=== PATIENT | male | born 1935 | race Caucasian/White ===

== ENCOUNTER → 2016-06-30 | Outpatient (CLI) | payer MEDICARE, BC ==
[2016-06-30 10:40] LABS: CHLORIDE,CL 105 mmol/L (98-110); SODIUM,NA 138 mmol/L (136-146)
== END | disposition home or self-care (01) ==
LOC: MW.CHGS 10:02
PROVIDERS: ATTEND Surgery
DX: Z20.89 Contact with and (suspected) exposure to other communicable diseases (principal); K92.2 Gastrointestinal hemorrhage, unspecified; R15.9 Full incontinence of feces
CPT/HCPCS: 36415; 80053; 85025; 99214

== ENCOUNTER 2017-11-06 07:30 | Day surgery (SDC) | payer MEDICARE, BC ==
[~2017-11-06 07:30] MED LIST: Lactated Ringers 1,000 ML IV SCH
[2017-11-06] MEDS ORDERED: Propofol 200 MG/20 ML SDV ONE (08:29)
[2017-11-06] MEDS ORDERED: fentaNYL 100 MCG/2 ML SDV ONE (08:29)
[2017-11-06] MEDS ORDERED: Midazolam 1 MG/ML 2 ML SDV ONE (08:29)
[2017-11-06] MEDS ORDERED: Lidocaine 2% 5 ML SDV ONE (08:29)
--- NOTE | 2017-11-06 08:30 | PCM.PREANE ---
Preanesthetic Assessment - Anesthesia/Transfusion/Family Hx Anesthesia History: Prior Anesthesia Without Reaction Family History of Anesthesia Reaction: No Transfusion History: No Prior Transfusion(s) Intubation History: Unknown - Review of Systems General: No Symptoms Pulmonary: No Symptoms Cardiovascular: No Symptoms Gastrointestinal: Hematochezia, Other (rectal mass vs. hemorrhoids) Neurological: No Symptoms Other: Reports: None - Physical Assessment NPO Status Date: 11/05/17 NPO Status Time: 23:00 O2 Sat by Pulse Oximetry: 96 Respiratory Rate: 16 Vital Signs: Last Vital Signs Temp 36.4 C 11/06/17 07:50 Pulse 106 H 11/06/17 07:50 Resp 16 11/06/17 07:50 BP 156/86 H 11/06/17 07:50 Pulse Ox 96 11/06/17 07:50 Height: 1.83 m Weight: 94.801 kg ASA Class: 5E Emergency Airway Class: Mallampati = 2 Dentition: Reports: Missing Tooth/Teeth (upper front teeth) Thyro-Mental Finger Breadths: 3 Mouth Opening Finger Breadths: 3 ROM/Head Extension: Limited/Partial Lungs: Clear to Auscultation, Normal Respiratory Effort Cardiovascular: Regular Rate, Regular Rhythm - Allergies Allergies/Adverse Reactions: Allergies Allergy/AdvReac Type Severity Reaction Status Date / Time ipratropium [From Atrovent] Allergy Dizziness Verified 11/01/17 09:46 - Blood Blood Available: No - Anesthesia Plan Pre-Op Medication Ordered: None - Acknowledgements Anesthesia Type Planned: MAC Pt an Appropriate Candidate for the Planned Anesthesia: Yes Alternatives and Risks of Anesthesia Discussed w Pt/Guardian: Yes Pt/Guardian Understands and Agrees with Anesthesia Plan: Yes PreAnesthesia Questionnaire HEENT History: Reports: Allergic Rhinitis, Cataract, Other (See Below) Other HEENT History: wears glasses Cardiovascular History: Reports: None Respiratory History: Reports: None Gastrointestinal History: Reports: GERD Other Gastrointestinal History: indigestion Genitourinary History: Reports: None Musculoskeletal History: Reports: Fracture Neurological History: Reports: None Psychiatric History: Reports: None Endocrine/Metabolic History: Reports: None Hematologic History: Reports: None Immunologic History: Reports: None Oncologic (Cancer) History: Reports: None Dermatologic History: Reports: Other (See Below) Other Dermatologic History: hx of shingles - Infectious Disease History Infectious Disease History: Reports: Chicken Pox, Measles, Shingles - Past Surgical History Head Surgeries/Procedures: Reports: None HEENT Surgical History: Reports: Cataract Surgery GI Surgical History: Reports: Appendectomy Neurological Surgical History: Reports: Lumbar Spine, Spinal Fusion Musculoskeletal Surgical History: Reports: ORIF, Shoulder Surgery Other Musculoskeletal Surgeries/Procedures:: left RTCR, ORIF left wrist- has hardware - SUBSTANCE USE Smoking Status *Q: Former Smoker (quit in ) Recreational Drug Use History: No - HOME MEDS Home Medications: Home Meds Omeprazole 40 mg PO DAILY 11/05/15 [History] Polyethylene Glycol 3350 [MiraLAX] 17 gm PO DAILY 11/05/15 [History] Ascorbate Calcium [Vitamin C] 500 mg PO DAILY 11/01/17 [History] Aspirin [Adult Low Dose Aspirin EC] 81 mg PO DAILY 11/01/17 [History] Dextran 70/Hypromellose [Artificial Tears] 1 drop EYEBOTH ASDIRECTED PRN [History] - CURRENT (IN HOUSE) MEDS Current Meds: Current Medications Lactated Ringer's (Ringers, Lactated) 1,000 mls @ 125 mls/hr IV ASDIRECTED FABIÁN Last Admin: 11/06/17 08:00 Dose: 125 mls/hr
--- NOTE | 2017-11-06 09:40 | PCM.OPNOTE ---
- General Post-Op/Procedure Note Date of Surgery/Procedure: 11/06/17 Operative Procedure(s): Colonoscopy with cold cecal polypectomy 2 Pre Op Diagnosis: Change in bowel function with rectal leakage. Intermittent rectal bleeding. Rectal mass. Post-Op Diagnosis: Cecal polyps 2. Pancolonic diverticulosis. Hemorrhoids. Anesthesia Technique: MAC (ASA II) Primary Surgeon: Adriel Loza Condition: Good Free Text/Narrative:: DICTATION 780019 CPT CODE 42976
[2017-11-06] MEDS ORDERED: Lactated Ringers 1,000 ML IV SCH (09:45)
[2017-11-06 13:27] VITALS: BP 112/64
--- NOTE | 2017-11-06 14:13 | OR ---
SURGEON: Adriel Loza M.D. DATE OF PROCEDURE: 11/06/2017 OPERATION PERFORMED: Colonoscopy with cold ascending colon polypectomy x2. ANESTHESIA: MAC. ASA CLASSIFICATION: II. PREOPERATIVE DIAGNOSES: 1. Change in bowel function. 2. Persistent rectal leakage. 3. Intermittent rectal bleeding. POSTOPERATIVE DIAGNOSES: 1. Cecal polyp x2. 2. Pancolonic diverticulosis. 3. Hemorrhoids. DESCRIPTION OF PROCEDURE: The patient was taken to the endoscopy room and positioned on the endoscopy table in the left lateral decubitus position. Time-out was called for appropriate identification of the patient and procedure. Monitored anesthesia care was provided. The colonoscope was inserted into the rectum and advanced with minimal difficulty to the cecum where the colonoscope was retroflexed to visualize the ascending colon from below. The colonoscope was then straightened and slowly withdrawn. Two small polyps were encountered in the cecum and removed with the cold biopsy forceps. Diverticular changes were noted and scattered throughout the entire length of the colon. The cecum, ascending colon, hepatic flexure, transverse colon, splenic flexure, descending colon, sigmoid colon, and rectum were very well visualized. Two polyps were encountered in the cecum as stated above. No other polyps were encountered. Severe diverticular changes were noted throughout the colon, especially in the sigmoid. Once the colonoscope was withdrawn to the rectum, it was retroflexed to visualize the anal orifice from above. The patient does have internal hemorrhoids. No acute bleeding was noted. The colonoscope was then straightened, the rectum aspirated, and the colonoscope removed. The patient tolerated the procedure well and was taken to recovery room in stable condition. ALEJO / DEBORA /[id number]
== END 2017-11-06 10:50 | disposition home or self-care (01) ==
LOC: MW.SDS 07:30
PROVIDERS: ATTEND Surgery
DX: R19.4 Change in bowel habit (principal); K62.89 Other specified diseases of anus and rectum; D12.0 Benign neoplasm of cecum; K57.30 Diverticulosis of large intestine without perforation or abscess without bleeding; K64.8 Other hemorrhoids; K21.9 Gastro-esophageal reflux disease without esophagitis; Z87.891 Personal history of nicotine dependence; Z79.82 Long term (current) use of aspirin; Z79.899 Other long term (current) drug therapy; Z88.8 Allergy status to other drugs, medicaments and biological substances
CPT/HCPCS: 45380; J2250; J3010; J7120; 00811; 88305; J2704

== ENCOUNTER 2017-11-11 04:11 | Observation (INO) | payer MEDICARE, BC ==
--- NOTE | 2017-11-11 04:13 | EDM.PDOC ---
ED HPI GENERAL MEDICAL PROBLEM - General Stated Complaint: DIZZY Time Seen by Provider: 11/11/17 04:13 Source of Information: Reports: Patient - History of Present Illness INITIAL COMMENTS - FREE TEXT/NARRATIVE: HISTORY AND PHYSICAL: History of present illness: [Patient presents by private vehicle of dizziness Patient was up to the bathroom this evening for urination and became dizzy having vertigo and presents as such On arrival to the emergency room he is stable in no distress he is dizzy and there seems to be a positional component initially with looking down and tilting it to the right, however dizziness resolved for a period will down in CT imaging, on return dizziness also returns at this time it does not seem to have positional component He does not complain of fever nausea vomiting chills sweats no chest pain shortness breath headache or palpitation no urine symptoms she does state that he had recent colonoscopy [address] Loza he has not had a bowel movement last few days he is passing flatness ] Review of systems: As per history of present illness and below otherwise all systems reviewed and negative. Past medical history: As per history of present illness and as reviewed below otherwise noncontributory. Surgical history: As per history of present illness and as reviewed below otherwise noncontributory. Social history: No reported history of drug or alcohol abuse. Family history: As per history of present illness and as reviewed below otherwise noncontributory. Physical exam: HEENT: Atraumatic, normocephalic, pupils reactive, negative for conjunctival pallor or scleral icterus, mucous membranes moist, throat clear, neck supple, nontender, trachea midline. Right ear effusion noted Lungs: Clear to auscultation, breath sounds equal bilaterally, chest nontender. Heart: S1S2, regular, negative for clicks, rubs, or JVD. Abdomen: Soft, nondistended, nontender. Negative for masses or hepatosplenomegaly. Negative for costovertebral tenderness. Pelvis: Stable nontender. Genitourinary: Deferred. Rectal: Deferred. Extremities: Atraumatic, negative for cords or calf pain. Neurovascular unremarkable. Neuro: Awake, alert, oriented. Cranial nerves II through XII unremarkable. Cerebellum unremarkable. Motor and sensory unremarkable throughout. Exam nonfocal. Diagnostics: [CBC CMP UA troponin EKG Chest [address] no contrast iew ] Therapeutics: Normal saline 1 25 mL per hour Reglan 10 mg IV Patient discussed in detail with Dr. 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 - Related Data Allergies Allergy/AdvReac Type Severity Reaction Status Date / Time No Known Allergies Allergy Verified 11/11/17 04:20 Home Meds: Home Meds Omeprazole 40 mg PO DAILY 11/05/15 [History] Polyethylene Glycol 3350 [MiraLAX] 17 gm PO DAILY 11/05/15 [History] Ascorbate Calcium [Vitamin C] 500 mg PO DAILY 11/01/17 [History] Aspirin [Adult Low Dose Aspirin EC] 81 mg PO DAILY 11/01/17 [History] Dextran 70/Hypromellose [Artificial Tears] 1 drop EYEBOTH ASDIRECTED PRN [History] Past Medical History HEENT History: Reports: Allergic Rhinitis, Cataract, Other (See Below) Other HEENT History: wears glasses Cardiovascular History: Reports: None Respiratory History: Reports: None Gastrointestinal History: Reports: GERD Other Gastrointestinal History: indigestion Genitourinary History: Reports: None Musculoskeletal History: Reports: Fracture Neurological History: Reports: None Psychiatric History: Reports: None Endocrine/Metabolic History: Reports: None Hematologic History: Reports: None Immunologic History: Reports: None Oncologic (Cancer) History: Reports: None Dermatologic History: Reports: Other (See Below) Other Dermatologic History: hx of shingles - Infectious Disease History Infectious Disease History: Reports: Chicken Pox, Measles, Shingles - Past Surgical History Head Surgeries/Procedures: Reports: None HEENT Surgical History: Reports: Cataract Surgery GI Surgical History: Reports: Appendectomy Neurological Surgical History: Reports: Lumbar Spine, Spinal Fusion Musculoskeletal Surgical History: Reports: ORIF, Shoulder Surgery Other Musculoskeletal Surgeries/Procedures:: left RTCR, ORIF left wrist- has hardware Social & Family History - Caffeine Use Caffeine Use: Reports: Coffee ED ROS GENERAL - Review of Systems Review Of Systems: See Below ED EXAM, GENERAL - Physical Exam Exam: See Below Course - Vital Signs Last Recorded V/S: Last Vital Signs Temp 97.6 F 11/11/17 04:21 Pulse 89 11/11/17 04:21 Resp 18 11/11/17 04:21 BP 145/93 H 11/11/17 04:21 Pulse Ox 93 L 11/11/17 04:21 - Orders/Labs/Meds Orders: Active Orders 24 hr Category Date Time Status EKG 12 Lead [EKG Documentation Completion] [RC] STAT Care 11/11/17 04:12 Active Chest 1V Frontal [CR] Stat Exams 11/11/17 04:49 Taken Head wo Cont [CT] Stat Exams 11/11/17 04:53 Taken UA W/MICROSCOPIC [URIN] Stat Lab 11/11/17 05:00 Ordered Sodium Chloride 0.9% [Normal Saline] 1,000 ml Med 11/11/17 06:30 Active IV STAT Medication Orders Sodium Chloride (Normal Saline) 1,000 mls @ 125 mls/hr IV STAT FABIÁN Labs: Laboratory Tests 11/11/17 11/11/17 11/11/17 Range/Units 04:29 04:29 05:00 WBC 6.21 (4.0-11.0) K/uL RBC 4.52 (4.50-5.90) M/uL Hgb 14.6 (13.0-17.0) g/dL Hct 42.2 (38.0-50.0) % MCV 93.4 (80.0-98.0) fL MCH 32.3 H (27.0-32.0) pg MCHC 34.6 (31.0-37.0) g/dL RDW Std Deviation 46.6 (28.0-62.0) fl RDW Coeff of Emilee 14 (11.0-15.0) % Plt Count 253 (150-400) K/uL MPV 9.40 (7.40-12.00) fL Neut % (Auto) 56.8 (48.0-80.0) % Lymph % (Auto) 23.0 (16.0-40.0) % [place] % (Auto) 12.6 (0.0-15.0) % Eos % (Auto) 7.4 H (0.0-7.0) % Baso % (Auto) 0.2 (0.0-1.5) % Neut # (Auto) 3.5 (1.4-5.7) K/uL Lymph # (Auto) 1.4 (0.6-2.4) K/uL [place] # (Auto) 0.8 (0.0-0.8) K/uL Eos # (Auto) 0.5 (0.0-0.7) K/uL Baso # (Auto) 0.0 (0.0-0.1) K/uL Nucleated RBC % 0.0 /100WBC Nucleated RBCs # 0 K/uL Sodium 138 (136-148) mmol/L Potassium 4.0 (3.5-5.1) mmol/L Chloride 102 (98-107) mmol/L Carbon Dioxide 25.8 (21.0-32.0) mmol/L BUN 18 (7.0-18.0) mg/dL Creatinine 1.0 (0.8-1.3) mg/dL Est Cr Clr Drug Dosing 63.59 mL/min Estimated GFR (MDRD) > 60.0 ml/min Glucose 139 H (74-106) mg/dL Calcium 9.7 (8.5-10.1) mg/dL Total Bilirubin 0.7 (0.2-1.0) mg/dL AST 26 (15-37) IU/L ALT 33 (14-63) IU/L Alkaline Phosphatase 80 (46-116) U/L Troponin I < 0.050 (0.000-0.056) ng/mL Total Protein 7.5 (6.4-8.2) g/dL Albumin 3.8 (3.4-5.0) g/dL Globulin 3.7 H (2.0-3.5) g/dL Albumin/Globulin Ratio 1.0 L (1.3-2.8) Urine Color YELLOW Urine Appearance CLEAR Urine pH 6.0 (5.0-8.0) Ur Specific [place] 1.025 (1.001-1.035) Urine Protein NEGATIVE (NEGATIVE) mg/dL Urine Glucose (UA) NEGATIVE (NEGATIVE) mg/dL Urine Ketones NEGATIVE (NEGATIVE) mg/dL Urine Occult Blood NEGATIVE (NEGATIVE) Urine Nitrite NEGATIVE (NEGATIVE) Urine Bilirubin NEGATIVE (NEGATIVE) Urine Urobilinogen 0.2 (<2.0) EU/dL Ur Leukocyte Esterase NEGATIVE (NEGATIVE) Urine RBC 0-2 (0-2/HPF) Urine WBC 0-2 (0-5/HPF) Ur Epithelial Cells RARE (NONE-FEW) Urine Bacteria RARE (NEGATIVE) Meds: Medications Generic Name Dose Route Start Last Admin Trade Name Shankar PRN Reason Stop Dose Admin Sodium Chloride 1,000 mls @ 125 mls/hr 11/11/17 06:30 Normal Saline IV STAT FABIÁN Discontinued Medications Generic Name Dose Route Start Last Admin Trade Name Shankar PRN Reason Stop Dose Admin Metoclopramide HCl 10 mg 11/11/17 06:16 Reglan IV 11/11/17 06:17 ONETIME ONE Departure - Departure Time of Disposition: 06:28 Disposition: Refer to Observation Condition: Fair Clinical Impression: Dizziness, Middle ear effusion Constipation Qualifiers: Constipation type: unspecified constipation type Qualified Code(s): K59.00 - Constipation, unspecified - Discharge Information - My Orders Last 24 Hours: My Active Orders 11/11/17 04:12 EKG 12 Lead [EKG Documentation Completion] [RC] STAT 11/11/17 04:49 Chest 1V Frontal [CR] Stat 11/11/17 04:53 Head wo Cont [CT] Stat 11/11/17 05:00 UA W/MICROSCOPIC [URIN] Stat 11/11/17 06:30 Sodium Chloride 0.9% [Normal Saline] 1,000 ml IV STAT - Assessment/Plan Last 24 Hours: My Active Orders 11/11/17 04:12 EKG 12 Lead [EKG Documentation Completion] [RC] STAT 11/11/17 04:49 Chest 1V Frontal [CR] Stat 11/11/17 04:53 Head wo Cont [CT] Stat 11/11/17 05:00 UA W/MICROSCOPIC [URIN] Stat 11/11/17 06:30 Sodium Chloride 0.9% [Normal Saline] 1,000 ml IV STAT
[2017-11-11 05:07] LABS: CHLORIDE,CL 102 mmol/L (98-107); SODIUM,NA 138 mmol/L (136-148)
[2017-11-11] MEDS ORDERED: Metoclopramide 10 MG/2 ML SDV IV ONE (06:16)
[2017-11-11] MEDS ORDERED: Sodium Chloride 0.9% 1,000 ML IV SCH (06:30)
[2017-11-11 11:30] VITALS: BP 129/80
--- NOTE | 2017-11-11 11:40 | PCM.HP ---
H&P History of Present Illness - General Admit Problem/Dx: Admission Diagnosis/Problem Admission Diagnosis/Problem Dizziness - History of Present Illness Initial Comments - Free Text/Narative: 82 yo male presented with dizziness. Patient reports that the room spins and it was worse when ever he would change positions. Patient had a recent colonoscopy and reports has not had a bowel movement in three days. He was evaluated in the ED with head CT which reported no eveidenc of an acute intracranial hemorrhage, mass effect or loss of rojas-white differentiation. 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 Patient's dizziness resolved shortly after presenting to the ED and he had a bowel movement after arrival to medical floor. - Related Data Allergies/Adverse Reactions: Allergies Allergy/AdvReac Type Severity Reaction Status Date / Time No Known Allergies Allergy Verified 11/11/17 04:20 Home Medications: Home Meds Omeprazole 40 mg PO DAILY 11/05/15 [History] Polyethylene Glycol 3350 [MiraLAX] 17 gm PO BEDTIME 11/05/15 [History] Ascorbate Calcium [Vitamin C] 500 mg PO DAILY 11/01/17 [History] Aspirin [Adult Low Dose Aspirin EC] 81 mg PO DAILY 11/01/17 [History] Dextran 70/Hypromellose [Artificial Tears] 1 drop EYEBOTH ASDIRECTED PRN [History] Past Medical History HEENT History: Reports: Allergic Rhinitis, Cataract, Other (See Below) Other HEENT History: wears glasses Cardiovascular History: Reports: None Respiratory History: Reports: None Gastrointestinal History: Reports: GERD Other Gastrointestinal History: indigestion Genitourinary History: Reports: None Musculoskeletal History: Reports: Fracture Neurological History: Reports: None Psychiatric History: Reports: None Endocrine/Metabolic History: Reports: None Hematologic History: Reports: None Immunologic History: Reports: None Oncologic (Cancer) History: Reports: None Dermatologic History: Reports: Other (See Below) Other Dermatologic History: hx of shingles - Infectious Disease History Infectious Disease History: Reports: Chicken Pox, Measles, Shingles - Past Surgical History Head Surgeries/Procedures: Reports: None HEENT Surgical History: Reports: Cataract Surgery GI Surgical History: Reports: Appendectomy Neurological Surgical History: Reports: Lumbar Spine, Spinal Fusion Musculoskeletal Surgical History: Reports: ORIF, Shoulder Surgery Other Musculoskeletal Surgeries/Procedures:: left RTCR, ORIF left wrist- has hardware Social & Family History - Family History Family Medical History: Noncontributory - Tobacco Use Smoking Status *Q: Never Smoker Second Hand Smoke Exposure: No - Caffeine Use Caffeine Use: Reports: Coffee - Recreational Drug Use Recreational Drug Use: No H&P Review of Systems - Review of Systems: Review Of Systems: ROS reveals no pertinent complaints other than HPI. Exam - Vital Signs Vital Signs: Last Vital Signs Temp 36.3 C 11/11/17 11:28 Pulse 88 11/11/17 11:28 Resp 22 H 11/11/17 11:28 BP 129/80 11/11/17 11:28 Pulse Ox 91 L 11/11/17 11:28 Weight: 95.254 kg - Exam General: Alert, Oriented HEENT: Mucosa Moist & [place] Neck: Supple Lungs: Clear to Auscultation, Normal Respiratory Effort Cardiovascular: Regular Rate, Regular Rhythm GI/Abdominal Exam: Normal Bowel Sounds, Soft, Non-Tender Extremities: Non-Tender, No Pedal Edema Skin: Warm, Dry, Intact Neurological: Cranial Nerves Intact, Reflexes Equal Bilateral, Strength Equal Bilateral, Normal Gait - Patient Data Lab Results Last 24 hrs: Laboratory Results - last 24 hr 11/11/17 11/11/17 11/11/17 Range/Units 04:29 04:29 05:00 WBC 6.21 (4.0-11.0) K/uL RBC 4.52 (4.50-5.90) M/uL Hgb 14.6 (13.0-17.0) g/dL Hct 42.2 (38.0-50.0) % MCV 93.4 (80.0-98.0) fL MCH 32.3 H (27.0-32.0) pg MCHC 34.6 (31.0-37.0) g/dL RDW Std Deviation 46.6 (28.0-62.0) fl RDW Coeff of [place] 14 (11.0-15.0) % Plt Count 253 (150-400) K/uL MPV 9.40 (7.40-12.00) fL Neut % (Auto) 56.8 (48.0-80.0) % Lymph % (Auto) 23.0 (16.0-40.0) % [place] % (Auto) 12.6 (0.0-15.0) % Eos % (Auto) 7.4 H (0.0-7.0) % Baso % (Auto) 0.2 (0.0-1.5) % Neut # (Auto) 3.5 (1.4-5.7) K/uL Lymph # (Auto) 1.4 (0.6-2.4) K/uL [place] # (Auto) 0.8 (0.0-0.8) K/uL Eos # (Auto) 0.5 (0.0-0.7) K/uL Baso # (Auto) 0.0 (0.0-0.1) K/uL Nucleated RBC % 0.0 /100WBC Nucleated RBCs # 0 K/uL Sodium 138 (136-148) mmol/L Potassium 4.0 (3.5-5.1) mmol/L Chloride 102 (98-107) mmol/L Carbon Dioxide 25.8 (21.0-32.0) mmol/L BUN 18 (7.0-18.0) mg/dL Creatinine 1.0 (0.8-1.3) mg/dL Est Cr Clr Drug Dosing 63.59 mL/min Estimated GFR (MDRD) > 60.0 ml/min Glucose 139 H (74-106) mg/dL Calcium 9.7 (8.5-10.1) mg/dL Total Bilirubin 0.7 (0.2-1.0) mg/dL AST 26 (15-37) IU/L ALT 33 (14-63) IU/L Alkaline Phosphatase 80 (46-116) U/L Troponin I < 0.050 (0.000-0.056) ng/mL Total Protein 7.5 (6.4-8.2) g/dL Albumin 3.8 (3.4-5.0) g/dL Globulin 3.7 H (2.0-3.5) g/dL Albumin/Globulin Ratio 1.0 L (1.3-2.8) Urine Color YELLOW Urine Appearance CLEAR Urine pH 6.0 (5.0-8.0) Ur Specific [place] 1.025 (1.001-1.035) Urine Protein NEGATIVE (NEGATIVE) mg/dL Urine Glucose (UA) NEGATIVE (NEGATIVE) mg/dL Urine Ketones NEGATIVE (NEGATIVE) mg/dL Urine Occult Blood NEGATIVE (NEGATIVE) Urine Nitrite NEGATIVE (NEGATIVE) Urine Bilirubin NEGATIVE (NEGATIVE) Urine Urobilinogen 0.2 (<2.0) EU/dL Ur Leukocyte Esterase NEGATIVE (NEGATIVE) Urine RBC 0-2 (0-2/HPF) Urine WBC 0-2 (0-5/HPF) Ur Epithelial Cells RARE (NONE-FEW) Urine Bacteria RARE (NEGATIVE) Result Diagrams: 11/11/17 04:29 11/11/17 04:29 Problem List Initiated/Reviewed/Updated: Yes Orders Last 24hrs: Active Orders 24 hr Category Date Time Status Admission Status [Patient Status] [ADT] Stat ADT 11/11/17 06:29 Active EKG 12 Lead [EKG Documentation Completion] [RC] STAT Care 11/11/17 04:12 Active Ready for Discharge [RC] PER UNIT ROUTINE Care 11/11/17 11:34 Ordered Telemetry Monitoring [Cardiac Monitoring] [RC] . Care 11/11/17 06:33 Active DIRECTED PT Evaluation and Treatment [CONS] Routine Cons 11/11/17 07:51 Active Regular Diet [DIET] Diet 11/11/17 Breakfast Active Chest 1V Frontal [CR] Stat Exams 11/11/17 04:49 Taken Head wo Cont [CT] Stat Exams 11/11/17 04:53 Taken UA W/MICROSCOPIC [URIN] Stat Lab 11/11/17 05:00 Ordered Sodium Chloride 0.9% [Normal Saline] 1,000 ml Med 11/11/17 06:30 Active IV STAT Medication Orders Sodium Chloride (Normal Saline) 1,000 mls @ 125 mls/hr IV STAT FABIÁN Last Admin: 11/11/17 06:47 Dose: 125 mls/hr Assessment/Plan Comment:: Patient presented with dizziness and constipation which have both resolved. Dizziness is likely BPPV. Physical therapy was consulted. He was discharged home to have follow up with Dr. Montano regarding the CT scan findings.
--- NOTE | 2017-11-13 12:49 | CR ---
EXAM DATE: 11/11/17 PATIENT'S AGE: 82 Patient: JAYLEN ROLLE Facility: [place], [place] Site . Site : 1935 Study: XRay Chest [id number]/9/[id number] 5:43:53 AM Ordering Physician: Darren Chester Final Report: Indication: Pain. Dizziness Technique: Chest 1 view Comparison: None Findings/Impression: Cardiovascular and mediastinum: Upper limits of normal cardiac size. An ectatic , unfolded aorta. Lungs and pleural space: Lungs are clear. No sign of infiltrate or mass. No sign of pleural effusion. No pneumothorax. Bones and soft tissues: No significant findings. Dictated by Mazin Albright MD @ 11/11/2017 6:05:56 AM Dictated by: Mazin Albright MD @ 11/11/2017 06:06:02 (Electronic Signature) Report Signed by Proxy. MELANIE
--- NOTE | 2017-11-13 12:50 | CT ---
EXAM DATE: 11/11/17 PATIENT'S AGE: 82 Patient: JAYLEN ROLLE Facility: [place], [place] Site . Site : 1935 Study: CT Head [id number]/[id number] 5:44:21 AM Ordering Physician: Darren Chester Final Report: INDICATION: Pain. Dizziness TECHNIQUE: CT head without contrast. COMPARISON: None available FINDINGS: There is age-related cortical atrophy. The ventricles are within normal limits for the patient`s age. There is no mass effect or midline shift. 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 There is no loss of rojas-white differentiation. There is no evidence of an acute intracranial hemorrhage. There is apparent focal ectasia of the right cavernous carotid measuring up to 1.4 x 1.0 centimeters on image 25, apparently mildly protruding into the lateral aspect of the sella. There is a right nasal bone deformity which could be chronic. There is mild right maxillary sinus mucosal thickening. The mastoid air cells are clear. Postsurgical changes are seen in both globes. IMPRESSION: : No evidence of an acute intracranial hemorrhage, mass effect or loss of rojas- white differentiation. 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 Consider further evaluation with MRA or CTA. Dictated by Mazin Albright MD @ 11/11/2017 6:12:38 AM Please note that all CT scans at this facility use dose modulation, iterative reconstruction, and/or weight-based dosing when appropriate to reduce radiation dose to as low as reasonably achievable. Dictated by: Mazin Albright MD @ 11/11/2017 06:12:42 (Electronic Signature) Report Signed by Proxy. [facility]
== END 2017-11-11 13:30 | disposition home or self-care (01) ==
LOC: MW.ED 04:11 → MW.MS 06:29
PROVIDERS: ADMIT Internal Medicine; ATTEND Internal Medicine
DX: R42 Dizziness and giddiness (principal); K21.9 Gastro-esophageal reflux disease without esophagitis; J30.9 Allergic rhinitis, unspecified; Z79.82 Long term (current) use of aspirin; Z79.899 Other long term (current) drug therapy
CPT/HCPCS: 36415; 70450; 71045; 80053; 81001; 84484; 85025; 93005; 96361; 96374; 97161; 99285; G0378; J2765; J7040; 99284

== ENCOUNTER 2018-09-08 13:21 | Emergency (ER) | payer MEDICARE, BC ==
[2018-09-08] MEDS ORDERED: Meclizine 25 MG Tab PO ONE (14:06)
--- NOTE | 2018-09-08 14:09 | EDM.PDOC ---
ED HPI GENERAL MEDICAL PROBLEM - General Chief Complaint: Neuro Symptoms/Deficits Stated Complaint: light headed Time Seen by Provider: 09/08/18 13:41 History Limitations: Reports: No Limitations - History of Present Illness INITIAL COMMENTS - FREE TEXT/NARRATIVE: History of present illness: []Yesterday patient heard a loud pop in his right ear like a gun went off. There was no loud noises. This morning and has dizziness when he turns his head. He has pain inside his ear and on the right side of his scalp. Patient has had shingles in that same distribution in the past. Review of systems: As per history of present illness and below otherwise all systems reviewed and negative. Past medical history: As per history of present illness and as reviewed below otherwise noncontributory. Surgical history: As per history of present illness and as reviewed below otherwise noncontributory. Social history: No reported history of drug or alcohol abuse. Family history: As per history of present illness and as reviewed below otherwise noncontributory. Physical exam: General: Well developed, well nourished in NAD HEENT: Atraumatic, normocephalic, pupils reactive, negative for conjunctival pallor or scleral icterus, mucous membranes moist, throat clear, neck supple, nontender, trachea midline. TMs clear scalp tender to palpation on the right side from forehead to posterior, no rash noted Lungs: Clear to auscultation, breath sounds equal bilaterally, chest nontender. Heart: S1S2, regular, negative for clicks, rubs, or JVD. Abdomen: NABS, Soft, nondistended, nontender. Negative for masses or hepatosplenomegaly. Negative for costovertebral tenderness. Pelvis: Stable nontender. Genitourinary: Deferred. Rectal: Deferred. Extremities: Atraumatic, negative for cords or calf pain. Neurovascular unremarkable. Neuro: Awake, alert, oriented. Cranial nerves II through XII unremarkable. Cerebellum unremarkable. Motor and sensory unremarkable throughout. Exam nonfocal. Skin:warm and dry Diagnostics: CT head, EKG, CBC, chemistry all negative Therapeutics: Meclizine ED Course: Stable Impression: Right ear pain and scalp pain possibly early shingles Prescriptions: Acyclovir Plan: Take meds as directed, follow up with your primary care physician, return to ER if symptoms worsen or change. Definitive disposition and diagnosis as appropriate pending reevaluation and review of above. - Related Data Allergies Allergy/AdvReac Type Severity Reaction Status Date / Time No Known Allergies Allergy Verified 09/08/18 13:30 Home Meds: Home Meds Acyclovir [Zovirax] 800 mg PO 5XDAY #50 tab 09/08/18 [Rx] Past Medical History HEENT History: Reports: Allergic Rhinitis, Cataract, Other (See Below) Other HEENT History: wears glasses Cardiovascular History: Reports: None Respiratory History: Reports: None Gastrointestinal History: Reports: GERD Other Gastrointestinal History: indigestion Genitourinary History: Reports: None Musculoskeletal History: Reports: Fracture Neurological History: Reports: None Psychiatric History: Reports: None Endocrine/Metabolic History: Reports: None Hematologic History: Reports: None Immunologic History: Reports: None Oncologic (Cancer) History: Reports: None Dermatologic History: Reports: Other (See Below) Other Dermatologic History: hx of shingles - Infectious Disease History Infectious Disease History: Reports: Chicken Pox, Measles, Shingles - Past Surgical History Head Surgeries/Procedures: Reports: None HEENT Surgical History: Reports: Cataract Surgery GI Surgical History: Reports: Appendectomy Neurological Surgical History: Reports: Lumbar Spine, Spinal Fusion Musculoskeletal Surgical History: Reports: ORIF, Shoulder Surgery Other Musculoskeletal Surgeries/Procedures:: left RTCR, ORIF left wrist- has hardware Social & Family History - Family History Family Medical History: Noncontributory - Tobacco Use Smoking Status *Q: Never Smoker - Caffeine Use Caffeine Use: Reports: Coffee - Recreational Drug Use Recreational Drug Use: No ED ROS GENERAL - Review of Systems Review Of Systems: ROS reveals no pertinent complaints other than HPI. - Physical Exam Exam: See Below (The history of present illness) Course - Vital Signs Last Recorded V/S: Last Vital Signs Temp 97.8 F 09/08/18 13:26 Pulse 103 H 09/08/18 13:26 Resp 16 09/08/18 13:26 BP 146/95 H 09/08/18 13:26 Pulse Ox 98 09/08/18 13:26 - Orders/Labs/Meds Orders: Active Orders 24 hr Category Date Time Status EKG 12 Lead [EKG Documentation Completion] [RC] STAT Care 09/08/18 13:49 Active Labs: Laboratory Tests 09/08/18 09/08/18 Range/Units 14:35 14:35 WBC 6.45 (4.0-11.0) K/uL RBC 4.63 (4.50-5.90) M/uL Hgb 14.6 (13.0-17.0) g/dL Hct 43.0 (38.0-50.0) % MCV 92.9 (80.0-98.0) fL MCH 31.5 (27.0-32.0) pg MCHC 34.0 (31.0-37.0) g/dL RDW Std Deviation 46.4 (28.0-62.0) fl RDW Coeff of [place]ilee 14 (11.0-15.0) % Plt Count 247 (150-400) K/uL MPV 9.50 (7.40-12.00) fL Neut % (Auto) 61.9 (48.0-80.0) % Lymph % (Auto) 20.5 (16.0-40.0) % [place] % (Auto) 11.2 (0.0-15.0) % Eos % (Auto) 6.2 (0.0-7.0) % Baso % (Auto) 0.2 (0.0-1.5) % Neut # (Auto) 4.0 (1.4-5.7) K/uL Lymph # (Auto) 1.3 (0.6-2.4) K/uL [place] # (Auto) 0.7 (0.0-0.8) K/uL Eos # (Auto) 0.4 (0.0-0.7) K/uL Baso # (Auto) 0.0 (0.0-0.1) K/uL Nucleated RBC % 0.0 /100WBC Nucleated RBCs # 0 K/uL Sodium 135 L (136-148) mmol/L Potassium 4.4 (3.5-5.1) mmol/L Chloride 101 (98-107) mmol/L Carbon Dioxide 22.9 (21.0-32.0) mmol/L BUN 15 (7.0-18.0) mg/dL Creatinine 0.9 (0.8-1.3) mg/dL Est Cr Clr Drug Dosing 71.52 mL/min Estimated GFR (MDRD) > 60.0 ml/min Glucose 106 (74-106) mg/dL Calcium 9.5 (8.5-10.1) mg/dL Total Bilirubin 0.9 (0.2-1.0) mg/dL AST 24 (15-37) IU/L ALT 35 (14-63) IU/L Alkaline Phosphatase 73 (46-116) U/L Total Protein 7.6 (6.4-8.2) g/dL Albumin 3.6 (3.4-5.0) g/dL Globulin 4.0 (2.6-4.0) g/dL Albumin/Globulin Ratio 0.9 (0.9-1.6) Meds: Medications Discontinued Medications Generic Name Dose Route Start Last Admin Trade Name Freq PRN Reason Stop Dose Admin Meclizine HCl 25 mg 09/08/18 14:06 09/08/18 14:27 Antivert PO 09/08/18 14:07 25 mg ONETIME ONE Administration Meclizine HCl Confirm 09/08/18 14:29 09/08/18 14:56 Antivert Administered 09/08/18 14:30 Not Given Dose 25 mg .ROUTE .STK-MED ONE Departure - Departure Time of Disposition: 15:17 Disposition: Home, Self-Care 01 Condition: Good Clinical Impression: Right ear pain, Shingles (herpes zoster) polyneuropathy - Discharge Information *PRESCRIPTION DRUG MONITORING PROGRAM REVIEWED*: Not Applicable *COPY OF PRESCRIPTION DRUG MONITORING REPORT IN PATIENT ALLEN: Not Applicable Prescriptions: Acyclovir [Zovirax] 800 mg PO 5XDAY #50 tab Referrals: PCP,None [Primary Care Provider] - Forms: ED Department Discharge Additional Instructions: The following information is given to patients seen in the emergency department who are being discharged to home. This information is to outline your options for follow-up care. We provide all patients seen in our emergency department with a follow-up referral. The need for follow-up, as well as the timing and circumstances, are variable depending upon the specifics of your emergency department visit. If you don't have a primary care physician on staff, we will provide you with a referral. We always advise you to contact your personal physician following an emergency department visit to inform them of the circumstance of the visit and for follow-up with them and/or the need for any referrals to a consulting specialist. The emergency department will also refer you to a specialist when appropriate. This referral assures that you have the opportunity for follow-up care with a specialist. All of these measure are taken in an effort to provide you with optimal care, which includes your follow-up. Under all circumstances we always encourage you to contact your private physician who remains a resource for coordinating your care. When calling for follow-up care, please make the office aware that this follow-up is from your recent emergency room visit. If for any reason you are refused follow-up, please contact the [facility] at and asked to speak to the emergency department charge nurse. Take meds as directed, follow up with your primary care physician, return to ER if symptoms worsen or change. [facility] [address] [place] [id number] - My Orders Last 24 Hours: My Active Orders 09/08/18 13:49 EKG 12 Lead [EKG Documentation Completion] [RC] STAT - Assessment/Plan Last 24 Hours: My Active Orders 09/08/18 13:49 EKG 12 Lead [EKG Documentation Completion] [RC] STAT
[2018-09-08] MEDS ORDERED: Meclizine 25 MG Tab ONE (14:29)
[2018-09-08 15:07] LABS: CHLORIDE,CL 101 mmol/L (98-107); SODIUM,NA 135 mmol/L (136-148)
--- NOTE | 2018-09-08 15:09 | CT ---
INDICATION: Dizziness. TECHNIQUE: Noncontrast head CT. COMPARISON: November 11, 2017. FINDINGS: There is no evidence for acute intracranial hemorrhage, hydrocephalus, mass effect, or shift of midline structures. No evidence for acute ischemic change or infarction. The rojas-white matter junction is preserved. 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 Please correlate with any recent CT angiogram or MR angiogram. No calvarial or skullbase fracture. The included paranasal sinuses and mastoid air cells are clear. IMPRESSION: 1. Chronic age related changes intracranially. 2. No calvarial or skullbase fracture. 3. 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 Please correlate with any previous CT or MR angiogram. Please note that all CT scans at this facility use dose modulation, iterative reconstruction, and/or weight-based dosing when appropriate to reduce radiation dose to as low as reasonably achievable. Dictated by Girma Kearns MD @ Sep 08 2018 3:03PM Signed by Dr. Girma Kearns @ Sep 08 2018 3:06PM
[2018-09-08 16:33] VITALS: BP 140/92
== END 2018-09-08 15:41 | disposition home or self-care (01) ==
LOC: MW.ED 13:21
DX: B02.9 Zoster without complications (principal); H92.01 Otalgia, right ear
CPT/HCPCS: 36415; 70450; 80053; 85025; 93005; 99284; A9270; 99283

== ENCOUNTER 2019-07-27 17:58 | Emergency (ER) | payer MEDICARE, BC ==
[2019-07-27] MEDS ORDERED: Sodium Chloride 0.9% 10 ML Syringe FLUSH PRN (18:20)
[2019-07-27] MEDS ORDERED: Sodium Chloride 0.9% 2.5 ML Syringe FLUSH PRN (18:20)
[2019-07-27] MEDS ORDERED: Sodium Chloride 0.9% 10 ML SDV IV PRN (18:20)
[2019-07-27 18:42] LABS: BLOOD UREA NITROGEN,BUN 13 mg/dL (7.0-18.0); CHLORIDE,CL 99 mmol/L (98-107); GLUCOSE RANDOM 131 mg/dL (74-106); POTASSIUM,K 4.8 mmol/L (3.5-5.1); SODIUM,NA 135 mmol/L (136-148)
--- NOTE | 2019-07-27 18:58 | CR ---
Chest: AP portable view of the chest was obtained. Comparison: Prior chest x-ray of 11/11/17. Heart is enlarged. Pulmonary vessels are congested. Small bilateral pleural effusions are suspected. Degenerative change is noted within both shoulders. Mild scoliosis and degenerative change is noted within the spine. Impression: 1. Findings as noted above which are felt compatible with early CHF. Diagnostic code #3 Study was dictated in [place] Standard Time
[2019-07-27] MEDS ORDERED: Metoprolol Succinate 25 MG Tab.ER PO ONE (19:21)
[2019-07-27] MEDS ORDERED: Furosemide 40 MG Tab PO ONE (19:21)
[2019-07-27] MEDS ORDERED: Potassium Chloride 20 MEQ Tab.ER PO ONE (19:22)
--- NOTE | 2019-07-27 19:31 | EDM.PDOC ---
ED HPI GENERAL MEDICAL PROBLEM - General Chief Complaint: Respiratory Problem Stated Complaint: short of breath Time Seen by Provider: 07/27/19 19:00 Source of Information: Reports: Patient, Significant Other - History of Present Illness INITIAL COMMENTS - FREE TEXT/NARRATIVE: The patient is an 84-year-old male who presents to the ER for shortness of breath. The patient states that this is been ongoing for 4 weeks. No chest pain. No fevers, no leg swelling, no cough, no hemoptysis, no other acute complaints for some intermittent abdominal bloating without pain. He states that he has seen his primary care physician for this and he has had multiple tests such as blood work, CT angiogram of the chest, as well as some other tests but they have not come up with a diagnosis yet. He states that the shortness of breath is there throughout the day intermittently but it is worse at night when he tries to lay flat and it is better if he sits up. Tonight he had another episode where he felt short of breath so he came in. He is feeling better at the moment. - Related Data Allergies Allergy/AdvReac Type Severity Reaction Status Date / Time No Known Allergies Allergy Verified 07/27/19 18:06 Home Meds: Home Meds Furosemide [Lasix] 40 mg PO DAILY 30 Days #30 tab 07/27/19 [Rx] Metoprolol Succinate [Toprol XL] 25 mg PO BEDTIME 30 Days #30 tab.er 07/27/19 [ Rx] Omeprazole 07/27/19 [History] Potassium Chloride 20 meq PO DAILY 30 Days #30 tablet.er 07/27/19 [Rx] Past Medical History HEENT History: Reports: Allergic Rhinitis, Cataract, Other (See Below) Other HEENT History: wears glasses Cardiovascular History: Reports: None Respiratory History: Reports: None Gastrointestinal History: Reports: GERD Other Gastrointestinal History: indigestion Genitourinary History: Reports: None Musculoskeletal History: Reports: Fracture Neurological History: Reports: None Psychiatric History: Reports: None Endocrine/Metabolic History: Reports: None Hematologic History: Reports: None Immunologic History: Reports: None Oncologic (Cancer) History: Reports: None Dermatologic History: Reports: Other (See Below) Other Dermatologic History: hx of shingles - Infectious Disease History Infectious Disease History: Reports: Chicken Pox, Measles, Shingles - Past Surgical History Head Surgeries/Procedures: Reports: None HEENT Surgical History: Reports: Cataract Surgery GI Surgical History: Reports: Appendectomy Neurological Surgical History: Reports: Lumbar Spine, Spinal Fusion Musculoskeletal Surgical History: Reports: ORIF, Shoulder Surgery Other Musculoskeletal Surgeries/Procedures:: left RTCR, ORIF left wrist- has hardware Social & Family History - Family History Family Medical History: Noncontributory - Tobacco Use Smoking Status *Q: Never Smoker - Caffeine Use Caffeine Use: Reports: None - Recreational Drug Use Recreational Drug Use: No ED ROS GENERAL - Review of Systems Review Of Systems: See Below (Positive for shortness of breath, positive orthopnea, negative for chest pain, negative for cough, negative for fevers, all other Positives and pertinent negatives as per HPI. All other pertinent systems were reviewed and are negative) ED EXAM, GENERAL - Physical Exam Exam: See Below Free Text/Narrative:: Constitutional: Elderly, no acute distress, Non-toxic appearance HEENT.: Normocephalic, Atraumatic, PERRL, EOMI, External ears are atraumatic, nares are patent without epistaxis Neck: Normal range of motion, Trachea Midline, No stridor Respiratory.: No respiratory distress, No tachypnea, Lungs Clear to Auscultation bilaterally without wheezes, there are some crackles in the bases on inspiration Cardiovascular.: Mildly tachycardic rate and regular rhythm without murmurs, rubs, or gallops, good peripheral perfusion GI: Obese, abdomen soft and non tender Genital Urinary: Deferred Musculoskeletal: Good range of motion. All 4 extremities present and atraumatic , trace edema Back: Full Range of Motion Skin: Warm, Dry, Color is ethnicity appropriate, No acute rash. Lymphatic: No lymphadenopathy noted Neurological: Alert, Awake and oriented x 3, No focal deficits noted appreciate , GCS 15 Psych: Affect, Judgement, mood normal Course - Vital Signs Text/Narrative:: Upon presentation a work-up had been initiated and this included an ECG which was reviewed and interpreted by me -there are P waves before every QRS with a regular ventricular rate of 112 bpm. [place] intervals are unremarkable, QRS is prolonged, there are prominent S waves in leads I and aVL, prominent R waves in the inferior leads, poor R wave progression, and RSR pattern in the anterior leads. There is slight ST segment depression in the lateral leads but the T wave morphology is unremarkable. Final interpretation is a normal sinus tachycardic rhythm with a fascicular block and some early strain but no acute ischemic changes. Chest x-ray is reviewed and interpreted by me -there are no pulmonary infiltrates, no pneumothorax, no thoracic masses, there does appear to be vascular congestion and some mild bilateral pleural effusions consistent with congestive heart failure Lab work was unremarkable from an emergency standpoint. BNP had not been obtained as my shift starts at 1900 and all of the lab work has already been ordered. The patient and her in detail, as his history and exam are consistent with mild chronic congestive heart failure. Medical follow-up in this region is difficult and this includes cardiology. As I do not feel that the patient is exhibiting any type of acute emergency, the patient is doing better as he is definitely orthopneic, I believe that I can start this patient at least on some diuretics and beta-blockers which is standard for mild congestive heart failure , along with some potassium replacement and he will be stable to follow-up with his primary care physician who can refer him to a insulator helper in the region. Last Recorded V/S: Last Vital Signs Temp 36.5 C 07/27/19 18:10 Pulse 114 H 07/27/19 18:10 Resp 18 07/27/19 18:10 BP 134/86 07/27/19 18:10 Pulse Ox 98 07/27/19 18:10 - Orders/Labs/Meds Orders: Active Orders 24 hr Category Date Time Status Cardiac Monitoring [RC] . DIRECTED Care 07/27/19 18:20 Active EKG Documentation Completion [RC] STAT Care 07/27/19 18:20 Active Metoprolol Succinate [Toprol XL] Med 07/27/19 19:21 Once 25 mg PO ONETIME ONE Potassium Chloride [Klor-Con M20] Med 07/27/19 19:22 Once 20 meq PO ONETIME ONE Sodium Chloride 0.9% [Normal Saline] Med 07/27/19 18:20 Active 10 ml IV ASDIRECTED PRN Sodium Chloride 0.9% [Saline Flush] Med 07/27/19 18:20 Active 10 ml FLUSH ASDIRECTED PRN Sodium Chloride 0.9% [Saline Flush] Med 07/27/19 18:20 Active 2.5 ml FLUSH ASDIRECTED PRN Peripheral IV Insertion Adult [OM.PC] Stat Oth 07/27/19 18:20 Ordered Medication Orders Furosemide (Lasix) 40 mg PO ONETIME ONE Stop: 07/27/19 19:22 Metoprolol Succinate (Toprol Xl) 25 mg PO ONETIME ONE Stop: 07/27/19 19:22 Potassium Chloride (Klor-Con M20) 20 meq PO ONETIME ONE Stop: 07/27/19 19:23 Sodium Chloride (Saline Flush) 10 ml FLUSH ASDIRECTED PRN PRN Reason: Keep Vein Open Sodium Chloride (Saline Flush) 2.5 ml FLUSH ASDIRECTED PRN PRN Reason: Keep Vein Open Sodium Chloride (Normal Saline) 10 ml IV ASDIRECTED PRN PRN Reason: IV Use Labs: Laboratory Tests 07/27/19 07/27/19 07/27/19 Range/Units 18:10 18:10 18:10 WBC 6.75 (4.0-11.0) K/uL RBC 4.41 L (4.50-5.90) M/uL Hgb 14.1 (13.0-17.0) g/dL Hct 41.9 (38.0-50.0) % MCV 95.0 (80.0-98.0) fL MCH 32.0 (27.0-32.0) pg MCHC 33.7 (31.0-37.0) g/dL RDW Std Deviation 49.0 (28.0-62.0) fl RDW Coeff of [place] 14 (11.0-15.0) % Plt Count 307 (150-400) K/uL MPV 10.50 (7.40-12.00) fL Neut % (Auto) 70.1 (48.0-80.0) % Lymph % (Auto) 13.3 L (16.0-40.0) % [place] % (Auto) 12.6 (0.0-15.0) % Eos % (Auto) 3.7 (0.0-7.0) % Baso % (Auto) 0.3 (0.0-1.5) % Neut # (Auto) 4.7 (1.4-5.7) K/uL Lymph # (Auto) 0.9 (0.6-2.4) K/uL [place] # (Auto) 0.9 H (0.0-0.8) K/uL Eos # (Auto) 0.3 (0.0-0.7) K/uL Baso # (Auto) 0.0 (0.0-0.1) K/uL Nucleated RBC % 0.0 /100WBC Nucleated RBCs # 0 K/uL INR 1.12 Sodium 135 L (136-148) mmol/L Potassium 4.8 (3.5-5.1) mmol/L Chloride 99 (98-107) mmol/L Carbon Dioxide 27.0 (21.0-32.0) mmol/L BUN 13 (7.0-18.0) mg/dL Creatinine 1.2 (0.8-1.3) mg/dL Est Cr Clr Drug Dosing 51.19 mL/min Estimated GFR (MDRD) 57.8 ml/min Glucose 131 H (74-106) mg/dL Calcium 9.9 (8.5-10.1) mg/dL Total Bilirubin 1.1 H (0.2-1.0) mg/dL AST 21 (15-37) IU/L ALT 23 (14-63) IU/L Alkaline Phosphatase 89 (46-116) U/L Troponin I < 0.050 (0.000-0.056) ng/mL Total Protein 7.7 (6.4-8.2) g/dL Albumin 3.8 (3.4-5.0) g/dL Globulin 3.9 (2.6-4.0) g/dL Albumin/Globulin Ratio 1.0 (0.9-1.6) Meds: Medications Generic Name Dose Route Start Last Admin Trade Name Freq PRN Reason Stop Dose Admin Furosemide 40 mg 07/27/19 19:21 Lasix PO 07/27/19 19:22 ONETIME ONE Metoprolol Succinate 25 mg 07/27/19 19:21 Toprol Xl PO 07/27/19 19:22 ONETIME ONE Potassium Chloride 20 meq 07/27/19 19:22 Klor-Con M20 PO 07/27/19 19:23 ONETIME ONE Sodium Chloride 10 ml 07/27/19 18:20 Saline Flush FLUSH ASDIRECTED PRN Keep Vein Open Sodium Chloride 2.5 ml 07/27/19 18:20 Saline Flush FLUSH ASDIRECTED PRN Keep Vein Open Sodium Chloride 10 ml 07/27/19 18:20 Normal Saline IV ASDIRECTED PRN IV Use Departure - Departure Time of Disposition: 19:38 Disposition: Home, Self-Care 01 Condition: Good, Fair Clinical Impression: Chronic congestive heart failure - Discharge Information Referrals: PCP,None [Primary Care Provider] - Additional Instructions: Follow-up closely with your primary care physician and tell him that you need a referral to a insulator helper. The medications prescribed to you are usually used in mild early congestive heart failure you have a 1 month supply. Return if you feel like you are getting worse, you are having chest pain or any other concerns. Sepsis Event Note - Evaluation Sepsis Screening Result: No Definite Risk - Focused Exam Vital Signs: Vital Signs Temp Pulse Resp BP Pulse Ox 07/27/19 18:10 36.5 C 114 H 18 134/86 98 Date Exam was Performed: 07/27/19 Time Exam was Performed: 19:23 - My Orders Last 24 Hours: My Active Orders 07/27/19 19:21 Metoprolol Succinate [Toprol XL] 25 mg PO ONETIME ONE 07/27/19 19:22 Potassium Chloride [Klor-Con M20] 20 meq PO ONETIME ONE - Assessment/Plan Last 24 Hours: My Active Orders 07/27/19 19:21 Metoprolol Succinate [Toprol XL] 25 mg PO ONETIME ONE 07/27/19 19:22 Potassium Chloride [Klor-Con M20] 20 meq PO ONETIME ONE
[2019-07-27 19:52] VITALS: BP 120/85; PULSE 106
== END 2019-07-27 19:50 | disposition home or self-care (01) ==
LOC: MW.ED 17:58
DX: I50.9 Heart failure, unspecified (principal); K21.9 Gastro-esophageal reflux disease without esophagitis; Z79.899 Other long term (current) drug therapy
CPT/HCPCS: 36415; 71045; 80053; 84484; 85025; 85610; 93005; 99285; A9270; 99284

== ENCOUNTER 2019-08-10 14:25 | Emergency (ER) | payer MEDICARE, BC ==
--- NOTE | 2019-08-10 15:17 | CR ---
Chest: 2 views of the chest were obtained. Comparison: Prior chest x-ray of 07/27/19. Heart is enlarged. Tortuous thoracic aorta is seen. Lungs are slightly hyperinflated suggesting emphysematous change. No acute parenchymal change is appreciated. Mild degenerative change is scattered throughout the spine. Impression: 1. Cardiomegaly. 2. Possible emphysematous change. 3. Nothing acute is otherwise seen. Diagnostic code #2 Study was dictated in [place] Standard Time
[2019-08-10 15:49] LABS: BLOOD UREA NITROGEN,BUN 23 mg/dL (7.0-18.0); CARBON DIOXIDE,CO2 24.2 mmol/L (21.0-32.0); CHLORIDE,CL 95 mmol/L (98-107); GLUCOSE RANDOM 138 mg/dL (74-106); POTASSIUM,K 5.2 mmol/L (3.5-5.1); SODIUM,NA 130 mmol/L (136-148)
--- NOTE | 2019-08-10 16:42 | EDM.PDOC ---
ED HPI GENERAL MEDICAL PROBLEM - General Chief Complaint: Respiratory Problem Stated Complaint: SHORTNESS OF BREATH Time Seen by Provider: 08/10/19 14:35 - History of Present Illness INITIAL COMMENTS - FREE TEXT/NARRATIVE: HPI 84-year-old male former smoker with a history of CHF presents for evaluation of approximately 3 months of sensation of shortness of breath both at rest and is exacerbated by exercise, patient is being followed by his PCP but notes worsening symptoms today and presented for repeat evaluation. * PE risk factors: denies recent immobilization, leg trauma, estrogen use, surgery in the last four weeks, hemoptysis, or malignancy in the last 6 months. * Inhaler(s): none prescribed. * CHF: denies weight gain, endorses orthopnea, medical record notes Lasix. M/S/F/SocHx notable for: please see HPI; remainder reviewed with patient and in chart. ROS: Negative constitutional, eye, cardiovascular, pulmonary, GI, , MSK, skin , neurologic, psychiatric, endocrine unless noted in the HPI. Exam HR 94, RR 20, BP 112/75, T 35.7C, SaO2 98% on room air. Gen: Pleasant, non-toxic appearing, resting comfortably. HEENT: NC, AT, PEERL, EOMI, trachea midline. Resp: Clear to auscultation bilaterally, normal work of breathing. Card: RRR with no M/R/G, no crackles in lung bases, no pedal edema, no JVD appreciated. GI: NT/ND Vascular: Both ankles, calves, and thighs of equal size, no calf tenderness to palpation bilaterally. MSK: No chest wall TTP. No visible deformities, strength and tone WNL. Skin: Normal color with no visible lesions. Neuro: alert and oriented 3, no facial asymmetry, vision and hearing WNL. Psych: Mood and affect appropriate. Labs / Imaging (pertinent): WBC 7.61, HB 14.1, d-dimer 0.64, sodium 130, potassium 5.2, creatinine 1.1, troponin <0.050 EKG: SR at 83 bpm, RBBB with LPFB. CXR: cardiomegaly. Possible emphysematous changes. Nothing acute is otherwise seen. MDM Previous chart, nursing note, and vitals reviewed. A: 84-year-old male former smoker with a history of CHF presents for evaluation of approximately 3 months of sensation of shortness of breath both at rest and is exacerbated by exercise, patient is being followed by his PCP but notes worsening symptoms today and presented for repeat evaluation. DDx: pneumonia, reactive airway disease / COPD / Asthma, bronchitis, pneumothorax, anxiety, PE, CHF, pleural effusion, pericardial effusion, ACS. Evaluation: * Pneumonia - as the CXR is without focal infiltrate and the patient is afebrile and without significant sputum production, doubt pneumonia. * Reactive airway disease / COPD / Asthma - patient with good air movement and an absence of wheezing. * Bronchitis - doubt given the lack of productive cough or systemic symptoms. * Pneumothorax - no evidence by CXR. * Anxiety - patient clinically without evidence of appreciable anxiety on exam. * PE Wells' (Signs & Sx of DVT - 0, PE is #1 or equally likelihood - 0, HR > 100 - 0, immobilization of >=3 days or surgery in last 28 days - 0, prior DVT or PE - 0, hemoptysis - 0, malignancy w/ tx in last 6 mo or palliative - 0) 0; as such the patients negative (age adjusted) d-dimer is appropriate for PE rule out/risk stratification. * CHF - no evidence by auscultation, CXR, and absence of pedal edema. * Pleural effusion - CXR without evidence of effusions. * Pericardial effusion - doubt pericardial effusion given an alternate diagnosis , the lack of cardiomegaly on CXR and normal heart sounds. * ACS - doubt ACS given a non-ischemic EKG and a negative troponin greater than six hours from maximal symptom onset. Unstable angina was also considered, however the symptom constellation is highly atypical patient is already receiving excessive, and apparently appropriate, ongoing outpatient evaluation for symptoms. ED Course: patient normoxemic throughout his ED course. Vital signs stable within acceptable limits. Disposition: discharged with PCP and pulmonology follow-up recommended. Impression: shortness of breath. - Related Data Allergies Allergy/AdvReac Type Severity Reaction Status Date / Time No Known Allergies Allergy Verified 07/27/19 18:06 Home Meds: Home Meds Furosemide [Lasix] 40 mg PO DAILY 30 Days #30 tab 07/27/19 [Rx] Metoprolol Succinate [Toprol XL] 25 mg PO BEDTIME 30 Days #30 tab.er 07/27/19 [ Rx] Omeprazole 02/22/20 [History] Potassium Chloride 20 meq PO DAILY 30 Days #30 tablet.er 07/27/19 [Rx] Past Medical History HEENT History: Reports: Allergic Rhinitis, Cataract, Other (See Below) Other HEENT History: wears glasses Cardiovascular History: Reports: None Respiratory History: Reports: None Gastrointestinal History: Reports: GERD Other Gastrointestinal History: indigestion Genitourinary History: Reports: None Musculoskeletal History: Reports: Fracture Neurological History: Reports: None Psychiatric History: Reports: None Endocrine/Metabolic History: Reports: None Hematologic History: Reports: None Immunologic History: Reports: None Oncologic (Cancer) History: Reports: None Dermatologic History: Reports: Other (See Below) Other Dermatologic History: hx of shingles - Infectious Disease History Infectious Disease History: Reports: Chicken Pox - Past Surgical History Head Surgeries/Procedures: Reports: None HEENT Surgical History: Reports: Cataract Surgery GI Surgical History: Reports: Appendectomy Neurological Surgical History: Reports: Lumbar Spine, Spinal Fusion Musculoskeletal Surgical History: Reports: ORIF, Shoulder Surgery Other Musculoskeletal Surgeries/Procedures:: left RTCR, ORIF left wrist- has hardware Social & Family History - Family History Family Medical History: Noncontributory - Tobacco Use Smoking Status *Q: Never Smoker - Caffeine Use Caffeine Use: Reports: None - Recreational Drug Use Recreational Drug Use: No ED ROS GENERAL - Review of Systems Review Of Systems: See Below ED EXAM, GENERAL - Physical Exam Exam: See Below Course - Vital Signs Last Recorded V/S: Last Vital Signs Temp 35.7 C L 08/10/19 14:37 Pulse 94 08/10/19 16:25 Resp 18 08/10/19 16:25 BP 106/76 08/10/19 16:25 Pulse Ox 96 08/10/19 16:25 - Orders/Labs/Meds Orders: Active Orders 24 hr Category Date Time Status EKG 12 Lead [EKG Documentation Completion] [RC] STAT Care 08/10/19 14:55 Active Labs: Laboratory Tests 08/10/19 08/10/19 08/10/19 Range/Units 15:15 15:15 15:15 WBC 7.61 (4.0-11.0) K/uL RBC 4.53 (4.50-5.90) M/uL Hgb 14.1 (13.0-17.0) g/dL Hct 43.5 (38.0-50.0) % MCV 96.0 (80.0-98.0) fL MCH 31.1 (27.0-32.0) pg MCHC 32.4 (31.0-37.0) g/dL RDW Std Deviation 48.7 (28.0-62.0) fl RDW Coeff of Emilee 14 (11.0-15.0) % Plt Count 292 (150-400) K/uL MPV 10.40 (7.40-12.00) fL Neut % (Auto) 80.0 (48.0-80.0) % Lymph % (Auto) 9.5 L (16.0-40.0) % [place] % (Auto) 9.3 (0.0-15.0) % Eos % (Auto) 0.9 (0.0-7.0) % Baso % (Auto) 0.3 (0.0-1.5) % Neut # (Auto) 6.1 H (1.4-5.7) K/uL Lymph # (Auto) 0.7 (0.6-2.4) K/uL [place] # (Auto) 0.7 (0.0-0.8) K/uL Eos # (Auto) 0.1 (0.0-0.7) K/uL Baso # (Auto) 0.0 (0.0-0.1) K/uL Nucleated RBC % 0.0 /100WBC Nucleated RBCs # 0 K/uL D-Dimer, Quantitative 0.64 H (0.0-0.50) mg/L FEU Sodium 130 L (136-148) mmol/L Potassium 5.2 H (3.5-5.1) mmol/L Chloride 95 L (98-107) mmol/L Carbon Dioxide 24.2 (21.0-32.0) mmol/L BUN 23 H (7.0-18.0) mg/dL Creatinine 1.1 (0.8-1.3) mg/dL Est Cr Clr Drug Dosing 55.85 mL/min Estimated GFR (MDRD) > 60.0 ml/min Glucose 138 H (74-106) mg/dL Calcium 10.1 (8.5-10.1) mg/dL Troponin I < 0.050 (0.000-0.056) ng/mL B-Natriuretic Peptide (<100) PG/ML 08/10/19 Range/Units 15:15 WBC (4.0-11.0) K/uL RBC (4.50-5.90) M/uL Hgb (13.0-17.0) g/dL Hct (38.0-50.0) % MCV (80.0-98.0) fL MCH (27.0-32.0) pg MCHC (31.0-37.0) g/dL RDW Std Deviation (28.0-62.0) fl RDW Coeff of Emilee (11.0-15.0) % Plt Count (150-400) K/uL MPV (7.40-12.00) fL Neut % (Auto) (48.0-80.0) % Lymph % (Auto) (16.0-40.0) % [place] % (Auto) (0.0-15.0) % Eos % (Auto) (0.0-7.0) % Baso % (Auto) (0.0-1.5) % Neut # (Auto) (1.4-5.7) K/uL Lymph # (Auto) (0.6-2.4) K/uL [place] # (Auto) (0.0-0.8) K/uL Eos # (Auto) (0.0-0.7) K/uL Baso # (Auto) (0.0-0.1) K/uL Nucleated RBC % /100WBC Nucleated RBCs # K/uL D-Dimer, Quantitative (0.0-0.50) mg/L FEU Sodium (136-148) mmol/L Potassium (3.5-5.1) mmol/L Chloride (98-107) mmol/L Carbon Dioxide (21.0-32.0) mmol/L BUN (7.0-18.0) mg/dL Creatinine (0.8-1.3) mg/dL Est Cr Clr Drug Dosing mL/min Estimated GFR (MDRD) ml/min Glucose (74-106) mg/dL Calcium (8.5-10.1) mg/dL Troponin I (0.000-0.056) ng/mL B-Natriuretic Peptide 678 H (<100) PG/ML Departure - Departure Time of Disposition: 16:41 Disposition: Home, Self-Care 01 Clinical Impression: Shortness of breath - Discharge Information Referrals: Armando Montano MD [Primary Care Provider] - Additional Instructions: You were in seen in the [facility] Emergency Department for evaluation of shortness breath. At the time of your evaluation the cause of your symptoms is unclear. Please read and follow all of the instructions below. Please follow up with your primary care physician on Monday for repeat evaluation, please also follow-up on Monday with your detacher. When calling for follow-up care, please make the office aware that this follow-up is from your recent emergency room visit. If for any reason you are refused follow- up, please contact the [facility] Emergency Department at and asked to speak to the emergency department charge nurse. Your care today was limited to identifying and treating emergent medical problems only. Many people have subtle differences in their test results that require follow up with their outpatient physician(s) to correctly determine if this represents a normal variation or concerning abnormality with respect to your specific health. The care given to you today was limited to identifying and treating emergent medical problems - you need to request a copy of all of your medical records from today's visit and follow up with your outpatient physician(s) to review both today's visit and your overall health. If you have any new symptoms or if you are at all concerned about your health please return immediately to the emergency department. Shortness of Breath, Adult Shortness of breath is when a person has trouble breathing enough air, or when a person feels like she or he is having trouble breathing in enough air. Shortness of breath could be a sign of medical problem. Follow these instructions at home: Pay attention to any changes in your symptoms. Take these actions to help with your condition: Do not smoke. Smoking is a common cause of shortness of breath. If you smoke and you need help quitting, ask your health care provider. Avoid things that can irritate your airways, such as: o Mold. o Dust. o Air pollution. o Chemical fumes. Things that can cause allergy symptoms (allergens), if you have allergies. Keep your living space clean and free of mold and dust. Rest as needed. Slowly return to your usual activities. Take [id number] and prescription medicines, including oxygen and inhaled medicines, only as told by your health care provider. Keep all follow-up visits as told by your health care provider. This is important. Contact a health care provider if: Your condition does not improve as soon as expected. You have a hard time doing your normal activities, even after you rest. You have new symptoms. Get help right away if: Your shortness of breath gets worse. You have shortness of breath when you are resting. You feel light-headed or you faint. You have a cough that is not controlled with medicines. You cough up blood. You have pain with breathing. You have pain in your chest, arms, shoulders, or abdomen. You have a fever. You cannot walk upstairs or exercise the way that you normally do. Prescriptions: If you are uninsured or have financial difficulties with filling your prescription(s), you may consider using a free pharmacy discount service such as [employer] ([employer]) or [employer] ([employer]). These services allow you to search for a medication on your phone (or computer) and obtain a coupon that usually has a significant discount from the list hawkins at a pharmacy. Your physician as well as [facility] does not have a financial relationship with either of these services. You may also wish to speak with your physician to determine if lower cost prescriptions are possible. Obtaining primary care: 1. [facility] provides pediatrics (children), family medicine (children, adults, and some obstetrical care), and internal medicine (adults). Further specialty care is also available. Same day appointments are available. They may be contacted at [phone] and are open Monday through Monday 8 AM to 5 PM. The are located at [facility], [facility] [address] [place] [place] [address]. 2. [facility] offers family medicine, internal medicine, womens health, and further specialty care. [facility] may be contacted at [phone]. [facility] is located at [address] [place], [address]. 3. If you have health insurance, please also contact your insurer for a list of accepting providers under your policy, you may contact these providers for further health care. Occupational health: Work related injuries may consider following up with [facility], . Occupational health services are located at [address] [place] [address] and are open Monday through Monday from 7: 30 am to 5:00 pm. Obstetrical and Gynecological Care: [facility], , Monday through Monday 8 AM to 5 PM. [address] [address]. Eyecare: If you have an eye injury you should follow up with your director of consumer affairs or with [facility], at [phone] or [phone] , they are located at [address] [place] [address]. [facility] Dago Beckham DDS. [address] [place], [place]. Ph. [phone] Stanley Beckham DDS MS. [address] [facility] [address], [place], [place]. Ph. Cecil Rapp DDS. [address] [place] [address]. Ph. [phone] Ben Chang DDS. [address] [facility] [address] [place], [place]. Ph. [phone] Nithin Thurman DDS PC. [address] [facility] [address] [place], [place]. Ph. [phone] Arcadio Devine DDS. [address] [facility]. Ph. [phone] [facility]. [address] [place], [place]. Ph. [phone] [facility]. [address], [place], [place]. Ph. [phone] [facility] [address] [place] [phone]. Ph. [facility]. [address] [place] [address] [address] [place], [place]. Ph. [phone] [facility]. [address] [place], [place]. Ph. Sepsis Event Note - Evaluation Sepsis Screening Result: No Definite Risk - Focused Exam Vital Signs: Vital Signs Temp Pulse Resp BP Pulse Ox 08/10/19 16:25 94 18 106/76 96 08/10/19 14:37 35.7 C L 94 20 112/75 98 Date Exam was Performed: 08/10/19 Time Exam was Performed: 16:41 - My Orders Last 24 Hours: My Active Orders 08/10/19 14:55 EKG 12 Lead [EKG Documentation Completion] [RC] STAT - Assessment/Plan Last 24 Hours: My Active Orders 08/10/19 14:55 EKG 12 Lead [EKG Documentation Completion] [RC] STAT
[2019-08-10] MEDS ORDERED: Furosemide 40 MG/4 ML VIAL IVPUSH ONE (16:54)
[2019-08-10 18:30] LABS: CARBON DIOXIDE,CO2 24.1 mmol/L (21.0-32.0); POTASSIUM,K 4.9 mmol/L (3.5-5.1)
[2019-08-10 18:55] VITALS: BP 99/72; PULSE 87
== END 2019-08-10 19:10 | disposition home or self-care (01) ==
LOC: MW.ED 14:25
DX: R06.02 Shortness of breath (principal); K21.9 Gastro-esophageal reflux disease without esophagitis; Z79.899 Other long term (current) drug therapy
CPT/HCPCS: 36415; 71046; 80048; 83880; 84484; 85025; 85379; 93005; 96374; 99285; J1940; 99283

== ENCOUNTER 2019-11-10 05:33 | Observation (INO) | payer MEDICARE, BC ==
[2019-11-10] MEDS ORDERED: Aspirin 81 MG Tab.Chew PO ONE (05:59)
[2019-11-10] MEDS ORDERED: Sodium Chloride 0.9% 2.5 ML Syringe FLUSH PRN ×2 (05:59)
--- NOTE | 2019-11-10 06:07 | EDM.PDOC ---
<Will Rogers - Last Filed: 11/10/19 10:29> ED HPI GENERAL MEDICAL PROBLEM - General Chief Complaint: Respiratory Problem Stated Complaint: SHORT OF BREATH Time Seen by Provider: 11/10/19 05:55 no pain Pain Score (Numeric/FACES): 0 - Related Data Allergies Allergy/AdvReac Type Severity Reaction Status Date / Time No Known Allergies Allergy Verified 11/10/19 10:43 Home Meds: Home Meds Amiodarone [Cordarone] 200 mg PO DAILY 11/10/19 [History] Apixaban [Eliquis] 5 mg PO BID 11/10/19 [History] Ferrous Sulfate 1 tab PO Q12H 11/10/19 [History] Furosemide 40 mg PO DAILY 11/10/19 [History] Metoprolol Succinate 1 tab PO DAILY 11/10/19 [History] Omeprazole 40 mg PO DAILY 11/10/19 [History] Potassium Chloride [Klor-Con M20] 1 tab PO DAILY 11/10/19 [History] atorvaSTATin [Lipitor] 10 mg PO BEDTIME 11/10/19 [History] lisinopriL [Lisinopril] 5 mg PO DAILY 11/10/19 [History] oxyCODONE HCl/Acetaminophen [Oxycodone-Acetaminophen 5-325] 1 tab PO Q6H PRN 12/22 [History] Course - Vital Signs Text/Narrative:: I accepted care of this patient at [address] Girma Sexton In brief, this is an 84-year-old male with past medical history of CAD status post recent CABG and recent pacemaker placement, chronic congestive heart failure, apixaban anticoagulation presenting with shortness of breath. Mildly hypoxic on arrival 93%. Labs show mild leukocytosis, normal INR, troponin I is elevated 0.105. Bilirubin is elevated 2.2. Electrolytes show mild hyponatremia, otherwise reassuring. Chest x-ray shows cardiomegaly with a small left pleural effusion and a left basilar opacity concerning for atelectasis versus pneumonia. At 0730 I reevaluated the patient personally. He no longer feels dyspneic, denies any chest discomfort. He has no complaints. His lungs are clear to auscultation. He does have 1+ lower extremity edema bilaterally. I reviewed his twelve-lead EKG. Unfortunately he is recently status post new pacemaker placement so his prior ECGs cannot be used for comparison as he has a new pacemaker pattern. He does not have as much discordant ST segment elevation as I would expect in leads V2 and V3 so we will need to repeat this EKG. His BNP is 448, which is about on the lower end compared to prior values going back to August 2019 - repeat EKG and troponin are ordered for about 8:40 AM. 0806: I spoke with the collar runner at [facility], Dr. Begum. He recommended rechecking a troponin and EKG and had no further recommendations. Repeat (second) 12-Lead ECG Interpretation Acquired: 8:00 AM Rhythm: Paced rhythm Rate: 71 bpm [place]: Right Intervals: Paced rhythm Ectopy: None Ischemic Changes: None apparent RV Strain: No obvious RV strain pattern. ST Segments/T-Waves: No notable changes Interpretation: Paced rhythm, no obvious ischemia 0825: I spoke with the patient's collar runner Dr. Sands. I reviewed the findings. He is in agreement with the plan for repeat troponin. If the second troponin is increasing, he recommended observation in the hospital. He also recommended an IV dose of furosemide. 0934: Second troponin increased from 0.105-0.109. I reevaluated the patient and he is still asymptomatic. We are going to start tracking his urine output. Given slight troponin rise, would favor observation status throughout the day to finish the troponin series and continue tracking urine output. This is also what his collar runner had recommended when I spoke with him on the phone. Patient is agreeable to observation stay. I spoke with the accepting hospitalist Dr. Harris who agrees to admit to observation. Last Recorded V/S: Last Vital Signs Temp 36.7 C 11/10/19 22:42 Pulse 73 11/10/19 22:42 Resp 16 11/10/19 22:42 BP 109/63 11/10/19 22:42 Pulse Ox 95 11/10/19 22:42 - Orders/Labs/Meds Orders: Active Orders 24 hr Category Date Time Status Patient Status [ADT] Stat ADT 11/10/19 09:35 Active Intake and Output Strict [RC] Q4H Care 11/10/19 09:51 Active Sodium Chloride 0.9% [Saline Flush] Med 11/10/19 05:59 Active 2.5 ml FLUSH ASDIRECTED PRN Sodium Chloride 0.9% [Saline Flush] Med 11/10/19 05:59 Active 2.5 ml FLUSH ASDIRECTED PRN Saline Lock Insert [OM.PC] Stat Oth 11/10/19 05:59 Ordered Medication Orders Albuterol/Ipratropium (Duoneb 3.0-0.5 Mg/3 Ml) 3 ml NEB Q4HRRT PRN PRN Reason: Shortness Of Breath/wheezing Furosemide (Lasix) 40 mg IVPUSH BIDDIURETIC FABIÁN Last Admin: 11/10/19 13:00 Dose: 40 mg Piperacillin Sod/Tazobactam (Sod 3.375 gm/ Sodium Chloride) 50 mls @ 100 mls/ hr IV Q8H FABIÁN Last Admin: 11/10/19 18:34 Dose: 100 mls/hr Infusion: 11/10/19 12:24 Dose: 100 mls/hr Admin: 11/10/19 11:54 Dose: 100 mls/hr Vancomycin HCl 1.25 gm/ Sodium (Chloride) 250 mls @ 166.667 mls/hr IV Q12H FABIÁN Last Admin: 11/10/19 12:51 Dose: 166.667 mls/hr Amiodarone 200 Mg (Tab) 1 each PO DAILY FABIÁN Last Admin: 11/10/19 14:08 Dose: 1 each Apixaban 5 Mg Tab 1 each PO BID FABIÁN Last Admin: 11/10/19 22:37 Dose: Admin: 11/10/19 14:10 Dose: 1 each Atorvastatin 10 Mg (Tab) 1 each PO BEDTIME FABIÁN Last Admin: 11/10/19 22:37 Dose: Not Given Admin: 11/10/19 14:06 Dose: 1 each Lisinopril 5 Mg Tab 1 each PO DAILY FABIÁN Last Admin: 11/10/19 14:08 Dose: 1 each Metoprolol Succinate (50 Mg Tab.Er) 1 each PO DAILY FABIÁN Last Admin: 11/10/19 14:09 Dose: 1 each Omeprazole 40 Mg Cap (.Cr) 1 each PO ACBREAKFAST FABIÁN Last Admin: 11/10/19 14:07 Dose: 1 each Ferrous Sulfate (324mg) 1 each PO Q12H FABIÁN Last Admin: 11/10/19 14:05 Dose: 1 each Acetaminophen/Oxycodone 325-5 Mg Tab 1 each PO Q6H PRN PRN Reason: Pain Sodium Chloride (Saline Flush) 2.5 ml FLUSH ASDIRECTED PRN PRN Reason: Keep Vein Open Sodium Chloride (Saline Flush) 2.5 ml FLUSH ASDIRECTED PRN PRN Reason: Keep Vein Open Vancomycin HCl (Pharmacy To Dose - Vancomycin) 1 dose .XX ASDIRECTED [facility] Labs: Laboratory Tests 11/10/19 11/10/19 11/10/19 Range/Units 05:41 05:41 05:41 WBC 12.59 H (4.0-11.0) K/uL RBC 3.10 L (4.50-5.90) M/uL Hgb 9.7 L (13.0-17.0) g/dL Hct 29.7 L (38.0-50.0) % MCV 95.8 (80.0-98.0) fL MCH 31.3 (27.0-32.0) pg MCHC 32.7 (31.0-37.0) g/dL RDW Std Deviation 53.9 (28.0-62.0) fl RDW Coeff of Emilee 16 H (11.0-15.0) % Plt Count 492 H (150-400) K/uL MPV 8.90 (7.40-12.00) fL Neut % (Auto) 77.1 (48.0-80.0) % Lymph % (Auto) 10.3 L (16.0-40.0) % Parke % (Auto) 8.7 (0.0-15.0) % Eos % (Auto) 3.7 (0.0-7.0) % Baso % (Auto) 0.2 (0.0-1.5) % Neut # (Auto) 9.7 H (1.4-5.7) K/uL Lymph # (Auto) 1.3 (0.6-2.4) K/uL Parke # (Auto) 1.1 H (0.0-0.8) K/uL Eos # (Auto) 0.5 (0.0-0.7) K/uL Baso # (Auto) 0.0 (0.0-0.1) K/uL Nucleated RBC % 0.0 /100WBC Nucleated RBCs # 0 K/uL INR 1.16 Sodium 133 L (136-148) mmol/L Potassium 4.0 (3.5-5.1) mmol/L Chloride 98 (98-107) mmol/L Carbon Dioxide 24.7 (21.0-32.0) mmol/L BUN 11 (7.0-18.0) mg/dL Creatinine 1.2 (0.8-1.3) mg/dL Est Cr Clr Drug Dosing 51.19 mL/min Estimated GFR (MDRD) 57.8 ml/min Glucose 107 H (74-106) mg/dL Calcium 8.6 (8.5-10.1) mg/dL Total Bilirubin 2.2 H (0.2-1.0) mg/dL AST 27 (15-37) IU/L ALT 34 (14-63) IU/L Alkaline Phosphatase 106 (46-116) U/L Troponin I 0.105 H* (0.000-0.056) ng/mL B-Natriuretic Peptide (<100) PG/ML Total Protein 6.7 (6.4-8.2) g/dL Albumin 2.9 L (3.4-5.0) g/dL Globulin 3.8 (2.6-4.0) g/dL Albumin/Globulin Ratio 0.8 L (0.9-1.6) 11/10/19 11/10/19 Range/Units 05:41 08:48 WBC (4.0-11.0) K/uL RBC (4.50-5.90) M/uL Hgb (13.0-17.0) g/dL Hct (38.0-50.0) % MCV (80.0-98.0) fL MCH (27.0-32.0) pg MCHC (31.0-37.0) g/dL RDW Std Deviation (28.0-62.0) fl RDW Coeff of Emilee (11.0-15.0) % Plt Count (150-400) K/uL MPV (7.40-12.00) fL Neut % (Auto) (48.0-80.0) % Lymph % (Auto) (16.0-40.0) % Parke % (Auto) (0.0-15.0) % Eos % (Auto) (0.0-7.0) % Baso % (Auto) (0.0-1.5) % Neut # (Auto) (1.4-5.7) K/uL Lymph # (Auto) (0.6-2.4) K/uL Parke # (Auto) (0.0-0.8) K/uL Eos # (Auto) (0.0-0.7) K/uL Baso # (Auto) (0.0-0.1) K/uL Nucleated RBC % /100WBC Nucleated RBCs # K/uL INR Sodium (136-148) mmol/L Potassium (3.5-5.1) mmol/L Chloride (98-107) mmol/L Carbon Dioxide (21.0-32.0) mmol/L BUN (7.0-18.0) mg/dL Creatinine (0.8-1.3) mg/dL Est Cr Clr Drug Dosing mL/min Estimated GFR (MDRD) ml/min Glucose (74-106) mg/dL Calcium (8.5-10.1) mg/dL Total Bilirubin (0.2-1.0) mg/dL AST (15-37) IU/L ALT (14-63) IU/L Alkaline Phosphatase (46-116) U/L Troponin I 0.109 H* (0.000-0.056) ng/mL B-Natriuretic Peptide 448 H (<100) PG/ML Total Protein (6.4-8.2) g/dL Albumin (3.4-5.0) g/dL Globulin (2.6-4.0) g/dL Albumin/Globulin Ratio (0.9-1.6) Meds: Medications Generic Name Dose Route Start Last Admin Trade Name Freq PRN Reason Stop Dose Admin Albuterol/Ipratropium 3 ml 11/10/19 11:05 Duoneb 3.0-0.5 Mg/3 Ml NEB Q4HRRT PRN Shortness Of Breath/wheezing Furosemide 40 mg 11/10/19 14:00 11/10/19 13:00 Lasix IVPUSH 40 mg BIDDIURETIC FABIÁN Administration Piperacillin Sod/Tazobactam 50 mls @ 100 mls/hr 11/10/19 11:15 11/10/19 18:34 Sod 3.375 gm/ Sodium Chloride IV 100 mls/hr Q8H FABIÁN Administration Vancomycin HCl 1.25 gm/ Sodium 250 mls @ 166.667 mls/hr 11/10/19 12:30 12:51 Chloride IV 166.667 mls/hr Q12H FABIÁN Administration Amiodarone 200 Mg 1 each 11/11/19 09:00 11/10/19 14:08 Tab PO 1 each DAILY FABIÁN Administration Apixaban 5 Mg Tab 1 each 11/10/19 21:00 11/10/19 22:37 PO Not Given BID FABIÁN Atorvastatin 10 Mg 1 each 11/10/19 21:00 11/10/19 22:37 Tab PO Not Given BEDTIME FABIÁN Lisinopril 5 Mg Tab 1 each 11/11/19 09:00 11/10/19 14:08 PO 1 each DAILY FABIÁN Administration Metoprolol Succinate 1 each 11/11/19 09:00 11/10/19 14:09 50 Mg Tab.Er PO 1 each DAILY FABIÁN Administration Omeprazole 40 Mg Cap 1 each 11/11/19 07:30 11/10/19 14:07 .Cr PO 1 each ACBREAKFAST FABIÁN Administration Ferrous Sulfate 1 each 11/10/19 14:00 11/10/19 14:05 324mg PO 1 each Q12H FABIÁN Administration Acetaminophen/ 1 each 11/10/19 14:00 Oxycodone 325-5 Mg PO Tab Q6H PRN Pain Sodium Chloride 2.5 ml 11/10/19 05:59 Saline Flush FLUSH ASDIRECTED PRN Keep Vein Open Sodium Chloride 2.5 ml 11/10/19 05:59 Saline Flush FLUSH ASDIRECTED PRN Keep Vein Open Vancomycin HCl 1 dose 11/10/19 11:15 Pharmacy To Dose - Vancomycin .XX ASDIRECTED FABIÁN Discontinued Medications Generic Name Dose Route Start Last Admin Trade Name Freq PRN Reason Stop Dose Admin Aspirin 324 mg 11/10/19 05:59 11/10/19 06:09 Aspirin PO 11/10/19 06:00 324 mg ONETIME ONE Administration Ferrous Sulfate 325 mg 11/10/19 13:30 11/10/19 16:27 Ferrous Sulfate PO Not Given Q12H FABIÁN Furosemide 40 mg 11/10/19 08:21 11/10/19 08:27 Lasix IVPUSH 11/10/19 08:22 40 mg NOW ONE Administration Furosemide 20 mg 11/10/19 11:11 11/10/19 11:54 Lasix IVPUSH 11/10/19 11:12 20 mg NOW ONE Administration Morphine Sulfate 1 mg 11/10/19 11:05 Morphine IVPUSH 11/11/19 11:05 Q4H PRN Pain (severe 7-10) Oxycodone/Acetaminophen 1 tab 11/10/19 13:23 Percocet 325-5 Mg PO Q6H PRN Pain Departure - Departure Time of Disposition: 09:30 Disposition: Refer to Observation Clinical Impression: Congestive heart failure Qualifiers: Heart failure type: systolic Heart failure chronicity: acute on chronic Qualified Code(s): I50.23 - Acute on chronic systolic (congestive) heart failure - Discharge Information Sepsis Event Note - Focused Exam Date Exam was Performed: 11/10/19 Time Exam was Performed: 10:29 - My Orders Last 24 Hours: My Active Orders 11/10/19 05:59 Sodium Chloride 0.9% [Saline Flush] 2.5 ml FLUSH ASDIRECTED PRN Sodium Chloride 0.9% [Saline Flush] 2.5 ml FLUSH ASDIRECTED PRN Saline Lock Insert [OM.PC] Stat - Assessment/Plan Last 24 Hours: My Active Orders 11/10/19 05:59 Sodium Chloride 0.9% [Saline Flush] 2.5 ml FLUSH ASDIRECTED PRN Sodium Chloride 0.9% [Saline Flush] 2.5 ml FLUSH ASDIRECTED PRN Saline Lock Insert [OM.PC] Stat <Girma Sexton - Last Filed: 11/10/19 23:32> ED HPI GENERAL MEDICAL PROBLEM - History of Present Illness INITIAL COMMENTS - FREE TEXT/NARRATIVE: History of present illness: [] Patient presents with a new onset of shortness of breath he states laying down makes it worse he is not able to tolerate lying flat. He denies any chest pains had no fever chills or no cough he has had some minimal leg swelling worse in the left leg he recently 1 week ago had a bypass surgery and pacemaker placed in [place]. Review of systems: As per history of present illness and below otherwise all systems reviewed and negative. Past medical history: As per history of present illness and as reviewed below otherwise noncontributory. Surgical history: As per history of present illness and as reviewed below otherwise noncontributory. Social history: No reported history of drug or alcohol abuse. Family history: As per history of present illness and as reviewed below otherwise noncontributory. Physical exam: HEENT: Atraumatic, normocephalic, pupils reactive, negative for conjunctival pallor or scleral icterus, mucous membranes moist, throat clear, neck supple, nontender, trachea midline. Lungs: Clear to auscultation, breath sounds equal bilaterally, chest nontender. Heart: S1S2, regular, negative for clicks, rubs, or JVD. Median sternotomy and pacemaker appear to be healing well without infection Abdomen: Soft, nondistended, nontender. Negative for masses or hepatosplenomegaly. Negative for costovertebral tenderness. Pelvis: Stable nontender. Genitourinary: Deferred. Rectal: Deferred. Extremities: Atraumatic, negative for cords or calf pain. Neurovascular unremarkable. 1 Plus lower extremity edema Neuro: Awake, alert, oriented. Cranial nerves II through XII unremarkable. Cerebellum unremarkable. Motor and sensory unremarkable throughout. Exam nonfocal. Diagnostics: [] Therapeutics: [] Impression: Shortness of breath [] Plan: Work-up will be obtained and I will reassess the patient [] Definitive disposition and diagnosis as appropriate pending reevaluation and review of above. Past Medical History HEENT History: Reports: Allergic Rhinitis, Cataract, Other (See Below) Other HEENT History: wears glasses Cardiovascular History: Reports: None Respiratory History: Reports: None Gastrointestinal History: Reports: GERD Other Gastrointestinal History: indigestion Genitourinary History: Reports: None Musculoskeletal History: Reports: Fracture Neurological History: Reports: None Psychiatric History: Reports: None Endocrine/Metabolic History: Reports: None Hematologic History: Reports: None Immunologic History: Reports: None Oncologic (Cancer) History: Reports: None Dermatologic History: Reports: Other (See Below) Other Dermatologic History: hx of shingles - Infectious Disease History Infectious Disease History: Reports: Chicken Pox - Past Surgical History Head Surgeries/Procedures: Reports: None HEENT Surgical History: Reports: Cataract Surgery GI Surgical History: Reports: Appendectomy Neurological Surgical History: Reports: Lumbar Spine, Spinal Fusion Musculoskeletal Surgical History: Reports: ORIF, Shoulder Surgery Other Musculoskeletal Surgeries/Procedures:: left RTCR, ORIF left wrist- has hardware Social & Family History - Family History Family Medical History: Noncontributory - Caffeine Use Caffeine Use: Reports: None ED ROS GENERAL - Review of Systems Review Of Systems: See Below ED EXAM, GENERAL - Physical Exam Exam: See Below EKG INTERPRETATION EKG Interpretation Comments: Pacemaker rhythm 70 bpm no ischemic changes no comparisons read and interpreted by me Course - Vital Signs Text/Narrative:: One-view portable chest read interpreted by me there is a pacemaker in the appropriate orientation there is a left pleural effusion median sternotomy evident mild cardiomegaly - Orders/Labs/Meds Labs: Laboratory Tests 11/10/19 11/10/19 11/10/19 Range/Units 05:41 05:41 05:41 WBC 12.59 H (4.0-11.0) K/uL RBC 3.10 L (4.50-5.90) M/uL Hgb 9.7 L (13.0-17.0) g/dL Hct 29.7 L (38.0-50.0) % MCV 95.8 (80.0-98.0) fL MCH 31.3 (27.0-32.0) pg MCHC 32.7 (31.0-37.0) g/dL RDW Std Deviation 53.9 (28.0-62.0) fl RDW Coeff of Emilee 16 H (11.0-15.0) % Plt Count 492 H (150-400) K/uL MPV 8.90 (7.40-12.00) fL Neut % (Auto) 77.1 (48.0-80.0) % Lymph % (Auto) 10.3 L (16.0-40.0) % Parke % (Auto) 8.7 (0.0-15.0) % Eos % (Auto) 3.7 (0.0-7.0) % Baso % (Auto) 0.2 (0.0-1.5) % Neut # (Auto) 9.7 H (1.4-5.7) K/uL Lymph # (Auto) 1.3 (0.6-2.4) K/uL Parke # (Auto) 1.1 H (0.0-0.8) K/uL Eos # (Auto) 0.5 (0.0-0.7) K/uL Baso # (Auto) 0.0 (0.0-0.1) K/uL Nucleated RBC % 0.0 /100WBC Nucleated RBCs # 0 K/uL INR 1.16 Sodium 133 L (136-148) mmol/L Potassium 4.0 (3.5-5.1) mmol/L Chloride 98 (98-107) mmol/L Carbon Dioxide 24.7 (21.0-32.0) mmol/L BUN 11 (7.0-18.0) mg/dL Creatinine 1.2 (0.8-1.3) mg/dL Est Cr Clr Drug Dosing 51.19 mL/min Estimated GFR (MDRD) 57.8 ml/min Glucose 107 H (74-106) mg/dL Calcium 8.6 (8.5-10.1) mg/dL Total Bilirubin 2.2 H (0.2-1.0) mg/dL AST 27 (15-37) IU/L ALT 34 (14-63) IU/L Alkaline Phosphatase 106 (46-116) U/L Troponin I 0.105 H* (0.000-0.056) ng/mL B-Natriuretic Peptide (<100) PG/ML Total Protein 6.7 (6.4-8.2) g/dL Albumin 2.9 L (3.4-5.0) g/dL Globulin 3.8 (2.6-4.0) g/dL Albumin/Globulin Ratio 0.8 L (0.9-1.6) 11/10/19 11/10/19 Range/Units 05:41 08:48 WBC (4.0-11.0) K/uL RBC (4.50-5.90) M/uL Hgb (13.0-17.0) g/dL Hct (38.0-50.0) % MCV (80.0-98.0) fL MCH (27.0-32.0) pg MCHC (31.0-37.0) g/dL RDW Std Deviation (28.0-62.0) fl RDW Coeff of Emilee (11.0-15.0) % Plt Count (150-400) K/uL MPV (7.40-12.00) fL Neut % (Auto) (48.0-80.0) % Lymph % (Auto) (16.0-40.0) % Parke % (Auto) (0.0-15.0) % Eos % (Auto) (0.0-7.0) % Baso % (Auto) (0.0-1.5) % Neut # (Auto) (1.4-5.7) K/uL Lymph # (Auto) (0.6-2.4) K/uL Parke # (Auto) (0.0-0.8) K/uL Eos # (Auto) (0.0-0.7) K/uL Baso # (Auto) (0.0-0.1) K/uL Nucleated RBC % /100WBC Nucleated RBCs # K/uL INR Sodium (136-148) mmol/L Potassium (3.5-5.1) mmol/L Chloride (98-107) mmol/L Carbon Dioxide (21.0-32.0) mmol/L BUN (7.0-18.0) mg/dL Creatinine (0.8-1.3) mg/dL Est Cr Clr Drug Dosing mL/min Estimated GFR (MDRD) ml/min Glucose (74-106) mg/dL Calcium (8.5-10.1) mg/dL Total Bilirubin (0.2-1.0) mg/dL AST (15-37) IU/L ALT (14-63) IU/L Alkaline Phosphatase (46-116) U/L Troponin I 0.109 H* (0.000-0.056) ng/mL B-Natriuretic Peptide 448 H (<100) PG/ML Total Protein (6.4-8.2) g/dL Albumin (3.4-5.0) g/dL Globulin (2.6-4.0) g/dL Albumin/Globulin Ratio (0.9-1.6) Sepsis Event Note - Evaluation Sepsis Screening Result: No Definite Risk - Focused Exam Date Exam was Performed: 11/10/19 Time Exam was Performed: 23:31
[2019-11-10 06:38] LABS: CARBON DIOXIDE,CO2 24.7 mmol/L (21.0-32.0)
--- NOTE | 2019-11-10 06:58 | CR ---
INDICATION: Shortness of breath TECHNIQUE: Chest 1 view COMPARISON: None FINDINGS: Cardiovascular and mediastinum: Cardiomegaly with left-sided dual lead pacemaker. Mild aortic tortuosity. Lungs and pleural spaces: Small left pleural effusion with mild left basilar airspace disease. Bones and soft tissues: Status post median sternotomy. IMPRESSION: Cardiomegaly with small left pleural effusion with left basilar airspace disease consistent with atelectasis or pneumonia. Dictated by Garret Crockett MD @ Nov 10 2019 6:54AM Signed by Dr. Garret Crockett @ Nov 10 2019 6:57AM
[2019-11-10] MEDS ORDERED: Furosemide 40 MG/4 ML VIAL IVPUSH ONE ×2 (08:21→11:11)
[2019-11-10] MEDS ORDERED: Albuterol/Ipratropium 3.0-0.5 MG/3 ML Neb Soln NEB PRN (11:05)
[2019-11-10] MEDS ORDERED: Morphine 2 MG/ML SYRINGE IVPUSH PRN (11:05)
--- NOTE | 2019-11-10 11:12 | PCM.HP.2 ---
H&P History of Present Illness - General Date of Service: 11/10/19 Admit Problem/Dx: Admission Diagnosis/Problem Admission Diagnosis/Problem Congestive heart failure Source of Information: Patient, Family, Provider - History of Present Illness Initial Comments - Free Text/Narative: Patient is a 84-year-old male with past medical history of CAD status post recent CABG and recent pacemaker placement in [facility] , chronic congestive heart failure, apixaban anticoagulation presenting with shortness of breath and Mildly hypoxic on arrival 93%. Labs show mild leukocytosis, troponin I was elevated 0.105. Bilirubin is elevated 2.2. Electrolytes show mild hyponatremia. Chest x-ray showed cardiomegaly with a small left pleural effusion and a left basilar opacity concerning for atelectasis versus pneumonia. Patient received IV Lasix in ER, patients symptoms improved after Lasix administration. EKG was done with showed paced rhythm , no acute ST, T wave ischemic changes., repeat Troponin was slightly elevated, CXR showed possible atelectasis vs pneumonia, Patients production clerk was contacted, recommended to trend troponin and admit to observation, troponin leak attributed to type 2 leak due to CHF, BNP 448. Patient was admitted to hospital for further care. no pain Pain Score (Numeric/FACES): 0 - Related Data Allergies/Adverse Reactions: Allergies Allergy/AdvReac Type Severity Reaction Status Date / Time No Known Allergies Allergy Verified 11/10/19 10:43 Home Medications: Home Meds Amiodarone [Cordarone] 200 mg PO DAILY 11/10/19 [History] Apixaban [Eliquis] 5 mg PO BID 11/10/19 [History] Ferrous Sulfate 1 tab PO Q12H 11/10/19 [History] Furosemide 40 mg PO DAILY 11/10/19 [History] Metoprolol Succinate 1 tab PO DAILY 11/10/19 [History] Omeprazole 40 mg PO DAILY 11/10/19 [History] Potassium Chloride [Klor-Con M20] 1 tab PO DAILY 11/10/19 [History] atorvaSTATin [Lipitor] 10 mg PO BEDTIME 11/10/19 [History] lisinopriL [Lisinopril] 5 mg PO DAILY 11/10/19 [History] oxyCODONE HCl/Acetaminophen [Oxycodone-Acetaminophen 5-325] 1 tab PO Q6H PRN 12/22 [History] Past Medical History HEENT History: Reports: Allergic Rhinitis, Cataract, Other (See Below) Other HEENT History: wears glasses Cardiovascular History: Reports: Heart Failure, Hypertension, Pacemaker, Stents Other Cardiovascular History: cannot confirm, but does take HTN medications and High Cholesterol medications, also recent pacemaker placement and "open heart surgery" Respiratory History: Reports: None Gastrointestinal History: Reports: GERD Other Gastrointestinal History: indigestion Genitourinary History: Reports: None Musculoskeletal History: Reports: Fracture Neurological History: Reports: None Psychiatric History: Reports: None Endocrine/Metabolic History: Reports: None Hematologic History: Reports: None Immunologic History: Reports: None Oncologic (Cancer) History: Reports: None Dermatologic History: Reports: Other (See Below) Other Dermatologic History: hx of shingles - Infectious Disease History Infectious Disease History: Reports: Chicken Pox - Past Surgical History Head Surgeries/Procedures: Reports: None HEENT Surgical History: Reports: Cataract Surgery GI Surgical History: Reports: Appendectomy Neurological Surgical History: Reports: Lumbar Spine, Spinal Fusion Musculoskeletal Surgical History: Reports: ORIF, Shoulder Surgery Other Musculoskeletal Surgeries/Procedures:: left RTCR, ORIF left wrist- has hardware Social & Family History - Family History Family Medical History: Noncontributory - Tobacco Use Smoking Status *Q: Never Smoker Used Tobacco, but Quit: Yes Month/Year Tobacco Last Used: 1973 Second Hand Smoke Exposure: No - Caffeine Use Caffeine Use: Reports: Coffee - Recreational Drug Use Recreational Drug Use: No H&P Review of Systems - Review of Systems: Review Of Systems: See Below General: Denies: Fever, Chills, Malaise Pulmonary: Reports: Shortness of Breath, Cough. Denies: Wheezing, Pleuritic Chest Pain Cardiovascular: Reports: Dyspnea on Exertion. Denies: Chest Pain, Palpitations Gastrointestinal: Denies: Abdominal Pain, Anorexia, Black Stool Genitourinary: Denies: Dysuria, Frequency, Burning Musculoskeletal: Denies: Neck Pain, Shoulder Pain Skin: Reports: Wound (surgical). Denies: Cyanosis, Jaundice Psychiatric: Reports: Confusion. Denies: Depression, Mood Lability Exam - Exam Exam: See Below - Vital Signs Vital Signs: Last Vital Signs Temp 35.9 C L 11/10/19 10:07 Pulse 83 11/10/19 10:07 Resp 18 11/10/19 10:07 BP 125/64 11/10/19 10:07 Pulse Ox 91 L 11/10/19 10:07 Weight: 88.632 kg - Exam Quality Assessment: Supplemental Oxygen General: Alert, Oriented HEENT: Conjunctiva Clear Neck: Supple, Trachea Midline Lungs: Decreased Breath Sounds, Crackles Cardiovascular: Regular Rate, Regular Rhythm GI/Abdominal Exam: Normal Bowel Sounds, Soft, Non-Tender - Patient Data Lab Results Last 24 hrs: Laboratory Results - last 24 hr 11/10/19 11/10/19 11/10/19 Range/Units 05:41 05:41 05:41 WBC 12.59 H (4.0-11.0) K/uL RBC 3.10 L (4.50-5.90) M/uL Hgb 9.7 L (13.0-17.0) g/dL Hct 29.7 L (38.0-50.0) % MCV 95.8 (80.0-98.0) fL MCH 31.3 (27.0-32.0) pg MCHC 32.7 (31.0-37.0) g/dL RDW Std Deviation 53.9 (28.0-62.0) fl RDW Coeff of Emilee 16 H (11.0-15.0) % Plt Count 492 H (150-400) K/uL MPV 8.90 (7.40-12.00) fL Neut % (Auto) 77.1 (48.0-80.0) % Lymph % (Auto) 10.3 L (16.0-40.0) % Saunders % (Auto) 8.7 (0.0-15.0) % Eos % (Auto) 3.7 (0.0-7.0) % Baso % (Auto) 0.2 (0.0-1.5) % Neut # (Auto) 9.7 H (1.4-5.7) K/uL Lymph # (Auto) 1.3 (0.6-2.4) K/uL Saunders # (Auto) 1.1 H (0.0-0.8) K/uL Eos # (Auto) 0.5 (0.0-0.7) K/uL Baso # (Auto) 0.0 (0.0-0.1) K/uL Nucleated RBC % 0.0 /100WBC Nucleated RBCs # 0 K/uL INR 1.16 Sodium 133 L (136-148) mmol/L Potassium 4.0 (3.5-5.1) mmol/L Chloride 98 (98-107) mmol/L Carbon Dioxide 24.7 (21.0-32.0) mmol/L BUN 11 (7.0-18.0) mg/dL Creatinine 1.2 (0.8-1.3) mg/dL Est Cr Clr Drug Dosing 51.19 mL/min Estimated GFR (MDRD) 57.8 ml/min Glucose 107 H (74-106) mg/dL Calcium 8.6 (8.5-10.1) mg/dL Total Bilirubin 2.2 H (0.2-1.0) mg/dL AST 27 (15-37) IU/L ALT 34 (14-63) IU/L Alkaline Phosphatase 106 (46-116) U/L Troponin I 0.105 H* (0.000-0.056) ng/mL B-Natriuretic Peptide (<100) PG/ML Total Protein 6.7 (6.4-8.2) g/dL Albumin 2.9 L (3.4-5.0) g/dL Globulin 3.8 (2.6-4.0) g/dL Albumin/Globulin Ratio 0.8 L (0.9-1.6) 11/10/19 11/10/19 Range/Units 05:41 08:48 WBC (4.0-11.0) K/uL RBC (4.50-5.90) M/uL Hgb (13.0-17.0) g/dL Hct (38.0-50.0) % MCV (80.0-98.0) fL MCH (27.0-32.0) pg MCHC (31.0-37.0) g/dL RDW Std Deviation (28.0-62.0) fl RDW Coeff of Emilee (11.0-15.0) % Plt Count (150-400) K/uL MPV (7.40-12.00) fL Neut % (Auto) (48.0-80.0) % Lymph % (Auto) (16.0-40.0) % Saunders % (Auto) (0.0-15.0) % Eos % (Auto) (0.0-7.0) % Baso % (Auto) (0.0-1.5) % Neut # (Auto) (1.4-5.7) K/uL Lymph # (Auto) (0.6-2.4) K/uL Saunders # (Auto) (0.0-0.8) K/uL Eos # (Auto) (0.0-0.7) K/uL Baso # (Auto) (0.0-0.1) K/uL Nucleated RBC % /100WBC Nucleated RBCs # K/uL INR Sodium (136-148) mmol/L Potassium (3.5-5.1) mmol/L Chloride (98-107) mmol/L Carbon Dioxide (21.0-32.0) mmol/L BUN (7.0-18.0) mg/dL Creatinine (0.8-1.3) mg/dL Est Cr Clr Drug Dosing mL/min Estimated GFR (MDRD) ml/min Glucose (74-106) mg/dL Calcium (8.5-10.1) mg/dL Total Bilirubin (0.2-1.0) mg/dL AST (15-37) IU/L ALT (14-63) IU/L Alkaline Phosphatase (46-116) U/L Troponin I 0.109 H* (0.000-0.056) ng/mL B-Natriuretic Peptide 448 H (<100) PG/ML Total Protein (6.4-8.2) g/dL Albumin (3.4-5.0) g/dL Globulin (2.6-4.0) g/dL Albumin/Globulin Ratio (0.9-1.6) Result Diagrams: 11/10/19 05:41 11/10/19 05:41 Sepsis Event Note - Evaluation Sepsis Screening Result: No Definite Risk - Focused Exam Vital Signs: Vital Signs Temp Pulse Resp BP Pulse Ox 11/10/19 10:07 35.9 C L 83 18 125/64 91 L 11/10/19 09:50 75 20 129/76 94 L 11/10/19 09:23 36.1 C 70 16 121/74 95 11/10/19 09:08 71 20 123/73 96 11/10/19 08:30 71 17 119/74 95 11/10/19 08:10 70 16 120/69 97 06/07/20 07:36 35.7 C L 71 19 125/76 97 11/10/19 07:01 78 18 122/69 93 L 11/10/19 06:45 70 18 122/69 95 11/10/19 05:54 35.8 C L 70 18 118/66 93 L Date Exam was Performed: 11/10/19 Time Exam was Performed: 17:42 - Problem List (1) CAD (coronary artery disease) SNOMED Code(s): 33284833 ICD Code: I25.10 - ATHSCL HEART DISEASE OF [place] CORONARY ARTERY W/O ANG PCTRS Status: Acute Current Visit: Yes (2) Pacemaker SNOMED Code(s): 934446361 ICD Code: Z95.0 - PRESENCE OF CARDIAC PACEMAKER Status: Acute Current Visit: Yes (3) Troponin I above reference range SNOMED Code(s): 009949933 ICD Code: R79.89 - OTHER SPECIFIED ABNORMAL FINDINGS OF BLOOD CHEMISTRY Status: Acute Current Visit: Yes (4) Congestive heart failure SNOMED Code(s): 82783058 ICD Code: I50.9 - HEART FAILURE, UNSPECIFIED Status: Acute Current Visit : Yes Qualifiers: Heart failure type: systolic Heart failure chronicity: acute on chronic Qualified Code(s): I50.23 - Acute on chronic systolic (congestive) heart failure Problem List Initiated/Reviewed/Updated: Yes Orders Last 24hrs: Active Orders 24 hr Category Date Time Status Patient Status [ADT] Stat ADT 11/10/19 09:35 Active Ambulate [RC] ASDIRECTED Care 11/10/19 11:05 Active Antiembolic Devices [RC] PER UNIT ROUTINE Care 11/10/19 11:05 Active Intake and Output Strict [RC] Q4H Care 11/10/19 09:51 Active Oxygen Therapy [RC] PRN Care 11/10/19 11:05 Active RT Aerosol Therapy [RC] ASDIRECTED Care 11/10/19 11:06 Active Telemetry Monitoring [Cardiac Monitoring] [RC] Q8H Care 11/10/19 09:53 Active VTE/DVT Education [RC] PER UNIT ROUTINE Care 11/10/19 11:05 Active Vital Signs [RC] Q4H Care 11/10/19 11:05 Active Heart Healthy Diet [DIET] Diet 11/10/19 Lunch Active CULTURE BLOOD [BC] Stat Lab 11/10/19 11:11 Ordered CULTURE BLOOD [BC] Stat Lab 11/10/19 11:11 Ordered Albuterol/Ipratropium [DuoNeb 3.0-0.5 MG/3 ML] Med 11/10/19 11:05 Active 3 ml NEB Q4HRRT PRN Furosemide [Lasix] Med 11/10/19 11:11 Once 20 mg IVPUSH NOW ONE Furosemide [Lasix] Med 11/10/19 21:00 Ordered 40 mg IVPUSH BID Morphine Med 11/10/19 11:05 Active 1 mg IVPUSH Q4H PRN Pharmacy to Dose - Vancomycin Med 11/10/19 11:15 Ordered 1 dose .XX ASDIRECTED Piperacillin/Tazobactam [Piperacil-Tazobact] 3.375 gm Med 11/10/19 11:15 Ordered Sodium Chloride 0.9% [Normal Saline] 50 ml IV Q8H Sodium Chloride 0.9% [Saline Flush] Med 11/10/19 05:59 Active 2.5 ml FLUSH ASDIRECTED PRN Sodium Chloride 0.9% [Saline Flush] Med 11/10/19 05:59 Active 2.5 ml FLUSH ASDIRECTED PRN Blood Culture x2 Reflex Set [OM.PC] Stat Oth 11/10/19 11:10 Ordered Saline Lock Insert [OM.PC] Stat Oth 11/10/19 05:59 Ordered Sequential Compression Device [OM.PC] Per Unit Routine Oth 11/10/19 11:05 Ordered Resuscitation Status Routine Resus Stat 11/10/19 11:05 Ordered Medication Orders Albuterol/Ipratropium (Duoneb 3.0-0.5 Mg/3 Ml) 3 ml NEB Q4HRRT PRN PRN Reason: Shortness Of Breath/wheezing Furosemide (Lasix) 40 mg IVPUSH BID FABIÁN Furosemide (Lasix) 20 mg IVPUSH NOW ONE Stop: 11/10/19 11:12 Piperacillin Sod/Tazobactam (Sod 3.375 gm/ Sodium Chloride) 50 mls @ 100 mls/ hr IV Q8H FABIÁN Morphine Sulfate (Morphine) 1 mg IVPUSH Q4H PRN PRN Reason: Pain (severe 7-10) Stop: 11/11/19 11:05 Sodium Chloride (Saline Flush) 2.5 ml FLUSH ASDIRECTED PRN PRN Reason: Keep Vein Open Sodium Chloride (Saline Flush) 2.5 ml FLUSH ASDIRECTED PRN PRN Reason: Keep Vein Open Vancomycin HCl (Pharmacy To Dose - Vancomycin) 1 dose .XX ASDIRECTED FABIÁN Assessment/Plan Comment:: 84 y/o M admitted for CHF exacerbation, ACS rule out Start telemetry Start IV lasix 40 mg BID Resume home meds Trend another set if troponin, leak is likely type 2, trend appears flat IV antibiotics for possible HCAP f/u blood cultures DuoNebs as needed on AC so no DVT ppx Monitor and trend electrolytes
[2019-11-10] MEDS: Piperacillin/Tazobactam 3.375 GM in Sodium Chloride 0.9% 50 ML IV SCH ×2 (11:54→18:34)
[2019-11-10] MEDS: Furosemide 40 MG/4 ML VIAL IVPUSH SCH (13:00)
[2019-11-10] MEDS ORDERED: Acetaminophen/oxyCODONE 325-5 MG Tab PO PRN ×2 (13:23→14:00)
[2019-11-10] MEDS ORDERED: Ferrous Sulfate 325 MG Tab PO SCH (13:30)
[2019-11-10] MEDS: atorvaSTATin 10 MG Tab PO SCH ×2 (14:06→22:37)
[2019-11-10] MEDS: Omeprazole 40 MG Cap.CR PO SCH (14:07)
[2019-11-10] MEDS: Amiodarone 200 MG Tab PO SCH (14:08)
[2019-11-10] MEDS: Lisinopril 5 MG Tab PO SCH (14:08)
[2019-11-10] MEDS: Metoprolol Succinate 50 MG Tab.ER PO SCH (14:09)
[2019-11-10] MEDS: Apixaban 5 MG Tab PO SCH ×2 (14:10→22:37)
[2019-11-11] MEDS: Piperacillin/Tazobactam 3.375 GM in Sodium Chloride 0.9% 50 ML IV SCH (04:22)
[2019-11-11 06:29] LABS: CARBON DIOXIDE,CO2 27.1 mmol/L (21.0-32.0); POTASSIUM,K 3.4 mmol/L (3.5-5.1)
[2019-11-11] MEDS: Metoprolol Succinate 50 MG Tab.ER PO SCH (08:14)
[2019-11-11] MEDS: Amiodarone 200 MG Tab PO SCH (08:14)
[2019-11-11] MEDS: Lisinopril 5 MG Tab PO SCH (08:15)
[2019-11-11] MEDS: Furosemide 40 MG/4 ML VIAL IVPUSH SCH (08:15)
[2019-11-11] MEDS: Apixaban 5 MG Tab PO SCH (08:16)
[2019-11-11] MEDS: Omeprazole 40 MG Cap.CR PO SCH (08:16)
[2019-11-11] MEDS ORDERED: Magnesium Sulfate/Water 2 GM in Premix Bag 1 BAG IV ONE ×2 (08:31→10:00)
[2019-11-11] MEDS ORDERED: Cefepime 2 GM in Premix Bag 1 BAG IV SCH (09:00)
[2019-11-11] MEDS: Potassium Chloride 20 MEQ Tab.ER PO SCH ×2 (09:19→11:58)
--- NOTE | 2019-11-11 12:01 | PCM.DCSUM1 ---
Discharge Summary - Hospital Course Brief History: Patient is a 84-year-old male with past medical history of CAD status post recent CABG and recent pacemaker placement in [facility] , chronic congestive heart failure, apixaban anticoagulation presenting with shortness of breath and Mildly hypoxic on arrival 93%. Labs show mild leukocytosis, troponin I was elevated 0.105. Bilirubin is elevated 2.2. Electrolytes show mild hyponatremia. Chest x-ray showed cardiomegaly with a small left pleural effusion and a left basilar opacity concerning for atelectasis versus pneumonia. Patient received IV Lasix in ER, patients symptoms improved after Lasix administration. EKG was done with showed paced rhythm , no acute ST, T wave ischemic changes., repeat Troponin was slightly elevated, CXR showed possible atelectasis vs pneumonia, Patients clay maker was contacted, recommended to trend troponin and admit to observation, troponin leak attributed to type 2 leak due to CHF, BNP 448. Patient was admitted to hospital for further care. Diagnosis: Stroke: No - Discharge Data Discharge Date: 11/11/19 Discharge Disposition: Home, Home Health Agency Condition: Stable - Referral to Home Health Date of Face to Face Encounter: 11/11/19 Reason for Homebound Status: Alfonzo is homebound needing assistance from caregiver to leave the house to get to appointments. He is in need of assistance due to gait instability and dyspnea post CABG and pacemaker placement. Primary Care Physician: Armando Montano MD Skilled Need: Alfonzo is in need of halfway assessment to help monitor vital signs, weight, peripheral edema and shortness of breath. Monitor for CHF. Nursing also to complete skin assessment with incisions to chest, pacemaker site , and graft site to L leg. He would also benefit from PT to evaluate and treat as well as OT to evaluate and treat and complete home safety evaluation. - Patient Summary/Data Hospital Course: Admitting Diagnoses CHF, acute on chronic Suspected CAP with recent hospitalization Discharge Diagnoses CHF, acute on chronic, improved Suspected CAP with recent hospitalization Other PMH: Recent CABG and pacemaker placement HTN CHF Anticoagulation Alfonzo was admitted and treated with IV Lasix for acute on chronic CHF exacerbation. He diuresed well and is feeling much better today. Denies shortness of breath and is up ambulating without oxygen well. He denies chest pain. Troponins were noted to be slightly elevated on admission, but likely secondary to recent CABG and pacemaker placement. He is eager to go home today. He was also treated for pneumonia with risk factors of recent hospitalization with Zosyn and Vancomycin. Leukocytosis improved with treatment. Will keep Levaquin 750 mg x4 more days at home to treat. He has very close follow up with Dr Sands tomorrow. He is to monitor weight and diet for low salt intake. Home Health will follow at home to help with CHF care and PT/OT evaluations. He is to continue all home medications as previously prescribed with inclusion of antibiotic for 4 more days. he is to return to the ED or clinic if concerns should arise. - Patient Instructions Diet: Heart Healthy Diet, Low Sodium Activity: No Strenuous Activities Driving: Do Not Drive Notify Provider of: Fever, Increased Pain, Swelling and Redness, Drainage, Nausea and/or Vomiting Other/Special Instructions: Monitor weight every day, if increased by 3-5 lbs in 2-3 days notified clay maker. If chest pain develops please seek immediate evaluation in Emergency department. - Discharge Plan *PRESCRIPTION DRUG MONITORING PROGRAM REVIEWED*: Not Applicable *COPY OF PRESCRIPTION DRUG MONITORING REPORT IN PATIENT ALLEN: Not Applicable Prescriptions/Med Rec: levoFLOXacin [Levaquin] 750 mg PO DAILY #4 tablet Home Medications: Home Meds Amiodarone [Cordarone] 200 mg PO DAILY 11/10/19 [History] Apixaban [Eliquis] 5 mg PO BID 11/10/19 [History] Ferrous Sulfate 1 tab PO Q12H 11/10/19 [History] Furosemide 40 mg PO BID 11/10/19 [History] Metoprolol Succinate 50 mg PO DAILY 11/10/19 [History] Omeprazole 40 mg PO DAILY 11/10/19 [History] Potassium Chloride [Klor-Con M20] 20 meq PO DAILY 11/10/19 [History] atorvaSTATin [Lipitor] 10 mg PO BEDTIME 11/10/19 [History] lisinopriL [Lisinopril] 5 mg PO DAILY 11/10/19 [History] oxyCODONE HCl/Acetaminophen [Oxycodone-Acetaminophen 5-325] 1 tab PO Q6H PRN 12/22 [History] levoFLOXacin [Levaquin] 750 mg PO DAILY #4 tablet 11/11/19 [Rx] Oxygen Therapy Mode: Room Air Patient Handouts: Heart Failure, Self Care, [id number], Heart-Healthy Eating Plan, [id number], Levofloxacin tablets, Heart Failure, Diagnosis, [id number] Referrals: Silvio Sands MD [Physician] - 11/12/19 2:30 pm Armando Montano MD [Primary Care Provider] - 11/18/19 2:00 pm - Discharge Summary/Plan Comment DC Time >30 min.: No - Patient Data Vitals - Most Recent: Last Vital Signs Temp 97.2 F 11/11/19 07:20 Pulse 71 11/11/19 07:20 Resp 18 11/11/19 07:20 BP 108/59 L 11/11/19 07:20 Pulse Ox 93 L 11/11/19 07:20 Weight - Most Recent: 82.508 kg I&O - Last 24 hours: Intake & Output 11/10/19 11/11/19 11/11/19 22:59 06:59 14:59 Intake Total 918 100 Output Total 2950 900 Balance -2031 Lab Results - Last 24 hrs: Laboratory Results - last 24 hr 11/10/19 11/11/19 11/11/19 Range/Units 11:49 06:00 06:00 WBC 8.61 (4.0-11.0) K/uL RBC 3.02 L (4.50-5.90) M/uL Hgb 9.3 L (13.0-17.0) g/dL Hct 28.8 L (38.0-50.0) % MCV 95.4 (80.0-98.0) fL MCH 30.8 (27.0-32.0) pg MCHC 32.3 (31.0-37.0) g/dL RDW Std Deviation 53.3 (28.0-62.0) fl RDW Coeff of Emilee 15 (11.0-15.0) % Plt Count 444 H (150-400) K/uL MPV 8.90 (7.40-12.00) fL Neut % (Auto) 74.8 (48.0-80.0) % Lymph % (Auto) 11.6 L (16.0-40.0) % [place] % (Auto) 8.9 (0.0-15.0) % Eos % (Auto) 4.4 (0.0-7.0) % Baso % (Auto) 0.3 (0.0-1.5) % Neut # (Auto) 6.4 H (1.4-5.7) K/uL Lymph # (Auto) 1.0 (0.6-2.4) K/uL [place] # (Auto) 0.8 (0.0-0.8) K/uL Eos # (Auto) 0.4 (0.0-0.7) K/uL Baso # (Auto) 0.0 (0.0-0.1) K/uL Nucleated RBC % 0.0 /100WBC Nucleated RBCs # 0 K/uL Sodium 136 (136-148) mmol/L Potassium 3.4 L (3.5-5.1) mmol/L Chloride 98 (98-107) mmol/L Carbon Dioxide 27.1 (21.0-32.0) mmol/L BUN 12 (7.0-18.0) mg/dL Creatinine 1.2 (0.8-1.3) mg/dL Est Cr Clr Drug Dosing 51.19 mL/min Estimated GFR (MDRD) 57.8 ml/min Glucose 85 (74-106) mg/dL Calcium 8.8 (8.5-10.1) mg/dL Phosphorus 3.9 (2.6-4.7) mg/dL Magnesium 1.6 L (1.8-2.4) mg/dL Troponin I 0.105 H* (0.000-0.056) ng/mL Med Orders - Current: Current Medications Albuterol/Ipratropium (Duoneb 3.0-0.5 Mg/3 Ml) 3 ml NEB Q4HRRT PRN PRN Reason: Shortness Of Breath/wheezing Furosemide (Lasix) 40 mg IVPUSH BIDDIURETIC [facility] Last Admin: 11/11/19 08:15 Dose: 40 mg Vancomycin HCl 1.25 gm/ Sodium (Chloride) 250 mls @ 166.667 mls/hr IV Q12H [facility] Last Admin: 11/11/19 00:10 Dose: 166.667 mls/hr Cefepime HCl 2 gm/ Premix 50 mls @ 100 mls/hr IV Q12H [facility] Last Admin: 11/11/19 09:19 Dose: 100 mls/hr Amiodarone 200 Mg (Tab) 1 each PO DAILY [facility] Last Admin: 11/11/19 08:14 Dose: 1 each Apixaban 5 Mg Tab 1 each PO BID [facility] Last Admin: 11/11/19 08:16 Dose: 1 each Atorvastatin 10 Mg (Tab) 1 each PO BEDTIME [facility] Last Admin: 11/10/19 22:37 Dose: Not Given Lisinopril 5 Mg Tab 1 each PO DAILY [facility] Last Admin: 11/11/19 08:15 Dose: 1 each Metoprolol Succinate (50 Mg Tab.Er) 1 each PO DAILY [facility] Last Admin: 11/11/19 08:14 Dose: 1 each Omeprazole 40 Mg Cap (.Cr) 1 each PO ACBREAKFAST [facility] Last Admin: 11/11/19 08:16 Dose: 1 each Ferrous Sulfate (324mg) 1 each PO Q12H [facility] Last Admin: 11/11/19 02:30 Dose: Not Given Acetaminophen/Oxycodone 325-5 Mg Tab 1 each PO Q6H PRN PRN Reason: Pain Sodium Chloride (Saline Flush) 2.5 ml FLUSH ASDIRECTED PRN PRN Reason: Keep Vein Open Sodium Chloride (Saline Flush) 2.5 ml FLUSH ASDIRECTED PRN PRN Reason: Keep Vein Open Vancomycin HCl (Pharmacy To Dose - Vancomycin) 1 dose .XX ASDIRECTED [facility] Discontinued Medications Aspirin (Aspirin) 324 mg PO ONETIME ONE Stop: 11/10/19 06:00 Last Admin: 11/10/19 06:09 Dose: 324 mg Ferrous Sulfate (Ferrous Sulfate) 325 mg PO Q12H [facility] Last Admin: 11/10/19 16:27 Dose: Not Given Furosemide (Lasix) 40 mg IVPUSH NOW ONE Stop: 11/10/19 08:22 Last Admin: 11/10/19 08:27 Dose: 40 mg Furosemide (Lasix) 20 mg IVPUSH NOW ONE Stop: 11/10/19 11:12 Last Admin: 11/10/19 11:54 Dose: 20 mg Piperacillin Sod/Tazobactam (Sod 3.375 gm/ Sodium Chloride) 50 mls @ 100 mls/ hr IV Q8H [facility] Last Admin: 11/11/19 04:22 Dose: 100 mls/hr Magnesium Sulfate 2 gm/ Premix 50 mls @ 50 mls/hr IV ONETIME ONE Stop: 11/11/19 09:30 Last Admin: 11/11/19 09:51 Dose: Not Given Magnesium Sulfate 2 gm/ Premix 50 mls @ 50 mls/hr IV ONETIME ONE Stop: 11/11/19 10:59 Last Admin: 11/11/19 10:08 Dose: 50 mls/hr Morphine Sulfate (Morphine) 1 mg IVPUSH Q4H PRN PRN Reason: Pain (severe 7-10) Stop: 11/11/19 11:05 Oxycodone/Acetaminophen (Percocet 325-5 Mg) 1 tab PO Q6H PRN PRN Reason: Pain Potassium Chloride (Klor-Con M20) 40 meq PO BID@0900,1200 FABIÁN Stop: 11/11/19 12:01 Last Admin: 11/11/19 11:58 Dose: 40 meq - Exam General: Reports: Alert, Oriented, Cooperative, No Acute Distress Lungs: Reports: Clear to Auscultation, Normal Respiratory Effort Cardiovascular: Reports: Regular Rate, Regular Rhythm GI/Abdominal Exam: Normal Bowel Sounds, Soft, Non-Tender Extremities: Normal Inspection, Normal Range of Motion, Non-Tender, No Pedal Edema Wound/Incisions: Reports: Healing Well, Other (incision to midsternum with brusing no erythema, pace maker site intact as well no erythema. Graft sites to L leg healing well also, no erythema or drainage.) Neurological: Reports: No New Focal Deficit Psy/Mental Status: Reports: Alert, Normal Affect, Normal Mood
[2019-11-11 12:05] VITALS: BP 107/63; PULSE 74
== END 2019-11-11 13:15 | disposition home health service (06) ==
LOC: MW.ED 05:33 → MW.MS 09:58
PROVIDERS: ADMIT Student in an Organized Health Care Education/Training Program; ATTEND Student in an Organized Health Care Education/Training Program
DX: I11.0 Hypertensive heart disease with heart failure (principal); I50.23 Acute on chronic systolic (congestive) heart failure; K21.9 Gastro-esophageal reflux disease without esophagitis; I25.10 Atherosclerotic heart disease of native coronary artery without angina pectoris; E87.1 Hypo-osmolality and hyponatremia; R79.89 Other specified abnormal findings of blood chemistry; Z95.1 Presence of aortocoronary bypass graft; Z79.01 Long term (current) use of anticoagulants; Z79.899 Other long term (current) drug therapy; Z95.0 Presence of cardiac pacemaker
CPT/HCPCS: 36415; 71045; 80048; 80053; 83735; 83880; 84100; 84484; 85025; 85610; 87040; 93005; 96374; 99285; A9270; J0692; J1940; J2543; J3370; J3475; J7050; 96365; 96367; 96375; 96376; 99284; G0378

== ENCOUNTER 2020-11-17 23:05 | Emergency (ER) | payer MEDICARE, BC ==
[2020-11-17 23:20] VITALS: BP 125/75; PULSE 86
[2020-11-17] MEDS ORDERED: Sodium Chloride 0.9% 10 ML Syringe FLUSH PRN (23:24)
[2020-11-17] MEDS ORDERED: Sodium Chloride 0.9% 2.5 ML Syringe FLUSH PRN (23:24)
--- NOTE | 2020-11-17 23:27 | EDM.PDOC ---
ED HPI GENERAL MEDICAL PROBLEM - General Chief Complaint: Gastrointestinal Problem Stated Complaint: RECTAL BLEEDING Time Seen by Provider: 11/17/20 23:18 - History of Present Illness INITIAL COMMENTS - FREE TEXT/NARRATIVE: Patient is an 85-year-old male he has history of CAD history of CHF with pacemaker implantation and cardiac surgery in the past 2 years ago on Eliquis who is presenting with painless bright red blood per rectum. Patient does have a history of constipation and hemorrhoids. He does take MiraLAX every night but continues to have some trouble with hard stools. He started to have bright red blood per rectum this evening. He continually drips when he stands up. He has no rectal pain he has no pain with bowel movements he has no abdominal pain. He denies any nausea or vomiting he denies any epigastric discomfort he denies any chest pain or shortness of breath. Patient was in his usual state of health until the symptoms started this evening. No clear exacerbating or alleviating factors radiation or other associated symptoms. - Related Data Allergies Allergy/AdvReac Type Severity Reaction Status Date / Time No Known Allergies Allergy Verified 11/17/20 23:20 Home Meds: Home Meds Apixaban [Eliquis] 5 mg PO BID 11/10/19 [History] Ferrous Sulfate 1 tab PO Q12H 11/10/19 [History] Furosemide 40 mg PO BID 11/10/19 [History] Metoprolol Succinate 50 mg PO DAILY 11/10/19 [History] Omeprazole 40 mg PO DAILY 11/10/19 [History] Potassium Chloride [Klor-Con M20] 20 meq PO DAILY 11/10/19 [History] atorvaSTATin [Lipitor] 10 mg PO BEDTIME 11/10/19 [History] lisinopriL [Lisinopril] 5 mg PO DAILY 11/10/19 [History] Levothyroxine Sodium [Levothyroxine] 11/17/20 [History] Spironolactone [Aldactone] 11/17/20 [History] Hydrocortisone [Anusol-HC] 30 gm RC BID 14 Days #1 tube 11/18/20 [Rx] Past Medical History HEENT History: Reports: Allergic Rhinitis, Cataract, Other (See Below) Other HEENT History: wears glasses Cardiovascular History: Reports: Heart Failure, Hypertension, Pacemaker, Stents Other Cardiovascular History: cannot confirm, but does take HTN medications and High Cholesterol medications, also recent pacemaker placement and "open heart surgery" Respiratory History: Reports: None Gastrointestinal History: Reports: GERD Other Gastrointestinal History: indigestion Genitourinary History: Reports: None Musculoskeletal History: Reports: Fracture Neurological History: Reports: None Psychiatric History: Reports: None Endocrine/Metabolic History: Reports: None Hematologic History: Reports: None Immunologic History: Reports: None Oncologic (Cancer) History: Reports: None Dermatologic History: Reports: Other (See Below) Other Dermatologic History: hx of shingles - Infectious Disease History Infectious Disease History: Reports: Chicken Pox - Past Surgical History Head Surgeries/Procedures: Reports: None HEENT Surgical History: Reports: Cataract Surgery GI Surgical History: Reports: Appendectomy Neurological Surgical History: Reports: Lumbar Spine, Spinal Fusion Musculoskeletal Surgical History: Reports: ORIF, Shoulder Surgery Other Musculoskeletal Surgeries/Procedures:: left RTCR, ORIF left wrist- has hardware Social & Family History - Family History Family Medical History: No Pertinent Family History - Caffeine Use Caffeine Use: Reports: Coffee ED ROS GENERAL - Review of Systems Review Of Systems: See Below Free Text/Narrative/Comment: General: No fever. ENT: No sore throat. Neck: No neck stiffness. Respiratory: No shortness of breath. Cardiac: No chest pain. Gastrointestinal: Per HPI Musculoskeletal: No myalgias/arthralgias. Neurologic: No headache. ED EXAM, GENERAL - Physical Exam Exam: See Below Free Text/Narrative:: General Appearance: No acute distress, appears comfortable Skin: No rash HEENT: Normocephalic/atraumatic, sclera anicteric, mucous membranes moist Neck: Normal range of motion Chest and Lungs: Bilateral breath sounds, clear to auscultation Cardiovascular: Regular rate and rhythm, no murmur Abdomen: Soft, non-tender Musculoskeletal: No edema or tenderness Neurologic: Awake, alert, no obvious deficits, moving all extremities Psychiatric: Appropriate, cooperative Course - Vital Signs Last Recorded V/S: Last Vital Signs Temp 97.7 F 11/17/20 23:16 Pulse 86 11/17/20 23:16 Resp 18 11/17/20 23:16 BP 125/75 11/17/20 23:16 Pulse Ox 96 11/17/20 23:16 - Orders/Labs/Meds Orders: Active Orders 24 hr Category Date Time Status CBC WITH AUTO DIFF [HEME] Stat Lab 11/17/20 23:35 Received Sodium Chloride 0.9% [Saline Flush] Med 11/17/20 23:24 Active 10 ml FLUSH ASDIRECTED PRN Sodium Chloride 0.9% [Saline Flush] Med 11/17/20 23:24 Active 2.5 ml FLUSH ASDIRECTED PRN Saline Lock Insert [OM.PC] Stat Oth 11/17/20 23:24 Ordered Medication Orders Sodium Chloride (Sodium Chloride 0.9% 10 Ml Syringe) 10 ml FLUSH ASDIRECTED PRN PRN Reason: Keep Vein Open Sodium Chloride (Sodium Chloride 0.9% 2.5 Ml Syringe) 2.5 ml FLUSH ASDIRECTED PRN PRN Reason: Keep Vein Open Labs: Laboratory Tests 11/17/20 Range/Units 23:35 Sodium 133 L (136-148) mmol/L Potassium 4.5 (3.5-5.1) mmol/L Chloride 101 (98-107) mmol/L Carbon Dioxide 21.7 (21.0-32.0) mmol/L BUN 34 H (7.0-18.0) mg/dL Creatinine 1.6 H (0.8-1.3) mg/dL Est Cr Clr Drug Dosing 37.72 mL/min Estimated GFR (MDRD) 41.4 ml/min Glucose 133 H (74-106) mg/dL Calcium 9.8 (8.5-10.1) mg/dL Total Bilirubin 0.6 (0.2-1.0) mg/dL AST 26 (15-37) IU/L ALT 28 (14-63) IU/L Alkaline Phosphatase 99 (46-116) U/L Total Protein 7.4 (6.4-8.2) g/dL Albumin 3.6 (3.4-5.0) g/dL Globulin 3.8 (2.6-4.0) g/dL Albumin/Globulin Ratio 1.0 (0.9-1.6) Meds: Medications Generic Name Dose Route Start Last Admin Trade Name Freq PRN Reason Stop Dose Admin Sodium Chloride 10 ml 11/17/20 23:24 Sodium Chloride 0.9% 10 Ml Syringe FLUSH ASDIRECTED PRN Keep Vein Open Sodium Chloride 2.5 ml 11/17/20 23:24 Sodium Chloride 0.9% 2.5 Ml Syringe FLUSH ASDIRECTED PRN Keep Vein Open Departure - Departure Time of Disposition: 00:20 Disposition: Home, Self-Care 01 Condition: Good Clinical Impression: Bleeding hemorrhoids - Discharge Information *PRESCRIPTION DRUG MONITORING PROGRAM REVIEWED*: Not Applicable *COPY OF PRESCRIPTION DRUG MONITORING REPORT IN PATIENT ALLEN: Not Applicable Prescriptions: Hydrocortisone [Anusol-HC] 30 gm RC BID 14 Days #1 tube Instructions: Hemorrhoids, Kkcs-[id number] Referrals: Armando Montano MD [Primary Care Provider] - 1 Week Forms: ED Department Discharge Additional Instructions: Please apply the hemorrhoid cream as prescribed. Please call Dr. Batista and follow-up with him within the next 5 to 10 days. If you have worsening bleeding or any other new symptoms that concern you please call your doctors office right away or return to the ER. Your labs today were good. Your blood counts were normal. Your creatinine today which is a measure of kidney function was 1.6. This is only minimally different from your other blood work. Important to Dr. Gabriel know this number as he may wish to recheck it. The following information is given to patients seen in the emergency department who are being discharged to home. This information is to outline your options for follow-up care. We provide all patients seen in our emergency department with a follow-up referral. The need for follow-up, as well as the timing and circumstances, are variable depending upon the specifics of your emergency department visit. If you don't have a primary care physician on staff, we will provide you with a referral. We always advise you to contact your personal physician following an emergency department visit to inform them of the circumstance of the visit and for follow-up with them and/or the need for any referrals to a consulting specialist. The emergency department will also refer you to a specialist when appropriate. This referral assures that you have the opportunity for follow-up care with a specialist. All of these measure are taken in an effort to provide you with optimal care, which includes your follow-up. Under all circumstances we always encourage you to contact your private physician who remains a resource for coordinating your care. When calling for follow-up care, please make the office aware that this follow-up is from your recent emergency room visit. If for any reason you are refused follow-up, please contact the [facility] Emergency Department at and asked to speak to the emergency department charge nurse. Sepsis Event Note (ED) - Evaluation Sepsis Screening Result: No Definite Risk - Focused Exam Vital Signs: Vital Signs Temp Pulse Resp BP Pulse Ox 11/17/20 23:16 97.7 F 86 18 125/75 96 - My Orders Last 24 Hours: My Active Orders 11/17/20 23:24 Sodium Chloride 0.9% [Saline Flush] 10 ml FLUSH ASDIRECTED PRN Sodium Chloride 0.9% [Saline Flush] 2.5 ml FLUSH ASDIRECTED PRN Saline Lock Insert [OM.PC] Stat 11/17/20 23:35 CBC WITH AUTO DIFF [HEME] Stat - Assessment/Plan Last 24 Hours: My Active Orders 11/17/20 23:24 Sodium Chloride 0.9% [Saline Flush] 10 ml FLUSH ASDIRECTED PRN Sodium Chloride 0.9% [Saline Flush] 2.5 ml FLUSH ASDIRECTED PRN Saline Lock Insert [OM.PC] Stat 11/17/20 23:35 CBC WITH AUTO DIFF [HEME] Stat Assessment:: Hemodynamically stable 85-year-old male on Eliquis presenting with painless bright red blood per rectum. Internal hemorrhoids is a consideration external hemorrhoids felt less likely given the lack of pain. Patient has no fever no abdominal tenderness that would suggest diverticulitis but certainly diverticulosis with bleeding is a consideration as well. Labs are pending. Patient on Eliquis rather than Coumadin so no indication for coags. Rectal exam pending as well. Final disposition pending results of rectal exam blood work and vital sign trend. 2335: On rectal exam patient has a number of nontender hemorrhoids 1 of which at approximately 4:00 has some signs of active to recent bleeding once this is wiped away digital rectal exam reveals no sign of bleeding from higher in the rectal vault or the intestines. Given this I do think the hemorrhoids are the source of the bleeding. There is minimal active bleeding at this time. If his labs are stable he will likely be safe for discharge with hemorrhoid cream and primary care follow-up. 0021: Patient's labs are good. No signs of active ongoing bleeding discharged with Anusol. Return precautions discussed and understood.
[2020-11-18 00:08] LABS: CARBON DIOXIDE,CO2 21.7 mmol/L (21.0-32.0); POTASSIUM,K 4.5 mmol/L (3.5-5.1)
== END 2020-11-18 00:28 | disposition home or self-care (01) ==
LOC: MW.ED 23:05
DX: K64.9 Unspecified hemorrhoids (principal); K21.9 Gastro-esophageal reflux disease without esophagitis; I11.0 Hypertensive heart disease with heart failure; I50.9 Heart failure, unspecified; Z95.0 Presence of cardiac pacemaker; Z79.899 Other long term (current) drug therapy; Z79.01 Long term (current) use of anticoagulants
CPT/HCPCS: 36415; 80053; 85025; 99283

== ENCOUNTER 2021-03-12 21:07 | Inpatient (IN) | payer MEDICARE, BC ==
[2021-03-13] MEDS ORDERED: Sodium Chloride 0.9% 10 ML Syringe FLUSH PRN (02:05)
[2021-03-13] MEDS ORDERED: Pantoprazole 40 MG in Sodium Chloride 0.9% 10 ML IV ONE (02:05)
[2021-03-13] MEDS ORDERED: Sodium Chloride 0.9% 2.5 ML Syringe FLUSH PRN (02:05)
[2021-03-13] MEDS ORDERED: Lactated Ringers 1,000 ML IV ONE (02:05)
--- NOTE | 2021-03-13 02:05 | EDM.PDOC ---
ED HPI GENERAL MEDICAL PROBLEM - General Chief Complaint: General Stated Complaint: BLEEDING Time Seen by Provider: 03/13/21 02:04 Source of Information: Reports: Patient, Family History Limitations: Reports: No Limitations - History of Present Illness INITIAL COMMENTS - FREE TEXT/NARRATIVE: 86-year-old male with history of CAD, CHF, hemorrhoids presents with bright red blood per rectum since 4 PM yesterday. He has had multiple episodes of large quantities of rectal bleeding. He denies fever, chills, chest pain, shortness of breath, abdominal pain, nausea, vomiting, dizziness or lightheadedness. He is on Eliquis. ROS: A 10-point review of systems, other than pertinent positives and negatives as stated per HPI, is otherwise negative Past medical history: No additional pertinent history Past Surgical history: No additional pertinent history Social history: No additional pertinent history Family history: No additional pertinent history PHYSICAL EXAM General: AOx4, GCS = 15, No distress HEENT: dry mucous membrane Neck: supple, no meningismus, no Kernig or Brudzinski Cardiac: S1S2 RRR Respiratory: CTAB, no crackles or rales, no wheezing Abdomen: Soft, nontender, Hemoccult trace positive, no rebound or guarding, nondistended, no pulsatile mass. No obvious hemorrhoids noted. Back: nontender Musculoskeletal: NVI distally, no deformity Neuro: No focal deficits, CN 2 - 12 WNL. Rectal Pain Score (Numeric/FACES): 3 - Related Data Allergies Allergy/AdvReac Type Severity Reaction Status Date / Time No Known Allergies Allergy Verified 11/17/20 23:20 Home Meds: Home Meds Apixaban [Eliquis] 5 mg PO BID 11/10/19 [History] Ferrous Sulfate 1 tab PO Q12H 11/10/19 [History] Furosemide 40 mg PO BID 11/10/19 [History] Metoprolol Succinate 50 mg PO DAILY 11/10/19 [History] Omeprazole 40 mg PO DAILY 11/10/19 [History] Potassium Chloride [Klor-Con M20] 20 meq PO DAILY 11/10/19 [History] atorvaSTATin [Lipitor] 10 mg PO BEDTIME 11/10/19 [History] lisinopriL [Lisinopril] 5 mg PO DAILY 11/10/19 [History] Levothyroxine Sodium [Levothyroxine] 11/17/20 [History] Spironolactone [Aldactone] 11/17/20 [History] Hydrocortisone [Anusol-HC] 30 gm RC BID 14 Days #1 tube 11/18/20 [Rx] Ascorbic Acid [Vitamin C] 500 mg PO DAILY 03/13/21 [History] polyethylene glycoL 3350 [MiraLAX] 17 gm PO PRN 03/13/21 [History] Past Medical History HEENT History: Reports: Allergic Rhinitis, Cataract, Other (See Below) Other HEENT History: wears glasses Cardiovascular History: Reports: Heart Failure, Hypertension, Pacemaker, Stents Other Cardiovascular History: cannot confirm, but does take HTN medications and High Cholesterol medications, also recent pacemaker placement and "open heart surgery" Respiratory History: Reports: None Gastrointestinal History: Reports: GERD Other Gastrointestinal History: indigestion Genitourinary History: Reports: None Musculoskeletal History: Reports: Fracture Neurological History: Reports: None Psychiatric History: Reports: None Endocrine/Metabolic History: Reports: None Hematologic History: Reports: None Immunologic History: Reports: None Oncologic (Cancer) History: Reports: None Dermatologic History: Reports: Other (See Below) Other Dermatologic History: hx of shingles - Infectious Disease History Infectious Disease History: Reports: Chicken Pox, Measles - Past Surgical History Head Surgeries/Procedures: Reports: None HEENT Surgical History: Reports: Cataract Surgery GI Surgical History: Reports: Appendectomy Neurological Surgical History: Reports: Lumbar Spine, Spinal Fusion Musculoskeletal Surgical History: Reports: ORIF, Shoulder Surgery Other Musculoskeletal Surgeries/Procedures:: left RTCR, ORIF left wrist- has hardware Social & Family History - Family History Family Medical History: No Pertinent Family History - Tobacco Use Tobacco Use Status *Q: Never Tobacco User Second Hand Smoke Exposure: No - Caffeine Use Caffeine Use: Reports: Coffee - Recreational Drug Use Recreational Drug Use: No ED ROS GENERAL - Review of Systems Review Of Systems: See Below (see dictation) ED EXAM, GENERAL - Physical Exam Exam: See Below (see dictation) #1 Interpretation EKG Interpretation Comments: Heart rate = 70 bpm, atrial flutter,normal QRS interval, no STEMI. EKG and rhythm strip interpreted by me at 0214 Course - Vital Signs Last Recorded V/S: Last Vital Signs Temp Pulse 92 03/13/21 04:20 Resp 17 03/13/21 04:20 BP 125/70 03/13/21 04:20 Pulse Ox 96 03/13/21 04:20 - Orders/Labs/Meds Orders: Active Orders 24 hr Category Date Time Status Cardiac Monitoring [RC] . DIRECTED Care 03/13/21 02:05 Active Pulse Oximetry [RC] ASDIRECTED Care 03/13/21 02:05 Active Sodium Chloride 0.9% [Saline Flush] Med 03/13/21 02:05 Active 10 ml FLUSH ASDIRECTED PRN Sodium Chloride 0.9% [Saline Flush] Med 03/13/21 02:05 Active 2.5 ml FLUSH ASDIRECTED PRN Saline Lock Insert [OM.PC] Stat Oth 03/13/21 02:05 Ordered Medication Orders Sodium Chloride (Sodium Chloride 0.9% 10 Ml Syringe) 10 ml FLUSH ASDIRECTED PRN PRN Reason: Keep Vein Open Last Admin: 03/13/21 02:16 Dose: 10 ml Documented by: GAYATRI Sodium Chloride (Sodium Chloride 0.9% 2.5 Ml Syringe) 2.5 ml FLUSH ASDIRECTED PRN PRN Reason: Keep Vein Open Last Admin: 03/13/21 02:16 Dose: 2.5 ml Documented by: GAYATRI Labs: Laboratory Tests 03/13/21 03/13/21 03/13/21 Range/Units 01:51 01:51 01:51 WBC 7.71 (4.0-11.0) K/uL RBC 4.02 L (4.50-5.90) M/uL Hgb 13.2 (13.0-17.0) g/dL Hct 38.7 (38.0-50.0) % MCV 96.3 (80.0-98.0) fL MCH 32.8 H (27.0-32.0) pg MCHC 34.1 (31.0-37.0) g/dL RDW Std Deviation 46.4 (28.0-62.0) fl RDW Coeff of Emilee 13 (11.0-15.0) % Plt Count 230 (150-400) K/uL MPV 10.50 (7.40-12.00) fL Neut % (Auto) 66.7 (48.0-80.0) % Lymph % (Auto) 15.3 L (16.0-40.0) % [place] % (Auto) 11.0 (0.0-15.0) % Eos % (Auto) 6.9 (0.0-7.0) % Baso % (Auto) 0.1 (0.0-1.5) % Neut # (Auto) 5.1 (1.4-5.7) K/uL Lymph # (Auto) 1.2 (0.6-2.4) K/uL [place] # (Auto) 0.9 H (0.0-0.8) K/uL Eos # (Auto) 0.5 (0.0-0.7) K/uL Baso # (Auto) 0.0 (0.0-0.1) K/uL Nucleated RBC % 0.0 /100WBC Nucleated RBCs # 0 K/uL INR 1.08 APTT (18.6-31.3) SEC Sodium 135 L (136-148) mmol/L Potassium 4.5 (3.5-5.1) mmol/L Chloride 99 (98-107) mmol/L Carbon Dioxide 25.0 (21.0-32.0) mmol/L BUN 36 H (7.0-18.0) mg/dL Creatinine 1.5 H (0.8-1.3) mg/dL Est Cr Clr Drug Dosing 39.52 mL/min Estimated GFR (MDRD) 44.5 ml/min Glucose 111 H (74-106) mg/dL Lactic Acid (0.4-2.0) mmol/L Calcium 9.2 (8.5-10.1) mg/dL Total Bilirubin 0.8 (0.2-1.0) mg/dL AST 29 (15-37) IU/L ALT 36 (14-63) IU/L Alkaline Phosphatase 100 (46-116) U/L Troponin I (0.000-0.056) ng/mL B-Natriuretic Peptide (<100) PG/ML Total Protein 7.6 (6.4-8.2) g/dL Albumin 4.0 (3.4-5.0) g/dL Globulin 3.6 (2.6-4.0) g/dL Albumin/Globulin Ratio 1.1 (0.9-1.6) SARS-CoV-2 RNA (LUC[place]) (NEGATIVE) 03/13/21 03/13/21 03/13/21 Range/Units 01:51 01:51 01:51 WBC (4.0-11.0) K/uL RBC (4.50-5.90) M/uL Hgb (13.0-17.0) g/dL Hct (38.0-50.0) % MCV (80.0-98.0) fL MCH (27.0-32.0) pg MCHC (31.0-37.0) g/dL RDW Std Deviation (28.0-62.0) fl RDW Coeff of Emilee (11.0-15.0) % Plt Count (150-400) K/uL MPV (7.40-12.00) fL Neut % (Auto) (48.0-80.0) % Lymph % (Auto) (16.0-40.0) % [place] % (Auto) (0.0-15.0) % Eos % (Auto) (0.0-7.0) % Baso % (Auto) (0.0-1.5) % Neut # (Auto) (1.4-5.7) K/uL Lymph # (Auto) (0.6-2.4) K/uL [place] # (Auto) (0.0-0.8) K/uL Eos # (Auto) (0.0-0.7) K/uL Baso # (Auto) (0.0-0.1) K/uL Nucleated RBC % /100WBC Nucleated RBCs # K/uL INR APTT 50.3 H (18.6-31.3) SEC Sodium (136-148) mmol/L Potassium (3.5-5.1) mmol/L Chloride (98-107) mmol/L Carbon Dioxide (21.0-32.0) mmol/L BUN (7.0-18.0) mg/dL Creatinine (0.8-1.3) mg/dL Est Cr Clr Drug Dosing mL/min Estimated GFR (MDRD) ml/min Glucose (74-106) mg/dL Lactic Acid (0.4-2.0) mmol/L Calcium (8.5-10.1) mg/dL Total Bilirubin (0.2-1.0) mg/dL AST (15-37) IU/L ALT (14-63) IU/L Alkaline Phosphatase (46-116) U/L Troponin I < 0.050 (0.000-0.056) ng/mL B-Natriuretic Peptide 75 (<100) PG/ML Total Protein (6.4-8.2) g/dL Albumin (3.4-5.0) g/dL Globulin (2.6-4.0) g/dL Albumin/Globulin Ratio (0.9-1.6) SARS-CoV-2 RNA ([place]) (NEGATIVE) 03/13/21 03/13/21 03/13/21 Range/Units 03:00 04:15 05:00 WBC (4.0-11.0) K/uL RBC (4.50-5.90) M/uL Hgb 12.0 L (13.0-17.0) g/dL Hct (38.0-50.0) % MCV (80.0-98.0) fL MCH (27.0-32.0) pg MCHC (31.0-37.0) g/dL RDW Std Deviation (28.0-62.0) fl RDW Coeff of Emilee (11.0-15.0) % Plt Count (150-400) K/uL MPV (7.40-12.00) fL Neut % (Auto) (48.0-80.0) % Lymph % (Auto) (16.0-40.0) % [place] % (Auto) (0.0-15.0) % Eos % (Auto) (0.0-7.0) % Baso % (Auto) (0.0-1.5) % Neut # (Auto) (1.4-5.7) K/uL Lymph # (Auto) (0.6-2.4) K/uL [place] # (Auto) (0.0-0.8) K/uL Eos # (Auto) (0.0-0.7) K/uL Baso # (Auto) (0.0-0.1) K/uL Nucleated RBC % /100WBC Nucleated RBCs # K/uL INR APTT (18.6-31.3) SEC Sodium (136-148) mmol/L Potassium (3.5-5.1) mmol/L Chloride (98-107) mmol/L Carbon Dioxide (21.0-32.0) mmol/L BUN (7.0-18.0) mg/dL Creatinine (0.8-1.3) mg/dL Est Cr Clr Drug Dosing mL/min Estimated GFR (MDRD) ml/min Glucose (74-106) mg/dL Lactic Acid 1.2 (0.4-2.0) mmol/L Calcium (8.5-10.1) mg/dL Total Bilirubin (0.2-1.0) mg/dL AST (15-37) IU/L ALT (14-63) IU/L Alkaline Phosphatase (46-116) U/L Troponin I (0.000-0.056) ng/mL B-Natriuretic Peptide (<100) PG/ML Total Protein (6.4-8.2) g/dL Albumin (3.4-5.0) g/dL Globulin (2.6-4.0) g/dL Albumin/Globulin Ratio (0.9-1.6) SARS-CoV-2 RNA ([place]) NEGATIVE (NEGATIVE) Meds: Medications Generic Name Dose Route Start Last Admin Trade Name Michaelq PRN Reason Stop Dose Admin Sodium Chloride 10 ml 03/13/21 02:05 03/13/21 02:16 Sodium Chloride 0.9% 10 Ml Syringe FLUSH 10 ml ASDIRECTED PRN Administration Keep Vein Open Sodium Chloride 2.5 ml 03/13/21 02:05 03/13/21 02:16 Sodium Chloride 0.9% 2.5 Ml Syringe FLUSH 2.5 ml ASDIRECTED PRN Administration Keep Vein Open Discontinued Medications Generic Name Dose Route Start Last Admin Trade Name Freq PRN Reason Stop Dose Admin Lactated Ringer's 1,000 mls @ 999 mls/hr 03/13/21 02:05 03/13/21 02:15 Ringers, Lactated IV 03/13/21 03:05 999 mls/hr .BOLUS ONE Administration Pantoprazole Sodium 40 mg/ 10 mls @ 300 mls/hr 03/13/21 02:05 03/13/21 02:15 Sodium Chloride IV 03/13/21 02:06 300 mls/hr NOW ONE Administration Iopamidol 75 ml 03/13/21 02:45 03/13/21 02:50 Iopamidol 755 Mg/Ml 100 Ml Bottle IVPUSH 03/13/21 02:46 75 ml ONETIME ONE Administration - Re-Assessments/Exams Free Text/Narrative Re-Assessment/Exam: 03/13/21 05:[address] Cruz, she wants surgery consulted. Case discussed with Dr. Les Roberts, will consult. Case discussed with Dr. Cruz, who agrees to admit patient. The hospitalist's documentation supersedes all other documentation on this patient with regard to any conflicts or discrepancies from this point forward. Any emergency conditions have been treated to the ability of the ED prior to admission. Departure - Departure Time of Disposition: 05:46 Disposition: Refer to Observation Condition: Good Clinical Impression: Diverticulosis, Bright red blood per rectum - Discharge Information *PRESCRIPTION DRUG MONITORING PROGRAM REVIEWED*: Not Applicable *COPY OF PRESCRIPTION DRUG MONITORING REPORT IN PATIENT ALLEN: Not Applicable Referrals: Armando Montano MD [Primary Care Provider] - Forms: ED Department Discharge Sepsis Event Note (ED) - Focused Exam Vital Signs: Vital Signs Pulse Resp BP Pulse Ox 03/13/21 04:20 92 17 125/70 96 03/13/21 01:54 84 17 105/75 97 - My Orders Last 24 Hours: My Active Orders 03/13/21 02:05 Cardiac Monitoring [RC] . DIRECTED Pulse Oximetry [RC] ASDIRECTED Sodium Chloride 0.9% [Saline Flush] 10 ml FLUSH ASDIRECTED PRN Sodium Chloride 0.9% [Saline Flush] 2.5 ml FLUSH ASDIRECTED PRN Saline Lock Insert [OM.PC] Stat - Assessment/Plan Last 24 Hours: My Active Orders 03/13/21 02:05 Cardiac Monitoring [RC] . DIRECTED Pulse Oximetry [RC] ASDIRECTED Sodium Chloride 0.9% [Saline Flush] 10 ml FLUSH ASDIRECTED PRN Sodium Chloride 0.9% [Saline Flush] 2.5 ml FLUSH ASDIRECTED PRN Saline Lock Insert [OM.PC] Stat
[2021-03-13 02:13] LABS: POTASSIUM,K 4.5 mmol/L (3.5-5.1)
[2021-03-13] MEDS ORDERED: Iopamidol 755 Mg/ML 100 ML Bottle IVPUSH ONE (02:45)
--- NOTE | 2021-03-13 03:38 | CT ---
INDICATION: Bright red blood per rectum TECHNIQUE: CT abdomen and pelvis acquired with 75 cc Isovue 370 IV contrast. COMPARISON: None FINDINGS: Lower chest: Status post median sternotomy. Pacemaker wires in the right atrium and right ventricle. Liver: Unremarkable. Spleen: Unremarkable. Pancreas: Unremarkable. Gallbladder and bile ducts: Unremarkable. Adrenal glands: Unremarkable. Kidneys: 1.4 cm hypodense mass on the lateral aspect of the left kidney measuring 36 Hounsfield units in density. GI tract: Colonic diverticulosis. Vascular structures: Moderate atherosclerotic disease. 3.6 cm infrarenal abdominal aortic aneurysm. Lymph nodes: Unremarkable. Miscellaneous: Unremarkable. No free air or significant free fluid. Pelvic Organs: Distended urinary bladder. Bones: Unremarkable for age. IMPRESSION: No acute intra-abdominal process identified. Indeterminate mass on the left kidney. Recommend nonemergent renal CT for further characterization. Colonic diverticulosis. 3.6 cm infrarenal abdominal aortic aneurysm. Distended urinary bladder. Please note that all CT scans at this facility use dose modulation, iterative reconstruction, and/or weight-based dosing when appropriate to reduce radiation dose to as low as reasonably achievable. Dictated by Brianna Watters MD @ 03/13/2021 3:37:36 AM (Electronically Signed)
[2021-03-13] MEDS ORDERED: Albuterol/Ipratropium 3.0-0.5 MG/3 ML Neb Soln NEB PRN (08:46)
[2021-03-13] MEDS ORDERED: Acetaminophen 325 MG Tab PO PRN (09:00)
[2021-03-13] MEDS ORDERED: Ondansetron 4 MG/2 ML SDV IVPUSH PRN (09:00)
[2021-03-13] MEDS ORDERED: Pantoprazole 40 MG Tab.CR PO SCH (09:00)
--- NOTE | 2021-03-13 09:17 | PCM.HP.2 ---
H&P History of Present Illness - General Date of Service: 03/13/21 Admit Problem/Dx: Admission Diagnosis/Problem Admission Diagnosis/Problem Diverticulosis of intestine - History of Present Illness Initial Comments - Free Text/Narative: Patient is a 86-year-old male with past medical history of CABG, coronary artery disease, congestive heart Failure, Hypertension, Pacemaker, cardiac stents, GERD, hemorrhoids, hypothyroidism prior history of GI bleed on Eliquis who came into the ER yesterday late afternoon with concerns of bright red blood per rectum. Patient states that he had multiple bowel movements yesterday and first 1 had a clot in it and after that the subsequent bowel movements were more bright red. Patient denies any pain burning sensation. Patient denies any dizziness or lightheadedness, or chest pain, syncope or presyncope. Patient states that he had similar episode in the past at that time he was provided suppositories in the ER which seemed to resolve his symptoms. He often on has s ome bloody stools but not as much significant as it was yesterday. Patient's last colonoscopy was about 3 years back in which he was found to have diverticulosis, polyps and hemorrhoids. In the ER Hemoccult was done which was trace positive, CT of the abdomen showed diverticulosis, laboratory data was significant for hemoglobin of 13.2, repeat hemoglobin did drop to 12 after patient received 1 L of IV fluid hydration. Patient's BUN was 36 and creatinine 1.5. Due to concerns of GI bleed and patient being on a blood thinner and his advanced age patient was admitted to the hospital for further management. Surgery was also consulted by ER physician and they felt it should be reasonable for patient to be admitted in our facility to be watched overnight and decide the course of action from there. Rectal Pain Score (Numeric/FACES): 3 - Related Data Allergies/Adverse Reactions: Allergies Allergy/AdvReac Type Severity Reaction Status Date / Time No Known Allergies Allergy Verified 11/17/20 23:20 Home Medications: Home Meds Apixaban [Eliquis] 5 mg PO BID 11/10/19 [History] Ferrous Sulfate 324 mg PO BID 11/10/19 [History] Furosemide 40 mg PO DAILY 11/10/19 [History] Omeprazole 40 mg PO ACBREAKFAST 11/10/19 [History] Potassium Chloride [Klor-Con M20] 20 meq PO DAILY 11/10/19 [History] atorvaSTATin [Lipitor] 10 mg PO BEDTIME 11/10/19 [History] Levothyroxine Sodium [Levothyroxine] 50 mcg PO ACBREAKFAST 11/17/20 [History] Spironolactone [Aldactone] 12.5 mg PO DAILY 11/17/20 [History] Hydrocortisone [Anusol-HC] 30 gm RC BID 14 Days #1 tube 11/18/20 [Rx] Ascorbic Acid [Vitamin C] 500 mg PO DAILY 03/13/21 [History] Aspirin [Lo-Dose Aspirin EC] 81 mg PO DAILY 03/13/21 [History] Dapagliflozin Propanediol [Farxiga] 10 mg PO DAILY 03/13/21 [History] Metoprolol Succinate 200 mg PO DAILY 03/13/21 [History] lisinopriL [Lisinopril] 40 mg PO DAILY 03/13/21 [History] polyethylene glycoL 3350 [MiraLAX] 17 gm PO DAILY PRN 03/13/21 [History] Past Medical History HEENT History: Reports: Allergic Rhinitis, Cataract, Other (See Below) Other HEENT History: wears glasses Cardiovascular History: Reports: Heart Failure, Hypertension, Pacemaker, Stents Other Cardiovascular History: cannot confirm, but does take HTN medications and High Cholesterol medications, also recent pacemaker placement and "open heart surgery" Respiratory History: Reports: None Gastrointestinal History: Reports: Diverticulosis, GERD, Hemorrhoids Other Gastrointestinal History: indigestion Genitourinary History: Reports: None Musculoskeletal History: Reports: Fracture Neurological History: Reports: None Psychiatric History: Reports: None Endocrine/Metabolic History: Reports: None Hematologic History: Reports: None Immunologic History: Reports: None Oncologic (Cancer) History: Reports: None Dermatologic History: Reports: Other (See Below) Other Dermatologic History: hx of shingles - Infectious Disease History Infectious Disease History: Reports: Chicken Pox, Measles - Past Surgical History Head Surgeries/Procedures: Reports: None HEENT Surgical History: Reports: Cataract Surgery GI Surgical History: Reports: Appendectomy, Colonoscopy Male Surgical History: Reports: None Neurological Surgical History: Reports: Lumbar Spine, Spinal Fusion Musculoskeletal Surgical History: Reports: ORIF, Shoulder Surgery Other Musculoskeletal Surgeries/Procedures:: Spinal fusion, left RTCR, ORIF left wrist- has hardware Social & Family History - Family History Family Medical History: No Pertinent Family History - Tobacco Use Tobacco Use Status *Q: Never Tobacco User Second Hand Smoke Exposure: No - Caffeine Use Caffeine Use: Reports: Coffee - Recreational Drug Use Recreational Drug Use: No H&P Review of Systems - Review of Systems: Review Of Systems: See Below General: Denies: Fever, Chills, Malaise, Weakness HEENT: Denies: Contact Lenses, Dysphasia Pulmonary: Denies: Shortness of Breath, Wheezing Cardiovascular: Denies: Chest Pain, Palpitations Gastrointestinal: Reports: Bloody Stool, Constipation. Denies: Abdominal Pain, Anorexia, Black Stool, Diarrhea, Nausea, Stool Incontinence, Vomiting Genitourinary: Denies: Dysuria, Frequency, Burning Musculoskeletal: Denies: Neck Pain, Shoulder Pain, Arm Pain Skin: Denies: Cyanosis, Jaundice, Mottled Psychiatric: Denies: Confusion, Depression Neurological: Denies: Dizziness, Headache Hematologic/Lymphatic: Reports: Anemia, Easy Bleeding Exam - Exam Exam: See Below - Vital Signs Vital Signs: Last Vital Signs Temp Pulse 92 03/13/21 04:20 Resp 17 03/13/21 04:20 BP 125/70 03/13/21 04:20 Pulse Ox 96 03/13/21 04:20 Weight: 81.556 kg - Exam Quality Assessment: Supplemental Oxygen General: Alert, Oriented Neck: Supple, Trachea Midline Lungs: Clear to Auscultation, Normal Respiratory Effort Cardiovascular: Regular Rate, Regular Rhythm, Normal S1, Normal S2 GI/Abdominal Exam: Normal Bowel Sounds, Soft, Non-Tender - Patient Data Lab Results Last 24 hrs: Laboratory Results - last 24 hr 03/13/21 03/13/21 03/13/21 Range/Units 01:51 01:51 01:51 WBC 7.71 (4.0-11.0) K/uL RBC 4.02 L (4.50-5.90) M/uL Hgb 13.2 (13.0-17.0) g/dL Hct 38.7 (38.0-50.0) % MCV 96.3 (80.0-98.0) fL MCH 32.8 H (27.0-32.0) pg MCHC 34.1 (31.0-37.0) g/dL RDW Std Deviation 46.4 (28.0-62.0) fl RDW Coeff of [place]ilee 13 (11.0-15.0) % Plt Count 230 (150-400) K/uL MPV 10.50 (7.40-12.00) fL Neut % (Auto) 66.7 (48.0-80.0) % Lymph % (Auto) 15.3 L (16.0-40.0) % [place] % (Auto) 11.0 (0.0-15.0) % Eos % (Auto) 6.9 (0.0-7.0) % Baso % (Auto) 0.1 (0.0-1.5) % Neut # (Auto) 5.1 (1.4-5.7) K/uL Lymph # (Auto) 1.2 (0.6-2.4) K/uL [place] # (Auto) 0.9 H (0.0-0.8) K/uL Eos # (Auto) 0.5 (0.0-0.7) K/uL Baso # (Auto) 0.0 (0.0-0.1) K/uL Nucleated RBC % 0.0 /100WBC Nucleated RBCs # 0 K/uL INR 1.08 APTT (18.6-31.3) SEC Sodium 135 L (136-148) mmol/L Potassium 4.5 (3.5-5.1) mmol/L Chloride 99 (98-107) mmol/L Carbon Dioxide 25.0 (21.0-32.0) mmol/L BUN 36 H (7.0-18.0) mg/dL Creatinine 1.5 H (0.8-1.3) mg/dL Est Cr Clr Drug Dosing 39.52 mL/min Estimated GFR (MDRD) 44.5 ml/min Glucose 111 H (74-106) mg/dL Lactic Acid (0.4-2.0) mmol/L Calcium 9.2 (8.5-10.1) mg/dL Total Bilirubin 0.8 (0.2-1.0) mg/dL AST 29 (15-37) IU/L ALT 36 (14-63) IU/L Alkaline Phosphatase 100 (46-116) U/L Troponin I (0.000-0.056) ng/mL B-Natriuretic Peptide (<100) PG/ML Total Protein 7.6 (6.4-8.2) g/dL Albumin 4.0 (3.4-5.0) g/dL Globulin 3.6 (2.6-4.0) g/dL Albumin/Globulin Ratio 1.1 (0.9-1.6) SARS-CoV-2 RNA ([place]) (NEGATIVE) 03/13/21 03/13/21 03/13/21 Range/Units 01:51 01:51 01:51 WBC (4.0-11.0) K/uL RBC (4.50-5.90) M/uL Hgb (13.0-17.0) g/dL Hct (38.0-50.0) % MCV (80.0-98.0) fL MCH (27.0-32.0) pg MCHC (31.0-37.0) g/dL RDW Std Deviation (28.0-62.0) fl RDW Coeff of [place]ilee (11.0-15.0) % Plt Count (150-400) K/uL MPV (7.40-12.00) fL Neut % (Auto) (48.0-80.0) % Lymph % (Auto) (16.0-40.0) % [place] % (Auto) (0.0-15.0) % Eos % (Auto) (0.0-7.0) % Baso % (Auto) (0.0-1.5) % Neut # (Auto) (1.4-5.7) K/uL Lymph # (Auto) (0.6-2.4) K/uL [place] # (Auto) (0.0-0.8) K/uL Eos # (Auto) (0.0-0.7) K/uL Baso # (Auto) (0.0-0.1) K/uL Nucleated RBC % /100WBC Nucleated RBCs # K/uL INR APTT 50.3 H (18.6-31.3) SEC Sodium (136-148) mmol/L Potassium (3.5-5.1) mmol/L Chloride (98-107) mmol/L Carbon Dioxide (21.0-32.0) mmol/L BUN (7.0-18.0) mg/dL Creatinine (0.8-1.3) mg/dL Est Cr Clr Drug Dosing mL/min Estimated GFR (MDRD) ml/min Glucose (74-106) mg/dL Lactic Acid (0.4-2.0) mmol/L Calcium (8.5-10.1) mg/dL Total Bilirubin (0.2-1.0) mg/dL AST (15-37) IU/L ALT (14-63) IU/L Alkaline Phosphatase (46-116) U/L Troponin I < 0.050 (0.000-0.056) ng/mL B-Natriuretic Peptide 75 (<100) PG/ML Total Protein (6.4-8.2) g/dL Albumin (3.4-5.0) g/dL Globulin (2.6-4.0) g/dL Albumin/Globulin Ratio (0.9-1.6) SARS-CoV-2 RNA ([place]) (NEGATIVE) 03/13/21 03/13/21 03/13/21 Range/Units 03:00 04:15 05:00 WBC (4.0-11.0) K/uL RBC (4.50-5.90) M/uL Hgb 12.0 L (13.0-17.0) g/dL Hct (38.0-50.0) % MCV (80.0-98.0) fL MCH (27.0-32.0) pg MCHC (31.0-37.0) g/dL RDW Std Deviation (28.0-62.0) fl RDW Coeff of Emilee (11.0-15.0) % Plt Count (150-400) K/uL MPV (7.40-12.00) fL Neut % (Auto) (48.0-80.0) % Lymph % (Auto) (16.0-40.0) % [place] % (Auto) (0.0-15.0) % Eos % (Auto) (0.0-7.0) % Baso % (Auto) (0.0-1.5) % Neut # (Auto) (1.4-5.7) K/uL Lymph # (Auto) (0.6-2.4) K/uL [place] # (Auto) (0.0-0.8) K/uL Eos # (Auto) (0.0-0.7) K/uL Baso # (Auto) (0.0-0.1) K/uL Nucleated RBC % /100WBC Nucleated RBCs # K/uL INR APTT (18.6-31.3) SEC Sodium (136-148) mmol/L Potassium (3.5-5.1) mmol/L Chloride (98-107) mmol/L Carbon Dioxide (21.0-32.0) mmol/L BUN (7.0-18.0) mg/dL Creatinine (0.8-1.3) mg/dL Est Cr Clr Drug Dosing mL/min Estimated GFR (MDRD) ml/min Glucose (74-106) mg/dL Lactic Acid 1.2 (0.4-2.0) mmol/L Calcium (8.5-10.1) mg/dL Total Bilirubin (0.2-1.0) mg/dL AST (15-37) IU/L ALT (14-63) IU/L Alkaline Phosphatase (46-116) U/L Troponin I (0.000-0.056) ng/mL B-Natriuretic Peptide (<100) PG/ML Total Protein (6.4-8.2) g/dL Albumin (3.4-5.0) g/dL Globulin (2.6-4.0) g/dL Albumin/Globulin Ratio (0.9-1.6) SARS-CoV-2 RNA ([place]) NEGATIVE (NEGATIVE) Result Diagrams: 03/13/21 05:00 03/13/21 01:51 Sepsis Event Note - Evaluation Sepsis Screening Result: No Definite Risk - Focused Exam Vital Signs: Vital Signs Pulse Resp BP Pulse Ox 03/13/21 04:20 92 17 125/70 96 03/13/21 01:54 84 17 105/75 97 - Problem List (1) Bright red blood per rectum SNOMED Code(s): 98995316 ICD Code: K62.5 - HEMORRHAGE OF ANUS AND RECTUM Status: Acute Current Visit: Yes (2) Diverticulosis SNOMED Code(s): 967018859 ICD Code: K57.90 - DVRTCLOS OF INTEST, PART UNSP, W/O PERF OR ABSCESS W/O BLEED Status: Acute Current Visit: Yes (3) Bleeding hemorrhoids SNOMED Code(s): 75019813 ICD Code: K64.9 - UNSPECIFIED HEMORRHOIDS Status: Acute Current Visit: No (4) CAD (coronary artery disease) SNOMED Code(s): 27032593 ICD Code: I25.10 - ATHSCL HEART DISEASE OF [place] CORONARY ARTERY W/O ANG PCTRS Status: Acute Current Visit: No (5) Chronic congestive heart failure SNOMED Code(s): 81769640 ICD Code: I50.9 - HEART FAILURE, UNSPECIFIED Status: Acute Current Visit: No (6) Constipation SNOMED Code(s): 52826800 ICD Code: K59.00 - CONSTIPATION, UNSPECIFIED Status: Acute Current Visit: No Qualifiers: Constipation type: unspecified constipation type Qualified Code(s): K59.00 - Constipation, unspecified (7) External hemorrhoids SNOMED Code(s): 49689679 ICD Code: K64.4 - RESIDUAL HEMORRHOIDAL SKIN TAGS Status: Acute Current Visit: No (8) Pacemaker SNOMED Code(s): 853652855 ICD Code: Z95.0 - PRESENCE OF CARDIAC PACEMAKER Status: Acute Current Visit: No Problem List Initiated/Reviewed/Updated: Yes Orders Last 24hrs: Active Orders 24 hr Category Date Time Status Patient Status [ADT] Routine ADT 03/13/21 05:48 Active Ambulate [RC] ASDIRECTED Care 03/13/21 08:40 Active Antiembolic Devices [RC] PER UNIT ROUTINE Care 03/13/21 08:44 Active Cardiac Monitoring [RC] . DIRECTED Care 03/13/21 02:05 Active Notify Provider Consults [RC] ASDIRECTED Care 03/13/21 09:16 Ordered Oxygen Therapy Adult [Oxygen Therapy, ED] [RC] Care 03/13/21 08:45 Active ASDIRECTED Pulse Oximetry [RC] ASDIRECTED Care 03/13/21 02:05 Active Vital Signs [RC] Q4H Care 03/13/21 08:00 Active Consult to Physician [CONS] Routine Cons 03/13/21 09:15 Ordered Heart Healthy Diet [DIET] Diet 03/13/21 Lunch Active Acetaminophen [TylenoL] Med 03/13/21 09:00 Active 650 mg PO Q6H PRN Albuterol/Ipratropium [DuoNeb 3.0-0.5 MG/3 ML] Med 03/13/21 08:46 Active 3 ml NEB Q4HRRT PRN Ondansetron [Zofran] Med 03/13/21 09:00 Active 4 mg IVPUSH Q4H PRN Pantoprazole [ProTONIX] Med 03/13/21 09:00 Ordered 40 mg PO TID Sodium Chloride 0.9% [Saline Flush] Med 03/13/21 02:05 Active 10 ml FLUSH ASDIRECTED PRN Sodium Chloride 0.9% [Saline Flush] Med 03/13/21 02:05 Active 2.5 ml FLUSH ASDIRECTED PRN SCD [Sequential Compression Device] [OM.PC] Routine Oth 03/13/21 08:44 Ordered Saline Lock Insert [OM.PC] Stat Oth 03/13/21 02:05 Ordered Medication Orders Acetaminophen (Acetaminophen 325 Mg Tab) 650 mg PO Q6H PRN PRN Reason: Pain Albuterol/Ipratropium (Albuterol/Ipratropium 3.0-0.5 Mg/3 Ml Neb Soln) 3 ml NEB Q4HRRT PRN PRN Reason: Shortness of Breath Ondansetron HCl (Ondansetron 4 Mg/2 Ml Sdv) 4 mg IVPUSH Q4H PRN PRN Reason: Nausea Pantoprazole Sodium (Pantoprazole 40 Mg Tab.Cr) 40 mg PO TID FABIÁN Sodium Chloride (Sodium Chloride 0.9% 10 Ml Syringe) 10 ml FLUSH ASDIRECTED PRN PRN Reason: Keep Vein Open Last Admin: 03/13/21 02:16 Dose: 10 ml Documented by: GAYATRI Sodium Chloride (Sodium Chloride 0.9% 2.5 Ml Syringe) 2.5 ml FLUSH ASDIRECTED PRN PRN Reason: Keep Vein Open Last Admin: 03/13/21 02:16 Dose: 2.5 ml Documented by: GAYATRI Assessment/Plan Comment:: 86-year-old male admitted for concern of lower GI bleed There is a slight decrease in hemoglobin in the ER most likely dilutional due to patient receiving IV fluids in the ER., Hemoccult trace positive Blood pressure is stable, no dizziness, no chest pain We will hold Eliquis for now Continue monitoring on telemetry Start IV PPI twice daily Will not start patient on IV fluids for now due to concern of patient's congestive heart failure, patient is eating and drinking well Cardiac diet Surgery has been consulted, possible inpatient versus outpatient colonoscopy, patient's last colonoscopy was 3 years back which showed hemorrhoids diverticulosis and small polyps GI bleed likely secondary to patient's external hemorrhoids repeat hemoglobin this evening If hemoglobin stable in a.m. and no more bloody stools we will possibly discharge patient in morning.
[2021-03-13] MEDS: Pantoprazole 40 MG in Sodium Chloride 0.9% 10 ML IV SCH ×2 (09:45→21:29)
--- NOTE | 2021-03-13 13:02 | CONS ---
DATE OF CONSULTATION: 03/13/2021 DATE OF : 1935 PRIMARY CARE PHYSICIAN: Armando Montano M.D. HISTORY OF PRESENT ILLNESS: The patient is a pleasant 86-year-old gentleman who said yesterday late afternoon he started having some bright red blood per rectum. He said he had multiple bowel movements. He said at first it was more of a clot and then afterwards more bright red. He came to the ER for further evaluation. The patient denies any pain. He denies any dizziness or lightheadedness. The patient said last year he had a similar episode. He went to the ER, and he was given suppositories. He went home. They said that the bleeding resolved in about a week. He says since then he will have bleeds off and on, but this one seems more than the others. The patient has had issue with blood in his stools for the last several years. Last colonoscopy was by Dr. Loza 3 years ago in which he had pandiverticulosis, some small polyps in the cecum, and hemorrhoids. PAST MEDICAL HISTORY: Includes: 1. Coronary artery disease. 2. Congestive heart failure. 3. History of hemorrhoids. 4. Hypothyroidism. CURRENT HOME MEDICATIONS: 1. MiraLAX 17 g p.o. daily. 2. Lisinopril 5 mg p.o. daily. 3. Lipitor 10 mg p.o. at bedtime. 4. Spironolactone. 5. Potassium 20 mEq p.o. daily. 6. Omeprazole 40 mg p.o. daily. 7. Metoprolol 50 mg p.o. daily. 8. Levothyroxine. 9. Furosemide 40 mg p.o. b.i.d. 10.Eliquis 5 mg p.o. daily. 11.Iron sulfate b.i.d. 12.Vitamin C daily. ALLERGIES: No known drug allergies. PAST SURGICAL HISTORY: 1. Pacemaker placement. 2. Open-heart surgery about a year and a half ago. 3. Shoulder surgery. 4. Wrist surgery. 5. Back surgery. SOCIAL HISTORY: The patient denies any tobacco use. He denies illicit drug use. He does live at home with his . REVIEW OF SYSTEMS: Complete 12+ review of systems was done, was negative except per the HPI. PHYSICAL EXAMINATION: GENERAL: The patient is lying comfortably in his bed. He is alert and oriented, in no acute distress. VITAL SIGNS: Temperature is 96.4, pulse is 80, blood pressure is 125/70, and saturating 96% on room air. HEENT: Head is normocephalic, atraumatic. Mouth, missing several teeth. LUNGS: Clear to auscultation bilaterally. No rhonchi or wheezes heard. HEART: Very soft tones but do not hear any murmurs. ABDOMEN: Soft, nontender, and nondistended. EXTREMITIES: No edema. NEUROLOGIC: Grossly no motor or neurologic deficits noted. RECTAL: Done, on the outside no external hemorrhoids. On anoscopy, the patient has what looks to be some slightly edematous internal hemorrhoids but no signs of any active bleeding. These do slightly protrude after the anal scope but then spontaneously reduce. LABORATORY DATA: White cell count 7.71, hemoglobin was 13.2 and dropped down to 12 after a liter of saline fluid, and platelet count is 230. Sodium 135, potassium 4.5, chloride 99, BUN 36, creatinine 1.5, and glucose is 111. COVID is negative. IMAGING: The patient did have a CT scan that showed some diverticulosis. ASSESSMENT AND PLAN: The patient is a pleasant 86-year-old gentleman who had some bright red blood per rectum off and on for multiple years. This seemed a little worse. Yesterday, he came to the ER. Currently, the patient is feeling better. Denies any signs of lightheadedness or dizziness. On rectal exam, he did have some slightly inflamed hemorrhoids but no signs of active bleeding. No blood in his rectal vault. I did go over with the patient potential sources of blood per rectum could be his hemorrhoids, diverticulosis, or even upper GI source. The patient says he understands. I did discuss with him that I do not see any current bleeding in his rectum. This hemorrhoids, we did treat him for his hemorrhoids. He will follow as an outpatient with an upper and lower endoscopy to check for any other potential sources. It has been 3 years since last colonoscopy. The patient says he understands. I did go over if he continues to bleed that we could do one sooner during his hospitalization. I did discuss the patient with Dr. Harris. We would recommend holding his Eliquis if possible. Also, discussed with patient, he needs to keep his bowel movements soft. He does state he takes MiraLAX daily. He says without this, he does have constipation issues. I did discuss with his and the patient. I answered all their questions. We will plan for a potential colonoscopy and EGD as an outpatient or sooner if continues to have bleeding. KEYUR CAZARES /[id number] MELANIE
[2021-03-13] MEDS ORDERED: Polyethylene Glycol 3350 Powder 17 GM Packet PO PRN (14:32)
[2021-03-13] MEDS ORDERED: Metoprolol Succinate 100 MG Tab.ER PO SCH (14:45)
[2021-03-13] MEDS: Ferrous Sulfate 325 MG Tab PO SCH (16:34)
[2021-03-13] MEDS: atorvaSTATin 10 MG Tab PO SCH (21:30)
[2021-03-13] MEDS: Hydrocortisone 2.5% Crm 30 GM Tube TOP SCH (21:30)
[2021-03-14] MEDS ORDERED: Polyethylene Glycol 3350 Powder 17 GM Packet PO ONE (03:00)
[2021-03-14] MEDS ORDERED: diphenhydrAMINE 50 MG/ML SDV IVPUSH ONE (04:50)
[2021-03-14] MEDS ORDERED: methylPREDNISolone Sodium Succinate 125 MG/2 ML SDV IVPUSH ONE (05:11)
--- NOTE | 2021-03-14 05:18 | PN ---
SUBJECTIVE: I was called by the hospitalist late this evening, because the patient this evening after supper had another bloody BM. This was mixed with urine in the bowl. 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 The patient again denies any abdominal pain. This is the only time he has had a bowel movement since being admitted. The patient again denies any lightheadedness or dizziness. Repeat labs; this afternoon was 11.7, down from 12 this morning. OBJECTIVE: GENERAL: He is lying comfortably in his bed. He is alert, oriented, and in no acute distress. VITALS: Temperature is 96.3, pulse 71, blood pressure 103/62, and satting 93% on room air. RECTAL: I did again look at his rectum. Again, the patient had some internal hemorrhoids on the left side that protrude slightly, which looks like maybe a slightly prolapsing left hemorrhoid. They do spontaneously reduce. The hemorrhoid does appear slightly yordy, but definitely no active bleeding. I did place again the anoscope. His rectal vault again is empty, no blood clot or blood in the rectum currently. ASSESSMENT AND PLAN: A pleasant 86-year-old gentleman, who has had off-and-on rectal bleeding since yesterday. Currently, no blood in the vault. He does have a history of diverticulosis. He has had bleeding off and on for the last couple of years. He does have known hemorrhoids. I went over with the patient we could again do the colonoscopy and esophagogastroduodenoscopy. We will plan to do a colonoscopy and an esophagogastroduodenoscopy after his bowel preparation tomorrow. I did go over with the patient again what a colonoscopy was and went over the risks, goals, and alternatives of colonoscopy. The risks include, but are not limited to, bleeding, perforation, missed lesions, and failure to complete the procedure. I did go over that we may or may not find a cause of his bleeding since bleeding seems to be kind of intermittent. I also went over that I would like to do an esophagogastroduodenoscopy to rule out any upper gastrointestinal bleed. I went over the risks, goals, and alternatives of this, which are similar; risk of bleeding, perforation, missed lesions, and failure to complete the procedure. I went over that if I saw anything suspicious, will biopsy and remove it at that time if I was able to. All of the patient's questions were answered. Did discuss the patient with the nursing staff and Dr. Harris. KEYUR / DEBORA /[id number] MTDD
[2021-03-14] MEDS ORDERED: Bisacodyl 5 MG Tab PO ONE ×3 (06:00→08:40)
[2021-03-14 06:24] LABS: BLOOD UREA NITROGEN,BUN 29 mg/dL (7.0-18.0); CARBON DIOXIDE,CO2 22.9 mmol/L (21.0-32.0); CHLORIDE,CL 102 mmol/L (98-107); GLUCOSE RANDOM 97 mg/dL (74-106); POTASSIUM,K 4.2 mmol/L (3.5-5.1); SODIUM,NA 137 mmol/L (136-148)
[2021-03-14] MEDS: Levothyroxine 50 MCG Tab PO SCH (06:52)
[2021-03-14] MEDS: Hydrocortisone 2.5% Crm 30 GM Tube TOP SCH ×3 (07:04→21:42)
[2021-03-14] MEDS: Ferrous Sulfate 325 MG Tab PO SCH ×2 (07:58→18:00)
[2021-03-14] MEDS: Pantoprazole 40 MG in Sodium Chloride 0.9% 10 ML IV SCH ×2 (08:52→21:34)
[2021-03-14] MEDS ORDERED: Spironolactone 25 MG Tab PO SCH (09:00)
[2021-03-14] MEDS ORDERED: Furosemide 40 MG Tab PO SCH (09:00)
[2021-03-14] MEDS ORDERED: Aspirin 81 MG Tab.EC PO SCH (09:00)
[2021-03-14] MEDS ORDERED: Lisinopril 10 MG Tab PO SCH (09:00)
--- NOTE | 2021-03-14 13:17 | PN ---
SUBJECTIVE: The patient did receive 1 unit of FFP and RBCs last night. However, he did have a transfusion reaction with hives. The patient was then delayed getting his bowel prep going. The patient did have some bowel movements with some blood clots. The patient really has no complaints other than he is still passing some blood clots. He denies any abdominal pain, nausea, vomiting. Denies any lightheadedness or dizziness. OBJECTIVE: GENERAL: The patient is sitting comfortably in his bed. He is alert and oriented, in no acute distress. ABDOMEN: Soft, nontender, nondistended. VITAL SIGNS: Temperature is 97.8, pulse 88, blood pressure is 106/66, and 94% on room air. LABORATORY DATA: Hemoglobin 12.5 up from 11.7 after 1 unit of RBCs. ASSESSMENT AND PLAN: The patient is a pleasant 86-year-old gentleman, who is having issues with passing blood clots and bleeding per rectum. We are planning to do colonoscopy and EGD to see if we have possible source of bleeding. The patient says he understands. I answered all of his questions about the esophagogastroduodenoscopy and colonoscopy. The patient is still doing his bowel prep. We will plan to do this later today. KEYUR CAZARES /[id number]
[2021-03-14] MEDS ORDERED: propofoL 50 ML ONE (13:23)
[2021-03-14] MEDS ORDERED: fentaNYL 100 MCG/2 ML SDV ONE (13:31)
[2021-03-14] MEDS ORDERED: Sodium Chloride 0.9% 20 ML ONE (14:20)
[2021-03-14] MEDS ORDERED: ePHEDrine 50 MG/ML SDV ONE (14:20)
--- NOTE | 2021-03-14 15:02 | PCM.OPNOTE ---
- General Post-Op/Procedure Note Date of Surgery/Procedure: 03/14/21 Operative Procedure(s): Colonoscopy and EGD Findings: Normal EGD Diverticulosis Internal hemorrhoids No signs of active bleeding. dictation number [id number] Pre Op Diagnosis: blood in stool Post-Op Diagnosis: Normal EGD. Diverticulosis. Internal hemorrhoids. No signs of active bleeding [place]est[place] [facility] [place]geon: Les Roberts Pathology: none Complications: None Condition: Good Free Text/Narrative:: Intake & Output 03/13/21 03/14/21 03/14/21 22:59 06:59 14:59 Intake Total 1083 873 Output Total 900 Balance 1083 -27
--- NOTE | 2021-03-14 15:06 | PCM.POSTAN ---
POST ANESTHESIA ASSESSMENT - MENTAL STATUS Mental Status: Alert, Oriented - VITAL SIGNS Vital Signs: Last Vital Signs Temp 97.7 F 03/14/21 14:54 Pulse 70 03/14/21 15:01 Resp 13 03/14/21 15:01 BP 118/63 03/14/21 15:01 Pulse Ox 99 03/14/21 15:01 - RESPIRATORY Respiratory Status: Respiratory Rate WNL, Airway Patent, O2 Saturation Stable, Supplemental Oxygen - CARDIOVASCULAR CV Status: Pulse Rate WNL, Blood Pressure Stable - GASTROINTESTINAL GI Status: No Symptoms - POST OP HYDRATION Hydration Status: Adequate & Stable
--- NOTE | 2021-03-14 15:06 | PCM.PREANE ---
Preanesthetic Assessment - Anesthesia/Transfusion/Family Hx Anesthesia History: Prior Anesthesia Without Reaction Transfusion History: Prior Transfusion Reaction Type of Transfusion Reactions: Reports: Hives Intubation History: Unknown - Review of Systems General: No Symptoms Pulmonary: No Symptoms Cardiovascular: No Symptoms, Other (Hx of CAD, CABG, CHF, HTN, cardiac stents, pacemaker) Gastrointestinal: Other (Bright red blood per rectum) Neurological: No Symptoms Other: Reports: Easy Bleeding (Pt. on Eliquis last dose 1008 am), Thyroid Problems (Hypothyroid) - Physical Assessment NPO Status Date: 03/14/21 NPO Status Time: 09:45 Vital Signs: Last Vital Signs Temp 97.7 F 03/14/21 14:54 Pulse 70 03/14/21 15:01 Resp 13 03/14/21 15:01 BP 118/63 03/14/21 15:01 Pulse Ox 99 03/14/21 15:01 Height: 6 ft Weight: 81.556 kg ASA Class: 3E Mental Status: Alert & Oriented x3 Airway Class: Mallampati = 3 Dentition: Reports: Missing Tooth/Teeth (Has one tooth on top and several missing on the bottom) Thyro-Mental Finger Breadths: 3 Mouth Opening Finger Breadths: 3 ROM/Head Extension: Limited/Partial (very limited neck extension) Lungs: Clear to Auscultation, Normal Respiratory Effort Cardiovascular: Regular Rate, Regular Rhythm - Lab Values: Laboratory Last Values WBC 6.10 K/uL (4.0-11.0) 03/14/21 05:20 RBC 3.88 M/uL (4.50-5.90) L 03/14/21 05:20 Hgb 12.5 g/dL (13.0-17.0) L 03/14/21 05:20 Hct 36.4 % (38.0-50.0) L 03/14/21 05:20 MCV 93.8 fL (80.0-98.0) 03/14/21 05:20 MCH 32.2 pg (27.0-32.0) H 03/14/21 05:20 MCHC 34.3 g/dL (31.0-37.0) 03/14/21 05:20 RDW Std Deviation 47.2 fl (28.0-62.0) 03/14/21 05:20 RDW Coeff of Emilee 14 % (11.0-15.0) 03/14/21 05:20 Plt Count 191 K/uL (150-400) 03/14/21 05:20 MPV 10.10 fL (7.40-12.00) 03/14/21 05:20 Neut % (Auto) 67.3 % (48.0-80.0) 03/14/21 05:20 Lymph % (Auto) 14.1 % (16.0-40.0) L 03/14/21 05:20 Ponce % (Auto) 11.0 % (0.0-15.0) 03/14/21 05:20 Eos % (Auto) 7.4 % (0.0-7.0) H 03/14/21 05:20 Baso % (Auto) 0.2 % (0.0-1.5) 03/14/21 05:20 Neut # (Auto) 4.1 K/uL (1.4-5.7) 03/14/21 05:20 Lymph # (Auto) 0.9 K/uL (0.6-2.4) 03/14/21 05:20 Ponce # (Auto) 0.7 K/uL (0.0-0.8) 03/14/21 05:20 Eos # (Auto) 0.5 K/uL (0.0-0.7) 03/14/21 05:20 Baso # (Auto) 0.0 K/uL (0.0-0.1) 03/14/21 05:20 Nucleated RBC % 0.0 /100WBC 03/14/21 05:20 Nucleated RBCs # 0 K/uL 03/14/21 05:20 INR 1.13 03/13/21 20:46 APTT 41.9 SEC (18.6-31.3) H 03/13/21 20:46 Sodium 137 mmol/L (136-148) 03/14/21 05:20 Potassium 4.2 mmol/L (3.5-5.1) 03/14/21 05:20 Chloride 102 mmol/L (98-107) 03/14/21 05:20 Carbon Dioxide 22.9 mmol/L (21.0-32.0) 03/14/21 05:20 BUN 29 mg/dL (7.0-18.0) H 03/14/21 05:20 Creatinine 1.1 mg/dL (0.8-1.3) 03/14/21 05:20 Est Cr Clr Drug Dosing 53.89 mL/min 03/14/21 05:20 Estimated GFR (MDRD) > 60.0 ml/min 03/14/21 05:20 Glucose 97 mg/dL (74-106) 03/14/21 05:20 Lactic Acid 1.2 mmol/L (0.4-2.0) 03/13/21 03:00 Calcium 9.6 mg/dL (8.5-10.1) 03/14/21 05:20 Total Bilirubin 0.8 mg/dL (0.2-1.0) 03/13/21 01:51 AST 29 IU/L (15-37) 03/13/21 01:51 ALT 36 IU/L (14-63) 03/13/21 01:51 Alkaline Phosphatase 100 U/L (46-116) 03/13/21 01:51 Troponin I < 0.050 ng/mL (0.000-0.056) 03/13/21 01:51 B-Natriuretic Peptide 75 PG/ML (<100) 03/13/21 01:51 Total Protein 7.6 g/dL (6.4-8.2) 03/13/21 01:51 Albumin 4.0 g/dL (3.4-5.0) 03/13/21 01:51 Globulin 3.6 g/dL (2.6-4.0) 03/13/21 01:51 Albumin/Globulin Ratio 1.1 (0.9-1.6) 03/13/21 01:51 SARS-CoV-2 RNA ([place]) NEGATIVE (NEGATIVE) 03/13/21 04:15 Blood Type A POSITIVE 03/13/21 19:45 Antibody Screen NEGATIVE 03/13/21 19:45 Crossmatch See Detail 03/13/21 19:45 - Allergies Allergies/Adverse Reactions: Allergies Allergy/AdvReac Type Severity Reaction Status Date / Time No Known Allergies Allergy Verified 11/17/20 23:20 - Acknowledgements Anesthesia Type Planned: General Anesthesia Pt an Appropriate Candidate for the Planned Anesthesia: Yes Alternatives and Risks of Anesthesia Discussed w Pt/Guardian: Yes Pt/Guardian Understands and Agrees with Anesthesia Plan: Yes PreAnesthesia Questionnaire HEENT History: Reports: Allergic Rhinitis, Cataract, Other (See Below) Other HEENT History: wears glasses Cardiovascular History: Reports: Heart Failure, Hypertension, Pacemaker, Stents Other Cardiovascular History: cannot confirm, but does take HTN medications and High Cholesterol medications, also recent pacemaker placement and "open heart surgery" Respiratory History: Reports: None Gastrointestinal History: Reports: Diverticulosis, GERD, Hemorrhoids Other Gastrointestinal History: indigestion Genitourinary History: Reports: None Musculoskeletal History: Reports: Fracture Neurological History: Reports: None Psychiatric History: Reports: None Endocrine/Metabolic History: Reports: None Hematologic History: Reports: None Immunologic History: Reports: None Oncologic (Cancer) History: Reports: None Dermatologic History: Reports: Other (See Below) Other Dermatologic History: hx of shingles - Infectious Disease History Infectious Disease History: Reports: Chicken Pox, Measles - Past Surgical History Head Surgeries/Procedures: Reports: None HEENT Surgical History: Reports: Cataract Surgery GI Surgical History: Reports: Appendectomy, Colonoscopy Male Surgical History: Reports: None Neurological Surgical History: Reports: Lumbar Spine, Spinal Fusion Musculoskeletal Surgical History: Reports: ORIF, Shoulder Surgery Other Musculoskeletal Surgeries/Procedures:: Spinal fusion, left RTCR, ORIF left wrist- has hardware - SUBSTANCE USE Tobacco Use Status *Q: Never Tobacco User Second Hand Smoke Exposure: No Recreational Drug Use History: No - HOME MEDS Home Medications: Home Meds Apixaban [Eliquis] 5 mg PO BID 11/10/19 [History] Ferrous Sulfate 324 mg PO BID 11/10/19 [History] Furosemide 40 mg PO DAILY 11/10/19 [History] Omeprazole 40 mg PO ACBREAKFAST 11/10/19 [History] Potassium Chloride [Klor-Con M20] 20 meq PO DAILY 11/10/19 [History] atorvaSTATin [Lipitor] 10 mg PO BEDTIME 11/10/19 [History] Levothyroxine Sodium [Levothyroxine] 50 mcg PO ACBREAKFAST 11/17/20 [History] Spironolactone [Aldactone] 12.5 mg PO DAILY 11/17/20 [History] Hydrocortisone [Anusol-HC] 30 gm RC BID 14 Days #1 tube 11/18/20 [Rx] Ascorbic Acid [Vitamin C] 500 mg PO DAILY 03/13/21 [History] Aspirin [Lo-Dose Aspirin EC] 81 mg PO DAILY 03/13/21 [History] Dapagliflozin Propanediol [Farxiga] 10 mg PO DAILY 03/13/21 [History] Metoprolol Succinate 200 mg PO DAILY 03/13/21 [History] lisinopriL [Lisinopril] 40 mg PO DAILY 03/13/21 [History] polyethylene glycoL 3350 [MiraLAX] 17 gm PO DAILY PRN 03/13/21 [History] - CURRENT (IN HOUSE) MEDS Current Meds: Current Medications Acetaminophen (Acetaminophen 325 Mg Tab) 650 mg PO Q6H PRN PRN Reason: Pain Albuterol/Ipratropium (Albuterol/Ipratropium 3.0-0.5 Mg/3 Ml Neb Soln) 3 ml NEB Q4HRRT PRN PRN Reason: Shortness of Breath Atorvastatin Calcium (Atorvastatin 10 Mg Tab) 10 mg PO BEDTIME [facility] Last Admin: 03/13/21 21:30 Dose: Not Given Documented by: Ferrous Sulfate (Ferrous Sulfate 325 Mg Tab) 325 mg PO BIDMEALS [facility] Last Admin: 03/14/21 07:58 Dose: Not Given Documented by: Hydrocortisone (Hydrocortisone 2.5% Crm 30 Gm Tube) 0 gm TOP BID [facility] Last Admin: 03/14/21 09:40 Dose: Not Given Documented by: Pantoprazole Sodium 40 mg/ (Sodium Chloride) 10 mls @ 300 mls/hr IV Q12H [facility] Last Admin: 03/14/21 08:52 Dose: 300 mls/hr Documented by: Levothyroxine Sodium (Levothyroxine 50 Mcg Tab) 50 mcg PO ACBREAKFAST [facility] Last Admin: 03/14/21 06:52 Dose: 50 mcg Documented by: Ondansetron HCl (Ondansetron 4 Mg/2 Ml Sdv) 4 mg IVPUSH Q4H PRN PRN Reason: Nausea Polyethylene Glycol (Polyethylene Glycol 3350 Powder 17 Gm Packet) 17 gm PO DAILY PRN PRN Reason: Constipation Sodium Chloride (Sodium Chloride 0.9% 10 Ml Syringe) 10 ml FLUSH ASDIRECTED PRN PRN Reason: Keep Vein Open Last Admin: 03/13/21 02:16 Dose: 10 ml Documented by: Sodium Chloride (Sodium Chloride 0.9% 2.5 Ml Syringe) 2.5 ml FLUSH ASDIRECTED PRN PRN Reason: Keep Vein Open Last Admin: 03/13/21 02:16 Dose: 2.5 ml Documented by: Discontinued Medications Aspirin (Aspirin 81 Mg Tab.Ec) 81 mg PO DAILY [facility] Bisacodyl (Bisacodyl 5 Mg Tab) 10 mg PO ONETIME ONE Stop: 03/14/21 00:01 Last Admin: 03/14/21 05:20 Dose: 10 mg Documented by: Bisacodyl (Bisacodyl 5 Mg Tab) 10 mg PO ONETIME ONE Stop: 03/14/21 06:01 Last Admin: 03/14/21 08:40 Dose: Not Given Documented by: Bisacodyl (Bisacodyl 5 Mg Tab) 10 mg PO ONETIME ONE Stop: 03/14/21 08:41 Last Admin: 03/14/21 08:50 Dose: 10 mg Documented by: Diphenhydramine HCl (Diphenhydramine 50 Mg/Ml Sdv) 25 mg IVPUSH ONETIME ONE Stop: 03/14/21 04:51 Last Admin: 03/14/21 05:08 Dose: 25 mg Documented by: Ephedrine Sulfate (Ephedrine 50 Mg/Ml Sdv) Confirm Administered Dose 50 mg .ROUTE .STK-MED ONE Stop: 03/14/21 14:21 Fentanyl (Fentanyl 100 Mcg/2 Ml Sdv) Confirm Administered Dose 100 mcg .ROUTE .STK-MED ONE Stop: 03/14/21 13:32 Furosemide (Furosemide 40 Mg Tab) 40 mg PO DAILY [facility] Lactated Ringer's (Ringers, Lactated) 1,000 mls @ 999 mls/hr IV .BOLUS ONE Stop: 03/13/21 03:05 Last Admin: 03/13/21 02:15 Dose: 999 mls/hr Documented by: Pantoprazole Sodium 40 mg/ (Sodium Chloride) 10 mls @ 300 mls/hr IV NOW ONE Stop: 03/13/21 02:06 Last Admin: 03/13/21 02:15 Dose: 300 mls/hr Documented by: Propofol (Diprivan 50 Ml) Confirm Administered Dose 50 mls @ as directed .ROUTE .STK-MED ONE Stop: 03/14/21 13:24 Sodium Chloride (Normal Saline) Confirm Administered Dose 20 mls @ as directed .ROUTE .STK-MED ONE Stop: 03/14/21 14:21 Iopamidol (Iopamidol 755 Mg/Ml 100 Ml Bottle) 75 ml IVPUSH ONETIME ONE Stop: 03/13/21 02:46 Last Admin: 03/13/21 02:50 Dose: 75 ml Documented by: Lidocaine HCl (Lidocaine 1% 5 Ml Sdv) Confirm Administered Dose 5 ml .ROUTE .STK-MED ONE Stop: 03/14/21 13:32 Lisinopril (Lisinopril 10 Mg Tab) 40 mg PO DAILY [facility] Methylprednisolone Sodium Succinate (Methylprednisolone Sodium Succinate 125 Mg/2 Ml Sdv) 125 mg IVPUSH ONETIME ONE Stop: 03/14/21 05:12 Last Admin: 03/14/21 05:23 Dose: 125 mg Documented by: Metoprolol Succinate (Metoprolol Succinate 100 Mg Tab.Er) 200 mg PO DAILY [facility] Last Admin: 03/13/21 15:18 Dose: 200 mg Documented by: Miscellaneous Medication (Phenylephrine Hcl In 0.9% Nacl 1 Mg/10 Ml Syringe) Confirm Administered Dose 1 mg .ROUTE .STK-MED ONE Stop: 03/14/21 14:09 Pantoprazole Sodium (Pantoprazole 40 Mg Tab.Cr) 40 mg PO TID [facility] Polyethylene Glycol (Polyethylene Glycol 3350 Powder 17 Gm Packet) 238 gm PO ONETIME ONE Stop: 03/14/21 03:01 Last Admin: 03/14/21 07:36 Dose: 238 gm Documented by: Spironolactone (Spironolactone 25 Mg Tab) 12.5 mg PO DAILY [facility]
--- NOTE | 2021-03-14 15:27 | PCM48HPAN ---
Post Anesthesia Note - EVALUATION WITHIN 48HRS OF ANESTHETIC Vital Signs in Normal Range: Yes Patient Participated in Evaluation: Yes Respiratory Function Stable: Yes Airway Patent: Yes Cardiovascular Function Stable: Yes Hydration Status Stable: Yes Pain Control Satisfactory: Yes Nausea and Vomiting Control Satisfactory: Yes Mental Status Recovered: Yes Vital Signs: Last Vital Signs Temp 97.7 F 03/14/21 14:54 Pulse 70 03/14/21 15:25 Resp 15 03/14/21 15:25 BP 112/59 L 03/14/21 15:25 Pulse Ox 94 L 03/14/21 15:25
--- NOTE | 2021-03-14 16:44 | OR ---
SURGEON: RYAN KNOX MD DATE OF PROCEDURE: 03/14/2021 PREOPERATIVE DIAGNOSIS: Blood in stool. POSTOPERATIVE DIAGNOSES: 1. Normal esophagogastroduodenoscopy. 2. Pandiverticulosis. 3. Noninflamed internal hemorrhoids. PROCEDURE PERFORMED: 1. Esophagogastroduodenoscopy. 2. Colonoscopy. Bowel prep was poor. LIMITATIONS: Again, somewhat poor bowel prep. EXTENT OF EGD: To duodenum. EXTENT OF COLONOSCOPY: To the cecum. REASON FOR PROCEDURE: The patient is a pleasant 86-year-old gentleman who has had bleeding off and on for the last several years. Yesterday started having some passing blood and clots per rectum. He was admitted to the hospital. He did do a bowel prep. At the end of bowel prep, he was not having any blood or blood clots. The patient had a colonoscopy about 3 years ago and at that time, he also had hemorrhoids and diverticulosis. PROCEDURE IN DETAIL: Physical examination was performed, and the risks and benefits associated with the procedure explained to patient in detail. Patient verbalized understanding and agreement of same. Patient was then connected to the appropriate monitoring device and IV started. EKG, pulse, pulse oximetry, blood pressure, and capnography were monitored throughout the procedure. Continuous oxygen and sedation were provided by the anesthesiologist. The patient was placed in left lateral decubitus position. Sedation was began. After adequate sedation was achieved, an upper endoscope was advanced under direct visualization without difficulty in the upper GI tract. The anatomy and mucosa of the esophagus, GE junction, stomach, pylorus, and duodenum were all inspected. Duodenum appeared normal. Scope was brought back to the stomach. Both retrograde and antegrade views of stomach were done again. Really, no gastritis. The stomach looked normal. Scope was brought up to the GE junction. GE junction was approximately at 42 cm from his incisor. There was a good Z-line. Scope was brought into the stomach. Stomach was deinsufflated. Scope was brought through the esophagus. Esophagus appeared normal. Scope was completely removed. This part of procedure was terminated. Gloves and scopes were changed. Now, a rectal examination was done. Again, no external hemorrhoids. No masses or polyps felt. Now, a well-lubricated Olympus colonoscope was inserted in the rectum, advanced under direct visualization to the level of the cecum. Cecum was identified by both visual and anatomic landmarks. On the way up to the cecum, the patient did have quite a bit of liquid stool and stool balls. I spent quite a bit of time suctioning and irrigating out liquid stool; however, he had quite a bit of stool balls either from a poor prep or did have a lot of diverticulosis and these could have been stool balls caught up in the diverticulum. As scope was withdrawn, again did some suction and irrigation, could have missed a small polyp but no signs of bleeding, blood clots, or fresh blood anywhere in the colon. The patient did have diverticulosis throughout his entirety of his colon, but it was more concentrated in the descending and sigmoid colon. Scope was retroflexed in the rectum. He did have internal hemorrhoids. Again, these were noninflamed. Did not look like they had been bleeding. Scope was then completely removed. Procedure was terminated. ENDOSCOPIC DIAGNOSES: 1. Normal esophagogastroduodenoscopy. 2. Pandiverticulosis. 3. Internal hemorrhoids. RECOMMENDATIONS: Did discuss with Dr. Harris, the hospitalist. I do not see any cause of rectal bleeding. The patient has been off his Eliquis and was given FFP. Possible source of bleeding at this point in time is diverticulum or even maybe the internal hemorrhoids although no current signs of bleeding. KEYUR / DEBORA /[id number] MTDD
--- NOTE | 2021-03-14 17:41 | PCM.PN ---
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 Upon a dmission the patient had decreased hemoglobin and as a result was given 1 unit of packed red blood cells and fresh frozen plasma. This initially increased his hemoglobin levels but administration of FFP led to a reaction which required the administration of Benadryl and steroids. On an outpatient basis, there will be investigations into why this patient had an adverse reaction to FFP. On interv iew with the patient today, he denies feeling cold, tachycardia, lightheadedness, dizziness, syncope, chest pain, palpitations, or abdominal pain. The patient had both an EGD and a colonoscopy performed today. There was no active bleeding seen through these procedures, but what was revealed was jones diverticulosis and noninflamed internal hemorrhoids. Upon further interview with the patient and his near bedside, he has no issues with blood in his stool currently. His Eliquis has been held and will be for an indefinite amount of time until the patient sees his PCP Dr. Montano. It was explained to the patient that we are holding this medication because we do not want to aggravate his bleeding and that it is up to the discretion of his PCP to either continue or stop this medication altogether. The patient is in compliance with this course of action. - Review of Systems General: Denies: Fever, Weakness, Fatigue HEENT: Denies: Headaches Pulmonary: Denies: Shortness of Breath, Pleuritic Chest Pain, Cough Cardiovascular: Denies: Chest Pain, Palpitations Gastrointestinal: Denies: Abdominal Pain, Constipation, Diarrhea, Nausea, Vomiting Genitourinary: Denies: Dysuria - Patient Data Vitals - Most Recent: Last Vital Signs Temp 97.7 F 03/14/21 14:54 Pulse 71 03/14/21 15:30 Resp 15 03/14/21 15:30 BP 111/66 03/14/21 15:30 Pulse Ox 93 L 10/10/21 15:30 Weight - Most Recent: 179 lb 12.8 oz I&O - Last 24 Hours: Intake & Output 03/14/21 03/14/21 03/14/21 06:59 14:59 22:59 Intake Total 873 750 Output Total 900 Balance -27 750 Lab Results Last 24 Hours: Laboratory Results - last 24 hr 03/13/21 03/13/21 03/13/21 Range/Units 19:45 19:45 20:46 WBC (4.0-11.0) K/uL RBC (4.50-5.90) M/uL Hgb 11.7 L (13.0-17.0) g/dL Hct 34.4 L (38.0-50.0) % MCV (80.0-98.0) fL MCH (27.0-32.0) pg MCHC (31.0-37.0) g/dL RDW Std Deviation (28.0-62.0) fl RDW Coeff of Emilee (11.0-15.0) % Plt Count (150-400) K/uL MPV (7.40-12.00) fL Neut % (Auto) (48.0-80.0) % Lymph % (Auto) (16.0-40.0) % [place] % (Auto) (0.0-15.0) % Eos % (Auto) (0.0-7.0) % Baso % (Auto) (0.0-1.5) % Neut # (Auto) (1.4-5.7) K/uL Lymph # (Auto) (0.6-2.4) K/uL [place] # (Auto) (0.0-0.8) K/uL Eos # (Auto) (0.0-0.7) K/uL Baso # (Auto) (0.0-0.1) K/uL Nucleated RBC % /100WBC Nucleated RBCs # K/uL INR APTT 41.9 H (18.6-31.3) SEC Sodium (136-148) mmol/L Potassium (3.5-5.1) mmol/L Chloride (98-107) mmol/L Carbon Dioxide (21.0-32.0) mmol/L BUN (7.0-18.0) mg/dL Creatinine (0.8-1.3) mg/dL Est Cr Clr Drug Dosing mL/min Estimated GFR (MDRD) ml/min Glucose (74-106) mg/dL Calcium (8.5-10.1) mg/dL Blood Type A POSITIVE Antibody Screen NEGATIVE Crossmatch See Detail 03/13/21 03/14/21 03/14/21 Range/Units 20:46 05:20 05:20 WBC 6.10 (4.0-11.0) K/uL RBC 3.88 L (4.50-5.90) M/uL Hgb 12.5 L (13.0-17.0) g/dL Hct 36.4 L (38.0-50.0) % MCV 93.8 (80.0-98.0) fL MCH 32.2 H (27.0-32.0) pg MCHC 34.3 (31.0-37.0) g/dL RDW Std Deviation 47.2 (28.0-62.0) fl RDW Coeff of Emilee 14 (11.0-15.0) % Plt Count 191 (150-400) K/uL MPV 10.10 (7.40-12.00) fL Neut % (Auto) 67.3 (48.0-80.0) % Lymph % (Auto) 14.1 L (16.0-40.0) % [place] % (Auto) 11.0 (0.0-15.0) % Eos % (Auto) 7.4 H (0.0-7.0) % Baso % (Auto) 0.2 (0.0-1.5) % Neut # (Auto) 4.1 (1.4-5.7) K/uL Lymph # (Auto) 0.9 (0.6-2.4) K/uL [place] # (Auto) 0.7 (0.0-0.8) K/uL Eos # (Auto) 0.5 (0.0-0.7) K/uL Baso # (Auto) 0.0 (0.0-0.1) K/uL Nucleated RBC % 0.0 /100WBC Nucleated RBCs # 0 K/uL INR 1.13 APTT (18.6-31.3) SEC Sodium 137 (136-148) mmol/L Potassium 4.2 (3.5-5.1) mmol/L Chloride 102 (98-107) mmol/L Carbon Dioxide 22.9 (21.0-32.0) mmol/L BUN 29 H (7.0-18.0) mg/dL Creatinine 1.1 (0.8-1.3) mg/dL Est Cr Clr Drug Dosing 53.89 mL/min Estimated GFR (MDRD) > 60.0 ml/min Glucose 97 (74-106) mg/dL Calcium 9.6 (8.5-10.1) mg/dL Blood Type Antibody Screen Crossmatch Med Orders - Current: Current Medications Acetaminophen (Acetaminophen 325 Mg Tab) 650 mg PO Q6H PRN PRN Reason: Pain Albuterol/Ipratropium (Albuterol/Ipratropium 3.0-0.5 Mg/3 Ml Neb Soln) 3 ml NEB Q4HRRT PRN PRN Reason: Shortness of Breath Atorvastatin Calcium (Atorvastatin 10 Mg Tab) 10 mg PO BEDTIME [facility] Last Admin: 03/13/21 21:30 Dose: Not Given Documented by: Ferrous Sulfate (Ferrous Sulfate 325 Mg Tab) 325 mg PO BIDMEALS [facility] Last Admin: 03/14/21 07:58 Dose: Not Given Documented by: Hydrocortisone (Hydrocortisone 2.5% Crm 30 Gm Tube) 0 gm TOP BID [facility] Last Admin: 03/14/21 09:40 Dose: Not Given Documented by: Pantoprazole Sodium 40 mg/ (Sodium Chloride) 10 mls @ 300 mls/hr IV Q12H [facility] Last Admin: 03/14/21 08:52 Dose: 300 mls/hr Documented by: Levothyroxine Sodium (Levothyroxine 50 Mcg Tab) 50 mcg PO ACBREAKFAST [facility] Last Admin: 03/14/21 06:52 Dose: 50 mcg Documented by: Ondansetron HCl (Ondansetron 4 Mg/2 Ml Sdv) 4 mg IVPUSH Q4H PRN PRN Reason: Nausea Polyethylene Glycol (Polyethylene Glycol 3350 Powder 17 Gm Packet) 17 gm PO DAILY PRN PRN Reason: Constipation Sodium Chloride (Sodium Chloride 0.9% 10 Ml Syringe) 10 ml FLUSH ASDIRECTED PRN PRN Reason: Keep Vein Open Last Admin: 03/13/21 02:16 Dose: 10 ml Documented by: Sodium Chloride (Sodium Chloride 0.9% 2.5 Ml Syringe) 2.5 ml FLUSH ASDIRECTED PRN PRN Reason: Keep Vein Open Last Admin: 03/13/21 02:16 Dose: 2.5 ml Documented by: Discontinued Medications Aspirin (Aspirin 81 Mg Tab.Ec) 81 mg PO DAILY [facility] Bisacodyl (Bisacodyl 5 Mg Tab) 10 mg PO ONETIME ONE Stop: 03/14/21 00:01 Last Admin: 03/14/21 05:20 Dose: 10 mg Documented by: Bisacodyl (Bisacodyl 5 Mg Tab) 10 mg PO ONETIME ONE Stop: 03/14/21 06:01 Last Admin: 03/14/21 08:40 Dose: Not Given Documented by: Bisacodyl (Bisacodyl 5 Mg Tab) 10 mg PO ONETIME ONE Stop: 03/14/21 08:41 Last Admin: 03/14/21 08:50 Dose: 10 mg Documented by: Diphenhydramine HCl (Diphenhydramine 50 Mg/Ml Sdv) 25 mg IVPUSH ONETIME ONE Stop: 03/14/21 04:51 Last Admin: 03/14/21 05:08 Dose: 25 mg Documented by: Ephedrine Sulfate (Ephedrine 50 Mg/Ml Sdv) Confirm Administered Dose 50 mg .ROUTE .STK-MED ONE Stop: 03/14/21 14:21 Fentanyl (Fentanyl 100 Mcg/2 Ml Sdv) Confirm Administered Dose 100 mcg .ROUTE .STK-MED ONE Stop: 03/14/21 13:32 Furosemide (Furosemide 40 Mg Tab) 40 mg PO DAILY [facility] Lactated Ringer's (Ringers, Lactated) 1,000 mls @ 999 mls/hr IV .BOLUS ONE Stop: 03/13/21 03:05 Last Admin: 03/13/21 02:15 Dose: 999 mls/hr Documented by: Pantoprazole Sodium 40 mg/ (Sodium Chloride) 10 mls @ 300 mls/hr IV NOW ONE Stop: 03/13/21 02:06 Last Admin: 03/13/21 02:15 Dose: 300 mls/hr Documented by: Propofol (Diprivan 50 Ml) Confirm Administered Dose 50 mls @ as directed .ROUTE .STK-MED ONE Stop: 03/14/21 13:24 Sodium Chloride (Normal Saline) Confirm Administered Dose 20 mls @ as directed .ROUTE .STK-MED ONE Stop: 03/14/21 14:21 Iopamidol (Iopamidol 755 Mg/Ml 100 Ml Bottle) 75 ml IVPUSH ONETIME ONE Stop: 03/13/21 02:46 Last Admin: 03/13/21 02:50 Dose: 75 ml Documented by: Lidocaine HCl (Lidocaine 1% 5 Ml Sdv) Confirm Administered Dose 5 ml .ROUTE .STK-MED ONE Stop: 03/14/21 13:32 Lisinopril (Lisinopril 10 Mg Tab) 40 mg PO DAILY [facility] Methylprednisolone Sodium Succinate (Methylprednisolone Sodium Succinate 125 Mg/2 Ml Sdv) 125 mg IVPUSH ONETIME ONE Stop: 03/14/21 05:12 Last Admin: 03/14/21 05:23 Dose: 125 mg Documented by: Metoprolol Succinate (Metoprolol Succinate 100 Mg Tab.Er) 200 mg PO DAILY [facility] Last Admin: 03/13/21 15:18 Dose: 200 mg Documented by: Miscellaneous Medication (Phenylephrine Hcl In 0.9% Nacl 1 Mg/10 Ml Syringe) Confirm Administered Dose 1 mg .ROUTE .STK-MED ONE Stop: 03/14/21 14:09 Pantoprazole Sodium (Pantoprazole 40 Mg Tab.Cr) 40 mg PO TID [facility] Polyethylene Glycol (Polyethylene Glycol 3350 Powder 17 Gm Packet) 238 gm PO ONETIME ONE Stop: 03/14/21 03:01 Last Admin: 03/14/21 07:36 Dose: 238 gm Documented by: Spironolactone (Spironolactone 25 Mg Tab) 12.5 mg PO DAILY [facility] - Exam General: Alert, Oriented, Cooperative HEENT: Mucous Membr. Moist/[place] Lungs: Clear to Auscultation, Normal Respiratory Effort Cardiovascular: Regular Rate GI/Abdominal Exam: Normal Bowel Sounds, Soft, Non-Tender, No Organomegaly - Patient Data Lab Results Last 24 hrs: Laboratory Results - last 24 hr 03/13/21 03/13/21 03/13/21 Range/Units 19:45 19:45 20:46 WBC (4.0-11.0) K/uL RBC (4.50-5.90) M/uL Hgb 11.7 L (13.0-17.0) g/dL Hct 34.4 L (38.0-50.0) % MCV (80.0-98.0) fL MCH (27.0-32.0) pg MCHC (31.0-37.0) g/dL RDW Std Deviation (28.0-62.0) fl RDW Coeff of Emilee (11.0-15.0) % Plt Count (150-400) K/uL MPV (7.40-12.00) fL Neut % (Auto) (48.0-80.0) % Lymph % (Auto) (16.0-40.0) % [place] % (Auto) (0.0-15.0) % Eos % (Auto) (0.0-7.0) % Baso % (Auto) (0.0-1.5) % Neut # (Auto) (1.4-5.7) K/uL Lymph # (Auto) (0.6-2.4) K/uL [place] # (Auto) (0.0-0.8) K/uL Eos # (Auto) (0.0-0.7) K/uL Baso # (Auto) (0.0-0.1) K/uL Nucleated RBC % /100WBC Nucleated RBCs # K/uL INR APTT 41.9 H (18.6-31.3) SEC Sodium (136-148) mmol/L Potassium (3.5-5.1) mmol/L Chloride (98-107) mmol/L Carbon Dioxide (21.0-32.0) mmol/L BUN (7.0-18.0) mg/dL Creatinine (0.8-1.3) mg/dL Est Cr Clr Drug Dosing mL/min Estimated GFR (MDRD) ml/min Glucose (74-106) mg/dL Calcium (8.5-10.1) mg/dL Blood Type A POSITIVE Antibody Screen NEGATIVE Crossmatch See Detail 03/13/21 03/14/21 03/14/21 Range/Units 20:46 05:20 05:20 WBC 6.10 (4.0-11.0) K/uL RBC 3.88 L (4.50-5.90) M/uL Hgb 12.5 L (13.0-17.0) g/dL Hct 36.4 L (38.0-50.0) % MCV 93.8 (80.0-98.0) fL MCH 32.2 H (27.0-32.0) pg MCHC 34.3 (31.0-37.0) g/dL RDW Std Deviation 47.2 (28.0-62.0) fl RDW Coeff of Emilee 14 (11.0-15.0) % Plt Count 191 (150-400) K/uL MPV 10.10 (7.40-12.00) fL Neut % (Auto) 67.3 (48.0-80.0) % Lymph % (Auto) 14.1 L (16.0-40.0) % [place] % (Auto) 11.0 (0.0-15.0) % Eos % (Auto) 7.4 H (0.0-7.0) % Baso % (Auto) 0.2 (0.0-1.5) % Neut # (Auto) 4.1 (1.4-5.7) K/uL Lymph # (Auto) 0.9 (0.6-2.4) K/uL [place] # (Auto) 0.7 (0.0-0.8) K/uL Eos # (Auto) 0.5 (0.0-0.7) K/uL Baso # (Auto) 0.0 (0.0-0.1) K/uL Nucleated RBC % 0.0 /100WBC Nucleated RBCs # 0 K/uL INR 1.13 APTT (18.6-31.3) SEC Sodium 137 (136-148) mmol/L Potassium 4.2 (3.5-5.1) mmol/L Chloride 102 (98-107) mmol/L Carbon Dioxide 22.9 (21.0-32.0) mmol/L BUN 29 H (7.0-18.0) mg/dL Creatinine 1.1 (0.8-1.3) mg/dL Est Cr Clr Drug Dosing 53.89 mL/min Estimated GFR (MDRD) > 60.0 ml/min Glucose 97 (74-106) mg/dL Calcium 9.6 (8.5-10.1) mg/dL Blood Type Antibody Screen Crossmatch Result Diagrams: 03/14/21 05:20 03/14/21 05:20 Sepsis Event Note - Evaluation Sepsis Screening Result: No Definite Risk - Focused Exam Vital Signs: Vital Signs Temp Temp Pulse Resp BP BP Pulse Ox 03/14/21 15:30 71 15 111/66 93 L 03/14/21 15:25 70 15 112/59 L 94 L 03/14/21 15:20 70 14 107/60 96 03/14/21 15:15 70 13 105/57 L 99 03/14/21 15:10 70 12 105/57 L 99 03/14/21 15:05 70 14 113/60 99 03/14/21 15:01 70 13 118/63 99 03/14/21 14:58 70 12 99/58 L 99 03/14/21 14:54 97.7 F 70 14 74/42 L 99 03/14/21 12:00 97.8 F 75 16 113/67 92 L 03/14/21 08:00 97.8 F 88 15 106/66 94 L 03/14/21 07:43 97.9 F 73 14 114/64 92 L 03/14/21 06:00 97.9 F 70 15 118/75 94 L - Problem List & Annotations (1) Bright red blood per rectum SNOMED Code(s): 06185354 Code(s): K62.5 - HEMORRHAGE OF ANUS AND RECTUM Status: Acute Current Visit: Yes (2) Diverticulosis SNOMED Code(s): 252726444 Code(s): K57.90 - DVRTCLOS OF INTEST, PART UNSP, W/O PERF OR ABSCESS W/O BLEED Status: Acute Current Visit: Yes (3) Bleeding hemorrhoids SNOMED Code(s): 09743743 Code(s): K64.9 - UNSPECIFIED HEMORRHOIDS Status: Acute Current Visit: No - Problem List Review Problem List Initiated/Reviewed/Updated: Yes - Plan Plan:: 1. Pandiverticulosis/noninflamed internal hemorrhoids on colonoscopy -The most likely cause for the patient's bright red rectal bleeding is from pandiverticulosis and internal hemorrhoids that were seen on colonoscopy, however there is no active bleeding at this point. -The patient's Eliquis is being held to decrease bleeding risk, prospect of restarting this medication will be upon the discretion of patient's PCP Dr. Montano. -Continue the patient on pantoprazole 40 mg per IV route every 12 hours to decrease GI irritation and potential bleeding -Continue the patient on ferrous sulfate 325 mg per oral route twice a day to replete iron levels and increase hemoglobin -Continue the patient on telemetry to monitor any potential risks to his heart from blood loss -Monitor hemoglobin levels through daily CBC
[2021-03-14] MEDS: atorvaSTATin 10 MG Tab PO SCH (21:33)
[2021-03-15] MEDS: Levothyroxine 50 MCG Tab PO SCH (06:41)
[2021-03-15 07:00] LABS: BLOOD UREA NITROGEN,BUN 22 mg/dL (7.0-18.0); CHLORIDE,CL 101 mmol/L (98-107); GLUCOSE RANDOM 127 mg/dL (74-106); POTASSIUM,K 3.9 mmol/L (3.5-5.1); SODIUM,NA 136 mmol/L (136-148)
[2021-03-15] MEDS: Pantoprazole 40 MG in Sodium Chloride 0.9% 10 ML IV SCH ×2 (08:31→22:24)
[2021-03-15] MEDS: Hydrocortisone 2.5% Crm 30 GM Tube TOP SCH ×2 (08:31→22:24)
[2021-03-15] MEDS: Ferrous Sulfate 325 MG Tab PO SCH ×2 (08:31→17:40)
[2021-03-15] MEDS ORDERED: Naloxone 0.4 MG/ML SDV IVPUSH PRN (13:33)
[2021-03-15] MEDS ORDERED: Morphine 2 MG/ML SYRINGE IVPUSH PRN (13:33)
[2021-03-15] MEDS ORDERED: fentaNYL 100 MCG/2 ML SDV IVPUSH PRN (13:33)
[2021-03-15] MEDS ORDERED: HYDROmorphone 1 MG/ML Syringe IVPUSH PRN (13:33)
[2021-03-15] MEDS ORDERED: Albuterol 0.083% 2.5 MG/3 ML Neb Soln NEB PRN (13:33)
[2021-03-15] MEDS ORDERED: Ondansetron 4 MG/2 ML SDV IVPUSH PRN (13:33)
--- NOTE | 2021-03-15 13:36 | PCM.PREANE ---
Preanesthetic Assessment - Anesthesia/Transfusion/Family Hx Anesthesia History: Prior Anesthesia Without Reaction Family History of Anesthesia Reaction: No Transfusion History: Prior Transfusion Reaction Type of Transfusion Reactions: Reports: Hives Intubation History: Unknown - Review of Systems General: Fatigue Pulmonary: No Symptoms Cardiovascular: Palpitations, Dyspnea on Exertion, Orthopnea Gastrointestinal: Melena Neurological: No Symptoms Other: Reports: Easy Bleeding (Pt. on Eliquis last dose 03/12 am), Thyroid Problems (Hypothyroid) - Physical Assessment NPO Status Date: 03/15/21 NPO Status Time: 08:00 Vital Signs: Last Vital Signs Temp 98.5 F 03/15/21 12:00 Pulse 71 03/15/21 12:00 Resp 16 03/15/21 12:00 BP 105/57 L 03/15/21 12:00 Pulse Ox 96 03/15/21 12:00 Height: 6 ft Weight: 179 lb 12.8 oz ASA Class: 3E Mental Status: Alert & Oriented x3 Airway Class: Mallampati = 2 Dentition: Reports: Broken Tooth/Teeth ROM/Head Extension: Full Lungs: Clear to Auscultation, Normal Respiratory Effort Cardiovascular: Regular Rate, Regular Rhythm - Lab Values: Laboratory Last Values WBC 8.66 K/uL (4.0-11.0) 03/15/21 05:40 RBC 3.43 M/uL (4.50-5.90) L 03/15/21 05:40 Hgb 11.1 g/dL (13.0-17.0) L 03/15/21 05:40 Hct 33.2 % (38.0-50.0) L 03/15/21 05:40 MCV 96.8 fL (80.0-98.0) 03/15/21 05:40 MCH 32.4 pg (27.0-32.0) H 03/15/21 05:40 MCHC 33.4 g/dL (31.0-37.0) 03/15/21 05:40 RDW Std Deviation 44.8 fl (28.0-62.0) 03/15/21 05:40 RDW Coeff of Emilee 13 % (11.0-15.0) 03/15/21 05:40 Plt Count 202 K/uL (150-400) 03/15/21 05:40 MPV 10.10 fL (7.40-12.00) 03/15/21 05:40 Neut % (Auto) 81.2 % (48.0-80.0) H 03/15/21 05:40 Lymph % (Auto) 8.1 % (16.0-40.0) L 03/15/21 05:40 [place] % (Auto) 10.5 % (0.0-15.0) 03/15/21 05:40 Eos % (Auto) 0.2 % (0.0-7.0) 03/15/21 05:40 Baso % (Auto) 0.0 % (0.0-1.5) 03/15/21 05:40 Neut # (Auto) 7.0 K/uL (1.4-5.7) H 03/15/21 05:40 Lymph # (Auto) 0.7 K/uL (0.6-2.4) 03/15/21 05:40 [place] # (Auto) 0.9 K/uL (0.0-0.8) H 03/15/21 05:40 Eos # (Auto) 0.0 K/uL (0.0-0.7) 03/15/21 05:40 Baso # (Auto) 0.0 K/uL (0.0-0.1) 03/15/21 05:40 Nucleated RBC % 0.0 /100WBC 03/14/21 05:20 Nucleated RBCs # 0 K/uL 03/14/21 05:20 INR 1.13 03/13/21 20:46 APTT 41.9 SEC (18.6-31.3) H 03/13/21 20:46 Sodium 136 mmol/L (136-148) 03/15/21 05:40 Potassium 3.9 mmol/L (3.5-5.1) 03/15/21 05:40 Chloride 101 mmol/L (98-107) 03/15/21 05:40 Carbon Dioxide 23.0 mmol/L (21.0-32.0) 03/15/21 05:40 BUN 22 mg/dL (7.0-18.0) H 03/15/21 05:40 Creatinine 1.0 mg/dL (0.8-1.3) 03/15/21 05:40 Est Cr Clr Drug Dosing 59.28 mL/min 03/15/21 05:40 Estimated GFR (MDRD) > 60.0 ml/min 03/15/21 05:40 Glucose 127 mg/dL (74-106) H 03/15/21 05:40 Lactic Acid 1.2 mmol/L (0.4-2.0) 03/13/21 03:00 Calcium 9.1 mg/dL (8.5-10.1) 03/15/21 05:40 Total Bilirubin 1.0 mg/dL (0.2-1.0) 03/15/21 05:40 AST 21 IU/L (15-37) 03/15/21 05:40 ALT 24 IU/L (14-63) 03/15/21 05:40 Alkaline Phosphatase 75 U/L (46-116) 03/15/21 05:40 Troponin I < 0.050 ng/mL (0.000-0.056) 03/13/21 01:51 B-Natriuretic Peptide 75 PG/ML (<100) 03/13/21 01:51 Total Protein 6.3 g/dL (6.4-8.2) L 03/15/21 05:40 Albumin 3.1 g/dL (3.4-5.0) L 03/15/21 05:40 Globulin 3.2 g/dL (2.6-4.0) 03/15/21 05:40 Albumin/Globulin Ratio 1.0 (0.9-1.6) 03/15/21 05:40 SARS-CoV-2 RNA ([place]) NEGATIVE (NEGATIVE) 03/13/21 04:15 Blood Type A POSITIVE 03/13/21 19:45 Antibody Screen NEGATIVE 03/13/21 19:45 Crossmatch See Detail 03/13/21 19:45 Tx Rx Implicated Unit 1 [id number] 03/14/21 20:07 Unit 1 Component FFP 03/14/21 20:07 Pre-Trans Vis Hemolysis NEGATIVE 03/14/21 20:07 Pre-Trans Icterus NEGATIVE 03/14/21 20:07 Post-Trans Blood Type A POSITIVE 03/14/21 20:07 Post-Tx Visible Hemolys NEGATIVE 03/14/21 20:07 Post-Trans Icterus NEGATIVE 03/14/21 20:07 Post-Trans ANUJA Poly NEGATIVE 03/14/21 20:07 Reaction Interpretation NON-HEM TRANSF RX 03/14/21 20:07 - Allergies Allergies/Adverse Reactions: Allergies Allergy/AdvReac Type Severity Reaction Status Date / Time No Known Allergies Allergy Verified 11/17/20 23:20 - Blood Blood Available: Yes - Acknowledgements Anesthesia Type Planned: General Anesthesia Pt an Appropriate Candidate for the Planned Anesthesia: Yes Alternatives and Risks of Anesthesia Discussed w Pt/Guardian: Yes Pt/Guardian Understands and Agrees with Anesthesia Plan: Yes PreAnesthesia Questionnaire HEENT History: Reports: Allergic Rhinitis, Cataract, Other (See Below) Other HEENT History: wears glasses Cardiovascular History: Reports: Heart Failure, Hypertension, Pacemaker, Stents Other Cardiovascular History: cannot confirm, but does take HTN medications and High Cholesterol medications, also recent pacemaker placement and "open heart surgery" Respiratory History: Reports: None Gastrointestinal History: Reports: Diverticulosis, GERD, Hemorrhoids Other Gastrointestinal History: indigestion Genitourinary History: Reports: None Musculoskeletal History: Reports: Fracture Neurological History: Reports: None Psychiatric History: Reports: None Endocrine/Metabolic History: Reports: None Hematologic History: Reports: None Immunologic History: Reports: None Oncologic (Cancer) History: Reports: None Dermatologic History: Reports: Other (See Below) Other Dermatologic History: hx of shingles - Infectious Disease History Infectious Disease History: Reports: Chicken Pox, Measles - Past Surgical History Head Surgeries/Procedures: Reports: None HEENT Surgical History: Reports: Cataract Surgery GI Surgical History: Reports: Appendectomy, Colonoscopy Male Surgical History: Reports: None Neurological Surgical History: Reports: Lumbar Spine, Spinal Fusion Musculoskeletal Surgical History: Reports: ORIF, Shoulder Surgery Other Musculoskeletal Surgeries/Procedures:: Spinal fusion, left RTCR, ORIF left wrist- has hardware - SUBSTANCE USE Tobacco Use Status *Q: Never Tobacco User Second Hand Smoke Exposure: No Recreational Drug Use History: No - HOME MEDS Home Medications: Home Meds Apixaban [Eliquis] 5 mg PO BID 11/10/19 [History] Ferrous Sulfate 324 mg PO BID 11/10/19 [History] Furosemide 40 mg PO DAILY 11/10/19 [History] Omeprazole 40 mg PO ACBREAKFAST 11/10/19 [History] Potassium Chloride [Klor-Con M20] 20 meq PO DAILY 11/10/19 [History] atorvaSTATin [Lipitor] 10 mg PO BEDTIME 11/10/19 [History] Levothyroxine Sodium [Levothyroxine] 50 mcg PO ACBREAKFAST 11/17/20 [History] Spironolactone [Aldactone] 12.5 mg PO DAILY 11/17/20 [History] Hydrocortisone [Anusol-HC] 30 gm RC BID 14 Days #1 tube 11/18/20 [Rx] Ascorbic Acid [Vitamin C] 500 mg PO DAILY 03/13/21 [History] Aspirin [Lo-Dose Aspirin EC] 81 mg PO DAILY 03/13/21 [History] Dapagliflozin Propanediol [Farxiga] 10 mg PO DAILY 03/13/21 [History] Metoprolol Succinate 200 mg PO DAILY 03/13/21 [History] lisinopriL [Lisinopril] 40 mg PO DAILY 03/13/21 [History] polyethylene glycoL 3350 [MiraLAX] 17 gm PO DAILY PRN 03/13/21 [History] - CURRENT (IN HOUSE) MEDS Current Meds: Current Medications Acetaminophen (Acetaminophen 325 Mg Tab) 650 mg PO Q6H PRN PRN Reason: Pain Albuterol (Albuterol 0.083% 2.5 Mg/3 Ml Neb Soln) 2.5 mg NEB ONETIME PRN PRN Reason: Wheezing Albuterol/Ipratropium (Albuterol/Ipratropium 3.0-0.5 Mg/3 Ml Neb Soln) 3 ml NEB Q4HRRT PRN PRN Reason: Shortness of Breath Atorvastatin Calcium (Atorvastatin 10 Mg Tab) 10 mg PO BEDTIME [facility] Last Admin: 03/14/21 21:33 Dose: 10 mg Documented by: Fentanyl (Fentanyl 100 Mcg/2 Ml Sdv) 50 mcg IVPUSH Q5M PRN PRN Reason: Pain (mild 1-3) Ferrous Sulfate (Ferrous Sulfate 325 Mg Tab) 325 mg PO BIDMEALS [facility] Last Admin: 03/15/21 08:31 Dose: 325 mg Documented by: Hydrocortisone (Hydrocortisone 2.5% Crm 30 Gm Tube) 0 gm TOP BID [facility] Last Admin: 03/15/21 08:31 Dose: 1 applic Documented by: Hydromorphone HCl (Hydromorphone 1 Mg/Ml Syringe) 1 mg IVPUSH Q10M PRN PRN Reason: Pain (moderate 4-6) Pantoprazole Sodium 40 mg/ (Sodium Chloride) 10 mls @ 300 mls/hr IV Q12H [facility] Last Admin: 03/15/21 08:31 Dose: 300 mls/hr Documented by: Levothyroxine Sodium (Levothyroxine 50 Mcg Tab) 50 mcg PO ACBREAKFAST [facility] Last Admin: 03/15/21 06:41 Dose: 50 mcg Documented by: Morphine Sulfate (Morphine 2 Mg/Ml Syringe) 2 mg IVPUSH Q10M PRN PRN Reason: Pain (severe 7-10) Naloxone HCl (Naloxone 0.4 Mg/Ml Sdv) 0.1 mg IVPUSH ASDIRECTED PRN PRN Reason: Respiratory Depression Ondansetron HCl (Ondansetron 4 Mg/2 Ml Sdv) 4 mg IVPUSH Q4H PRN PRN Reason: Nausea Ondansetron HCl (Ondansetron 4 Mg/2 Ml Sdv) 4 mg IVPUSH ONETIME PRN PRN Reason: Nausea/Vomiting Polyethylene Glycol (Polyethylene Glycol 3350 Powder 17 Gm Packet) 17 gm PO DAILY PRN PRN Reason: Constipation Sodium Chloride (Sodium Chloride 0.9% 10 Ml Syringe) 10 ml FLUSH ASDIRECTED PRN PRN Reason: Keep Vein Open Last Admin: 03/13/21 02:16 Dose: 10 ml Documented by: Sodium Chloride (Sodium Chloride 0.9% 2.5 Ml Syringe) 2.5 ml FLUSH ASDIRECTED PRN PRN Reason: Keep Vein Open Last Admin: 03/13/21 02:16 Dose: 2.5 ml Documented by: Discontinued Medications Aspirin (Aspirin 81 Mg Tab.Ec) 81 mg PO DAILY [facility] Bisacodyl (Bisacodyl 5 Mg Tab) 10 mg PO ONETIME ONE Stop: 03/14/21 00:01 Last Admin: 03/14/21 05:20 Dose: 10 mg Documented by: Bisacodyl (Bisacodyl 5 Mg Tab) 10 mg PO ONETIME ONE Stop: 03/14/21 06:01 Last Admin: 03/14/21 08:40 Dose: Not Given Documented by: Bisacodyl (Bisacodyl 5 Mg Tab) 10 mg PO ONETIME ONE Stop: 03/14/21 08:41 Last Admin: 03/14/21 08:50 Dose: 10 mg Documented by: Diphenhydramine HCl (Diphenhydramine 50 Mg/Ml Sdv) 25 mg IVPUSH ONETIME ONE Stop: 03/14/21 04:51 Last Admin: 03/14/21 05:08 Dose: 25 mg Documented by: Ephedrine Sulfate (Ephedrine 50 Mg/Ml Sdv) Confirm Administered Dose 50 mg .ROUTE .STK-MED ONE Stop: 03/14/21 14:21 Fentanyl (Fentanyl 100 Mcg/2 Ml Sdv) Confirm Administered Dose 100 mcg .ROUTE .STK-MED ONE Stop: 03/14/21 13:32 Furosemide (Furosemide 40 Mg Tab) 40 mg PO DAILY [facility] Lactated Ringer's (Ringers, Lactated) 1,000 mls @ 999 mls/hr IV .BOLUS ONE Stop: 03/13/21 03:05 Last Admin: 03/13/21 02:15 Dose: 999 mls/hr Documented by: Pantoprazole Sodium 40 mg/ (Sodium Chloride) 10 mls @ 300 mls/hr IV NOW ONE Stop: 03/13/21 02:06 Last Admin: 03/13/21 02:15 Dose: 300 mls/hr Documented by: Propofol (Diprivan 50 Ml) Confirm Administered Dose 50 mls @ as directed .ROUTE .STK-MED ONE Stop: 03/14/21 13:24 Sodium Chloride (Normal Saline) Confirm Administered Dose 20 mls @ as directed .ROUTE .STK-MED ONE Stop: 03/14/21 14:21 Iopamidol (Iopamidol 755 Mg/Ml 100 Ml Bottle) 75 ml IVPUSH ONETIME ONE Stop: 03/13/21 02:46 Last Admin: 03/13/21 02:50 Dose: 75 ml Documented by: Lidocaine HCl (Lidocaine 1% 5 Ml Sdv) Confirm Administered Dose 5 ml .ROUTE .STK-MED ONE Stop: 03/14/21 13:32 Lisinopril (Lisinopril 10 Mg Tab) 40 mg PO DAILY [facility] Methylprednisolone Sodium Succinate (Methylprednisolone Sodium Succinate 125 Mg/2 Ml Sdv) 125 mg IVPUSH ONETIME ONE Stop: 03/14/21 05:12 Last Admin: 03/14/21 05:23 Dose: 125 mg Documented by: Metoprolol Succinate (Metoprolol Succinate 100 Mg Tab.Er) 200 mg PO DAILY [facility] Last Admin: 03/13/21 15:18 Dose: 200 mg Documented by: Miscellaneous Medication (Phenylephrine Hcl In 0.9% Nacl 1 Mg/10 Ml Syringe) Confirm Administered Dose 1 mg .ROUTE .STK-MED ONE Stop: 03/14/21 14:09 Pantoprazole Sodium (Pantoprazole 40 Mg Tab.Cr) 40 mg PO TID [facility] Polyethylene Glycol (Polyethylene Glycol 3350 Powder 17 Gm Packet) 238 gm PO ONETIME ONE Stop: 03/14/21 03:01 Last Admin: 03/14/21 07:36 Dose: 238 gm Documented by: Spironolactone (Spironolactone 25 Mg Tab) 12.5 mg PO DAILY [facility]
--- NOTE | 2021-03-15 13:42 | PN ---
SUBJECTIVE: The patient says he is feeling good. The patient this morning had another episode of bright red bloody stools. The patient denies any lightheadedness or dizziness. The patient has no complaint about his colonoscopy and EGD yesterday. OBJECTIVE: GENERAL: He is resting comfortably. He is alert and oriented, no acute distress. RECTAL: Again, no external hemorrhoids. I did bring my anoscope from the clinic. Today on anoscopy, again no blood in the rectal vault. On withdrawing, the patient did have what appears to be more of a left internal hemorrhoid, although it does look maybe a little more polypoid and indurated at the tip. No signs of any current active bleeding though. VITAL SIGNS: Temperature is 98.6, heart rate 80, blood pressure is 121/61, saturating 97% on room air. LABORATORY DATA: Hemoglobin went down to 11.1. ASSESSMENT AND PLAN: This is a pleasant 86-year-old gentleman with what appears to be intermittent rectal bleeding. Did do colonoscopy and EGD which showed pandiverticulosis, normal EGD, and hemorrhoids. Today on examination, the left internal hemorrhoid looked a little more polypoid, but no active bleeding. Again, this could be the source of bleeding since every time I look with the scope, I do not see anything in the rectal vault. Colonoscopy also did not show any active bleeding. Informed the patient we could remove the hemorrhoid. The patient has had issues with bleeding, now it sounds like quite a bit more frequently with blood when he wipes. He did have an episode a year ago that lasted for a week. I did go over with the patient again we could just do a hemorrhoidectomy and get rid of that hemorrhoid. This is a little too big currently just to do a banding. Did go over with the patient what a hemorrhoidectomy was, went over the risks, goals, and alternatives of procedure which included, but were not limited to bleeding, infection, recurrence, injury to underlying structures such as the muscles leading to incontinence of stool or flatus. Also went over that these are sometimes painful with some postop expectant pain. The patient understands. The patient currently already says he has issues with anal leakage over the past couple of years. I went over that this potentially might make it worse. The patient says he understands. The patient says he would wish to proceed with the procedure. Did talk to the hospitalist and Medicine Team along with Anesthesia. Plan to do it later today. I did go over if he continues to bleed after the hemorrhoidectomy, he might need to have something like an angiography see exactly where he is bleeding from. KEYUR / DEBORA /[id number]
[2021-03-15] MEDS ORDERED: Propofol 200 MG/20 ML SDV ONE (14:08)
[2021-03-15] MEDS ORDERED: Rocuronium Bromide 50 MG/5 ML Syringe ONE (14:08)
[2021-03-15] MEDS ORDERED: Dexamethasone 4 MG/ML 5 ML MDV ONE (14:08)
[2021-03-15] MEDS ORDERED: Lidocaine 2% 5 ML SDV ONE (14:08)
[2021-03-15] MEDS ORDERED: Sugammadex Sodium 200 MG/2 ML VIAL ONE (14:08)
[2021-03-15] MEDS ORDERED: Ondansetron 4 MG/2 ML SDV ONE (14:08)
[2021-03-15] MEDS ORDERED: fentaNYL 100 MCG/2 ML SDV ONE (14:09)
[2021-03-15] MEDS ORDERED: Lidocaine 2% Jelly 30 ML Tube ONE (14:19)
[2021-03-15] MEDS ORDERED: Bupivacaine Liposome 1.3% 20 ML SDV ONE (14:28)
--- NOTE | 2021-03-15 14:28 | PCM.PN ---
- General Info Date of Service: 03/15/21 Subjective Update: The patient is an 86-year-old male, on day 3 of service, who has a significant past medical history of coronary artery bypass graft, coronary artery disease with stent placement, congestive heart failure, hypertension, cardiac pacemaker, GERD, external and internal hemorrhoids, lower GI bleed, and hypothyroidism, who was admitted to the medical floor due to bright red rectal bleeding without a clear-cut etiology. Yesterday, the patient had both an EGD and a colonoscopy performed which failed to show any active bleeding. On interview with the patient today, he admits to continuing bright red blood per rectum with a bowel movement in the morning which was predominantly robinson gross blood. He denies tachycardia, lightheadedness, dizziness, syncope, chest pain, palpitations, abdominal pain, and rigors. Dr. Les Roberts, surgeon here at [facility] was consulted about the continuing bleeding, as result he scoped the patient again and found bleeding internal hemorrhoids, for which he will perform a hemorrhoidectomy this afternoon. We will continue to monitor this patient with respect to bleeding and daily CBCs. - Review of Systems General: Denies: Fever, Weakness, Fatigue HEENT: Denies: Headaches Pulmonary: Denies: Shortness of Breath, Cough Cardiovascular: Denies: Chest Pain, Palpitations Gastrointestinal: Reports: Other (Bright red blood per rectum). Denies: Abdominal Pain, Constipation, Diarrhea Genitourinary: Denies: Dysuria - Patient Data Vitals - Most Recent: Last Vital Signs Temp 98.5 F 03/15/21 12:00 Pulse 71 03/15/21 12:00 Resp 16 03/15/21 12:00 BP 105/57 L 03/15/21 12:00 Pulse Ox 96 03/15/21 12:00 Weight - Most Recent: 179 lb 12.8 oz I&O - Last 24 Hours: Intake & Output 03/14/21 03/15/21 03/15/21 22:59 06:59 14:59 Intake Total 2550 510 Output Total 200 Balance 2550 310 Lab Results Last 24 Hours: Laboratory Results - last 24 hr 03/14/21 03/15/21 03/15/21 Range/Units 20:07 05:40 05:40 WBC 8.66 (4.0-11.0) K/uL RBC 3.43 L (4.50-5.90) M/uL Hgb 11.1 L (13.0-17.0) g/dL Hct 33.2 L (38.0-50.0) % MCV 96.8 (80.0-98.0) fL MCH 32.4 H (27.0-32.0) pg MCHC 33.4 (31.0-37.0) g/dL RDW Std Deviation 44.8 (28.0-62.0) fl RDW Coeff of Emilee 13 (11.0-15.0) % Plt Count 202 (150-400) K/uL MPV 10.10 (7.40-12.00) fL Neut % (Auto) 81.2 H (48.0-80.0) % Lymph % (Auto) 8.1 L (16.0-40.0) % Mineral % (Auto) 10.5 (0.0-15.0) % Eos % (Auto) 0.2 (0.0-7.0) % Baso % (Auto) 0.0 (0.0-1.5) % Neut # (Auto) 7.0 H (1.4-5.7) K/uL Lymph # (Auto) 0.7 (0.6-2.4) K/uL Mineral # (Auto) 0.9 H (0.0-0.8) K/uL Eos # (Auto) 0.0 (0.0-0.7) K/uL Baso # (Auto) 0.0 (0.0-0.1) K/uL Sodium 136 (136-148) mmol/L Potassium 3.9 (3.5-5.1) mmol/L Chloride 101 (98-107) mmol/L Carbon Dioxide 23.0 (21.0-32.0) mmol/L BUN 22 H (7.0-18.0) mg/dL Creatinine 1.0 (0.8-1.3) mg/dL Est Cr Clr Drug Dosing 59.28 mL/min Estimated GFR (MDRD) > 60.0 ml/min Glucose 127 H (74-106) mg/dL Calcium 9.1 (8.5-10.1) mg/dL Total Bilirubin 1.0 (0.2-1.0) mg/dL AST 21 (15-37) IU/L ALT 24 (14-63) IU/L Alkaline Phosphatase 75 (46-116) U/L Total Protein 6.3 L (6.4-8.2) g/dL Albumin 3.1 L (3.4-5.0) g/dL Globulin 3.2 (2.6-4.0) g/dL Albumin/Globulin Ratio 1.0 (0.9-1.6) Tx Rx Implicated Unit 1 [id number] Unit 1 Component FFP Pre-Trans Vis Hemolysis NEGATIVE Pre-Trans Icterus NEGATIVE Post-Trans Blood Type A POSITIVE Post-Tx Visible Hemolys NEGATIVE Post-Trans Icterus NEGATIVE Post-Trans ANUJA Poly NEGATIVE Reaction Interpretation NON-HEM TRANSF RX Med Orders - Current: Current Medications Acetaminophen (Acetaminophen 325 Mg Tab) 650 mg PO Q6H PRN PRN Reason: Pain Albuterol (Albuterol 0.083% 2.5 Mg/3 Ml Neb Soln) 2.5 mg NEB ONETIME PRN PRN Reason: Wheezing Albuterol/Ipratropium (Albuterol/Ipratropium 3.0-0.5 Mg/3 Ml Neb Soln) 3 ml NEB Q4HRRT PRN PRN Reason: Shortness of Breath Atorvastatin Calcium (Atorvastatin 10 Mg Tab) 10 mg PO BEDTIME [facility] Last Admin: 03/14/21 21:33 Dose: 10 mg Documented by: Fentanyl (Fentanyl 100 Mcg/2 Ml Sdv) 50 mcg IVPUSH Q5M PRN PRN Reason: Pain (mild 1-3) Ferrous Sulfate (Ferrous Sulfate 325 Mg Tab) 325 mg PO BIDMEALS [facility] Last Admin: 03/15/21 08:31 Dose: 325 mg Documented by: Hydrocortisone (Hydrocortisone 2.5% Crm 30 Gm Tube) 0 gm TOP BID [facility] Last Admin: 03/15/21 08:31 Dose: 1 applic Documented by: Hydromorphone HCl (Hydromorphone 1 Mg/Ml Syringe) 1 mg IVPUSH Q10M PRN PRN Reason: Pain (moderate 4-6) Pantoprazole Sodium 40 mg/ (Sodium Chloride) 10 mls @ 300 mls/hr IV Q12H [facility] Last Admin: 03/15/21 08:31 Dose: 300 mls/hr Documented by: Levothyroxine Sodium (Levothyroxine 50 Mcg Tab) 50 mcg PO ACBREAKFAST [facility] Last Admin: 03/15/21 06:41 Dose: 50 mcg Documented by: Morphine Sulfate (Morphine 2 Mg/Ml Syringe) 2 mg IVPUSH Q10M PRN PRN Reason: Pain (severe 7-10) Naloxone HCl (Naloxone 0.4 Mg/Ml Sdv) 0.1 mg IVPUSH ASDIRECTED PRN PRN Reason: Respiratory Depression Ondansetron HCl (Ondansetron 4 Mg/2 Ml Sdv) 4 mg IVPUSH Q4H PRN PRN Reason: Nausea Ondansetron HCl (Ondansetron 4 Mg/2 Ml Sdv) 4 mg IVPUSH ONETIME PRN PRN Reason: Nausea/Vomiting Polyethylene Glycol (Polyethylene Glycol 3350 Powder 17 Gm Packet) 17 gm PO DAILY PRN PRN Reason: Constipation Sodium Chloride (Sodium Chloride 0.9% 10 Ml Syringe) 10 ml FLUSH ASDIRECTED PRN PRN Reason: Keep Vein Open Last Admin: 03/13/21 02:16 Dose: 10 ml Documented by: Sodium Chloride (Sodium Chloride 0.9% 2.5 Ml Syringe) 2.5 ml FLUSH ASDIRECTED PRN PRN Reason: Keep Vein Open Last Admin: 03/13/21 02:16 Dose: 2.5 ml Documented by: Discontinued Medications Aspirin (Aspirin 81 Mg Tab.Ec) 81 mg PO DAILY [facility] Bisacodyl (Bisacodyl 5 Mg Tab) 10 mg PO ONETIME ONE Stop: 03/14/21 00:01 Last Admin: 03/14/21 05:20 Dose: 10 mg Documented by: Bisacodyl (Bisacodyl 5 Mg Tab) 10 mg PO ONETIME ONE Stop: 03/14/21 06:01 Last Admin: 03/14/21 08:40 Dose: Not Given Documented by: Bisacodyl (Bisacodyl 5 Mg Tab) 10 mg PO ONETIME ONE Stop: 03/14/21 08:41 Last Admin: 03/14/21 08:50 Dose: 10 mg Documented by: Dexamethasone (Dexamethasone 4 Mg/Ml 5 Ml Mdv) Confirm Administered Dose 20 mg .ROUTE .STK-MED ONE Stop: 03/15/21 14:09 Diphenhydramine HCl (Diphenhydramine 50 Mg/Ml Sdv) 25 mg IVPUSH ONETIME ONE Stop: 03/14/21 04:51 Last Admin: 03/14/21 05:08 Dose: 25 mg Documented by: Ephedrine Sulfate (Ephedrine 50 Mg/Ml Sdv) Confirm Administered Dose 50 mg .ROUTE .STK-MED ONE Stop: 03/14/21 14:21 Fentanyl (Fentanyl 100 Mcg/2 Ml Sdv) Confirm Administered Dose 100 mcg .ROUTE .STK-MED ONE Stop: 03/14/21 13:32 Fentanyl (Fentanyl 100 Mcg/2 Ml Sdv) Confirm Administered Dose 100 mcg .ROUTE .STK-MED ONE Stop: 03/15/21 14:10 Furosemide (Furosemide 40 Mg Tab) 40 mg PO DAILY [facility] Lactated Ringer's (Ringers, Lactated) 1,000 mls @ 999 mls/hr IV .BOLUS ONE Stop: 03/13/21 03:05 Last Admin: 03/13/21 02:15 Dose: 999 mls/hr Documented by: Pantoprazole Sodium 40 mg/ (Sodium Chloride) 10 mls @ 300 mls/hr IV NOW ONE Stop: 03/13/21 02:06 Last Admin: 03/13/21 02:15 Dose: 300 mls/hr Documented by: Propofol (Diprivan 50 Ml) Confirm Administered Dose 50 mls @ as directed .ROUTE .STK-MED ONE Stop: 03/14/21 13:24 Sodium Chloride (Normal Saline) Confirm Administered Dose 20 mls @ as directed .ROUTE .STK-MED ONE Stop: 03/14/21 14:21 Iopamidol (Iopamidol 755 Mg/Ml 100 Ml Bottle) 75 ml IVPUSH ONETIME ONE Stop: 03/13/21 02:46 Last Admin: 03/13/21 02:50 Dose: 75 ml Documented by: Lidocaine (Lidocaine 2% 5 Ml Sdv) Confirm Administered Dose 5 ml .ROUTE .STK-MED ONE Stop: 03/15/21 14:09 Lidocaine HCl (Lidocaine 1% 5 Ml Sdv) Confirm Administered Dose 5 ml .ROUTE .STK-MED ONE Stop: 03/14/21 13:32 Lidocaine HCl (Lidocaine 2% Jelly 30 Ml Tube) Confirm Administered Dose 30 ml .ROUTE .STK-MED ONE Stop: 03/15/21 14:20 Lisinopril (Lisinopril 10 Mg Tab) 40 mg PO DAILY [facility] Methylprednisolone Sodium Succinate (Methylprednisolone Sodium Succinate 125 Mg/2 Ml Sdv) 125 mg IVPUSH ONETIME ONE Stop: 03/14/21 05:12 Last Admin: 03/14/21 05:23 Dose: 125 mg Documented by: Metoprolol Succinate (Metoprolol Succinate 100 Mg Tab.Er) 200 mg PO DAILY [facility] Last Admin: 03/13/21 15:18 Dose: 200 mg Documented by: Miscellaneous Medication (Phenylephrine Hcl In 0.9% Nacl 1 Mg/10 Ml Syringe) Confirm Administered Dose 1 mg .ROUTE .STK-MED ONE Stop: 03/14/21 14:09 Ondansetron HCl (Ondansetron 4 Mg/2 Ml Sdv) Confirm Administered Dose 4 mg .ROUTE .STK-MED ONE Stop: 03/15/21 14:09 Pantoprazole Sodium (Pantoprazole 40 Mg Tab.Cr) 40 mg PO TID [facility] Polyethylene Glycol (Polyethylene Glycol 3350 Powder 17 Gm Packet) 238 gm PO ON ETIME ONE Stop: 03/14/21 03:01 Last Admin: 03/14/21 07:36 Dose: 238 gm Documented by: Propofol (Propofol 200 Mg/20 Ml Sdv) Confirm Administered Dose 200 mg .ROUTE .STK-MED ONE Stop: 03/15/21 14:09 Rocuronium Lyons (Rocuronium Lyons 50 Mg/5 Ml Syringe) Confirm Administered Dose 50 mg .ROUTE .STK-MED ONE Stop: 03/15/21 14:09 Spironolactone (Spironolactone 25 Mg Tab) 12.5 mg PO DAILY [facility] Sugammadex Sodium (Sugammadex Sodium 200 Mg/2 Ml Vial) Confirm Administered Dose 200 mg .ROUTE .STK-MED ONE Stop: 03/15/21 14:09 - Exam General: Alert, Oriented, Cooperative HEENT: Mucous Membr. Moist/Orient Neck: Trachea Midline Lungs: Clear to Auscultation, Normal Respiratory Effort Cardiovascular: Regular Rate, Regular Rhythm GI/Abdominal Exam: Normal Bowel Sounds, Soft, Non-Tender, Other (External hemorrhoids) - Patient Data Lab Results Last 24 hrs: Laboratory Results - last 24 hr 03/14/21 03/15/21 03/15/21 Range/Units 20:07 05:40 05:40 WBC 8.66 (4.0-11.0) K/uL RBC 3.43 L (4.50-5.90) M/uL Hgb 11.1 L (13.0-17.0) g/dL Hct 33.2 L (38.0-50.0) % MCV 96.8 (80.0-98.0) fL MCH 32.4 H (27.0-32.0) pg MCHC 33.4 (31.0-37.0) g/dL RDW Std Deviation 44.8 (28.0-62.0) fl RDW Coeff of Emilee 13 (11.0-15.0) % Plt Count 202 (150-400) K/uL MPV 10.10 (7.40-12.00) fL Neut % (Auto) 81.2 H (48.0-80.0) % Lymph % (Auto) 8.1 L (16.0-40.0) % Mineral % (Auto) 10.5 (0.0-15.0) % Eos % (Auto) 0.2 (0.0-7.0) % Baso % (Auto) 0.0 (0.0-1.5) % Neut # (Auto) 7.0 H (1.4-5.7) K/uL Lymph # (Auto) 0.7 (0.6-2.4) K/uL Mineral # (Auto) 0.9 H (0.0-0.8) K/uL Eos # (Auto) 0.0 (0.0-0.7) K/uL Baso # (Auto) 0.0 (0.0-0.1) K/uL Sodium 136 (136-148) mmol/L Potassium 3.9 (3.5-5.1) mmol/L Chloride 101 (98-107) mmol/L Carbon Dioxide 23.0 (21.0-32.0) mmol/L BUN 22 H (7.0-18.0) mg/dL Creatinine 1.0 (0.8-1.3) mg/dL Est Cr Clr Drug Dosing 59.28 mL/min Estimated GFR (MDRD) > 60.0 ml/min Glucose 127 H (74-106) mg/dL Calcium 9.1 (8.5-10.1) mg/dL Total Bilirubin 1.0 (0.2-1.0) mg/dL AST 21 (15-37) IU/L ALT 24 (14-63) IU/L Alkaline Phosphatase 75 (46-116) U/L Total Protein 6.3 L (6.4-8.2) g/dL Albumin 3.1 L (3.4-5.0) g/dL Globulin 3.2 (2.6-4.0) g/dL Albumin/Globulin Ratio 1.0 (0.9-1.6) Tx Rx Implicated Unit 1 [id number] Unit 1 Component FFP Pre-Trans Vis Hemolysis NEGATIVE Pre-Trans Icterus NEGATIVE Post-Trans Blood Type A POSITIVE Post-Tx Visible Hemolys NEGATIVE Post-Trans Icterus NEGATIVE Post-Trans ANUJA Poly NEGATIVE Reaction Interpretation NON-HEM TRANSF RX Result Diagrams: 03/15/21 05:40 03/15/21 05:40 Sepsis Event Note - Evaluation Sepsis Screening Result: No Definite Risk - Focused Exam Vital Signs: Vital Signs Temp Temp Pulse Resp BP Pulse Ox 03/15/21 12:00 98.5 F 71 16 105/57 L 96 03/15/21 08:00 98.6 F 80 16 121/61 97 03/15/21 05:00 97 F 70 15 112/56 L 96 - Problem List & Annotations (1) Bright red blood per rectum SNOMED Code(s): 57671117 Code(s): K62.5 - HEMORRHAGE OF ANUS AND RECTUM Status: Acute Current Visit: Yes (2) Diverticulosis SNOMED Code(s): 206588849 Code(s): K57.90 - DVRTCLOS OF INTEST, PART UNSP, W/O PERF OR ABSCESS W/O BLEED Status: Acute Current Visit: Yes (3) Bleeding hemorrhoids SNOMED Code(s): 51596037 Code(s): K64.9 - UNSPECIFIED HEMORRHOIDS Status: Acute Current Visit: No - Problem List Review Problem List Initiated/Reviewed/Updated: Yes - My Orders Last 24 Hours: My Active Orders 03/15/21 Breakfast Cardiac [Heart Healthy Diet] [DIET] - Plan Plan:: 1. Bleeding internal hemorrhoids on examination -Dr. Les Roberts found bleeding internal hemorrhoids on exam today and will perform a hemorrhoidectomy instead of the banding procedure -We will continue to monitor the patient's blood loss while paying close attention to hemoglobin levels through daily CBC -Continue the patient on pantoprazole 40 mg per IV route every 12 hours to decrease GI irritation and potential bleeding -Continue the patient on ferrous sulfate 325 mg per oral route twice a day to replete iron levels and increase hemoglobin If the patient's bleeding does not halt, he may need to be transferred to a different facility where there are GI physicians readily available in order to have further investigations done. I have been in contact with the [facility] and have them on board if such a situation arises. The patient may need an RBC targeted scan if further bleeding occurs. The small intestine may be the culprit for the bleeding which may need to be studied. Interventional radiology may need to be involved to perform an angiography. Nonetheless, we will explore these options if the patient's bleeding does not stop from this hemorrhoidectomy procedure.
--- NOTE | 2021-03-15 15:59 | PCM.OPNOTE ---
- General Post-Op/Procedure Note Date of Surgery/Procedure: 03/15/21 Operative Procedure(s): hemorrhoidectomy Findings: Hemorrhoids dictation number [id number] Pre Op Diagnosis: Hemorrhoids Post-Op Diagnosis: Hemorrhoids Anesthesia Technique: General ET Tube Primary Surgeon: Les Roberts Pathology: Hemorrhoid EBL in mLs: 50 Complications: None Condition: Good Free Text/Narrative:: Intake & Output 03/15/21 03/15/21 03/15/21 06:59 14:59 22:59 Intake Total 510 Output Total 200 Balance 310
--- NOTE | 2021-03-15 16:10 | PCM.POSTAN ---
POST ANESTHESIA ASSESSMENT - MENTAL STATUS Mental Status: Somnolent - VITAL SIGNS Vital Signs: Last Vital Signs Temp 98.5 F 03/15/21 12:00 Pulse 71 03/15/21 12:00 Resp 16 03/15/21 12:00 BP 105/57 L 03/15/21 12:00 Pulse Ox 96 03/15/21 12:00 - RESPIRATORY Respiratory Status: Respiratory Rate WNL, Airway Patent, O2 Saturation Stable, Supplemental Oxygen - CARDIOVASCULAR CV Status: Pulse Rate WNL, Blood Pressure Stable - GASTROINTESTINAL GI Status: No Symptoms - POST OP HYDRATION Hydration Status: Adequate & Stable
--- NOTE | 2021-03-15 16:13 | PCM48HPAN ---
Post Anesthesia Note - EVALUATION WITHIN 48HRS OF ANESTHETIC Vital Signs in Normal Range: Yes Patient Participated in Evaluation: Yes Respiratory Function Stable: Yes Airway Patent: Yes Cardiovascular Function Stable: Yes Hydration Status Stable: Yes Pain Control Satisfactory: Yes Nausea and Vomiting Control Satisfactory: Yes Mental Status Recovered: Yes Vital Signs: Last Vital Signs Temp 98.5 F 03/15/21 12:00 Pulse 71 03/15/21 12:00 Resp 16 03/15/21 12:00 BP 105/57 L 03/15/21 12:00 Pulse Ox 96 03/15/21 12:00
--- NOTE | 2021-03-15 20:32 | OR ---
SURGEON: RYAN KNOX MD DATE OF PROCEDURE: 03/15/2021 PREOPERATIVE DIAGNOSIS: Rectal bleeding and internal hemorrhoids. POSTOPERATIVE DIAGNOSES: 1. More friable left internal hemorrhoids. 2. Small right internal hemorrhoids. PROCEDURE PERFORMED: Left hemorrhoidectomy. PRIMARY SURGEON: Ryan Knox MD ANESTHESIA: General. ESTIMATED BLOOD LOSS: Fifty. SPECIMEN: Left hemorrhoid. COMPLICATIONS: None. REASON FOR PROCEDURE: Patient is a pleasant 86-year-old gentleman who came in for rectal bleeding. He says this has been going on for multiple years, but seems to be getting worse and he had episodes of bright red blood per rectum multiple times. We did do scope and EGD yesterday that showed just diverticulosis and his hemorrhoids, but no active bleeding source. His left hemorrhoid was larger and did have a little bit more of an irregular surface to it. I did go over with the patient this could be removed, as this might be the source of the bleeding, happening off and on. I did go over with the patient risks, goals, and alternatives of the procedure. Risks included, but were not limited to bleeding, infection, recurrence, injury to underlying structures. The patient already has some fecal incontinence. This could worsen it and this may not actually be the cause of his bleeding. The patient understands and wished to proceed. PROCEDURE IN DETAIL: Patient was brought back to the OR. He was prepped and draped in usual sterile fashion in the lithotomy position. Preoperative antibiotics were given and anesthesia was provided by the Anesthesia team. Now, when the patient was relaxed, the patient did have a kind of large left internal hemorrhoid that had a more polypoid tip to it. He also had a smaller right internal hemorrhoid grade I. The left internal hemorrhoid when grasped actually started bleeding at a brisk pace, so this very well might have been the source of the intermittent bleeding. A local block was done with Exparel. Now, a Vicryl stitch was put at the apex of the left hemorrhoid. Using electrocautery and mainly Harmonic, the hemorrhoid was taken off in a wedge-shaped fashion staying superficial to try to avoid any injury to underlying muscle. The apex was then ligated again with 3-0 Vicryl and was sent to Pathology. The hemorrhoid was removed in two pieces. Now, the area was inspected. There was one area that was bleeding. This was controlled with 3-0 Vicryl. Now, there was good hemostasis. Now, the mucosal edge was reapproximated with 3-0 Vicryl interlocking running suture. The external part was not completely closed. Now, the rest of the Exparel was placed. Again, we checked and showed to be good hemostasis. His rectal muscle felt intact. The patient was transferred to recovery room in stable condition. KEYUR CAZARES /[id number]
[2021-03-15] MEDS: atorvaSTATin 10 MG Tab PO SCH (22:23)
[2021-03-16 07:10] LABS: BLOOD UREA NITROGEN,BUN 19 mg/dL (7.0-18.0); CHLORIDE,CL 102 mmol/L (98-107); GLUCOSE RANDOM 118 mg/dL (74-106); POTASSIUM,K 4.3 mmol/L (3.5-5.1); SODIUM,NA 136 mmol/L (136-148)
[2021-03-16] MEDS: Ferrous Sulfate 325 MG Tab PO SCH ×2 (07:57→16:09)
[2021-03-16] MEDS: Levothyroxine 50 MCG Tab PO SCH (07:57)
[2021-03-16] MEDS: Hydrocortisone 2.5% Crm 30 GM Tube TOP SCH ×2 (07:59→22:36)
[2021-03-16] MEDS: Pantoprazole 40 MG in Sodium Chloride 0.9% 10 ML IV SCH ×2 (10:10→22:27)
--- NOTE | 2021-03-16 11:27 | PCM.PN ---
- General Info Date of Service: 03/16/21 Subjective Update: The patient is an 86-year-old male, on day 4 of service, who has a significant past medical history of coronary artery bypass graft, coronary artery disease with stent placement, congestive heart failure, hypertension, cardiac pacemaker, GERD, external and internal hemorrhoids, lower GI bleed, and hypothyroidism, who was admitted to the medical floor due to bright red rectal bleeding without a clear-cut etiology. Even though the patient has had an EGD and colonoscopy performed which showed no active bleeding, he continues to have robinson bloody bowel movements which are bright in color. Yesterday he had a left hemorrhoidectomy done in hopes that this was the culprit for his decreasing hemoglobin and bleeding. Nonetheless this morning he continues to have bloody stools. I consulted Dr. Les Roberts, surgeon who performed the EGD, colonosco py, and hemorrhoidectomy; we discussed holding this patient for one more day in hopes that his bleeding would decrease as it may be a complication of his most recent procedure and that if the left hemorrhoidectomy is in fact the reason why he is bleeding, that this should stop eventually as healing pursues. If he continues to bleed tomorrow we will have to transfer him out to a gastrointestinal physician who can investigate further. We will continue to monitor his hemoglobin and hematocrit every 12 hours. On interview today, the patient denies tachycardia, lightheadedness, dizziness, syncope, chest pain, palpitations, abdominal pain, and rigors. - Review of Systems General: Denies: Fever, Weakness, Fatigue HEENT: Denies: Headaches, Sore Throat Pulmonary: Denies: Shortness of Breath, Cough Cardiovascular: Denies: Chest Pain, Palpitations, Dyspnea on Exertion Gastrointestinal: Reports: Other (Bright red blood per rectum). Denies: Abdominal Pain, Constipation, Diarrhea Genitourinary: Denies: Dysuria - Patient Data Vitals - Most Recent: Last Vital Signs Temp 97.2 F 03/16/21 07:31 Pulse 73 03/16/21 07:31 Resp 18 03/16/21 07:31 BP 120/70 03/16/21 07:31 Pulse Ox 96 03/16/21 07:31 Weight - Most Recent: 179 lb 12.8 oz I&O - Last 24 Hours: Intake & Output 03/15/21 03/16/2121 22:59 06:59 14:59 Intake Total 1500 500 Output Total 1150 Balance 1500 -650 Lab Results Last 24 Hours: Laboratory Results - last 24 hr 03/15/21 03/15/21 03/16/21 Range/Units 16:40 22:27 06:18 WBC (4.0-11.0) K/uL RBC (4.50-5.90) M/uL Hgb 10.9 L 11.2 L (13.0-17.0) g/dL Hct 32.9 L 34.0 L (38.0-50.0) % MCV (80.0-98.0) fL MCH (27.0-32.0) pg MCHC (31.0-37.0) g/dL RDW Std Deviation (28.0-62.0) fl RDW Coeff of Emilee (11.0-15.0) % Plt Count (150-400) K/uL MPV (7.40-12.00) fL Neut % (Auto) (48.0-80.0) % Lymph % (Auto) (16.0-40.0) % Dickey % (Auto) (0.0-15.0) % Eos % (Auto) (0.0-7.0) % Baso % (Auto) (0.0-1.5) % Neut # (Auto) (1.4-5.7) K/uL Lymph # (Auto) (0.6-2.4) K/uL Dickey # (Auto) (0.0-0.8) K/uL Eos # (Auto) (0.0-0.7) K/uL Baso # (Auto) (0.0-0.1) K/uL Sodium 136 (136-148) mmol/L Potassium 4.3 (3.5-5.1) mmol/L Chloride 102 (98-107) mmol/L Carbon Dioxide 24.0 (21.0-32.0) mmol/L BUN 19 H (7.0-18.0) mg/dL Creatinine 1.0 (0.8-1.3) mg/dL Est Cr Clr Drug Dosing 59.28 mL/min Estimated GFR (MDRD) > 60.0 ml/min Glucose 118 H (74-106) mg/dL Calcium 8.9 (8.5-10.1) mg/dL Total Bilirubin 1.0 (0.2-1.0) mg/dL AST 22 (15-37) IU/L ALT 29 (14-63) IU/L Alkaline Phosphatase 71 (46-116) U/L Total Protein 6.0 L (6.4-8.2) g/dL Albumin 3.0 L (3.4-5.0) g/dL Globulin 3.0 (2.6-4.0) g/dL Albumin/Globulin Ratio 1.0 (0.9-1.6) 03/16/21 Range/Units 06:18 WBC 12.35 H (4.0-11.0) K/uL RBC 3.30 L (4.50-5.90) M/uL Hgb 10.7 L (13.0-17.0) g/dL Hct 32.4 L (38.0-50.0) % MCV 98.2 H (80.0-98.0) fL MCH 32.4 H (27.0-32.0) pg MCHC 33.0 (31.0-37.0) g/dL RDW Std Deviation 44.9 (28.0-62.0) fl RDW Coeff of Emilee 13 (11.0-15.0) % Plt Count 209 (150-400) K/uL MPV 10.10 (7.40-12.00) fL Neut % (Auto) 88.3 H (48.0-80.0) % Lymph % (Auto) 4.2 L (16.0-40.0) % Dickey % (Auto) 7.5 (0.0-15.0) % Eos % (Auto) 0.0 (0.0-7.0) % Baso % (Auto) 0.0 (0.0-1.5) % Neut # (Auto) 10.9 H (1.4-5.7) K/uL Lymph # (Auto) 0.5 L (0.6-2.4) K/uL Dickey # (Auto) 0.9 H (0.0-0.8) K/uL Eos # (Auto) 0.0 (0.0-0.7) K/uL Baso # (Auto) 0.0 (0.0-0.1) K/uL Sodium (136-148) mmol/L Potassium (3.5-5.1) mmol/L Chloride (98-107) mmol/L Carbon Dioxide (21.0-32.0) mmol/L BUN (7.0-18.0) mg/dL Creatinine (0.8-1.3) mg/dL Est Cr Clr Drug Dosing mL/min Estimated GFR (MDRD) ml/min Glucose (74-106) mg/dL Calcium (8.5-10.1) mg/dL Total Bilirubin (0.2-1.0) mg/dL AST (15-37) IU/L ALT (14-63) IU/L Alkaline Phosphatase (46-116) U/L Total Protein (6.4-8.2) g/dL Albumin (3.4-5.0) g/dL Globulin (2.6-4.0) g/dL Albumin/Globulin Ratio (0.9-1.6) Med Orders - Current: Current Medications Acetaminophen (Acetaminophen 325 Mg Tab) 650 mg PO Q6H PRN PRN Reason: Pain Albuterol/Ipratropium (Albuterol/Ipratropium 3.0-0.5 Mg/3 Ml Neb Soln) 3 ml NEB Q4HRRT PRN PRN Reason: Shortness of Breath Atorvastatin Calcium (Atorvastatin 10 Mg Tab) 10 mg PO BEDTIME [facility] Last Admin: 03/15/21 22:23 Dose: 10 mg Documented by: Ferrous Sulfate (Ferrous Sulfate 325 Mg Tab) 325 mg PO BIDMEALS [facility] Last Admin: 03/16/21 07:57 Dose: 325 mg Documented by: Hydrocortisone (Hydrocortisone 2.5% Crm 30 Gm Tube) 0 gm TOP BID [facility] Last Admin: 03/16/21 07:59 Dose: Not Given Documented by: Pantoprazole Sodium 40 mg/ (Sodium Chloride) 10 mls @ 300 mls/hr IV Q12H [facility] Last Admin: 03/16/21 10:10 Dose: 300 mls/hr Documented by: Levothyroxine Sodium (Levothyroxine 50 Mcg Tab) 50 mcg PO ACBREAKFAST [facility] Last Admin: 03/16/21 07:57 Dose: 50 mcg Documented by: Ondansetron HCl (Ondansetron 4 Mg/2 Ml Sdv) 4 mg IVPUSH Q4H PRN PRN Reason: Nausea Polyethylene Glycol (Polyethylene Glycol 3350 Powder 17 Gm Packet) 17 gm PO DAILY PRN PRN Reason: Constipation Sodium Chloride (Sodium Chloride 0.9% 10 Ml Syringe) 10 ml FLUSH ASDIRECTED PRN PRN Reason: Keep Vein Open Last Admin: 03/13/21 02:16 Dose: 10 ml Documented by: Sodium Chloride (Sodium Chloride 0.9% 2.5 Ml Syringe) 2.5 ml FLUSH ASDIRECTED PRN PRN Reason: Keep Vein Open Last Admin: 03/13/21 02:16 Dose: 2.5 ml Documented by: Discontinued Medications Albuterol (Albuterol 0.083% 2.5 Mg/3 Ml Neb Soln) 2.5 mg NEB ONETIME PRN PRN Reason: Wheezing Aspirin (Aspirin 81 Mg Tab.Ec) 81 mg PO DAILY [facility] Bisacodyl (Bisacodyl 5 Mg Tab) 10 mg PO ONETIME ONE Stop: 03/14/21 00:01 Last Admin: 03/14/21 05:20 Dose: 10 mg Documented by: Bisacodyl (Bisacodyl 5 Mg Tab) 10 mg PO ONETIME ONE Stop: 03/14/21 06:01 Last Admin: 03/14/21 08:40 Dose: Not Given Documented by: Bisacodyl (Bisacodyl 5 Mg Tab) 10 mg PO ONETIME ONE Stop: 03/14/21 08:41 Last Admin: 03/14/21 08:50 Dose: 10 mg Documented by: Bupivacaine Liposome (Bupivacaine Liposome 1.3% 20 Ml Sdv) 20 ml .ROUTE .STK- MED ONE Stop: 03/15/21 14:29 Dexamethasone (Dexamethasone 4 Mg/Ml 5 Ml Mdv) Confirm Administered Dose 20 mg .ROUTE .STK-MED ONE Stop: 03/15/21 14:09 Diphenhydramine HCl (Diphenhydramine 50 Mg/Ml Sdv) 25 mg IVPUSH ONETIME ONE Stop: 03/14/21 04:51 Last Admin: 03/14/21 05:08 Dose: 25 mg Documented by: Ephedrine Sulfate (Ephedrine 50 Mg/Ml Sdv) Confirm Administered Dose 50 mg .ROUTE .STK-MED ONE Stop: 03/14/21 14:21 Fentanyl (Fentanyl 100 Mcg/2 Ml Sdv) Confirm Administered Dose 100 mcg .ROUTE .S TK-MED ONE Stop: 03/14/21 13:32 Fentanyl (Fentanyl 100 Mcg/2 Ml Sdv) 50 mcg IVPUSH Q5M PRN PRN Reason: Pain (mild 1-3) Fentanyl (Fentanyl 100 Mcg/2 Ml Sdv) Confirm Administered Dose 100 mcg .ROUTE .STK-MED ONE Stop: 03/15/21 14:10 Furosemide (Furosemide 40 Mg Tab) 40 mg PO DAILY [facility] Hydromorphone HCl (Hydromorphone 1 Mg/Ml Syringe) 1 mg IVPUSH Q10M PRN PRN Reason: Pain (moderate 4-6) Lactated Ringer's (Ringers, Lactated) 1,000 mls @ 999 mls/hr IV .BOLUS ONE Stop: 03/13/21 03:05 Last Admin: 03/13/21 02:15 Dose: 999 mls/hr Documented by: Pantoprazole Sodium 40 mg/ (Sodium Chloride) 10 mls @ 300 mls/hr IV NOW ONE Stop: 03/13/21 02:06 Last Admin: 03/13/21 02:15 Dose: 300 mls/hr Documented by: Propofol (Diprivan 50 Ml) Confirm Administered Dose 50 mls @ as directed .ROUTE .STK-MED ONE Stop: 03/14/21 13:24 Sodium Chloride (Normal Saline) Confirm Administered Dose 20 mls @ as directed .ROUTE .STK-MED ONE Stop: 03/14/21 14:21 Cefoxitin Sodium (Mefoxin In Dextrose,Iso-Osm 1 Gm/50 Ml) Confirm Administered Dose 50 mls @ as directed .ROUTE .STK-MED ONE Stop: 03/15/21 14:27 Iopamidol (Iopamidol 755 Mg/Ml 100 Ml Bottle) 75 ml IVPUSH ONETIME ONE Stop: 03/13/21 02:46 Last Admin: 03/13/21 02:50 Dose: 75 ml Documented by: Lidocaine (Lidocaine 2% 5 Ml Sdv) Confirm Administered Dose 5 ml .ROUTE .STK-MED ONE Stop: 03/15/21 14:09 Lidocaine HCl (Lidocaine 1% 5 Ml Sdv) Confirm Administered Dose 5 ml .ROUTE .STK-MED ONE Stop: 03/14/21 13:32 Lidocaine HCl (Lidocaine 2% Jelly 30 Ml Tube) Confirm Administered Dose 0 ml .ROUTE .STK-MED ONE Stop: 03/15/21 14:20 Lisinopril (Lisinopril 10 Mg Tab) 40 mg PO DAILY [facility] Methylprednisolone Sodium Succinate (Methylprednisolone Sodium Succinate 125 Mg/2 Ml Sdv) 125 mg IVPUSH ONETIME ONE Stop: 03/14/21 05:12 Last Admin: 03/14/21 05:23 Dose: 125 mg Documented by: Metoprolol Succinate (Metoprolol Succinate 100 Mg Tab.Er) 200 mg PO DAILY [facility] Last Admin: 03/13/21 15:18 Dose: 200 mg Documented by: Miscellaneous Medication (Phenylephrine Hcl In 0.9% Nacl 1 Mg/10 Ml Syringe) Confirm Administered Dose 1 mg .ROUTE .STK-MED ONE Stop: 03/14/21 14:09 Miscellaneous Medication (Phenylephrine Hcl In 0.9% Nacl 1 Mg/10 Ml Syringe) Confirm Administered Dose 1 mg .ROUTE .STK-MED ONE Stop: 03/15/21 14:37 Morphine Sulfate (Morphine 2 Mg/Ml Syringe) 2 mg IVPUSH Q10M PRN PRN Reason: Pain (severe 7-10) Naloxone HCl (Naloxone 0.4 Mg/Ml Sdv) 0.1 mg IVPUSH ASDIRECTED PRN PRN Reason: Respiratory Depression Ondansetron HCl (Ondansetron 4 Mg/2 Ml Sdv) 4 mg IVPUSH ONETIME PRN PRN Reason: Nausea/Vomiting Ondansetron HCl (Ondansetron 4 Mg/2 Ml Sdv) Confirm Administered Dose 4 mg .ROUTE .STK-MED ONE Stop: 03/15/21 14:09 Pantoprazole Sodium (Pantoprazole 40 Mg Tab.Cr) 40 mg PO TID [facility] Polyethylene Glycol (Polyethylene Glycol 3350 Powder 17 Gm Packet) 238 gm PO ONETIME ONE Stop: 03/14/21 03:01 Last Admin: 03/14/21 07:36 Dose: 238 gm Documented by: Propofol (Propofol 200 Mg/20 Ml Sdv) Confirm Administered Dose 200 mg .ROUTE .STK-MED ONE Stop: 03/15/21 14:09 Rocuronium [place] (Rocuronium [place] 50 Mg/5 Ml Syringe) Confirm Administered Dose 50 mg .ROUTE .STK-MED ONE Stop: 03/15/21 14:09 Spironolactone (Spironolactone 25 Mg Tab) 12.5 mg PO DAILY [facility] Sugammadex Sodium (Sugammadex Sodium 200 Mg/2 Ml Vial) Confirm Administered Dose 200 mg .ROUTE .STK-MED ONE Stop: 03/15/21 14:09 - Exam General: Alert, Oriented, Cooperative HEENT: Mucous Membr. Moist/[place] Neck: Trachea Midline Lungs: Clear to Auscultation, Normal Respiratory Effort Cardiovascular: Regular Rate, Regular Rhythm, No Murmurs GI/Abdominal Exam: Normal Bowel Sounds, Soft, Non-Tender, No Organomegaly, Other (Bright red blood seen in commode 4 to 6 ounces) - Patient Data Lab Results Last 24 hrs: Laboratory Results - last 24 hr 03/15/21 03/15/21 03/16/21 Range/Units 16:40 22:27 06:18 WBC (4.0-11.0) K/uL RBC (4.50-5.90) M/uL Hgb 10.9 L 11.2 L (13.0-17.0) g/dL Hct 32.9 L 34.0 L (38.0-50.0) % MCV (80.0-98.0) fL MCH (27.0-32.0) pg MCHC (31.0-37.0) g/dL RDW Std Deviation (28.0-62.0) fl RDW Coeff of Emilee (11.0-15.0) % Plt Count (150-400) K/uL MPV (7.40-12.00) fL Neut % (Auto) (48.0-80.0) % Lymph % (Auto) (16.0-40.0) % Dickey % (Auto) (0.0-15.0) % Eos % (Auto) (0.0-7.0) % Baso % (Auto) (0.0-1.5) % Neut # (Auto) (1.4-5.7) K/uL Lymph # (Auto) (0.6-2.4) K/uL Dickey # (Auto) (0.0-0.8) K/uL Eos # (Auto) (0.0-0.7) K/uL Baso # (Auto) (0.0-0.1) K/uL Sodium 136 (136-148) mmol/L Potassium 4.3 (3.5-5.1) mmol/L Chloride 102 (98-107) mmol/L Carbon Dioxide 24.0 (21.0-32.0) mmol/L BUN 19 H (7.0-18.0) mg/dL Creatinine 1.0 (0.8-1.3) mg/dL Est Cr Clr Drug Dosing 59.28 mL/min Estimated GFR (MDRD) > 60.0 ml/min Glucose 118 H (74-106) mg/dL Calcium 8.9 (8.5-10.1) mg/dL Total Bilirubin 1.0 (0.2-1.0) mg/dL AST 22 (15-37) IU/L ALT 29 (14-63) IU/L Alkaline Phosphatase 71 (46-116) U/L Total Protein 6.0 L (6.4-8.2) g/dL Albumin 3.0 L (3.4-5.0) g/dL Globulin 3.0 (2.6-4.0) g/dL Albumin/Globulin Ratio 1.0 (0.9-1.6) 03/16/21 Range/Units 06:18 WBC 12.35 H (4.0-11.0) K/uL RBC 3.30 L (4.50-5.90) M/uL Hgb 10.7 L (13.0-17.0) g/dL Hct 32.4 L (38.0-50.0) % MCV 98.2 H (80.0-98.0) fL MCH 32.4 H (27.0-32.0) pg MCHC 33.0 (31.0-37.0) g/dL RDW Std Deviation 44.9 (28.0-62.0) fl RDW Coeff of Emilee 13 (11.0-15.0) % Plt Count 209 (150-400) K/uL MPV 10.10 (7.40-12.00) fL Neut % (Auto) 88.3 H (48.0-80.0) % Lymph % (Auto) 4.2 L (16.0-40.0) % Dickey % (Auto) 7.5 (0.0-15.0) % Eos % (Auto) 0.0 (0.0-7.0) % Baso % (Auto) 0.0 (0.0-1.5) % Neut # (Auto) 10.9 H (1.4-5.7) K/uL Lymph # (Auto) 0.5 L (0.6-2.4) K/uL Dickey # (Auto) 0.9 H (0.0-0.8) K/uL Eos # (Auto) 0.0 (0.0-0.7) K/uL Baso # (Auto) 0.0 (0.0-0.1) K/uL Sodium (136-148) mmol/L Potassium (3.5-5.1) mmol/L Chloride (98-107) mmol/L Carbon Dioxide (21.0-32.0) mmol/L BUN (7.0-18.0) mg/dL Creatinine (0.8-1.3) mg/dL Est Cr Clr Drug Dosing mL/min Estimated GFR (MDRD) ml/min Glucose (74-106) mg/dL Calcium (8.5-10.1) mg/dL Total Bilirubin (0.2-1.0) mg/dL AST (15-37) IU/L ALT (14-63) IU/L Alkaline Phosphatase (46-116) U/L Total Protein (6.4-8.2) g/dL Albumin (3.4-5.0) g/dL Globulin (2.6-4.0) g/dL Albumin/Globulin Ratio (0.9-1.6) Result Diagrams: 03/16/21 06:18 03/16/21 06:18 Sepsis Event Note - Evaluation Sepsis Screening Result: No Definite Risk - Focused Exam Vital Signs: Vital Signs Temp Pulse Resp BP Pulse Ox 03/16/21 07:31 97.2 F 73 18 120/70 96 03/16/21 04:00 97 F 65 15 118/61 94 L 03/16/21 00:00 98.2 F 77 14 115/62 95 - Problem List & Annotations (1) Bright red blood per rectum SNOMED Code(s): 45131004 Code(s): K62.5 - HEMORRHAGE OF ANUS AND RECTUM Status: Acute Current Visit: Yes (2) Diverticulosis SNOMED Code(s): 623311691 Code(s): K57.90 - DVRTCLOS OF INTEST, PART UNSP, W/O PERF OR ABSCESS W/O BLEED Status: Acute Current Visit: Yes (3) Bleeding hemorrhoids SNOMED Code(s): 25666639 Code(s): K64.9 - UNSPECIFIED HEMORRHOIDS Status: Acute Current Visit: No - Problem List Review Problem List Initiated/Reviewed/Updated: Yes - My Orders Last 24 Hours: My Active Orders 03/15/21 Dinner Full Liquid Diet [DIET] 03/16/21 09:05 Communication Order [RC] PER UNIT ROUTINE 03/16/21 10:27 HEMOGLOBIN/HEMATOCRIT,HH [HEME] Q6H 03/16/21 18:00 HEMOGLOBIN/HEMATOCRIT,HH [HEME] Routine 03/17/21 05:11 CBC WITH AUTO DIFF [HEME] AM CMP [COMPREHENSIVE METABOLIC PN,CMP] [CHEM] AM - Plan Plan:: 1. Left-sided internal hemorrhoids which are friable, right sided internal hemorrhoid which is small -I consulted with Dr. Les Roberts, from surgery who found bleeding internal hemorrhoids and performed a hemorrhoidectomy. Nevertheless, the patient continues to bleed per rectum which is decreasing, we will continue to watch the patient for another day in hopes that this continues to decrease. If not the patient will have to be transferred out to the facility where a GI physician is available to perform the necessary investigations. -We will monitor the patient through hemoglobin and hematocrit levels every 12 hours -Continue the patient on pantoprazole 40 mg per IV route every 12 hours -Continue the patient on ferrous sulfate 325 mg per oral route twice a day -I spoke to the of the patient today, Laverne, about the course of action and possibility for discharge for which she addressed concerns for wanting to go to a facility that is not in [place]. Both the and the patient prefer [place] or [place] as a possible transfer site.
--- NOTE | 2021-03-16 12:38 | PN ---
SUBJECTIVE: Patient says he had a good evening last night. He has really no complaints. He says that he does not really have pain from his hemorrhoidectomy. Last night, they did call because he had passed some blood clots. However, no bleeding was noted at the surgical site. This morning, the patient had another bowel movement, and the toilet had minimal clot in it. OBJECTIVE: GENERAL: The patient is lying comfortably in bed. He is alert and oriented in no acute distress. VITAL SIGNS: Temperature is 97.2, pulse is 73, blood pressure is 120/70, and saturating 96% on room air. RECTAL: Done, does have some slight bruising around the anus. His incision from the hemorrhoidectomy as much as I can see is clean, dry, and intact. No signs of active bleeding. I did do a rectal exam. No fresh blood or clot seen on withdrawal of finger. He does have good rectal tone. LABORATORY DATA: Hemoglobin is down to 10.7 from 11.1 yesterday morning. ASSESSMENT AND PLAN: This is a pleasant 86-year-old gentleman who has had issues with off and on bleeding over the last couple of years, sometimes even lasting up to a week. Yesterday, he did have a colonoscopy and EGD, which showed normal EGD. Colonoscopy showed pandiverticulosis and some hemorrhoids. No signs of active bleeding. The patient continued to have bright red blood per rectum. He did have a left internal hemorrhoid that had a little bit more polypoid look to it. Did undergo left hemorrhoidectomy yesterday. Of note, during the surgery, the hemorrhoid was little more friable. I think this could have been the source of his bleeding. The patient tolerated the procedure well. Now, the patient is having a little bit of blood clots. No signs of bleeding from his surgical site. I did go over with the patient that it is normal to pass a couple of blood clots, even some minimal bleeding after hemorrhoidectomy, and this should resolve over a couple of days. I did go over though that he could always have another source of bleeding such as one of his diverticulum. The patient says he understands. I did talk to the Medicine team. If patient continues to have just minimal clots and hemoglobin is stable, it will probably be okay for discharge home in the next day or so. KEYUR / DEBORA /[id number]
--- NOTE | 2021-03-16 17:23 | PN ---
SUBJECTIVE: Patient has had a good day today. He has no complaints. He has not really had any bowel movements, although he had a very small one this afternoon. He said he had some very minimal clots in it. He says it is much less bleeding than was before the surgery. I did also speak with the nurse who says that it was just a couple of clots, but otherwise normal small bowel movement. I went over with the patient that this is good. I went over that you always have a little bit of bleeding and clots, potentially after hemorrhoidectomy. He did have a repeat hemoglobin this afternoon that was 10.6, slightly down from 10.7 this morning. All of the patient's questions were answered. He will continue to be monitored. If he remains with just very minimal clots and is stable, he will be going potentially home tomorrow. KEYUR CAZARES /[id number]
[2021-03-16] MEDS: atorvaSTATin 10 MG Tab PO SCH (22:26)
[2021-03-17 06:30] LABS: BLOOD UREA NITROGEN,BUN 12 mg/dL (7.0-18.0); CARBON DIOXIDE,CO2 26.4 mmol/L (21.0-32.0); CHLORIDE,CL 100 mmol/L (98-107); GLUCOSE RANDOM 79 mg/dL (74-106); POTASSIUM,K 4.3 mmol/L (3.5-5.1); SODIUM,NA 134 mmol/L (136-148)
[2021-03-17] MEDS: Levothyroxine 50 MCG Tab PO SCH (06:50)
[2021-03-17] MEDS: Ferrous Sulfate 325 MG Tab PO SCH (08:34)
[2021-03-17] MEDS: Pantoprazole 40 MG in Sodium Chloride 0.9% 10 ML IV SCH (08:34)
[2021-03-17] MEDS: Hydrocortisone 2.5% Crm 30 GM Tube TOP SCH (08:35)
[2021-03-17 10:45] VITALS: BP 107/62; PULSE 67
--- NOTE | 2021-03-17 14:50 | PCM.DCSUM1 ---
Discharge Summary - Hospital Course Free Text/Narrative:: The patient is an 86-year-old male, on day 5 of service, who has a significant past medical history of coronary artery bypass graft, coronary artery disease with stent placement, congestive heart failure, hypertension, cardiac pacemaker, GERD, external and internal hemorrhoids, lower GI bleed, and hypothyroidism, who was admitted to the medical floor due to bright red rectal bleeding. Throughout his hospital course a clear-cut etiology into why he was bleeding per rectum was investigated. He had a EGD done which showed no abnormalities, and a colonoscopy which showed jones diverticulosis. At the time of the studies no active bleeding was found. Nonetheless the patient continued to bleed and additional studies had to be done. Dr. Les Roberts, surgeon here at the hospital found internal hemorrhoids upon examination and performed a left hemorrhoidectomy. Since the procedure the patient has had constipation and slight bleeding from the rectum and passing of clots which may represent healing. Upon discharge he is to follow-up with Dr. Roberts on 03/30 to assess for any improvements, and if any further work-up or management is needed. During this process his hemoglobin levels have fluctuated but are now stable. The patient has a history of CABG and is on Eliquis. During his hospital stay it was determined that he would no longer continue with this treatment and will follow up with his PCP Dr. Montano on 03/23 who would decipher if this patient needs continued treatment with his blood thinner or if it can be stopped altogether. On discharge the patient will be sent home with MiraLAX for his constipation. He has been advised to continue all his home medications as regularly scheduled, and to return to the hospital if he has increased bleeding per rectum, palpitations, or other complications. The patient is now stable and ready for discharge. - Discharge Data Discharge Date: 03/17/21 Discharge Disposition: Home, Self-Care 01 Condition: Good - Referral to Home Health Primary Care Physician: Armando Montano MD - Discharge Diagnosis/Problem(s) (1) Bright red blood per rectum SNOMED Code(s): 78758939 ICD Code: K62.5 - HEMORRHAGE OF ANUS AND RECTUM Status: Acute (2) Diverticulosis SNOMED Code(s): 181534337 ICD Code: K57.90 - DVRTCLOS OF INTEST, PART UNSP, W/O PERF OR ABSCESS W/O BLEED Status: Acute (3) Bleeding hemorrhoids SNOMED Code(s): 03782664 ICD Code: K64.9 - UNSPECIFIED HEMORRHOIDS Status: Acute - Patient Summary/Data Operative Procedure(s) Performed: hemorrhoidectomy Consults: Consultations 03/13/21 09:15 Consult to Physician [CONS] Routine - Patient Instructions Diet: Heart Healthy Diet Activity: As Tolerated Showering/Bathing: May Shower Other/Special Instructions: -If you experience continual bleeding with bowel movements, lightheadedness, palpitations, or chest pain, return to the hospital. -Follow-up with your PCP Dr. Montano on 03/23, make sure to discuss continuing or stopping Eliquis treatment based on this medications blood thinning properties and potential to cause bleeding. -Follow-up with Dr. Roberts on 03/30, the surgeon who performed your hemorrhoidectomy and colonoscopy. -Use MiraLAX for constipation, and continue omeprazole for acid reflux and its stomach lining protective function. -Be compliant with medications and take them at scheduled times - Discharge Plan *PRESCRIPTION DRUG MONITORING PROGRAM REVIEWED*: Not Applicable *COPY OF PRESCRIPTION DRUG MONITORING REPORT IN PATIENT ALLEN: Not Applicable Prescriptions/Med Rec: polyethylene glycoL 3350 [MiraLAX] 17 gm PO DAILY PRN #5 packet PRN Reason: Constipation Home Medications: Home Meds Ferrous Sulfate 324 mg PO BID 11/10/19 [History] Furosemide 40 mg PO DAILY 11/10/19 [History] Omeprazole 40 mg PO ACBREAKFAST 11/10/19 [History] Potassium Chloride [Klor-Con M20] 20 meq PO DAILY 11/10/19 [History] atorvaSTATin [Lipitor] 10 mg PO BEDTIME 11/10/19 [History] Levothyroxine Sodium [Levothyroxine] 50 mcg PO ACBREAKFAST 11/17/20 [History] Spironolactone [Aldactone] 12.5 mg PO DAILY 11/17/20 [History] Hydrocortisone [Anusol-HC] 30 gm RC BID 14 Days #1 tube 11/18/20 [Rx] Ascorbic Acid [Vitamin C] 500 mg PO DAILY 03/13/21 [History] Aspirin [Lo-Dose Aspirin EC] 81 mg PO DAILY 03/13/21 [History] Dapagliflozin Propanediol [Farxiga] 10 mg PO DAILY 03/13/21 [History] Metoprolol Succinate 200 mg PO DAILY 03/13/21 [History] lisinopriL [Lisinopril] 40 mg PO DAILY 03/13/21 [History] polyethylene glycoL 3350 [MiraLAX] 17 gm PO DAILY PRN #5 packet 03/17/21 [Rx] Patient Handouts: Diverticulitis, [id number], Gastrointestinal Bleeding, [id number], Polyethylene Glycol Powder for Oral Solution Referrals: Les Roberts MD [Physician] - 03/30/21 10:30 am Armando Montano MD [Primary Care Provider] - 03/23/21 3:00 pm - Discharge Summary/Plan Comment DC Time >30 min.: Yes Total # of Minutes for Discharge Time: 35 minutes - Review of Systems General: Denies: Fever, Weakness, Fatigue HEENT: Denies: Headaches, Sore Throat Pulmonary: Denies: Shortness of Breath, Cough Cardiovascular: Denies: Chest Pain, Palpitations Gastrointestinal: Reports: Constipation. Denies: Abdominal Pain Genitourinary: Denies: Dysuria - Patient Data Vitals - Most Recent: Last Vital Signs Temp 97.3 F 03/17/21 10:43 Pulse 67 03/17/21 10:43 Resp 16 03/17/21 10:43 BP 107/62 03/17/21 10:43 Pulse Ox 94 L 03/17/21 10:43 Weight - Most Recent: 179 lb 12.8 oz I&O - Last 24 hours: Intake & Output 03/16/21 03/17/21 03/17/21 22:59 06:59 14:59 Intake Total 1388 650 700 Output Total 700 1500 1200 Balance 688 -850 -500 Lab Results - Last 24 hrs: Laboratory Results - last 24 hr 03/13/21 03/17/21 03/17/21 Range/Units 19:45 04:58 04:58 WBC 7.31 (4.0-11.0) K/uL RBC 3.14 L (4.50-5.90) M/uL Hgb 9.9 L (13.0-17.0) g/dL Hct 30.0 L (38.0-50.0) % MCV 95.5 (80.0-98.0) fL MCH 31.5 (27.0-32.0) pg MCHC 33.0 (31.0-37.0) g/dL RDW Std Deviation 47.8 (28.0-62.0) fl RDW Coeff of [place] 14 (11.0-15.0) % Plt Count 202 (150-400) K/uL MPV 10.00 (7.40-12.00) fL Neut % (Auto) 66.3 (48.0-80.0) % Lymph % (Auto) 17.4 (16.0-40.0) % [place] % (Auto) 12.9 (0.0-15.0) % Eos % (Auto) 3.3 (0.0-7.0) % Baso % (Auto) 0.1 (0.0-1.5) % Neut # (Auto) 4.9 (1.4-5.7) K/uL Lymph # (Auto) 1.3 (0.6-2.4) K/uL [place] # (Auto) 0.9 H (0.0-0.8) K/uL Eos # (Auto) 0.2 (0.0-0.7) K/uL Baso # (Auto) 0.0 (0.0-0.1) K/uL Nucleated RBC % 0.0 /100WBC Nucleated RBCs # 0 K/uL Sodium 134 L (136-148) mmol/L Potassium 4.3 (3.5-5.1) mmol/L Chloride 100 (98-107) mmol/L Carbon Dioxide 26.4 (21.0-32.0) mmol/L BUN 12 (7.0-18.0) mg/dL Creatinine 0.9 (0.8-1.3) mg/dL Est Cr Clr Drug Dosing 65.86 mL/min Estimated GFR (MDRD) > 60.0 ml/min Glucose 79 (74-106) mg/dL Calcium 8.7 (8.5-10.1) mg/dL Total Bilirubin 1.3 H (0.2-1.0) mg/dL AST 23 (15-37) IU/L ALT 25 (14-63) IU/L Alkaline Phosphatase 73 (46-116) U/L Total Protein 5.6 L (6.4-8.2) g/dL Albumin 2.8 L (3.4-5.0) g/dL Globulin 2.8 (2.6-4.0) g/dL Albumin/Globulin Ratio 1.0 (0.9-1.6) Crossmatch See Detail Med Orders - Current: Current Medications Discontinued Medications Acetaminophen (Acetaminophen 325 Mg Tab) 650 mg PO Q6H PRN PRN Reason: Pain Albuterol (Albuterol 0.083% 2.5 Mg/3 Ml Neb Soln) 2.5 mg NEB ONETIME PRN PRN Reason: Wheezing Albuterol/Ipratropium (Albuterol/Ipratropium 3.0-0.5 Mg/3 Ml Neb Soln) 3 ml NEB Q4HRRT PRN PRN Reason: Shortness of Breath Aspirin (Aspirin 81 Mg Tab.Ec) 81 mg PO DAILY [facility] Atorvastatin Calcium (Atorvastatin 10 Mg Tab) 10 mg PO BEDTIME [facility] Last Admin: 03/16/21 22:26 Dose: 10 mg Documented by: Bisacodyl (Bisacodyl 5 Mg Tab) 10 mg PO ONETIME ONE Stop: 03/14/21 00:01 Last Admin: 03/14/21 05:20 Dose: 10 mg Documented by: Bisacodyl (Bisacodyl 5 Mg Tab) 10 mg PO ONETIME ONE Stop: 03/14/21 06:01 Last Admin: 03/14/21 08:40 Dose: Not Given Documented by: Bisacodyl (Bisacodyl 5 Mg Tab) 10 mg PO ONETIME ONE Stop: 03/14/21 08:41 Last Admin: 03/14/21 08:50 Dose: 10 mg Documented by: Bupivacaine Liposome (Bupivacaine Liposome 1.3% 20 Ml Sdv) 20 ml .ROUTE .STK- MED ONE Stop: 03/15/21 14:29 Dexamethasone (Dexamethasone 4 Mg/Ml 5 Ml Mdv) Confirm Administered Dose 20 mg .ROUTE .STK-MED ONE Stop: 03/15/21 14:09 Diphenhydramine HCl (Diphenhydramine 50 Mg/Ml Sdv) 25 mg IVPUSH ONETIME ONE Stop: 03/14/21 04:51 Last Admin: 03/14/21 05:08 Dose: 25 mg Documented by: Ephedrine Sulfate (Ephedrine 50 Mg/Ml Sdv) Confirm Administered Dose 50 mg .ROUTE .STK-MED ONE Stop: 03/14/21 14:21 Fentanyl (Fentanyl 100 Mcg/2 Ml Sdv) Confirm Administered Dose 100 mcg .ROUTE .STK-MED ONE Stop: 03/14/21 13:32 Fentanyl (Fentanyl 100 Mcg/2 Ml Sdv) 50 mcg IVPUSH Q5M PRN PRN Reason: Pain (mild 1-3) Fentanyl (Fentanyl 100 Mcg/2 Ml Sdv) Confirm Administered Dose 100 mcg .ROUTE .STK-MED ONE Stop: 03/15/21 14:10 Ferrous Sulfate (Ferrous Sulfate 325 Mg Tab) 325 mg PO BIDMEALS [facility] Last Admin: 03/17/21 08:34 Dose: 325 mg Documented by: Furosemide (Furosemide 40 Mg Tab) 40 mg PO DAILY [facility] Hydrocortisone (Hydrocortisone 2.5% Crm 30 Gm Tube) 0 gm TOP BID [facility] Last Admin: 03/17/21 08:35 Dose: 1 applic Documented by: Hydromorphone HCl (Hydromorphone 1 Mg/Ml Syringe) 1 mg IVPUSH Q10M PRN PRN Reason: Pain (moderate 4-6) Lactated Ringer's (Ringers, Lactated) 1,000 mls @ 999 mls/hr IV .BOLUS ONE Stop: 03/13/21 03:05 Last Admin: 03/13/21 02:15 Dose: 999 mls/hr Documented by: Pantoprazole Sodium 40 mg/ (Sodium Chloride) 10 mls @ 300 mls/hr IV NOW ONE Stop: 03/13/21 02:06 Last Admin: 03/13/21 02:15 Dose: 300 mls/hr Documented by: Pantoprazole Sodium 40 mg/ (Sodium Chloride) 10 mls @ 300 mls/hr IV Q12H [facility] Last Admin: 03/17/21 08:34 Dose: 300 mls/hr Documented by: Propofol (Diprivan 50 Ml) Confirm Administered Dose 50 mls @ as directed .ROUTE .STK-MED ONE Stop: 03/14/21 13:24 Sodium Chloride (Normal Saline) Confirm Administered Dose 20 mls @ as directed .ROUTE .STK-MED ONE Stop: 03/14/21 14:21 Cefoxitin Sodium (Mefoxin In Dextrose,Iso-Osm 1 Gm/50 Ml) Confirm Administered Dose 50 mls @ as directed .ROUTE .STK-MED ONE Stop: 03/15/21 14:27 Iopamidol (Iopamidol 755 Mg/Ml 100 Ml Bottle) 75 ml IVPUSH ONETIME ONE Stop: 03/13/21 02:46 Last Admin: 03/13/21 02:50 Dose: 75 ml Documented by: Levothyroxine Sodium (Levothyroxine 50 Mcg Tab) 50 mcg PO ACBREAKFAST [facility] Last Admin: 03/17/21 06:50 Dose: 50 mcg Documented by: Lidocaine (Lidocaine 2% 5 Ml Sdv) Confirm Administered Dose 5 ml .ROUTE .STK-MED ONE Stop: 03/15/21 14:09 Lidocaine HCl (Lidocaine 1% 5 Ml Sdv) Confirm Administered Dose 5 ml .ROUTE .STK-MED ONE Stop: 03/14/21 13:32 Lidocaine HCl (Lidocaine 2% Jelly 30 Ml Tube) Confirm Administered Dose 0 ml .ROUTE .STK-MED ONE Stop: 03/15/21 14:20 Lisinopril (Lisinopril 10 Mg Tab) 40 mg PO DAILY [facility] Methylprednisolone Sodium Succinate (Methylprednisolone Sodium Succinate 125 Mg/2 Ml Sdv) 125 mg IVPUSH ONETIME ONE Stop: 03/14/21 05:12 Last Admin: 03/14/21 05:23 Dose: 125 mg Documented by: Metoprolol Succinate (Metoprolol Succinate 100 Mg Tab.Er) 200 mg PO DAILY [facility] Last Admin: 03/13/21 15:18 Dose: 200 mg Documented by: Miscellaneous Medication (Phenylephrine Hcl In 0.9% Nacl 1 Mg/10 Ml Syringe) Confirm Administered Dose 1 mg .ROUTE .STK-MED ONE Stop: 03/14/21 14:09 Miscellaneous Medication (Phenylephrine Hcl In 0.9% Nacl 1 Mg/10 Ml Syringe) Confirm Administered Dose 1 mg .ROUTE .STK-MED ONE Stop: 03/15/21 14:37 Morphine Sulfate (Morphine 2 Mg/Ml Syringe) 2 mg IVPUSH Q10M PRN PRN Reason: Pain (severe 7-10) Naloxone HCl (Naloxone 0.4 Mg/Ml Sdv) 0.1 mg IVPUSH ASDIRECTED PRN PRN Reason: Respiratory Depression Ondansetron HCl (Ondansetron 4 Mg/2 Ml Sdv) 4 mg IVPUSH Q4H PRN PRN Reason: Nausea Ondansetron HCl (Ondansetron 4 Mg/2 Ml Sdv) 4 mg IVPUSH ONETIME PRN PRN Reason: Nausea/Vomiting Ondansetron HCl (Ondansetron 4 Mg/2 Ml Sdv) Confirm Administered Dose 4 mg .ROUTE .STK-MED ONE Stop: 03/15/21 14:09 Pantoprazole Sodium (Pantoprazole 40 Mg Tab.Cr) 40 mg PO TID [facility] Polyethylene Glycol (Polyethylene Glycol 3350 Powder 17 Gm Packet) 17 gm PO DAILY PRN PRN Reason: Constipation Last Admin: 03/16/21 11:52 Dose: 17 gm Documented by: Polyethylene Glycol (Polyethylene Glycol 3350 Powder 17 Gm Packet) 238 gm PO ONETIME ONE Stop: 03/14/21 03:01 Last Admin: 03/14/21 07:36 Dose: 238 gm Documented by: Propofol (Propofol 200 Mg/20 Ml Sdv) Confirm Administered Dose 200 mg .ROUTE .STK-MED ONE Stop: 03/15/21 14:09 Rocuronium [place] (Rocuronium [place] 50 Mg/5 Ml Syringe) Confirm Administered Dose 50 mg .ROUTE .STK-MED ONE Stop: 03/15/21 14:09 Sodium Chloride (Sodium Chloride 0.9% 10 Ml Syringe) 10 ml FLUSH ASDIRECTED PRN PRN Reason: Keep Vein Open Last Admin: 03/13/21 02:16 Dose: 10 ml Documented by: Sodium Chloride (Sodium Chloride 0.9% 2.5 Ml Syringe) 2.5 ml FLUSH ASDIRECTED PRN PRN Reason: Keep Vein Open Last Admin: 03/13/21 02:16 Dose: 2.5 ml Documented by: Spironolactone (Spironolactone 25 Mg Tab) 12.5 mg PO DAILY [facility] Sugammadex Sodium (Sugammadex Sodium 200 Mg/2 Ml Vial) Confirm Administered Dose 200 mg .ROUTE .STK-MED ONE Stop: 03/15/21 14:09 - Exam General: Reports: Alert, Oriented, Cooperative HEENT: Reports: Mucous Membr. Moist/[place] Neck: Reports: Trachea Midline Lungs: Reports: Clear to Auscultation, Normal Respiratory Effort Cardiovascular: Reports: Regular Rate, Regular Rhythm, No Murmurs GI/Abdominal Exam: Normal Bowel Sounds, Soft, Non-Tender
--- NOTE | 2021-03-18 07:53 | PN ---
SUBJECTIVE: The patient has no complaints. He has had a good night. The patient had no blood per rectum or blood clots rest of yesterday night or even this morning. The patient says he has passed a lot of flatus but no solid bowel movement yet. The patient says when he wipes, he noticed just a trace bit of blood when he wipes but nothing major. OBJECTIVE: GENERAL: He is resting comfortably in his bed. He is alert and oriented, in no acute distress. VITAL SIGNS: Temperature is 97.3, pulse is 67, blood pressure is 107/62, saturating 94% on room air. LABORATORY DATA: Hemoglobin is 9.9. ASSESSMENT AND PLAN: The patient is a pleasant 86-year-old gentleman, postop day #2 from left hemorrhoidectomy, likely bleeding hemorrhoid. The patient had a couple of clots right after the surgery, but no bleeding like he had prior to the surgery now. the patient and his that he is to follow up with me in clinic. The patient soft. He might still have a little bit of blood when he wipes for next couple of days or even some very small clots after the hemorrhoidectomy. If he has any more, if he starts dripping blood again, he needs to call our office or come back sooner. Otherwise, we will follow up with him in clinic in 2 weeks with pathology. All the patient's questions were answered. I did discuss with the Medicine team and the nursing staff. KEYUR CAZARES /[id number]
== END 2021-03-17 12:00 | disposition home or self-care (01) | DRG 349 ==
LOC: MW.ED 21:07 → MW.MS 03-13 05:48
PROVIDERS: ADMIT Student in an Organized Health Care Education/Training Program; ATTEND Student in an Organized Health Care Education/Training Program
PROC: 0DJ08ZZ Inspection of Upper Intestinal Tract, Via Natural or Artificial Opening Endoscopic (ICD-10-PCS; principal; 2021-03-14)
PROC: 0DJD8ZZ Inspection of Lower Intestinal Tract, Via Natural or Artificial Opening Endoscopic (ICD-10-PCS; 2021-03-14)
PROC: 06BY3ZC Excision of Hemorrhoidal Plexus, Percutaneous Approach (ICD-10-PCS; 2021-03-15)
DX: K62.5 Hemorrhage of anus and rectum (principal); K64.8 Other hemorrhoids; J30.9 Allergic rhinitis, unspecified; I25.10 Atherosclerotic heart disease of native coronary artery without angina pectoris; I50.9 Heart failure, unspecified; I11.0 Hypertensive heart disease with heart failure; K21.9 Gastro-esophageal reflux disease without esophagitis; E03.9 Hypothyroidism, unspecified; E78.00 Pure hypercholesterolemia, unspecified; K59.00 Constipation, unspecified; H54.7 Unspecified visual loss; Z90.49 Acquired absence of other specified parts of digestive tract; Z95.1 Presence of aortocoronary bypass graft; Z95.5 Presence of coronary angioplasty implant and graft; Z95.0 Presence of cardiac pacemaker; Z79.01 Long term (current) use of anticoagulants; Z79.82 Long term (current) use of aspirin; Z79.890 Hormone replacement therapy; Z79.899 Other long term (current) drug therapy; Z98.49 Cataract extraction status, unspecified eye; Z98.1 Arthrodesis status; Z20.822 Contact with and (suspected) exposure to COVID-19; K57.30 Diverticulosis of large intestine without perforation or abscess without bleeding
CPT/HCPCS: 36415; 74177; 80053; 83605; 83880; 84484; 85018; 85025; 85610; 85730; 93005; 96365; 99285; C9113; J7120; Q9967; U0002; 00813; 00902; 36430; 80048; 85014; 86850; 86900; 86901; 86920; 86921; 86922; 99100; A9270-GY; J0694; J1100; J1200; J2370; J2405; J2704; J2930; J3010; J3490; P9016; P9017

== ENCOUNTER 2022-12-06 21:19 | Emergency (ER) | payer MEDICARE, BC ==
[2022-12-06 21:31] VITALS: BP 125/78
[2022-12-06 21:59] LABS: APPEARANCE,URINE CLEAR; BILIRUBIN,URINE NEGATIVE (NEGATIVE); COLOR,URINE YELLOW; GLUCOSE,URINE 250 mg/dL (NEGATIVE); KETONES,URINE NEGATIVE (NEGATIVE); LEUKOCYTE ESTERASE,URINE NEGATIVE (NEGATIVE); NITRITE,URINE NEGATIVE (NEGATIVE); OCCULT BLOOD,URINE LARGE (NEGATIVE); PROTEIN,URINE NEGATIVE (NEGATIVE); UROBILINOGEN,URINE 0.2 EU/dL (<2.0)
[2022-12-06] MEDS ORDERED: Sodium Chloride 0.9% 2.5 ML Syringe FLUSH PRN (22:11)
[2022-12-06] MEDS ORDERED: Sodium Chloride 0.9% 10 ML Syringe FLUSH PRN (22:11)
[2022-12-06 22:15] LABS: BACTERIA,URINE OCCASIONAL (NEGATIVE); EPITHELIAL CELLS,URINE RARE (NONE-FEW); HYALINE CASTS,URINE OCCASIONAL (0-2/LPF); RBC,URINE 40-50 (0-2/HPF); SQUAMOUS EPITHELIAL CELLS,UR RARE; WBC,URINE 0-2 (0-5/HPF)
[2022-12-06 22:55] LABS: BASOPHILS PERCENT AUTO 0.1 % (0.0-1.5); EOSINOPHILS ABSOLUTE AUTO 0.1 K/uL (0.0-0.7); EOSINOPHILS PERCENT AUTO 1.2 % (0.0-7.0); HEMATOCRIT 36.7 % (38.0-50.0); HEMOGLOBIN 12.1 g/dL (13.0-17.0); LYMPHOCYTES ABSOLUTE AUTO 0.8 K/uL (0.6-2.4); LYMPHOCYTES PERCENT AUTO 8.9 % (16.0-40.0); MEAN CORPUSCULAR VOLUME 97.1 fL (80.0-98.0); MONOCYTES ABSOLUTE AUTO 1.2 K/uL (0.0-0.8); MONOCYTES PERCENT AUTO 13.2 % (0.0-15.0); NEUTROPHILS PERCENT AUTO 76.6 % (48.0-80.0); NRBC ABSOLUTE 0 K/uL; PLATELET COUNT,PLT 309 K/uL (150-400); RED BLOOD CELL COUNT 3.78 M/uL (4.50-5.90); WHITE BLOOD CELL COUNT,WBC 9.11 K/uL (4.0-11.0)
[2022-12-06 23:10] LABS: A/G RATIO 0.8 (0.9-1.6); ALBUMIN 3.6 g/dL (3.4-5.0); BILIRUBIN TOTAL 0.8 mg/dL (0.2-1.0); CALCIUM 9.3 mg/dL (8.5-10.1); CARBON DIOXIDE,CO2 23.7 mmol/L (21.0-32.0); CREATININE 1.4 mg/dL (0.8-1.3); EST CRCL DRUG DOSING (CG) 41.57 mL/min; POTASSIUM,K 4.8 mmol/L (3.5-5.1); PROTEIN TOTAL,TP 8.2 g/dL (6.4-8.2)
[2022-12-07] MEDS ORDERED: Acetaminophen/HYDROcodone 325-5 MG Tab PO ONE (01:59)
[2022-12-07] MEDS ORDERED: Ondansetron 4 MG/2 ML SDV IVPUSH ONE (02:05)
[2022-12-07 06:42] VITALS: PULSE 67
== END 2022-12-07 03:49 | disposition home or self-care (01) ==
LOC: MW.ED 21:19
DX: R31.9 Hematuria, unspecified (principal); R82.71 Bacteriuria; K21.9 Gastro-esophageal reflux disease without esophagitis; Z79.899 Other long term (current) drug therapy
CPT/HCPCS: 36415; 51702; 51798; 80053; 81001; 85025; 96374; 99283; A9270; J2405; J3490

== ENCOUNTER 2022-12-09 10:42 | Emergency (ER) | payer MEDICARE, BC ==
[2022-12-09 11:51] VITALS: BP 96/62; PULSE 81
== END 2022-12-09 11:47 | disposition home or self-care (01) ==
LOC: MW.ED 10:42
DX: Z46.6 Encounter for fitting and adjustment of urinary device (principal); I11.0 Hypertensive heart disease with heart failure; I50.9 Heart failure, unspecified; K21.9 Gastro-esophageal reflux disease without esophagitis; Z79.899 Other long term (current) drug therapy
CPT/HCPCS: 99283

== ENCOUNTER 2022-12-14 11:24 | Emergency (ER) | payer MEDICARE, BC ==
[2022-12-14] MEDS ORDERED: Sodium Chloride 0.9% 10 ML Syringe FLUSH PRN (12:39)
[2022-12-14] MEDS ORDERED: Sodium Chloride 0.9% 2.5 ML Syringe FLUSH PRN (12:39)
[2022-12-14] MEDS ORDERED: Sodium Chloride 0.9% 500 ML IV SCH (12:45)
[2022-12-14 12:46] LABS: BASOPHILS PERCENT AUTO 0.1 % (0.0-1.5); EOSINOPHILS ABSOLUTE AUTO 0.1 K/uL (0.0-0.7); EOSINOPHILS PERCENT AUTO 0.5 % (0.0-7.0); HEMATOCRIT 35.7 % (38.0-50.0); HEMOGLOBIN 11.6 g/dL (13.0-17.0); LYMPHOCYTES ABSOLUTE AUTO 0.6 K/uL (0.6-2.4); LYMPHOCYTES PERCENT AUTO 4.1 % (16.0-40.0); MEAN CORPUSCULAR HEMOGLOBIN 32.2 pg (27.0-32.0); MEAN CORPUSCULAR HGB CONC 32.5 g/dL (31.0-37.0); MEAN CORPUSCULAR VOLUME 99.2 fL (80.0-98.0); MONOCYTES ABSOLUTE AUTO 1.7 K/uL (0.0-0.8); MONOCYTES PERCENT AUTO 11.7 % (0.0-15.0); NEUTROPHILS ABSOLUTE AUTO 12.2 K/uL (1.4-5.7); NEUTROPHILS PERCENT AUTO 83.6 % (48.0-80.0); PLATELET COUNT,PLT 293 K/uL (150-400); WHITE BLOOD CELL COUNT,WBC 14.59 K/uL (4.0-11.0)
[2022-12-14 12:59] LABS: A/G RATIO 0.7 (0.9-1.6); BILIRUBIN TOTAL 0.9 mg/dL (0.2-1.0); CALCIUM 9.6 mg/dL (8.5-10.1); CARBON DIOXIDE,CO2 19.7 mmol/L (21.0-32.0); CREATININE 1.5 mg/dL (0.8-1.3); EST CRCL DRUG DOSING (CG) 38.8 mL/min; POTASSIUM,K 3.5 mmol/L (3.5-5.1); PROTEIN TOTAL,TP 7.1 g/dL (6.4-8.2)
[2022-12-14 13:32] LABS: APPEARANCE,URINE CLOUDY; BILIRUBIN,URINE NEGATIVE (NEGATIVE); COLOR,URINE YELLOW; GLUCOSE,URINE 250 mg/dL (NEGATIVE); KETONES,URINE NEGATIVE (NEGATIVE); LEUKOCYTE ESTERASE,URINE NEGATIVE (NEGATIVE); NITRITE,URINE NEGATIVE (NEGATIVE); OCCULT BLOOD,URINE MODERATE (NEGATIVE); PH,URINE 5.5 (5.0-8.0); PROTEIN,URINE TRACE mg/dL (NEGATIVE); UROBILINOGEN,URINE 0.2 EU/dL (<2.0)
[2022-12-14 13:39] LABS: BACTERIA,URINE FEW (NEGATIVE); EPITHELIAL CELLS,URINE FEW (NONE-FEW); HYALINE CASTS,URINE FEW (0-2/LPF); MUCUS,URINE MODERATE (NONE-MOD); RBC,URINE 40-50 (0-2/HPF); SQUAMOUS EPITHELIAL CELLS,UR FEW; WBC,URINE 0-5 (0-5/HPF)
[2022-12-14] MEDS ORDERED: Iopamidol 755 MG/ML 500 ML Multipack Bottle IVPUSH ONE (13:50)
[2022-12-14 18:25] VITALS: BP 106/89; PULSE 71
== END 2022-12-14 18:45 | disposition home or self-care (01) ==
LOC: MW.ED 11:24
DX: D72.829 Elevated white blood cell count, unspecified (principal); R33.9 Retention of urine, unspecified; K76.89 Other specified diseases of liver; I11.0 Hypertensive heart disease with heart failure; I50.9 Heart failure, unspecified; K21.9 Gastro-esophageal reflux disease without esophagitis; Z79.899 Other long term (current) drug therapy; Z79.82 Long term (current) use of aspirin
CPT/HCPCS: 36415; 51702; 51798; 74177; 80053; 81001; 83605; 85025; 87040; 93005; 96360; 99285; J3490; J7040; Q9967; 99283

== ENCOUNTER 2022-12-19 17:37 | Emergency (ER) | payer MEDICARE, BC ==
[2022-12-19] MEDS ORDERED: Sodium Chloride 0.9% 2.5 ML Syringe FLUSH PRN (18:23)
[2022-12-19] MEDS ORDERED: Sodium Chloride 0.9% 1,000 ML IV ONE (18:23)
[2022-12-19] MEDS ORDERED: Cefepime 2 GM in Sodium Chloride 0.9% 50 ML IV ONE (18:23)
[2022-12-19] MEDS ORDERED: Sodium Chloride 0.9% 10 ML Syringe FLUSH PRN (18:23)
[2022-12-19 18:42] LABS: INR 1.29 (0.86-1.11)
[2022-12-19 18:55] LABS: BASOPHILS PERCENT AUTO 0.1 % (0.0-1.5); EOSINOPHILS ABSOLUTE AUTO 0.2 K/uL (0.0-0.7); EOSINOPHILS PERCENT AUTO 1.5 % (0.0-7.0); HEMATOCRIT 35.1 % (38.0-50.0); HEMOGLOBIN 11.7 g/dL (13.0-17.0); LYMPHOCYTES ABSOLUTE AUTO 0.8 K/uL (0.6-2.4); LYMPHOCYTES PERCENT AUTO 5.7 % (16.0-40.0); MEAN CORPUSCULAR HEMOGLOBIN 31.4 pg (27.0-32.0); MEAN CORPUSCULAR HGB CONC 33.3 g/dL (31.0-37.0); MEAN CORPUSCULAR VOLUME 94.1 fL (80.0-98.0); MONOCYTES ABSOLUTE AUTO 1.1 K/uL (0.0-0.8); MONOCYTES PERCENT AUTO 7.5 % (0.0-15.0); NEUTROPHILS PERCENT AUTO 85.2 % (48.0-80.0); NRBC ABSOLUTE 0 K/uL; PLATELET COUNT,PLT 369 K/uL (150-400); RED BLOOD CELL COUNT 3.73 M/uL (4.50-5.90); WHITE BLOOD CELL COUNT,WBC 14.07 K/uL (4.0-11.0)
[2022-12-19 18:56] LABS: A/G RATIO 0.6 (0.9-1.6); ALANINE AMINOTRANSFERASE,ALT 35 IU/L (14-63); ALBUMIN 2.7 g/dL (3.4-5.0); ALKALINE PHOSPHATASE 233 U/L (46-116); ASPARTATE AMNIOTRANSFERASE,AST 26 IU/L (15-37); BILIRUBIN TOTAL 0.5 mg/dL (0.2-1.0); BLOOD UREA NITROGEN,BUN 43 mg/dL (7.0-18.0); CALCIUM 8.7 mg/dL (8.5-10.1); CARBON DIOXIDE,CO2 15.8 mmol/L (21.0-32.0); CHLORIDE,CL 103 mmol/L (98-107); CREATININE 1.8 mg/dL (0.8-1.3); GLUCOSE RANDOM 104 mg/dL (74-106); LIPASE 208 U/L (73-393); MAGNESIUM 1.1 mg/dL (1.8-2.4); POTASSIUM,K 3.4 mmol/L (3.5-5.1); PROTEIN TOTAL,TP 7.1 g/dL (6.4-8.2); SODIUM,NA 137 mmol/L (136-148)
[2022-12-19 18:58] LABS: ESTIMATED GFR 36 mL/min (>60)
[2022-12-19 19:03] LABS: LACTIC ACID 1.1 mmol/L (0.4-2.0)
[2022-12-19] MEDS ORDERED: Magnesium Sulfate/Water 2 GM in Premix Bag 1 BAG IV ONE (19:10)
[2022-12-19] MEDS ORDERED: Potassium Chloride 10 MEQ in Premix Bag 1 BAG IV ONE (19:27)
[2022-12-19 19:28] LABS: TSH ULTRASENSITIVE 3.27 uIU/mL (0.36-3.74)
[2022-12-19 19:41] LABS: APPEARANCE,URINE SLT CLOUDY; BILIRUBIN,URINE NEGATIVE (NEGATIVE); COLOR,URINE YELLOW; GLUCOSE,URINE NEGATIVE (NEGATIVE); KETONES,URINE NEGATIVE (NEGATIVE); LEUKOCYTE ESTERASE,URINE MODERATE (NEGATIVE); NITRITE,URINE POSITIVE (NEGATIVE); OCCULT BLOOD,URINE LARGE (NEGATIVE); PH,URINE 5.5 (5.0-8.0); PROTEIN,URINE TRACE mg/dL (NEGATIVE); UROBILINOGEN,URINE 0.2 EU/dL (<2.0)
[2022-12-19] MEDS ORDERED: Sodium Chloride 0.9% 250 ML IV ONE (19:45)
[2022-12-19] MEDS ORDERED: Iopamidol 755 MG/ML 500 ML Multipack Bottle IVPUSH ONE (19:54)
[2022-12-19 19:56] LABS: AMORPHOUS SEDIMENT,URINE OCCASIONAL (NEGATIVE); BACTERIA,URINE MANY (NEGATIVE); EPITHELIAL CELLS,URINE NOT SEEN (NONE-FEW); MUCUS,URINE FEW (NONE-MOD); RBC,URINE 40-50 (0-2/HPF); SQUAMOUS EPITHELIAL CELLS,UR NOT SEEN; WBC,URINE 30-40 (0-5/HPF)
[2022-12-19] MEDS ORDERED: VANCOmycin 1.5 GM/300 ML 1.5 GM in Premix Bag 1 BAG IV ONE (20:00)
[2022-12-19] MEDS ORDERED: Lactated Ringers 1,000 ML IV SCH (21:45)
[2022-12-19] MEDS ORDERED: Lactated Ringers 1,000 ML IV ONE (21:45)
[2022-12-19] MEDS ORDERED: Norepinephrine Bit/D5W Premix 250 ML IV SCH (22:00)
[2022-12-20 06:43] VITALS: BP 98/59; PULSE 72
== END 2022-12-20 02:00 ==
LOC: MW.ED 17:37
DX: A41.9 Sepsis, unspecified organism (principal); I95.9 Hypotension, unspecified; E78.00 Pure hypercholesterolemia, unspecified; I10 Essential (primary) hypertension; Z79.899 Other long term (current) drug therapy
CPT/HCPCS: 36415; 36556; 51702; 71045; 74177; 80053; 81001; 83605; 83690; 83735; 84443; 84484; 85025; 85610; 87040; 93005; 96365; 96366; 96367; 96368; 99285; J0692; J3370; J3475; J3480; J3490; J7030; J7050; J7120; Q9967; 93010

== ENCOUNTER 2023-03-12 19:01 | Observation (INO) | payer MEDICARE, BC ==
[2023-03-12] MEDS ORDERED: Aluminum Hydroxide/Magnesium Hydroxide/Simethicone XS Susp 30 ML Cup PO ONE ×2 (19:35→21:39)
[2023-03-12 19:37] LABS: BASOPHILS ABSOLUTE AUTO 0.04 K/uL (0.00-0.20); BASOPHILS PERCENT AUTO 0.6 % (0.0-1.0); EOSINOPHILS ABSOLUTE AUTO 0.41 K/uL (0.00-0.45); EOSINOPHILS PERCENT AUTO 6.1 % (0.0-6.0); HEMATOCRIT 34.2 % (42.0-52.0); HEMOGLOBIN 11.3 g/dL (14.0-18.0); IMMATURE GRAN ABSOLUTE AUTO 0.04 K/uL (0.00-0.05); IMMATURE GRAN PERCENT AUTO 0.6 % (0.0-0.4); LYMPHOCYTES ABSOLUTE AUTO 1.15 K/uL (1.00-4.80); LYMPHOCYTES PERCENT AUTO 17.1 % (24.0-44.0); MEAN CORPUSCULAR HEMOGLOBIN 32.1 pg (28.0-32.0); MEAN CORPUSCULAR VOLUME 97.2 fL (83.0-99.0); MEAN PLATELET VOLUME 9.9 fL (9.4-12.4); MONOCYTES ABSOLUTE AUTO 0.82 K/uL (0.00-0.80); MONOCYTES PERCENT AUTO 12.2 % (0.0-8.0); NEUTROPHILS ABSOLUTE AUTO 4.3 K/uL (1.8-7.7); NEUTROPHILS PERCENT AUTO 63.4 % (41.0-71.0); PLATELET COUNT,PLT 242 K/uL (150-400); RED BLOOD CELL COUNT 3.52 M/uL (4.52-5.90); WHITE BLOOD CELL COUNT,WBC 6.71 K/uL (3.9-11.3)
[2023-03-12 19:56] LABS: A/G RATIO 0.8 (0.9-1.6); BILIRUBIN TOTAL 0.7 mg/dL (0.2-1.0); CALCIUM 8.1 mg/dL (8.5-10.1); CARBON DIOXIDE,CO2 26.6 mmol/L (21.0-32.0); CREATININE 1.2 mg/dL (0.8-1.3); EST CRCL DRUG DOSING (CG) 44.11 mL/min; MAGNESIUM 0.8 mg/dL (1.8-2.4); POTASSIUM,K 4.3 mmol/L (3.5-5.1); PROTEIN TOTAL,TP 6.8 g/dL (6.4-8.2); TSH ULTRASENSITIVE 1.61 uIU/mL (0.36-3.74)
[2023-03-12 20:40] LABS: APPEARANCE,URINE CLOUDY; BILIRUBIN,URINE NEGATIVE (NEGATIVE); COLOR,URINE YELLOW; GLUCOSE,URINE 500 mg/dL (NEGATIVE); KETONES,URINE TRACE mg/dL (NEGATIVE); LEUKOCYTE ESTERASE,URINE MODERATE (NEGATIVE); NITRITE,URINE POSITIVE (NEGATIVE); OCCULT BLOOD,URINE MODERATE (NEGATIVE); PROTEIN,URINE 100 mg/dL (NEGATIVE); UROBILINOGEN,URINE 0.2 EU/dL (<2.0)
[2023-03-12 20:49] LABS: BACTERIA,URINE 2+ (NEGATIVE); MUCUS,URINE LIGHT (NONE-MOD); SQUAMOUS EPITHELIAL CELLS,UR NOT SEEN; WBC,URINE TO NUMEROUS TO COUNT (0-5/HPF)
[2023-03-12] MEDS ORDERED: Magnesium Sulfate/Water 4 GM in Premix Bag 1 BAG IV ONE (21:33)
[2023-03-12] MEDS ORDERED: Magnesium Sulfate/Water 2 GM in Premix Bag 1 BAG IV ONE (21:33)
[2023-03-12] MEDS ORDERED: cefTRIAXone 1 GM in Sodium Chloride 0.9% 50 ML IV ONE (21:34)
[2023-03-12] MEDS ORDERED: Albuterol/Ipratropium 3.0-0.5 MG/3 ML Neb Soln NEB PRN (22:11)
[2023-03-12] MEDS ORDERED: Ondansetron 4 MG/2 ML SDV IVPUSH PRN (22:11)
[2023-03-12] MEDS ORDERED: Sodium Chloride 0.9% 2.5 ML Syringe FLUSH PRN (22:11)
[2023-03-12] MEDS ORDERED: Sodium Chloride 0.9% 10 ML Syringe FLUSH PRN (22:11)
[2023-03-12] MEDS ORDERED: Polyethylene Glycol 3350 Powder 17 GM Packet PO PRN (22:11)
[2023-03-12] MEDS ORDERED: Acetaminophen 325 MG Tab PO PRN (22:11)
[2023-03-12] MEDS ORDERED: Sodium Chloride 0.9% 20 ML SDV IV PRN (22:11)
[2023-03-12] MEDS ORDERED: Aluminum Hydroxide/Magnesium Hydroxide/Simethicone XS Susp 30 ML Cup PO PRN (22:16)
[2023-03-13] MEDS: Levothyroxine 50 MCG Tab PO SCH ×2 (06:06→06:34)
[2023-03-13 06:54] LABS: BASOPHILS ABSOLUTE AUTO 0.04 K/uL (0.00-0.20); BASOPHILS PERCENT AUTO 0.8 % (0.0-1.0); EOSINOPHILS ABSOLUTE AUTO 0.35 K/uL (0.00-0.45); EOSINOPHILS PERCENT AUTO 6.8 % (0.0-6.0); IMMATURE GRAN ABSOLUTE AUTO 0.03 K/uL (0.00-0.05); IMMATURE GRAN PERCENT AUTO 0.6 % (0.0-0.4); LYMPHOCYTES ABSOLUTE AUTO 0.77 K/uL (1.00-4.80); LYMPHOCYTES PERCENT AUTO 14.9 % (24.0-44.0); MEAN CORPUSCULAR HEMOGLOBIN 32.4 pg (28.0-32.0); MEAN CORPUSCULAR HGB CONC 33.3 g/dL (32.0-36.0); MEAN CORPUSCULAR VOLUME 97.1 fL (83.0-99.0); MEAN PLATELET VOLUME 9.8 fL (9.4-12.4); MONOCYTES ABSOLUTE AUTO 0.61 K/uL (0.00-0.80); MONOCYTES PERCENT AUTO 11.8 % (0.0-8.0); NEUTROPHILS ABSOLUTE AUTO 3.4 K/uL (1.8-7.7); NEUTROPHILS PERCENT AUTO 65.1 % (41.0-71.0); PLATELET COUNT,PLT 216 K/uL (150-400); WHITE BLOOD CELL COUNT,WBC 5.18 K/uL (3.9-11.3)
[2023-03-13 07:26] LABS: A/G RATIO 0.8 (0.9-1.6); ALBUMIN 2.9 g/dL (3.4-5.0); CALCIUM 8.8 mg/dL (8.5-10.1); CARBON DIOXIDE,CO2 24.5 mmol/L (21.0-32.0); CREATININE 0.9 mg/dL (0.8-1.3); EST CRCL DRUG DOSING (CG) 58.47 mL/min; MAGNESIUM 1.7 mg/dL (1.8-2.4); PHOSPHORUS 3.1 mg/dL (2.6-4.7); POTASSIUM,K 3.9 mmol/L (3.5-5.1); PROTEIN TOTAL,TP 6.5 g/dL (6.4-8.2)
[2023-03-13] MEDS ORDERED: Non-Formulary Medication 1 Each (Levothyroxine Sodium [Levothyroxine Sodium] 50 MCG Capsul PO SCH (07:30)
[2023-03-13] MEDS ORDERED: Magnesium Sulfate/Water 2 GM in Premix Bag 1 BAG IV ONE (07:52)
[2023-03-13] MEDS ORDERED: Potassium Chloride 20 MEQ Tab.ER PO ONE (07:52)
[2023-03-13] MEDS ORDERED: Aspirin 81 MG Tab.EC PO SCH (09:00)
[2023-03-13] MEDS ORDERED: Metoprolol Succinate 25 MG Tab.ER PO SCH (09:00)
[2023-03-13] MEDS ORDERED: Apixaban 5 MG Tab PO SCH ×3 (09:00)
[2023-03-13] MEDS ORDERED: cefTRIAXone 1 GM in Sodium Chloride 0.9% 50 ML IV SCH (09:00)
[2023-03-13 12:28] VITALS: BP 121/69; PULSE 69
[2023-03-13] MEDS ORDERED: atorvaSTATin 10 MG Tab PO SCH (21:00)
== END 2023-03-13 12:46 | disposition home health service (06) ==
LOC: MW.ED 19:01 → MW.MS 22:24
PROVIDERS: ADMIT Family Medicine; ATTEND Family Medicine
DX: E83.42 Hypomagnesemia (principal); T83.511A Infection and inflammatory reaction due to indwelling urethral catheter, initial encounter; N39.0 Urinary tract infection, site not specified; R79.89 Other specified abnormal findings of blood chemistry; I25.10 Atherosclerotic heart disease of native coronary artery without angina pectoris; K21.9 Gastro-esophageal reflux disease without esophagitis; I11.0 Hypertensive heart disease with heart failure; I50.22 Chronic systolic (congestive) heart failure; I48.91 Unspecified atrial fibrillation; E03.9 Hypothyroidism, unspecified; Z20.822 Contact with and (suspected) exposure to COVID-19; Z95.1 Presence of aortocoronary bypass graft; Z79.890 Hormone replacement therapy; Z79.01 Long term (current) use of anticoagulants; Z79.899 Other long term (current) drug therapy; Z79.82 Long term (current) use of aspirin; Z87.891 Personal history of nicotine dependence; Z95.0 Presence of cardiac pacemaker
CPT/HCPCS: 36415; 51702; 80053; 81001; 83690; 83735; 83880; 84100; 84443; 84484; 85025; 87086; 93005; 96365; 96375; 99285; A9270; J0696; J3475; J3490; U0002; 87088; 87186; 93010; 96376; 99283; G0378

== ENCOUNTER 2023-03-24 01:56 | Emergency (ER) | payer MEDICARE, BC ==
[2023-03-24] MEDS ORDERED: Sodium Chloride 0.9% 10 ML Syringe FLUSH PRN (03:29)
[2023-03-24] MEDS ORDERED: Sodium Chloride 0.9% 2.5 ML Syringe FLUSH PRN (03:29)
[2023-03-24 03:36] LABS: BASOPHILS ABSOLUTE AUTO 0.03 K/uL (0.00-0.20); BASOPHILS PERCENT AUTO 0.3 % (0.0-1.0); EOSINOPHILS ABSOLUTE AUTO 0.18 K/uL (0.00-0.45); EOSINOPHILS PERCENT AUTO 1.9 % (0.0-6.0); HEMATOCRIT 34.5 % (42.0-52.0); HEMOGLOBIN 11.4 g/dL (14.0-18.0); IMMATURE GRAN ABSOLUTE AUTO 0.04 K/uL (0.00-0.05); IMMATURE GRAN PERCENT AUTO 0.4 % (0.0-0.4); LYMPHOCYTES ABSOLUTE AUTO 0.63 K/uL (1.00-4.80); LYMPHOCYTES PERCENT AUTO 6.7 % (24.0-44.0); MEAN CORPUSCULAR HEMOGLOBIN 31.6 pg (28.0-32.0); MEAN CORPUSCULAR VOLUME 95.6 fL (83.0-99.0); MEAN PLATELET VOLUME 9.7 fL (9.4-12.4); MONOCYTES ABSOLUTE AUTO 0.95 K/uL (0.00-0.80); MONOCYTES PERCENT AUTO 10.1 % (0.0-8.0); NEUTROPHILS PERCENT AUTO 80.6 % (41.0-71.0); PLATELET COUNT,PLT 192 K/uL (150-400); RED BLOOD CELL COUNT 3.61 M/uL (4.52-5.90); WHITE BLOOD CELL COUNT,WBC 9.43 K/uL (3.9-11.3)
[2023-03-24 03:56] LABS: A/G RATIO 0.9 (0.9-1.6); ALBUMIN 3.3 g/dL (3.4-5.0); BILIRUBIN TOTAL 1.3 mg/dL (0.2-1.0); CALCIUM 10.4 mg/dL (8.5-10.1); CARBON DIOXIDE,CO2 24.6 mmol/L (21.0-32.0); CREATININE 1.3 mg/dL (0.8-1.3); EST CRCL DRUG DOSING (CG) 39.81 mL/min; POTASSIUM,K 4.2 mmol/L (3.5-5.1); PROTEIN TOTAL,TP 7.1 g/dL (6.4-8.2)
[2023-03-24 05:20] VITALS: BP 118/67; PULSE 71
== END 2023-03-24 05:20 | disposition home or self-care (01) ==
LOC: MW.ED 01:56
DX: K62.5 Hemorrhage of anus and rectum (principal); E03.9 Hypothyroidism, unspecified; I50.9 Heart failure, unspecified; Z79.82 Long term (current) use of aspirin; Z79.01 Long term (current) use of anticoagulants; Z79.899 Other long term (current) drug therapy
CPT/HCPCS: 36415; 80053; 85025; 99283; J3490

== ENCOUNTER 2023-03-24 15:48 | Inpatient (IN) | payer MEDICARE, BC ==
[2023-03-24] MEDS ORDERED: Sodium Chloride 0.9% 10 ML Syringe FLUSH PRN (17:47)
[2023-03-24] MEDS ORDERED: Sodium Chloride 0.9% 500 ML IV STA (17:47)
[2023-03-24] MEDS ORDERED: Sodium Chloride 0.9% 2.5 ML Syringe FLUSH PRN (17:47)
[2023-03-24 18:29] LABS: INR 1.14 (0.86-1.11); PTT,PARTIAL THROMBOPLSTIN TIME 54.5 SEC (23.9-30.7)
[2023-03-24 18:30] LABS: BASOPHILS ABSOLUTE AUTO 0.04 K/uL (0.00-0.20); BASOPHILS PERCENT AUTO 0.7 % (0.0-1.0); EOSINOPHILS ABSOLUTE AUTO 0.19 K/uL (0.00-0.45); EOSINOPHILS PERCENT AUTO 3.2 % (0.0-6.0); HEMATOCRIT 34.8 % (42.0-52.0); HEMOGLOBIN 11.5 g/dL (14.0-18.0); IMMATURE GRAN ABSOLUTE AUTO 0.02 K/uL (0.00-0.05); IMMATURE GRAN PERCENT AUTO 0.3 % (0.0-0.4); LYMPHOCYTES ABSOLUTE AUTO 0.92 K/uL (1.00-4.80); LYMPHOCYTES PERCENT AUTO 15.3 % (24.0-44.0); MEAN CORPUSCULAR HEMOGLOBIN 31.5 pg (28.0-32.0); MEAN CORPUSCULAR VOLUME 95.3 fL (83.0-99.0); MEAN PLATELET VOLUME 10.1 fL (9.4-12.4); MONOCYTES ABSOLUTE AUTO 0.69 K/uL (0.00-0.80); MONOCYTES PERCENT AUTO 11.5 % (0.0-8.0); NEUTROPHILS ABSOLUTE AUTO 4.16 K/uL (1.80-7.70); PLATELET COUNT,PLT 196 K/uL (150-400); RED BLOOD CELL COUNT 3.65 M/uL (4.52-5.90); WHITE BLOOD CELL COUNT,WBC 6.02 K/uL (3.9-11.3)
[2023-03-24 18:35] LABS: A/G RATIO 0.9 (0.9-1.6); ALBUMIN 3.5 g/dL (3.4-5.0); BILIRUBIN TOTAL 1.2 mg/dL (0.2-1.0); CALCIUM 10.4 mg/dL (8.5-10.1); CARBON DIOXIDE,CO2 26.9 mmol/L (21.0-32.0); CREATININE 1.2 mg/dL (0.8-1.3); EST CRCL DRUG DOSING (CG) 43.13 mL/min; POTASSIUM,K 4.6 mmol/L (3.5-5.1); PROTEIN TOTAL,TP 7.3 g/dL (6.4-8.2)
[2023-03-24] MEDS ORDERED: Iopamidol 755 MG/ML 500 ML Multipack Bottle IVPUSH STA (19:06)
[2023-03-24] MEDS ORDERED: Pneumococcal Polyvalent-23 Vaccine 0.5 ML SDV IM ONE (21:57)
[2023-03-24] MEDS ORDERED: Pantoprazole 40 MG in Sodium Chloride 0.9% 10 ML IVPUSH ONE (22:13)
[2023-03-24] MEDS: Sodium Chloride 0.9% 1,000 ML IV SCH (23:37)
[2023-03-25 06:07] LABS: BASOPHILS ABSOLUTE AUTO 0.02 K/uL (0.00-0.20); BASOPHILS PERCENT AUTO 0.4 % (0.0-1.0); EOSINOPHILS ABSOLUTE AUTO 0.31 K/uL (0.00-0.45); EOSINOPHILS PERCENT AUTO 6.7 % (0.0-6.0); HEMATOCRIT 31.4 % (42.0-52.0); HEMOGLOBIN 10.5 g/dL (14.0-18.0); IMMATURE GRAN ABSOLUTE AUTO 0.02 K/uL (0.00-0.05); IMMATURE GRAN PERCENT AUTO 0.4 % (0.0-0.4); LYMPHOCYTES ABSOLUTE AUTO 0.93 K/uL (1.00-4.80); MEAN CORPUSCULAR HEMOGLOBIN 31.7 pg (28.0-32.0); MEAN CORPUSCULAR HGB CONC 33.4 g/dL (32.0-36.0); MEAN CORPUSCULAR VOLUME 94.9 fL (83.0-99.0); MEAN PLATELET VOLUME 10.3 fL (9.4-12.4); MONOCYTES ABSOLUTE AUTO 0.45 K/uL (0.00-0.80); MONOCYTES PERCENT AUTO 9.7 % (0.0-8.0); NEUTROPHILS ABSOLUTE AUTO 2.93 K/uL (1.80-7.70); NEUTROPHILS PERCENT AUTO 62.8 % (41.0-71.0); PLATELET COUNT,PLT 184 K/uL (150-400); RED BLOOD CELL COUNT 3.31 M/uL (4.52-5.90); WHITE BLOOD CELL COUNT,WBC 4.66 K/uL (3.9-11.3)
[2023-03-25 06:28] LABS: CALCIUM 9.6 mg/dL (8.5-10.1); CARBON DIOXIDE,CO2 24.5 mmol/L (21.0-32.0); EST CRCL DRUG DOSING (CG) 49.68 mL/min; POTASSIUM,K 3.8 mmol/L (3.5-5.1)
[2023-03-25] MEDS: Sodium Chloride 0.9% 1,000 ML IV SCH (11:16)
[2023-03-26] MEDS: Sodium Chloride 0.9% 1,000 ML IV SCH (03:58)
[2023-03-26 06:15] LABS: A/G RATIO 0.9 (0.9-1.6); ALBUMIN 2.9 g/dL (3.4-5.0); CALCIUM 9.2 mg/dL (8.5-10.1); CARBON DIOXIDE,CO2 23.6 mmol/L (21.0-32.0); CREATININE 0.9 mg/dL (0.8-1.3); EST CRCL DRUG DOSING (CG) 55.2 mL/min; POTASSIUM,K 3.7 mmol/L (3.5-5.1); PROTEIN TOTAL,TP 6.2 g/dL (6.4-8.2)
[2023-03-26 06:16] LABS: BASOPHILS ABSOLUTE AUTO 0.02 K/uL (0.00-0.20); BASOPHILS PERCENT AUTO 0.4 % (0.0-1.0); EOSINOPHILS ABSOLUTE AUTO 0.32 K/uL (0.00-0.45); EOSINOPHILS PERCENT AUTO 6.7 % (0.0-6.0); HEMATOCRIT 29.3 % (42.0-52.0); HEMOGLOBIN 9.9 g/dL (14.0-18.0); IMMATURE GRAN ABSOLUTE AUTO 0.02 K/uL (0.00-0.05); IMMATURE GRAN PERCENT AUTO 0.4 % (0.0-0.4); LYMPHOCYTES ABSOLUTE AUTO 0.94 K/uL (1.00-4.80); LYMPHOCYTES PERCENT AUTO 19.5 % (24.0-44.0); MEAN CORPUSCULAR HEMOGLOBIN 31.8 pg (28.0-32.0); MEAN CORPUSCULAR HGB CONC 33.8 g/dL (32.0-36.0); MEAN CORPUSCULAR VOLUME 94.2 fL (83.0-99.0); MEAN PLATELET VOLUME 10.1 fL (9.4-12.4); MONOCYTES ABSOLUTE AUTO 0.43 K/uL (0.00-0.80); MONOCYTES PERCENT AUTO 8.9 % (0.0-8.0); NEUTROPHILS ABSOLUTE AUTO 3.08 K/uL (1.80-7.70); NEUTROPHILS PERCENT AUTO 64.1 % (41.0-71.0); PLATELET COUNT,PLT 182 K/uL (150-400); RED BLOOD CELL COUNT 3.11 M/uL (4.52-5.90); WHITE BLOOD CELL COUNT,WBC 4.81 K/uL (3.9-11.3)
[2023-03-27 06:26] LABS: BASOPHILS ABSOLUTE AUTO 0.02 K/uL (0.00-0.20); BASOPHILS PERCENT AUTO 0.3 % (0.0-1.0); EOSINOPHILS ABSOLUTE AUTO 0.32 K/uL (0.00-0.45); EOSINOPHILS PERCENT AUTO 5.4 % (0.0-6.0); HEMATOCRIT 29.4 % (42.0-52.0); IMMATURE GRAN ABSOLUTE AUTO 0.02 K/uL (0.00-0.05); IMMATURE GRAN PERCENT AUTO 0.3 % (0.0-0.4); LYMPHOCYTES ABSOLUTE AUTO 0.94 K/uL (1.00-4.80); MEAN CORPUSCULAR HEMOGLOBIN 32.1 pg (28.0-32.0); MEAN CORPUSCULAR VOLUME 94.2 fL (83.0-99.0); MEAN PLATELET VOLUME 10.2 fL (9.4-12.4); MONOCYTES ABSOLUTE AUTO 0.58 K/uL (0.00-0.80); MONOCYTES PERCENT AUTO 9.9 % (0.0-8.0); NEUTROPHILS PERCENT AUTO 68.1 % (41.0-71.0); PLATELET COUNT,PLT 194 K/uL (150-400); RED BLOOD CELL COUNT 3.12 M/uL (4.52-5.90); WHITE BLOOD CELL COUNT,WBC 5.88 K/uL (3.9-11.3)
[2023-03-27 06:55] LABS: A/G RATIO 0.9 (0.9-1.6); BILIRUBIN TOTAL 0.8 mg/dL (0.2-1.0); CALCIUM 9.7 mg/dL (8.5-10.1); CARBON DIOXIDE,CO2 22.7 mmol/L (21.0-32.0); CREATININE 0.9 mg/dL (0.8-1.3); EST CRCL DRUG DOSING (CG) 55.2 mL/min; POTASSIUM,K 3.7 mmol/L (3.5-5.1); PROTEIN TOTAL,TP 6.3 g/dL (6.4-8.2)
[2023-03-27 07:22] LABS: PERCENT FE SATURATION 23.56 % (20-55); TRANSFERRIN 145.6
[2023-03-27] MEDS ORDERED: Levothyroxine 50 MCG Tab PO SCH (07:30)
[2023-03-27] MEDS ORDERED: Metoprolol Succinate 25 MG Tab.ER PO SCH (09:00)
[2023-03-27] MEDS ORDERED: Iron Polysaccharides Complex 150 MG Cap PO SCH (09:15)
[2023-03-27] MEDS ORDERED: Omeprazole 20 MG Cap.CR PO SCH (11:30)
[2023-03-27] MEDS ORDERED: FLU (Fluad Quad) 2023-24(65UP)/MF59C/PF 60 MCG/0.5 ML Syringe IM ONE (12:15)
[2023-03-27 12:18] VITALS: BP 110/67; PULSE 70
== END 2023-03-27 12:31 | disposition home or self-care (01) | DRG 394 ==
LOC: MW.ED 15:48 → MW.MS 21:10 → OBSVTOIN 03-25 16:49
PROVIDERS: ADMIT Internal Medicine; ATTEND Internal Medicine
DX: K62.5 Hemorrhage of anus and rectum (principal); K64.8 Other hemorrhoids; C79.51 Secondary malignant neoplasm of bone; I50.22 Chronic systolic (congestive) heart failure; K62.7 Radiation proctitis; I11.0 Hypertensive heart disease with heart failure; I48.91 Unspecified atrial fibrillation; I50.9 Heart failure, unspecified; E78.00 Pure hypercholesterolemia, unspecified; C61 Malignant neoplasm of prostate; Z79.82 Long term (current) use of aspirin; Z79.899 Other long term (current) drug therapy; Z66 Do not resuscitate; E03.9 Hypothyroidism, unspecified; E78.5 Hyperlipidemia, unspecified; I25.10 Atherosclerotic heart disease of native coronary artery without angina pectoris; Z95.1 Presence of aortocoronary bypass graft; Z95.0 Presence of cardiac pacemaker; Z79.01 Long term (current) use of anticoagulants; Z90.49 Acquired absence of other specified parts of digestive tract; Z98.42 Cataract extraction status, left eye; Z98.41 Cataract extraction status, right eye; Z90.89 Acquired absence of other organs; Y84.2 Radiological procedure and radiotherapy as the cause of abnormal reaction of the patient, or of later complication, without mention of misadventure at the time of the procedure; Y92.89 Other specified places as the place of occurrence of the external cause
CPT/HCPCS: 36415 ×2; 74177; 80048; 80053; 82947; 83690; 85025 ×2; 85610; 85730; 86850; 86900; 86901; 96360; 99284; C9113; J3490 ×2; J7030 ×3; Q9967; 82728; 83550; 90694; 90732; 96361; 96374; A9270-GY; G0009; G0378

== ENCOUNTER 2023-03-28 06:50 | Emergency (ER) | payer MEDICARE, BC ==
[2023-03-28] MEDS ORDERED: Acetaminophen/HYDROcodone 325-5 MG Tab PO ONE (07:40)
[2023-03-28 08:52] VITALS: BP 98/50; PULSE 70
== END 2023-03-28 08:50 | disposition home or self-care (01) ==
LOC: MW.ED 06:50
DX: T88.1XXA Other complications following immunization, not elsewhere classified, initial encounter (principal); I25.10 Atherosclerotic heart disease of native coronary artery without angina pectoris; I11.0 Hypertensive heart disease with heart failure; I50.9 Heart failure, unspecified; K21.9 Gastro-esophageal reflux disease without esophagitis; E03.9 Hypothyroidism, unspecified; Z79.899 Other long term (current) drug therapy
CPT/HCPCS: 73030; 99283; A9270

== ENCOUNTER 2023-06-14 03:43 | Emergency (ER) | payer MEDICARE, BC ==
[2023-06-14 05:38] VITALS: BP 153/78; PULSE 74
== END 2023-06-14 05:35 | disposition home or self-care (01) ==
LOC: MW.ED 03:43
DX: T83.84XA Pain due to genitourinary prosthetic devices, implants and grafts, initial encounter (principal); I11.0 Hypertensive heart disease with heart failure; I10 Essential (primary) hypertension; I25.10 Atherosclerotic heart disease of native coronary artery without angina pectoris; K21.9 Gastro-esophageal reflux disease without esophagitis; E03.9 Hypothyroidism, unspecified; Z79.899 Other long term (current) drug therapy
CPT/HCPCS: 99283

== ENCOUNTER 2023-06-14 19:38 | Emergency (ER) | payer MEDICARE, BC ==
[2023-06-14 20:39] LABS: APPEARANCE,URINE SLT CLOUDY; BILIRUBIN,URINE NEGATIVE (NEGATIVE); COLOR,URINE YELLOW; GLUCOSE,URINE NEGATIVE (NEGATIVE); KETONES,URINE NEGATIVE (NEGATIVE); LEUKOCYTE ESTERASE,URINE LARGE (NEGATIVE); NITRITE,URINE POSITIVE (NEGATIVE); OCCULT BLOOD,URINE SMALL (NEGATIVE); PROTEIN,URINE NEGATIVE (NEGATIVE); UROBILINOGEN,URINE 0.2 EU/dL (<2.0)
[2023-06-14 20:58] LABS: BACTERIA,URINE FEW (NEGATIVE); EPITHELIAL CELLS,URINE FEW (NONE-FEW); WBC,URINE TO NUMEROUS TO COUNT (0-5/HPF)
[2023-06-14 20:59] LABS: MUCUS,URINE LIGHT (NONE-MOD)
[2023-06-14] MEDS ORDERED: Cefdinir 300 MG Cap PO ONE (21:08)
[2023-06-14 21:35] VITALS: BP 99/60; PULSE 78
== END 2023-06-14 21:33 | disposition home or self-care (01) ==
LOC: MW.ED 19:38
DX: N39.0 Urinary tract infection, site not specified (principal); I11.0 Hypertensive heart disease with heart failure; I50.9 Heart failure, unspecified; I25.810 Atherosclerosis of coronary artery bypass graft(s) without angina pectoris; K21.9 Gastro-esophageal reflux disease without esophagitis; E03.9 Hypothyroidism, unspecified; Z79.899 Other long term (current) drug therapy
CPT/HCPCS: 81001; 87086; 99283; A9270

== ENCOUNTER 2023-07-08 18:08 | Emergency (ER) | payer MEDICARE, BC ==
[2023-07-08] MEDS ORDERED: Sodium Chloride 0.9% 10 ML Syringe FLUSH PRN (19:53)
[2023-07-08] MEDS ORDERED: Sodium Chloride 0.9% 2.5 ML Syringe FLUSH PRN (19:53)
[2023-07-08 20:13] LABS: BILIRUBIN,URINE NEGATIVE (NEGATIVE); GLUCOSE,URINE NEGATIVE (NEGATIVE); KETONES,URINE NEGATIVE (NEGATIVE); LEUKOCYTE ESTERASE,URINE SMALL (NEGATIVE); NITRITE,URINE NEGATIVE (NEGATIVE); OCCULT BLOOD,URINE LARGE (NEGATIVE); PH,URINE 6.5 (5.0-8.0); PROTEIN,URINE 100 mg/dL (NEGATIVE); UROBILINOGEN,URINE 0.2 EU/dL (<2.0)
[2023-07-08 20:20] LABS: APPEARANCE,URINE CLOUDY; COLOR,URINE RED
[2023-07-08 20:21] LABS: BACTERIA,URINE FEW (NEGATIVE); EPITHELIAL CELLS,URINE FEW (NONE-FEW); RBC,URINE TOO NUMEROUS TO CT (0-2/HPF)
[2023-07-08 20:26] LABS: BASOPHILS ABSOLUTE AUTO 0.03 K/uL (0.00-0.20); BASOPHILS PERCENT AUTO 0.4 % (0.0-1.0); EOSINOPHILS ABSOLUTE AUTO 0.15 K/uL (0.00-0.45); EOSINOPHILS PERCENT AUTO 2.1 % (0.0-6.0); HEMATOCRIT 34.3 % (42.0-52.0); HEMOGLOBIN 11.4 g/dL (14.0-18.0); IMMATURE GRAN ABSOLUTE AUTO 0.02 K/uL (0.00-0.05); IMMATURE GRAN PERCENT AUTO 0.3 % (0.0-0.4); LYMPHOCYTES ABSOLUTE AUTO 0.78 K/uL (1.00-4.80); LYMPHOCYTES PERCENT AUTO 10.7 % (24.0-44.0); MEAN CORPUSCULAR HEMOGLOBIN 32.4 pg (28.0-32.0); MEAN CORPUSCULAR HGB CONC 33.2 g/dL (32.0-36.0); MEAN CORPUSCULAR VOLUME 97.4 fL (83.0-99.0); MEAN PLATELET VOLUME 9.7 fL (9.4-12.4); MONOCYTES ABSOLUTE AUTO 0.82 K/uL (0.00-0.80); MONOCYTES PERCENT AUTO 11.2 % (0.0-8.0); NEUTROPHILS ABSOLUTE AUTO 5.51 K/uL (1.80-7.70); NEUTROPHILS PERCENT AUTO 75.3 % (41.0-71.0); PLATELET COUNT,PLT 226 K/uL (150-400); RED BLOOD CELL COUNT 3.52 M/uL (4.52-5.90); WHITE BLOOD CELL COUNT,WBC 7.31 K/uL (3.9-11.3)
[2023-07-08 20:41] LABS: INR 1.11 (0.86-1.11); PTT,PARTIAL THROMBOPLSTIN TIME 44.7 SEC (23.9-30.7)
[2023-07-08 20:48] LABS: A/G RATIO 0.8 (0.9-1.6); ALBUMIN 3.2 g/dL (3.4-5.0); BILIRUBIN TOTAL 1.2 mg/dL (0.2-1.0); CALCIUM 9.9 mg/dL (8.5-10.1); CARBON DIOXIDE,CO2 27.5 mmol/L (21.0-32.0); CREATININE 1.1 mg/dL (0.8-1.3); EST CRCL DRUG DOSING (CG) 46.84 mL/min; POTASSIUM,K 4.8 mmol/L (3.5-5.1); PROTEIN TOTAL,TP 7.3 g/dL (6.4-8.2)
[2023-07-08 22:25] LABS: BILIRUBIN,URINE NEGATIVE (NEGATIVE); COLOR,URINE YELLOW; GLUCOSE,URINE NEGATIVE (NEGATIVE); KETONES,URINE NEGATIVE (NEGATIVE); LEUKOCYTE ESTERASE,URINE NEGATIVE (NEGATIVE); NITRITE,URINE NEGATIVE (NEGATIVE); OCCULT BLOOD,URINE MODERATE (NEGATIVE); PROTEIN,URINE NEGATIVE (NEGATIVE); UROBILINOGEN,URINE 0.2 EU/dL (<2.0)
[2023-07-08 22:38] VITALS: BP 108/69; PULSE 70
[2023-07-08 22:38] LABS: APPEARANCE,URINE HAZY; EPITHELIAL CELLS,URINE NOT SEEN (NONE-FEW); RBC,URINE 25-30 (0-2/HPF); WBC,URINE 0-2 (0-5/HPF)
[2023-07-08 22:39] LABS: BACTERIA,URINE FEW (NEGATIVE); MUCUS,URINE LIGHT (NONE-MOD)
== END 2023-07-08 22:37 | disposition home or self-care (01) ==
LOC: MW.ED 18:08
DX: T83.028A Displacement of other urinary catheter, initial encounter (principal); R33.9 Retention of urine, unspecified; R31.9 Hematuria, unspecified; I11.0 Hypertensive heart disease with heart failure; I50.9 Heart failure, unspecified; I25.810 Atherosclerosis of coronary artery bypass graft(s) without angina pectoris; E78.00 Pure hypercholesterolemia, unspecified; E03.9 Hypothyroidism, unspecified; K21.9 Gastro-esophageal reflux disease without esophagitis; Z79.899 Other long term (current) drug therapy
CPT/HCPCS: 36415; 51702; 80053; 81001; 85025; 85610; 85730; 99282; 99283

== ENCOUNTER 2023-07-25 08:50 | Emergency (ER) | payer MEDICARE, BC ==
[2023-07-25] MEDS: Sodium Chloride 0.9% 10 ML Syringe FLUSH PRN (09:38)
[2023-07-25] MEDS: Sodium Chloride 0.9% 2.5 ML Syringe FLUSH PRN (09:38)
[2023-07-25 09:40] LABS: BASOPHILS ABSOLUTE AUTO 0.04 K/uL (0.00-0.20); BASOPHILS PERCENT AUTO 0.6 % (0.0-1.0); EOSINOPHILS PERCENT AUTO 7.5 % (0.0-6.0); HEMATOCRIT 36.8 % (42.0-52.0); HEMOGLOBIN 12.5 g/dL (14.0-18.0); IMMATURE GRAN ABSOLUTE AUTO 0.03 K/uL (0.00-0.05); IMMATURE GRAN PERCENT AUTO 0.4 % (0.0-0.4); LYMPHOCYTES ABSOLUTE AUTO 1.29 K/uL (1.00-4.80); LYMPHOCYTES PERCENT AUTO 19.3 % (24.0-44.0); MEAN CORPUSCULAR HEMOGLOBIN 32.8 pg (28.0-32.0); MEAN CORPUSCULAR VOLUME 96.6 fL (83.0-99.0); MEAN PLATELET VOLUME 9.6 fL (9.4-12.4); MONOCYTES ABSOLUTE AUTO 0.65 K/uL (0.00-0.80); MONOCYTES PERCENT AUTO 9.7 % (0.0-8.0); NEUTROPHILS ABSOLUTE AUTO 4.17 K/uL (1.80-7.70); NEUTROPHILS PERCENT AUTO 62.5 % (41.0-71.0); PLATELET COUNT,PLT 215 K/uL (150-400); RED BLOOD CELL COUNT 3.81 M/uL (4.52-5.90); WHITE BLOOD CELL COUNT,WBC 6.68 K/uL (3.9-11.3)
[2023-07-25 09:52] LABS: A/G RATIO 0.8 (0.9-1.6); ALBUMIN 3.4 g/dL (3.4-5.0); CALCIUM 10.3 mg/dL (8.5-10.1); CARBON DIOXIDE,CO2 24.7 mmol/L (21.0-32.0); CREATININE 1.1 mg/dL (0.8-1.3); EST CRCL DRUG DOSING (CG) 45.24 mL/min; POTASSIUM,K 3.9 mmol/L (3.5-5.1); PROTEIN TOTAL,TP 7.5 g/dL (6.4-8.2)
[2023-07-25 14:20] VITALS: BP 113/71; PULSE 71
== END 2023-07-25 13:15 | disposition home or self-care (01) ==
LOC: MW.ED 08:50
DX: R07.89 Other chest pain (principal)
CPT/HCPCS: 36415; 71045; 80053; 84484; 85025; 93005; 99285; J3490; 93010; 99282

== ENCOUNTER 2023-09-07 13:36 | Inpatient (IN) | payer MEDICARE, BC ==
[2023-09-07 13:55] LABS: BASOPHILS ABSOLUTE AUTO 0.03 K/uL (0.00-0.20); BASOPHILS PERCENT AUTO 0.4 % (0.0-1.0); EOSINOPHILS ABSOLUTE AUTO 0.09 K/uL (0.00-0.45); EOSINOPHILS PERCENT AUTO 1.1 % (0.0-6.0); HEMATOCRIT 31.7 % (42.0-52.0); HEMOGLOBIN 10.8 g/dL (14.0-18.0); IMMATURE GRAN ABSOLUTE AUTO 0.04 K/uL (0.00-0.05); IMMATURE GRAN PERCENT AUTO 0.5 % (0.0-0.4); LYMPHOCYTES ABSOLUTE AUTO 0.64 K/uL (1.00-4.80); LYMPHOCYTES PERCENT AUTO 7.9 % (24.0-44.0); MEAN CORPUSCULAR HEMOGLOBIN 33.4 pg (28.0-32.0); MEAN CORPUSCULAR HGB CONC 34.1 g/dL (32.0-36.0); MEAN CORPUSCULAR VOLUME 98.1 fL (83.0-99.0); MEAN PLATELET VOLUME 9.2 fL (9.4-12.4); MONOCYTES ABSOLUTE AUTO 0.66 K/uL (0.00-0.80); MONOCYTES PERCENT AUTO 8.1 % (0.0-8.0); NEUTROPHILS ABSOLUTE AUTO 6.69 K/uL (1.80-7.70); PLATELET COUNT,PLT 211 K/uL (150-400); RED BLOOD CELL COUNT 3.23 M/uL (4.52-5.90); WHITE BLOOD CELL COUNT,WBC 8.15 K/uL (3.9-11.3)
[2023-09-07] MEDS: Sodium Chloride 0.9% 2.5 ML Syringe FLUSH PRN (13:58)
[2023-09-07] MEDS: Sodium Chloride 0.9% 10 ML Syringe FLUSH PRN (13:58)
[2023-09-07 14:26] LABS: A/G RATIO 0.8 (0.9-1.6); ALBUMIN 2.9 g/dL (3.4-5.0); CALCIUM 8.1 mg/dL (8.5-10.1); CARBON DIOXIDE,CO2 19.4 mmol/L (21.0-32.0); CREATININE 1.1 mg/dL (0.8-1.3); EST CRCL DRUG DOSING (CG) 47.05 mL/min; LACTIC ACID 1.2 mmol/L (0.4-2.0); POTASSIUM,K 4.8 mmol/L (3.5-5.1); PROTEIN TOTAL,TP 6.7 g/dL (6.4-8.2)
[2023-09-07] MEDS: Sodium Chloride 0.9% 1,000 ML IV STA (14:41)
[2023-09-07 14:53] LABS: CORONAVIRUS COVID-19 NAA NEGATIVE (NEGATIVE); INFLUENZA A NAA NEGATIVE (NEGATIVE); INFLUENZA B NAA NEGATIVE (NEGATIVE); RESPIRATORY SYNCYTIAL VIR NAA NEGATIVE (NEGATIVE)
[2023-09-07 15:28] LABS: AMPHETAMINES SCREEN, URINE NEGATIVE (CUTOFF=500); BARBITURATE SCREEN,URINE NEGATIVE (CUTOFF=200); BENZODIAZEPINES SCREEN,URINE NEGATIVE (CUTOFF=150); BUPRENORPHINE SCREEN,URINE NEGATIVE (CUTOFF=10); METHADONE SCREEN, URINE NEGATIVE (CUTOFF=200); METHAMPHETAMINES SCREEN, URINE NEGATIVE (CUTOFF=500); OXYCODONE SCREEN,URINE NEGATIVE (CUT0FF=100); PCP SCREEN,URINE NEGATIVE (CUTOFF=25); THC SCREEN,URINE 20 NG/ML NEGATIVE (CUTOFF=50)
[2023-09-07 16:01] LABS: APPEARANCE,URINE CLOUDY; BILIRUBIN,URINE NEGATIVE (NEGATIVE); COLOR,URINE YELLOW; GLUCOSE,URINE NEGATIVE (NEGATIVE); KETONES,URINE NEGATIVE (NEGATIVE); LEUKOCYTE ESTERASE,URINE LARGE (NEGATIVE); NITRITE,URINE POSITIVE (NEGATIVE); OCCULT BLOOD,URINE TRACE-INTACT (NEGATIVE); PH,URINE 7.5 (5.0-8.0); PROTEIN,URINE 30 mg/dL (NEGATIVE); UROBILINOGEN,URINE 0.2 EU/dL (<2.0)
[2023-09-07 16:07] LABS: BACTERIA,URINE 2+ (NEGATIVE); EPITHELIAL CELLS,URINE NOT SEEN (NONE-FEW); MUCUS,URINE MODERATE (NONE-MOD); WBC,URINE 50-60 (0-5/HPF)
[2023-09-07] MEDS: cefTRIAXone 1 GM in Sodium Chloride 0.9% 50 ML IV ONE (16:51)
[2023-09-07] MEDS ORDERED: Ondansetron 4 MG Tab.DIS PO PRN (17:29)
[2023-09-07] MEDS: cefTRIAXone 1 GM in Sodium Chloride 0.9% 50 ML IV SCH (17:41)
[2023-09-07] MEDS: Pantoprazole 40 MG in Sodium Chloride 0.9% 10 ML IVPUSH SCH (18:20)
[2023-09-07] MEDS ORDERED: LIDODERM PATCH TRDERM PRN (19:46)
[2023-09-07] MEDS: atorvaSTATin 10 MG Tab PO SCH (21:10)
[2023-09-07] MEDS: Lidocaine 4% 1 each Patch TOP PRN (21:10)
[2023-09-08 06:03] LABS: BASOPHILS ABSOLUTE AUTO 0.02 K/uL (0.00-0.20); BASOPHILS PERCENT AUTO 0.4 % (0.0-1.0); EOSINOPHILS ABSOLUTE AUTO 0.24 K/uL (0.00-0.45); EOSINOPHILS PERCENT AUTO 4.2 % (0.0-6.0); HEMATOCRIT 29.4 % (42.0-52.0); IMMATURE GRAN ABSOLUTE AUTO 0.04 K/uL (0.00-0.05); IMMATURE GRAN PERCENT AUTO 0.7 % (0.0-0.4); LYMPHOCYTES ABSOLUTE AUTO 0.83 K/uL (1.00-4.80); LYMPHOCYTES PERCENT AUTO 14.7 % (24.0-44.0); MEAN CORPUSCULAR HEMOGLOBIN 33.1 pg (28.0-32.0); MEAN CORPUSCULAR VOLUME 97.4 fL (83.0-99.0); MONOCYTES ABSOLUTE AUTO 0.55 K/uL (0.00-0.80); MONOCYTES PERCENT AUTO 9.7 % (0.0-8.0); NEUTROPHILS ABSOLUTE AUTO 3.98 K/uL (1.80-7.70); NEUTROPHILS PERCENT AUTO 70.3 % (41.0-71.0); PLATELET COUNT,PLT 208 K/uL (150-400); RED BLOOD CELL COUNT 3.02 M/uL (4.52-5.90); WHITE BLOOD CELL COUNT,WBC 5.66 K/uL (3.9-11.3)
[2023-09-08 06:31] LABS: A/G RATIO 0.8 (0.9-1.6); ALBUMIN 2.8 g/dL (3.4-5.0); BILIRUBIN TOTAL 0.9 mg/dL (0.2-1.0); CALCIUM 8.1 mg/dL (8.5-10.1); CARBON DIOXIDE,CO2 19.7 mmol/L (21.0-32.0); CREATININE 0.9 mg/dL (0.8-1.3); EST CRCL DRUG DOSING (CG) 55.76 mL/min; MAGNESIUM 1.6 mg/dL (1.8-2.4); PHOSPHORUS 1.9 mg/dL (2.6-4.7); POTASSIUM,K 4.2 mmol/L (3.5-5.1); PROTEIN TOTAL,TP 6.4 g/dL (6.4-8.2)
[2023-09-08] MEDS: Levothyroxine 50 MCG Tab PO SCH (07:07)
[2023-09-08] MEDS: Acetaminophen 325 MG Tab PO PRN (08:14)
[2023-09-08] MEDS ORDERED: Metoprolol Succinate 25 MG Tab.ER PO SCH (09:00)
[2023-09-08] MEDS ORDERED: Ibuprofen 600 MG Tab PO PRN (09:55)
[2023-09-08] MEDS: Phosphorus #1 250 MG Tab PO SCH (11:00)
[2023-09-08] MEDS: Ibuprofen 400 MG Tab PO ONE (11:00)
[2023-09-08] MEDS: Magnesium Sulfate/Water 2 GM in Premix Bag 1 BAG IV ONE (11:00)
[2023-09-08] MEDS: Aspirin 81 MG Tab.EC PO SCH (17:21)
[2023-09-08] MEDS: cefTRIAXone 1 GM in Sodium Chloride 0.9% 50 ML IV SCH (17:21)
[2023-09-09 06:24] LABS: BASOPHILS ABSOLUTE AUTO 0.03 K/uL (0.00-0.20); BASOPHILS PERCENT AUTO 0.7 % (0.0-1.0); EOSINOPHILS ABSOLUTE AUTO 0.34 K/uL (0.00-0.45); EOSINOPHILS PERCENT AUTO 8.2 % (0.0-6.0); HEMATOCRIT 29.9 % (42.0-52.0); HEMOGLOBIN 10.2 g/dL (14.0-18.0); IMMATURE GRAN ABSOLUTE AUTO 0.05 K/uL (0.00-0.05); IMMATURE GRAN PERCENT AUTO 1.2 % (0.0-0.4); LYMPHOCYTES PERCENT AUTO 16.9 % (24.0-44.0); MEAN CORPUSCULAR HEMOGLOBIN 33.6 pg (28.0-32.0); MEAN CORPUSCULAR HGB CONC 34.1 g/dL (32.0-36.0); MEAN CORPUSCULAR VOLUME 98.4 fL (83.0-99.0); MONOCYTES ABSOLUTE AUTO 0.46 K/uL (0.00-0.80); MONOCYTES PERCENT AUTO 11.1 % (0.0-8.0); NEUTROPHILS ABSOLUTE AUTO 2.56 K/uL (1.80-7.70); NEUTROPHILS PERCENT AUTO 61.9 % (41.0-71.0); PLATELET COUNT,PLT 208 K/uL (150-400); RED BLOOD CELL COUNT 3.04 M/uL (4.52-5.90); WHITE BLOOD CELL COUNT,WBC 4.14 K/uL (3.9-11.3)
[2023-09-09 06:44] LABS: CALCIUM 8.3 mg/dL (8.5-10.1); CARBON DIOXIDE,CO2 23.1 mmol/L (21.0-32.0); CREATININE 0.9 mg/dL (0.8-1.3); EST CRCL DRUG DOSING (CG) 55.65 mL/min; MAGNESIUM 2.1 mg/dL (1.8-2.4); PHOSPHORUS 3.3 mg/dL (2.6-4.7); POTASSIUM,K 4.3 mmol/L (3.5-5.1)
[2023-09-10 12:34] VITALS: BP 106/58; PULSE 83
== END 2023-09-10 12:50 | disposition home health service (06) | DRG 315 ==
LOC: MW.ED 13:36 → MW.MS 16:56
PROVIDERS: ADMIT Internal Medicine; ATTEND Internal Medicine
DX: I95.9 Hypotension, unspecified (principal); N39.0 Urinary tract infection, site not specified; Z66 Do not resuscitate; I25.10 Atherosclerotic heart disease of native coronary artery without angina pectoris; I48.91 Unspecified atrial fibrillation; I50.9 Heart failure, unspecified; J44.9 Chronic obstructive pulmonary disease, unspecified; M19.90 Unspecified osteoarthritis, unspecified site; M25.511 Pain in right shoulder; Z95.0 Presence of cardiac pacemaker; Z95.1 Presence of aortocoronary bypass graft; Z79.82 Long term (current) use of aspirin; Z85.46 Personal history of malignant neoplasm of prostate; Z98.49 Cataract extraction status, unspecified eye; Z79.890 Hormone replacement therapy; Z79.899 Other long term (current) drug therapy; Z98.890 Other specified postprocedural states
CPT/HCPCS: 0241U; 36415; 51702; 71045; 73030; 80048; 80053; 80305; 81001; 83605; 83735; 84100; 84484; 85025; 87086; 93005; 96360; 97163; 97165; 99285; 87088; 87186; 93010; 99284; A9270-GY; C9113; J0696; J3475; J3490; J7030

== ENCOUNTER 2023-10-13 21:41 | Emergency (ER) | payer MEDICARE, BC ==
[2023-10-13] MEDS: Lidocaine 2% 11 ML Jelly Filled Syringe MUCMEM STA (23:19)
[2023-10-14 00:52] VITALS: BP 113/68; PULSE 88
== END 2023-10-14 00:51 | disposition home or self-care (01) ==
LOC: MW.ED 21:41
DX: T83.83XA Hemorrhage due to genitourinary prosthetic devices, implants and grafts, initial encounter (principal); I50.9 Heart failure, unspecified; J44.9 Chronic obstructive pulmonary disease, unspecified; Z95.0 Presence of cardiac pacemaker; Z79.890 Hormone replacement therapy; Z79.82 Long term (current) use of aspirin; Z79.899 Other long term (current) drug therapy; Z88.8 Allergy status to other drugs, medicaments and biological substances
CPT/HCPCS: 99283; A9270

== ENCOUNTER 2023-12-12 03:29 | Inpatient (IN) | payer MEDICARE, BC ==
[2023-12-12 03:54] LABS: BASOPHILS ABSOLUTE AUTO 0.03 K/uL (0.00-0.20); BASOPHILS PERCENT AUTO 0.4 % (0.0-1.0); EOSINOPHILS ABSOLUTE AUTO 0.31 K/uL (0.00-0.45); EOSINOPHILS PERCENT AUTO 4.3 % (0.0-6.0); HEMATOCRIT 33.1 % (42.0-52.0); HEMOGLOBIN 10.7 g/dL (14.0-18.0); IMMATURE GRAN ABSOLUTE AUTO 0.07 K/uL (0.00-0.05); LYMPHOCYTES ABSOLUTE AUTO 1.31 K/uL (1.00-4.80); LYMPHOCYTES PERCENT AUTO 18.1 % (24.0-44.0); MEAN CORPUSCULAR HEMOGLOBIN 32.2 pg (28.0-32.0); MEAN CORPUSCULAR HGB CONC 32.3 g/dL (32.0-36.0); MEAN CORPUSCULAR VOLUME 99.7 fL (83.0-99.0); MEAN PLATELET VOLUME 9.1 fL (9.4-12.4); MONOCYTES ABSOLUTE AUTO 0.59 K/uL (0.00-0.80); MONOCYTES PERCENT AUTO 8.2 % (0.0-8.0); NEUTROPHILS ABSOLUTE AUTO 4.91 K/uL (1.80-7.70); PLATELET COUNT,PLT 235 K/uL (150-400); RED BLOOD CELL COUNT 3.32 M/uL (4.52-5.90); WHITE BLOOD CELL COUNT,WBC 7.22 K/uL (3.9-11.3)
[2023-12-12 04:06] LABS: BILIRUBIN,URINE NEGATIVE (NEGATIVE); COLOR,URINE YELLOW; GLUCOSE,URINE NEGATIVE (NEGATIVE); KETONES,URINE NEGATIVE (NEGATIVE); LEUKOCYTE ESTERASE,URINE LARGE (NEGATIVE); NITRITE,URINE POSITIVE (NEGATIVE); OCCULT BLOOD,URINE SMALL (NEGATIVE); PH,URINE 6.5 (5.0-8.0); PROTEIN,URINE TRACE mg/dL (NEGATIVE)
[2023-12-12 04:06] LABS: INR 1.1 (0.86-1.11)
[2023-12-12 04:08] LABS: APPEARANCE,URINE CLOUDY
[2023-12-12] MEDS: Sodium Chloride 0.9% 2.5 ML Syringe FLUSH PRN (04:11)
[2023-12-12] MEDS: Sodium Chloride 0.9% 10 ML Syringe FLUSH PRN (04:11)
[2023-12-12 04:15] LABS: BACTERIA,URINE 3+ (NEGATIVE); MUCUS,URINE LIGHT (NONE-MOD); SQUAMOUS EPITHELIAL CELLS,UR NOT SEEN; WBC,URINE 50-75 (0-5/HPF)
[2023-12-12 04:20] LABS: LACTIC ACID 1.3 mmol/L (0.4-2.0)
[2023-12-12 04:27] LABS: A/G RATIO 0.7 (0.9-1.6); ALBUMIN 3.2 g/dL (3.4-5.0); BILIRUBIN TOTAL 0.4 mg/dL (0.2-1.0); CALCIUM 9.1 mg/dL (8.5-10.1); CARBON DIOXIDE,CO2 23.7 mmol/L (21.0-32.0); CREATININE 1.3 mg/dL (0.8-1.3); EST CRCL DRUG DOSING (CG) 43.03 mL/min; MAGNESIUM 1.3 mg/dL (1.8-2.4); POTASSIUM,K 4.4 mmol/L (3.5-5.1); PROTEIN TOTAL,TP 7.6 g/dL (6.4-8.2)
[2023-12-12 04:44] LABS: CORONAVIRUS COVID-19 NAA NEGATIVE (NEGATIVE); INFLUENZA A NAA NEGATIVE (NEGATIVE); INFLUENZA B NAA NEGATIVE (NEGATIVE); RESPIRATORY SYNCYTIAL VIR NAA NEGATIVE (NEGATIVE)
[2023-12-12] MEDS: Cephalexin 500 MG Cap PO ONE (04:59)
[2023-12-12] MEDS: Furosemide 40 MG/4 ML VIAL IVPUSH ONE (04:59)
[2023-12-12] MEDS ORDERED: Sodium Chloride 0.9% 10 ML Syringe FLUSH PRN (11:21)
[2023-12-12] MEDS ORDERED: Sodium Chloride 0.9% 2.5 ML Syringe FLUSH PRN (11:21)
[2023-12-12] MEDS: Cephalexin 500 MG Cap PO SCH (11:40)
[2023-12-12] MEDS: Metoprolol Succinate 25 MG Tab.ER PO SCH (11:40)
[2023-12-12] MEDS: Aspirin 81 MG Tab.EC PO SCH (11:40)
[2023-12-12] MEDS: Iopamidol 755 MG/ML 500 ML Multipack Bottle IVPUSH STA (13:19)
[2023-12-12] MEDS: Furosemide 40 MG/4 ML VIAL IVPUSH SCH (14:31)
[2023-12-12] MEDS: atorvaSTATin 10 MG Tab PO SCH (19:45)
[2023-12-13] MEDS: Pantoprazole 40 MG Tab.CR ONE (05:35)
[2023-12-13] MEDS: Levothyroxine 50 MCG Tab ONE (05:35)
[2023-12-13] MEDS: Pantoprazole 40 MG Tab.CR PO SCH (05:37)
[2023-12-13] MEDS: Levothyroxine 50 MCG Tab PO SCH (05:37)
[2023-12-13 06:06] LABS: BASOPHILS ABSOLUTE AUTO 0.04 K/uL (0.00-0.20); BASOPHILS PERCENT AUTO 0.6 % (0.0-1.0); EOSINOPHILS ABSOLUTE AUTO 0.34 K/uL (0.00-0.45); EOSINOPHILS PERCENT AUTO 4.9 % (0.0-6.0); HEMATOCRIT 32.2 % (42.0-52.0); HEMOGLOBIN 10.9 g/dL (14.0-18.0); IMMATURE GRAN PERCENT AUTO 1.4 % (0.0-0.4); LYMPHOCYTES ABSOLUTE AUTO 1.24 K/uL (1.00-4.80); LYMPHOCYTES PERCENT AUTO 17.7 % (24.0-44.0); MEAN CORPUSCULAR HEMOGLOBIN 32.6 pg (28.0-32.0); MEAN CORPUSCULAR HGB CONC 33.9 g/dL (32.0-36.0); MEAN CORPUSCULAR VOLUME 96.4 fL (83.0-99.0); MEAN PLATELET VOLUME 9.2 fL (9.4-12.4); MONOCYTES ABSOLUTE AUTO 0.67 K/uL (0.00-0.80); MONOCYTES PERCENT AUTO 9.6 % (0.0-8.0); NEUTROPHILS ABSOLUTE AUTO 4.62 K/uL (1.80-7.70); NEUTROPHILS PERCENT AUTO 65.8 % (41.0-71.0); PLATELET COUNT,PLT 257 K/uL (150-400); RED BLOOD CELL COUNT 3.34 M/uL (4.52-5.90); WHITE BLOOD CELL COUNT,WBC 7.01 K/uL (3.9-11.3)
[2023-12-13 06:40] LABS: CREATININE 1.2 mg/dL (0.8-1.3); EST CRCL DRUG DOSING (CG) 45.7 mL/min; MAGNESIUM 1.4 mg/dL (1.8-2.4); POTASSIUM,K 3.9 mmol/L (3.5-5.1)
[2023-12-13] MEDS: Magnesium Sulfate/Water 2 GM in Premix Bag 1 BAG IV ONE (10:29)
[2023-12-14] MEDS: Alum Hydro/Mag Hydro/Simeth XS 15 ML, Lidocaine 2% 5 ML PO ONE (03:52)
[2023-12-14 03:57] LABS: BASOPHILS ABSOLUTE AUTO 0.03 K/uL (0.00-0.20); BASOPHILS PERCENT AUTO 0.4 % (0.0-1.0); EOSINOPHILS ABSOLUTE AUTO 0.38 K/uL (0.00-0.45); EOSINOPHILS PERCENT AUTO 5.7 % (0.0-6.0); HEMATOCRIT 31.6 % (42.0-52.0); HEMOGLOBIN 10.7 g/dL (14.0-18.0); IMMATURE GRAN ABSOLUTE AUTO 0.06 K/uL (0.00-0.05); IMMATURE GRAN PERCENT AUTO 0.9 % (0.0-0.4); LYMPHOCYTES ABSOLUTE AUTO 1.06 K/uL (1.00-4.80); LYMPHOCYTES PERCENT AUTO 15.8 % (24.0-44.0); MEAN CORPUSCULAR HEMOGLOBIN 33.1 pg (28.0-32.0); MEAN CORPUSCULAR HGB CONC 33.9 g/dL (32.0-36.0); MEAN CORPUSCULAR VOLUME 97.8 fL (83.0-99.0); MEAN PLATELET VOLUME 9.2 fL (9.4-12.4); MONOCYTES ABSOLUTE AUTO 0.63 K/uL (0.00-0.80); MONOCYTES PERCENT AUTO 9.4 % (0.0-8.0); NEUTROPHILS ABSOLUTE AUTO 4.54 K/uL (1.80-7.70); NEUTROPHILS PERCENT AUTO 67.8 % (41.0-71.0); PLATELET COUNT,PLT 236 K/uL (150-400); RED BLOOD CELL COUNT 3.23 M/uL (4.52-5.90)
[2023-12-14 04:20] LABS: CALCIUM 8.9 mg/dL (8.5-10.1); CARBON DIOXIDE,CO2 20.8 mmol/L (21.0-32.0); CREATININE 1.2 mg/dL (0.8-1.3); EST CRCL DRUG DOSING (CG) 47.6 mL/min; MAGNESIUM 1.9 mg/dL (1.8-2.4); POTASSIUM,K 4.1 mmol/L (3.5-5.1)
[2023-12-14 12:08] VITALS: BP 112/76; PULSE 95
== END 2023-12-14 12:30 | disposition home health service (06) | DRG 698 ==
LOC: MW.ED 03:29 → MW.MS 06:49
PROVIDERS: ADMIT Family Medicine; ATTEND Family Medicine
DX: I50.22 Chronic systolic (congestive) heart failure (principal); T83.511A Infection and inflammatory reaction due to indwelling urethral catheter, initial encounter; I50.23 Acute on chronic systolic (congestive) heart failure; C79.51 Secondary malignant neoplasm of bone; I11.0 Hypertensive heart disease with heart failure; N39.0 Urinary tract infection, site not specified; I48.91 Unspecified atrial fibrillation; I25.10 Atherosclerotic heart disease of native coronary artery without angina pectoris; I25.5 Ischemic cardiomyopathy; I08.3 Combined rheumatic disorders of mitral, aortic and tricuspid valves; M19.90 Unspecified osteoarthritis, unspecified site; J44.9 Chronic obstructive pulmonary disease, unspecified; E03.9 Hypothyroidism, unspecified; Z88.8 Allergy status to other drugs, medicaments and biological substances; Z95.0 Presence of cardiac pacemaker; Z95.1 Presence of aortocoronary bypass graft; Z98.2 Presence of cerebrospinal fluid drainage device; Z98.49 Cataract extraction status, unspecified eye; Z85.46 Personal history of malignant neoplasm of prostate; Z79.82 Long term (current) use of aspirin; Z79.899 Other long term (current) drug therapy; Z98.890 Other specified postprocedural states
CPT/HCPCS: 0241U; 36415; 51702; 71045; 71275; 80048; 80053; 81001; 83605; 83690; 83735; 83880; 84484; 85025; 85610; 87086; 93005; 93306; 96374; 97161; 99285; 87088; 87186; 93010; A9270-GY; J1940; J3475; J3490; Q9967

== ENCOUNTER 2023-12-31 10:08 | Emergency (ER) | payer MEDICARE, BC ==
[2023-12-31 10:42] LABS: BASOPHILS ABSOLUTE AUTO 0.03 K/uL (0.00-0.20); BASOPHILS PERCENT AUTO 0.3 % (0.0-1.0); EOSINOPHILS ABSOLUTE AUTO 0.33 K/uL (0.00-0.45); EOSINOPHILS PERCENT AUTO 3.7 % (0.0-6.0); HEMATOCRIT 31.3 % (42.0-52.0); HEMOGLOBIN 10.2 g/dL (14.0-18.0); IMMATURE GRAN ABSOLUTE AUTO 0.13 K/uL (0.00-0.05); IMMATURE GRAN PERCENT AUTO 1.5 % (0.0-0.4); LYMPHOCYTES ABSOLUTE AUTO 1.24 K/uL (1.00-4.80); MEAN CORPUSCULAR HEMOGLOBIN 32.8 pg (28.0-32.0); MEAN CORPUSCULAR HGB CONC 32.6 g/dL (32.0-36.0); MEAN CORPUSCULAR VOLUME 100.6 fL (83.0-99.0); MEAN PLATELET VOLUME 9.1 fL (9.4-12.4); MONOCYTES ABSOLUTE AUTO 0.72 K/uL (0.00-0.80); MONOCYTES PERCENT AUTO 8.1 % (0.0-8.0); NEUTROPHILS ABSOLUTE AUTO 6.43 K/uL (1.80-7.70); NEUTROPHILS PERCENT AUTO 72.4 % (41.0-71.0); PLATELET COUNT,PLT 268 K/uL (150-400); RED BLOOD CELL COUNT 3.11 M/uL (4.52-5.90); WHITE BLOOD CELL COUNT,WBC 8.88 K/uL (3.9-11.3)
[2023-12-31] MEDS: Aspirin 81 MG Tab.Chew PO ONE (10:43)
[2023-12-31] MEDS: Acetaminophen 500 MG Tab PO ONE (10:43)
[2023-12-31 11:14] LABS: A/G RATIO 0.7 (0.9-1.6); ALBUMIN 3.2 g/dL (3.4-5.0); BILIRUBIN TOTAL 0.6 mg/dL (0.2-1.0); CALCIUM 9.7 mg/dL (8.5-10.1); CARBON DIOXIDE,CO2 21.4 mmol/L (21.0-32.0); CREATININE 1.2 mg/dL (0.8-1.3); EST CRCL DRUG DOSING (CG) 47.6 mL/min; MAGNESIUM 1.4 mg/dL (1.8-2.4); POTASSIUM,K 3.9 mmol/L (3.5-5.1); PROTEIN TOTAL,TP 7.5 g/dL (6.4-8.2)
[2023-12-31 11:25] LABS: APPEARANCE,URINE CLOUDY; BILIRUBIN,URINE NEGATIVE (NEGATIVE); COLOR,URINE YELLOW; GLUCOSE,URINE NEGATIVE (NEGATIVE); KETONES,URINE TRACE mg/dL (NEGATIVE); LEUKOCYTE ESTERASE,URINE MODERATE (NEGATIVE); NITRITE,URINE POSITIVE (NEGATIVE); OCCULT BLOOD,URINE SMALL (NEGATIVE); PROTEIN,URINE 30 mg/dL (NEGATIVE); UROBILINOGEN,URINE 0.2 EU/dL (<2.0)
[2023-12-31] MEDS: Sodium Chloride 0.9% 250 ML IV ONE (11:28)
[2023-12-31 11:37] LABS: BACTERIA,URINE 2+ (NEGATIVE); EPITHELIAL CELLS,URINE RARE (NONE-FEW); RBC,URINE 0-1 (0-2/HPF); WBC,URINE >100 (0-5/HPF)
[2023-12-31 11:38] LABS: MUCUS,URINE LIGHT (NONE-MOD)
[2023-12-31] MEDS: cefTRIAXone 1 GM in Sodium Chloride 0.9% 50 ML IV ONE (12:20)
[2023-12-31] MEDS: Magnesium Oxide 400 MG Tab PO ONE (12:21)
[2023-12-31] MEDS: Heparin Sodium/0.45% NaCl 500 ML IV SCH (14:48)
[2023-12-31] MEDS: Heparin Sodium 5,000 Units/ML Vial IVPUSH ONE (14:48)
[2023-12-31 15:01] LABS: INR 1.13 (0.86-1.11)
[2023-12-31 15:34] VITALS: BP 110/70; PULSE 106
== END 2023-12-31 16:16 ==
LOC: MW.ED 10:08
DX: T83.511A Infection and inflammatory reaction due to indwelling urethral catheter, initial encounter (principal); I21.4 Non-ST elevation (NSTEMI) myocardial infarction; J44.9 Chronic obstructive pulmonary disease, unspecified; Z88.8 Allergy status to other drugs, medicaments and biological substances; Z79.82 Long term (current) use of aspirin; Z79.890 Hormone replacement therapy; Z79.899 Other long term (current) drug therapy; Z75.8 Other problems related to medical facilities and other health care
CPT/HCPCS: 36415; 71045; 80053; 81001; 83690; 83735; 83880; 84484; 85025; 85610; 85730; 87086; 93005; 96365; 96367; 99285; A9270; J0696; J1644; J3490; J7030; 93010

== ENCOUNTER 2024-01-11 08:59 | Emergency (ER) | payer MEDICARE, BC ==
[2024-01-11] MEDS: Aspirin 81 MG Tab.Chew PO ONE (09:22)
[2024-01-11] MEDS: Nitroglycerin 2% Oint 1 GM UD Packet TOP ONE (09:23)
[2024-01-11 09:34] LABS: BASOPHILS ABSOLUTE AUTO 0.03 K/uL (0.00-0.20); BASOPHILS PERCENT AUTO 0.4 % (0.0-1.0); EOSINOPHILS ABSOLUTE AUTO 0.23 K/uL (0.00-0.45); HEMATOCRIT 29.7 % (42.0-52.0); HEMOGLOBIN 9.5 g/dL (14.0-18.0); IMMATURE GRAN ABSOLUTE AUTO 0.14 K/uL (0.00-0.05); IMMATURE GRAN PERCENT AUTO 1.8 % (0.0-0.4); LYMPHOCYTES ABSOLUTE AUTO 1.14 K/uL (1.00-4.80); MEAN CORPUSCULAR HEMOGLOBIN 32.1 pg (28.0-32.0); MEAN CORPUSCULAR VOLUME 100.3 fL (83.0-99.0); MEAN PLATELET VOLUME 9.5 fL (9.4-12.4); MONOCYTES ABSOLUTE AUTO 0.38 K/uL (0.00-0.80); NEUTROPHILS ABSOLUTE AUTO 5.67 K/uL (1.80-7.70); NEUTROPHILS PERCENT AUTO 74.8 % (41.0-71.0); PLATELET COUNT,PLT 268 K/uL (150-400); RED BLOOD CELL COUNT 2.96 M/uL (4.52-5.90); WHITE BLOOD CELL COUNT,WBC 7.59 K/uL (3.9-11.3)
[2024-01-11] MEDS: Morphine 4 MG/ML Syringe IVPUSH ONE (09:36)
[2024-01-11 09:55] LABS: APPEARANCE,URINE CLEAR; BILIRUBIN,URINE NEGATIVE (NEGATIVE); COLOR,URINE YELLOW; GLUCOSE,URINE NEGATIVE (NEGATIVE); KETONES,URINE NEGATIVE (NEGATIVE); LEUKOCYTE ESTERASE,URINE TRACE (NEGATIVE); NITRITE,URINE NEGATIVE (NEGATIVE); OCCULT BLOOD,URINE NEGATIVE (NEGATIVE); PROTEIN,URINE NEGATIVE (NEGATIVE); UROBILINOGEN,URINE 0.2 EU/dL (<2.0)
[2024-01-11 10:06] LABS: A/G RATIO 0.6 (0.9-1.6); ALBUMIN 2.9 g/dL (3.4-5.0); BILIRUBIN TOTAL 0.7 mg/dL (0.2-1.0); CALCIUM 9.5 mg/dL (8.5-10.1); CARBON DIOXIDE,CO2 19.1 mmol/L (21.0-32.0); CREATININE 1.2 mg/dL (0.8-1.3); EST CRCL DRUG DOSING (CG) 47.6 mL/min; POTASSIUM,K 4.6 mmol/L (3.5-5.1); PROTEIN TOTAL,TP 7.7 g/dL (6.4-8.2)
[2024-01-11 10:16] LABS: BACTERIA,URINE FEW (NEGATIVE); EPITHELIAL CELLS,URINE OCCASIONAL (NONE-FEW); RBC,URINE 0-2 (0-2/HPF)
[2024-01-11 10:37] VITALS: PULSE 105
[2024-01-11] MEDS: Sodium Chloride 0.9% 10 ML Syringe FLUSH PRN (11:14)
[2024-01-11] MEDS: Sodium Chloride 0.9% 2.5 ML Syringe FLUSH PRN (11:14)
[2024-01-11 11:31] VITALS: BP 98/61
== END 2024-01-11 11:31 | disposition home or self-care (01) ==
LOC: MW.ED 08:59
DX: R07.9 Chest pain, unspecified (principal); I11.0 Hypertensive heart disease with heart failure; I50.9 Heart failure, unspecified; I25.2 Old myocardial infarction; J44.9 Chronic obstructive pulmonary disease, unspecified; Z79.82 Long term (current) use of aspirin; Z79.899 Other long term (current) drug therapy; Z95.0 Presence of cardiac pacemaker; Z79.890 Hormone replacement therapy; Z88.8 Allergy status to other drugs, medicaments and biological substances; Z95.1 Presence of aortocoronary bypass graft; Z75.8 Other problems related to medical facilities and other health care
CPT/HCPCS: 36415; 71045; 80053; 81001; 83880; 84484; 85025; 87086; 93005; 99285; A9270; J3490; 87088; 87186; 93010

== ENCOUNTER 2024-01-25 23:57 | Inpatient (IN) | payer MEDICARE, BC ==
[2024-01-25] MEDS ORDERED: Sodium Chloride 0.9% 2.5 ML Syringe FLUSH PRN (23:59)
[2024-01-25] MEDS ORDERED: Sodium Chloride 0.9% 10 ML Syringe FLUSH PRN (23:59)
[2024-01-26 00:18] LABS: BASOPHILS ABSOLUTE AUTO 0.04 K/uL (0.00-0.20); BASOPHILS PERCENT AUTO 0.4 % (0.0-1.0); EOSINOPHILS PERCENT AUTO 2.1 % (0.0-6.0); HEMATOCRIT 29.5 % (42.0-52.0); HEMOGLOBIN 9.7 g/dL (14.0-18.0); IMMATURE GRAN ABSOLUTE AUTO 0.16 K/uL (0.00-0.05); IMMATURE GRAN PERCENT AUTO 1.7 % (0.0-0.4); LYMPHOCYTES ABSOLUTE AUTO 1.21 K/uL (1.00-4.80); LYMPHOCYTES PERCENT AUTO 12.6 % (24.0-44.0); MEAN CORPUSCULAR HEMOGLOBIN 32.2 pg (28.0-32.0); MEAN CORPUSCULAR HGB CONC 32.9 g/dL (32.0-36.0); MEAN PLATELET VOLUME 9.6 fL (9.4-12.4); MONOCYTES PERCENT AUTO 10.4 % (0.0-8.0); NEUTROPHILS ABSOLUTE AUTO 6.97 K/uL (1.80-7.70); NEUTROPHILS PERCENT AUTO 72.8 % (41.0-71.0); PLATELET COUNT,PLT 277 K/uL (150-400); RED BLOOD CELL COUNT 3.01 M/uL (4.52-5.90); WHITE BLOOD CELL COUNT,WBC 9.58 K/uL (3.9-11.3)
[2024-01-26 00:30] LABS: INR 1.16 (0.86-1.11)
[2024-01-26 00:45] LABS: A/G RATIO 0.7 (0.9-1.6); ALBUMIN 3.1 g/dL (3.4-5.0); BILIRUBIN TOTAL 0.6 mg/dL (0.2-1.0); CALCIUM 9.3 mg/dL (8.5-10.1); CARBON DIOXIDE,CO2 22.1 mmol/L (21.0-32.0); CREATININE 1.3 mg/dL (0.8-1.3); EST CRCL DRUG DOSING (CG) 43.94 mL/min; POTASSIUM,K 4.9 mmol/L (3.5-5.1); PROTEIN TOTAL,TP 7.8 g/dL (6.4-8.2)
[2024-01-26] MEDS: Furosemide 100 MG/10 ML SDV IVPUSH ONE (02:26)
[2024-01-26 05:29] LABS: BASOPHILS ABSOLUTE AUTO 0.05 K/uL (0.00-0.20); BASOPHILS PERCENT AUTO 0.5 % (0.0-1.0); EOSINOPHILS ABSOLUTE AUTO 0.21 K/uL (0.00-0.45); EOSINOPHILS PERCENT AUTO 2.3 % (0.0-6.0); HEMATOCRIT 29.2 % (42.0-52.0); HEMOGLOBIN 9.5 g/dL (14.0-18.0); IMMATURE GRAN ABSOLUTE AUTO 0.15 K/uL (0.00-0.05); IMMATURE GRAN PERCENT AUTO 1.6 % (0.0-0.4); LYMPHOCYTES ABSOLUTE AUTO 1.21 K/uL (1.00-4.80); LYMPHOCYTES PERCENT AUTO 13.2 % (24.0-44.0); MEAN CORPUSCULAR HEMOGLOBIN 31.8 pg (28.0-32.0); MEAN CORPUSCULAR HGB CONC 32.5 g/dL (32.0-36.0); MEAN CORPUSCULAR VOLUME 97.7 fL (83.0-99.0); MEAN PLATELET VOLUME 9.9 fL (9.4-12.4); MONOCYTES ABSOLUTE AUTO 0.94 K/uL (0.00-0.80); MONOCYTES PERCENT AUTO 10.2 % (0.0-8.0); NEUTROPHILS ABSOLUTE AUTO 6.64 K/uL (1.80-7.70); NEUTROPHILS PERCENT AUTO 72.2 % (41.0-71.0); PLATELET COUNT,PLT 264 K/uL (150-400); RED BLOOD CELL COUNT 2.99 M/uL (4.52-5.90)
[2024-01-26 06:06] LABS: A/G RATIO 0.7 (0.9-1.6); ALBUMIN 3.1 g/dL (3.4-5.0); BILIRUBIN TOTAL 0.7 mg/dL (0.2-1.0); CALCIUM 9.6 mg/dL (8.5-10.1); CARBON DIOXIDE,CO2 21.7 mmol/L (21.0-32.0); CREATININE 1.4 mg/dL (0.8-1.3); EST CRCL DRUG DOSING (CG) 40.8 mL/min; POTASSIUM,K 4.6 mmol/L (3.5-5.1); PROTEIN TOTAL,TP 7.8 g/dL (6.4-8.2)
[2024-01-26] MEDS: Aspirin 81 MG Tab.EC PO SCH (13:14)
[2024-01-26 14:17] LABS: APPEARANCE,URINE SLT CLOUDY; BILIRUBIN,URINE NEGATIVE (NEGATIVE); COLOR,URINE YELLOW; GLUCOSE,URINE NEGATIVE (NEGATIVE); KETONES,URINE NEGATIVE (NEGATIVE); LEUKOCYTE ESTERASE,URINE LARGE (NEGATIVE); NITRITE,URINE POSITIVE (NEGATIVE); OCCULT BLOOD,URINE MODERATE (NEGATIVE); PROTEIN,URINE NEGATIVE (NEGATIVE)
[2024-01-26 14:27] LABS: BACTERIA,URINE FEW (NEGATIVE); EPITHELIAL CELLS,URINE NOT SEEN (NONE-FEW)
[2024-01-26] MEDS ORDERED: atorvaSTATin 40 MG Tab PO SCH (21:00)
[2024-01-27] MEDS: Levothyroxine 50 MCG Tab PO SCH (06:42)
[2024-01-27] MEDS: Pantoprazole 40 MG Tab.CR PO SCH (06:43)
[2024-01-27 07:55] LABS: BASOPHILS ABSOLUTE AUTO 0.03 K/uL (0.00-0.20); BASOPHILS PERCENT AUTO 0.4 % (0.0-1.0); EOSINOPHILS ABSOLUTE AUTO 0.21 K/uL (0.00-0.45); EOSINOPHILS PERCENT AUTO 2.7 % (0.0-6.0); HEMATOCRIT 28.4 % (42.0-52.0); HEMOGLOBIN 9.5 g/dL (14.0-18.0); IMMATURE GRAN ABSOLUTE AUTO 0.16 K/uL (0.00-0.05); IMMATURE GRAN PERCENT AUTO 2.1 % (0.0-0.4); LYMPHOCYTES ABSOLUTE AUTO 1.35 K/uL (1.00-4.80); LYMPHOCYTES PERCENT AUTO 17.5 % (24.0-44.0); MEAN CORPUSCULAR HEMOGLOBIN 32.3 pg (28.0-32.0); MEAN CORPUSCULAR HGB CONC 33.5 g/dL (32.0-36.0); MEAN CORPUSCULAR VOLUME 96.6 fL (83.0-99.0); MEAN PLATELET VOLUME 9.7 fL (9.4-12.4); MONOCYTES ABSOLUTE AUTO 0.87 K/uL (0.00-0.80); MONOCYTES PERCENT AUTO 11.3 % (0.0-8.0); NEUTROPHILS ABSOLUTE AUTO 5.11 K/uL (1.80-7.70); PLATELET COUNT,PLT 258 K/uL (150-400); RED BLOOD CELL COUNT 2.94 M/uL (4.52-5.90); WHITE BLOOD CELL COUNT,WBC 7.73 K/uL (3.9-11.3)
[2024-01-27 08:18] LABS: A/G RATIO 0.7 (0.9-1.6); BILIRUBIN TOTAL 1.2 mg/dL (0.2-1.0); CALCIUM 9.1 mg/dL (8.5-10.1); CARBON DIOXIDE,CO2 23.6 mmol/L (21.0-32.0); CREATININE 1.5 mg/dL (0.8-1.3); EST CRCL DRUG DOSING (CG) 37.07 mL/min; POTASSIUM,K 4.2 mmol/L (3.5-5.1); PROTEIN TOTAL,TP 7.4 g/dL (6.4-8.2)
[2024-01-27] MEDS: MEGESTROL ACETATE 40 MG/ML PO SCH (08:53)
[2024-01-27] MEDS: atorvaSTATin 40 MG Tab PO SCH (08:53)
[2024-01-27] MEDS ORDERED: Non-Formulary Medication 1 Each (Metoprolol Succinate [Metoprolol Succinate] 25 MG Tab.Er. PO SCH (09:00)
[2024-01-28 06:33] LABS: BASOPHILS ABSOLUTE AUTO 0.03 K/uL (0.00-0.20); BASOPHILS PERCENT AUTO 0.4 % (0.0-1.0); EOSINOPHILS ABSOLUTE AUTO 0.23 K/uL (0.00-0.45); EOSINOPHILS PERCENT AUTO 3.1 % (0.0-6.0); HEMATOCRIT 28.3 % (42.0-52.0); HEMOGLOBIN 9.3 g/dL (14.0-18.0); IMMATURE GRAN ABSOLUTE AUTO 0.12 K/uL (0.00-0.05); IMMATURE GRAN PERCENT AUTO 1.6 % (0.0-0.4); LYMPHOCYTES ABSOLUTE AUTO 1.05 K/uL (1.00-4.80); LYMPHOCYTES PERCENT AUTO 14.1 % (24.0-44.0); MEAN CORPUSCULAR HEMOGLOBIN 32.1 pg (28.0-32.0); MEAN CORPUSCULAR HGB CONC 32.9 g/dL (32.0-36.0); MEAN CORPUSCULAR VOLUME 97.6 fL (83.0-99.0); MEAN PLATELET VOLUME 9.8 fL (9.4-12.4); MONOCYTES ABSOLUTE AUTO 0.63 K/uL (0.00-0.80); MONOCYTES PERCENT AUTO 8.5 % (0.0-8.0); NEUTROPHILS ABSOLUTE AUTO 5.38 K/uL (1.80-7.70); NEUTROPHILS PERCENT AUTO 72.3 % (41.0-71.0); PLATELET COUNT,PLT 259 K/uL (150-400); WHITE BLOOD CELL COUNT,WBC 7.44 K/uL (3.9-11.3)
[2024-01-28 06:58] LABS: A/G RATIO 0.6 (0.9-1.6); ALBUMIN 2.9 g/dL (3.4-5.0); BILIRUBIN TOTAL 0.9 mg/dL (0.2-1.0); CALCIUM 8.9 mg/dL (8.5-10.1); CARBON DIOXIDE,CO2 21.6 mmol/L (21.0-32.0); CREATININE 1.3 mg/dL (0.8-1.3); EST CRCL DRUG DOSING (CG) 43.11 mL/min; POTASSIUM,K 3.9 mmol/L (3.5-5.1); PROTEIN TOTAL,TP 7.4 g/dL (6.4-8.2)
[2024-01-28 11:31] VITALS: BP 97/61; PULSE 97
== END 2024-01-28 12:55 | disposition home or self-care (01) | DRG 282 ==
LOC: MW.ED 23:57 → MW.MS 01-26 02:26
PROVIDERS: ADMIT Internal Medicine; ATTEND Internal Medicine
DX: I11.0 Hypertensive heart disease with heart failure (principal); I50.23 Acute on chronic systolic (congestive) heart failure; I21.4 Non-ST elevation (NSTEMI) myocardial infarction; I25.10 Atherosclerotic heart disease of native coronary artery without angina pectoris; I48.91 Unspecified atrial fibrillation; Z66 Do not resuscitate; I25.5 Ischemic cardiomyopathy; I25.2 Old myocardial infarction; J44.9 Chronic obstructive pulmonary disease, unspecified; M19.90 Unspecified osteoarthritis, unspecified site; I95.9 Hypotension, unspecified; R09.02 Hypoxemia; Z95.0 Presence of cardiac pacemaker; Z95.1 Presence of aortocoronary bypass graft; Z85.46 Personal history of malignant neoplasm of prostate; Z88.8 Allergy status to other drugs, medicaments and biological substances; Z98.1 Arthrodesis status; Z97.3 Presence of spectacles and contact lenses; Z98.49 Cataract extraction status, unspecified eye; Z79.82 Long term (current) use of aspirin; Z79.899 Other long term (current) drug therapy; Z98.890 Other specified postprocedural states
CPT/HCPCS: 36415; 51702; 71045; 71045-26; 80053; 81001; 83880; 84484; 85025; 85610; 93005; 93010; 93306; 99223; 99232; 99239; 99285; A9270-GY; J1940

== ENCOUNTER 2024-01-31 19:02 | Observation (INO) | payer MEDICARE, BC ==
[2024-01-31] MEDS ORDERED: Sodium Chloride 0.9% 20 ML SDV IV PRN (19:16)
[2024-01-31] MEDS ORDERED: Nitroglycerin 0.4 MG Tab.SL SL PRN (19:17)
[2024-01-31 19:28] LABS: BASOPHILS ABSOLUTE AUTO 0.04 K/uL (0.00-0.20); BASOPHILS PERCENT AUTO 0.4 % (0.0-1.0); EOSINOPHILS ABSOLUTE AUTO 0.22 K/uL (0.00-0.45); EOSINOPHILS PERCENT AUTO 2.3 % (0.0-6.0); HEMATOCRIT 31.1 % (42.0-52.0); HEMOGLOBIN 10.1 g/dL (14.0-18.0); IMMATURE GRAN ABSOLUTE AUTO 0.16 K/uL (0.00-0.05); IMMATURE GRAN PERCENT AUTO 1.6 % (0.0-0.4); LYMPHOCYTES ABSOLUTE AUTO 1.16 K/uL (1.00-4.80); LYMPHOCYTES PERCENT AUTO 11.9 % (24.0-44.0); MEAN CORPUSCULAR HEMOGLOBIN 32.6 pg (28.0-32.0); MEAN CORPUSCULAR HGB CONC 32.5 g/dL (32.0-36.0); MEAN CORPUSCULAR VOLUME 100.3 fL (83.0-99.0); MEAN PLATELET VOLUME 9.5 fL (9.4-12.4); MONOCYTES ABSOLUTE AUTO 1.08 K/uL (0.00-0.80); MONOCYTES PERCENT AUTO 11.1 % (0.0-8.0); NEUTROPHILS ABSOLUTE AUTO 7.06 K/uL (1.80-7.70); NEUTROPHILS PERCENT AUTO 72.7 % (41.0-71.0); PLATELET COUNT,PLT 268 K/uL (150-400); WHITE BLOOD CELL COUNT,WBC 9.72 K/uL (3.9-11.3)
[2024-01-31] MEDS: Aspirin 81 MG Tab.Chew PO ONE (19:34)
[2024-01-31] MEDS: Sodium Chloride 0.9% 10 ML Syringe FLUSH PRN (19:36)
[2024-01-31] MEDS: Sodium Chloride 0.9% 2.5 ML Syringe FLUSH PRN (19:36)
[2024-01-31 19:58] LABS: A/G RATIO 0.8 (0.9-1.6); ALBUMIN 3.3 g/dL (3.4-5.0); BILIRUBIN TOTAL 1.1 mg/dL (0.2-1.0); CALCIUM 9.2 mg/dL (8.5-10.1); CARBON DIOXIDE,CO2 18.1 mmol/L (21.0-32.0); CREATININE 1.2 mg/dL (0.8-1.3); EST CRCL DRUG DOSING (CG) 46.7 mL/min; MAGNESIUM 1.3 mg/dL (1.8-2.4); PROTEIN TOTAL,TP 7.5 g/dL (6.4-8.2)
[2024-01-31 20:07] LABS: POTASSIUM,K 4.9 mmol/L (3.5-5.1)
[2024-01-31] MEDS ORDERED: Magnesium Sulfate (4.06 MEQ/ML) 5 GM/10 ML SDV IV ONE (20:11)
[2024-01-31 20:38] LABS: CORONAVIRUS COVID-19 NAA NEGATIVE (NEGATIVE); INFLUENZA A NAA NEGATIVE (NEGATIVE); INFLUENZA B NAA NEGATIVE (NEGATIVE); RESPIRATORY SYNCYTIAL VIR NAA NEGATIVE (NEGATIVE)
[2024-01-31] MEDS: Furosemide 40 MG/4 ML VIAL IVPUSH ONE (20:42)
[2024-01-31] MEDS: Magnesium Sulfate/Water 2 GM in Premix Bag 1 BAG IV ONE (20:43)
[2024-02-01] MEDS ORDERED: Acetaminophen 325 MG Tab PO PRN (00:03)
[2024-02-01] MEDS: LORazepam 0.5 MG Tab PO ONE (00:13)
[2024-02-01] MEDS ORDERED: Ondansetron 4 MG/2 ML SDV IVPUSH PRN (01:34)
[2024-02-01 06:13] LABS: BASOPHILS ABSOLUTE AUTO 0.03 K/uL (0.00-0.20); BASOPHILS PERCENT AUTO 0.4 % (0.0-1.0); EOSINOPHILS ABSOLUTE AUTO 0.22 K/uL (0.00-0.45); HEMATOCRIT 28.4 % (42.0-52.0); HEMOGLOBIN 9.4 g/dL (14.0-18.0); IMMATURE GRAN ABSOLUTE AUTO 0.11 K/uL (0.00-0.05); IMMATURE GRAN PERCENT AUTO 1.5 % (0.0-0.4); LYMPHOCYTES PERCENT AUTO 13.5 % (24.0-44.0); MEAN CORPUSCULAR HGB CONC 33.1 g/dL (32.0-36.0); MEAN CORPUSCULAR VOLUME 96.6 fL (83.0-99.0); MEAN PLATELET VOLUME 9.6 fL (9.4-12.4); MONOCYTES ABSOLUTE AUTO 0.78 K/uL (0.00-0.80); MONOCYTES PERCENT AUTO 10.5 % (0.0-8.0); NEUTROPHILS ABSOLUTE AUTO 5.29 K/uL (1.80-7.70); NEUTROPHILS PERCENT AUTO 71.1 % (41.0-71.0); PLATELET COUNT,PLT 256 K/uL (150-400); RED BLOOD CELL COUNT 2.94 M/uL (4.52-5.90); WHITE BLOOD CELL COUNT,WBC 7.43 K/uL (3.9-11.3)
[2024-02-01 06:36] LABS: A/G RATIO 0.7 (0.9-1.6); ALBUMIN 3.1 g/dL (3.4-5.0); BILIRUBIN TOTAL 1.4 mg/dL (0.2-1.0); CALCIUM 9.9 mg/dL (8.5-10.1); CARBON DIOXIDE,CO2 22.5 mmol/L (21.0-32.0); CREATININE 1.3 mg/dL (0.8-1.3); EST CRCL DRUG DOSING (CG) 41.94 mL/min; MAGNESIUM 1.6 mg/dL (1.8-2.4); POTASSIUM,K 4.2 mmol/L (3.5-5.1); PROTEIN TOTAL,TP 7.5 g/dL (6.4-8.2)
[2024-02-01] MEDS ORDERED: Docusate Sodium 100 MG Cap PO PRN (11:22)
[2024-02-01] MEDS ORDERED: Sodium Chloride 0.9% 10 ML Syringe FLUSH PRN (11:22)
[2024-02-01] MEDS ORDERED: Sodium Chloride 0.9% 2.5 ML Syringe FLUSH PRN (11:22)
[2024-02-01] MEDS: Megestrol Susp 40 MG/ML 10 ML UD Cup PO SCH (12:18)
[2024-02-01] MEDS: Magnesium Oxide 400 MG Tab PO ONE (12:29)
[2024-02-01] MEDS: Digoxin 125 MCG Tab PO SCH (12:29)
[2024-02-01] MEDS: MEGESTROL 40 MG/ML PO SCH (12:29)
[2024-02-01] MEDS: Metoprolol Succinate 25 MG Tab.ER PO SCH (12:43)
[2024-02-01] MEDS ORDERED: LORazepam ORAL Concentrate 1MG/0.5ML U/D PO PRN (12:59)
[2024-02-01] MEDS: Morphine 10 MG/0.5 ML Oral Syringe SL PRN (17:34)
[2024-02-02 06:13] LABS: BASOPHILS ABSOLUTE AUTO 0.04 K/uL (0.00-0.20); BASOPHILS PERCENT AUTO 0.6 % (0.0-1.0); EOSINOPHILS ABSOLUTE AUTO 0.23 K/uL (0.00-0.45); EOSINOPHILS PERCENT AUTO 3.2 % (0.0-6.0); HEMATOCRIT 28.1 % (42.0-52.0); HEMOGLOBIN 9.2 g/dL (14.0-18.0); IMMATURE GRAN ABSOLUTE AUTO 0.09 K/uL (0.00-0.05); IMMATURE GRAN PERCENT AUTO 1.2 % (0.0-0.4); LYMPHOCYTES ABSOLUTE AUTO 0.88 K/uL (1.00-4.80); LYMPHOCYTES PERCENT AUTO 12.1 % (24.0-44.0); MEAN CORPUSCULAR HEMOGLOBIN 32.1 pg (28.0-32.0); MEAN CORPUSCULAR HGB CONC 32.7 g/dL (32.0-36.0); MEAN CORPUSCULAR VOLUME 97.9 fL (83.0-99.0); MEAN PLATELET VOLUME 9.7 fL (9.4-12.4); MONOCYTES ABSOLUTE AUTO 0.81 K/uL (0.00-0.80); MONOCYTES PERCENT AUTO 11.2 % (0.0-8.0); NEUTROPHILS ABSOLUTE AUTO 5.21 K/uL (1.80-7.70); NEUTROPHILS PERCENT AUTO 71.7 % (41.0-71.0); PLATELET COUNT,PLT 232 K/uL (150-400); RED BLOOD CELL COUNT 2.87 M/uL (4.52-5.90); WHITE BLOOD CELL COUNT,WBC 7.26 K/uL (3.9-11.3)
[2024-02-02 06:30] LABS: CALCIUM 9.5 mg/dL (8.5-10.1); CARBON DIOXIDE,CO2 22.5 mmol/L (21.0-32.0); CREATININE 1.3 mg/dL (0.8-1.3); EST CRCL DRUG DOSING (CG) 43.11 mL/min; MAGNESIUM 1.6 mg/dL (1.8-2.4); POTASSIUM,K 4.4 mmol/L (3.5-5.1)
[2024-02-02] MEDS: Pantoprazole 40 MG Tab.CR PO SCH (06:31)
[2024-02-02] MEDS: Levothyroxine 50 MCG Tab PO SCH (06:31)
[2024-02-02 07:26] VITALS: BP 96/57; PULSE 98
[2024-02-02] MEDS: Aspirin 81 MG Tab.EC PO SCH (08:02)
== END 2024-02-02 12:16 | disposition home or self-care (01) ==
LOC: MW.ED 19:02 → MW.MS 22:31
PROVIDERS: ADMIT Internal Medicine; ATTEND Internal Medicine
DX: I11.0 Hypertensive heart disease with heart failure (principal); I50.23 Acute on chronic systolic (congestive) heart failure; E83.42 Hypomagnesemia; K21.9 Gastro-esophageal reflux disease without esophagitis; I25.10 Atherosclerotic heart disease of native coronary artery without angina pectoris; E03.9 Hypothyroidism, unspecified; I48.91 Unspecified atrial fibrillation; C61 Malignant neoplasm of prostate; C79.51 Secondary malignant neoplasm of bone; Z95.0 Presence of cardiac pacemaker; Z97.8 Presence of other specified devices; Z20.822 Contact with and (suspected) exposure to COVID-19; Z87.891 Personal history of nicotine dependence; Z88.8 Allergy status to other drugs, medicaments and biological substances; Z79.82 Long term (current) use of aspirin; Z79.899 Other long term (current) drug therapy; Z79.890 Hormone replacement therapy
CPT/HCPCS: 0241U; 36415; 71045; 80048; 80053; 83690; 83735; 83880; 84484; 85025; 93005; 96365; 96375; 99285; A9270; G0378; J1940; J3475; J3490; 93010; 99222; 99238